=== PATIENT | male | born 1950 | race Caucasian/White ===

== ENCOUNTER → 2017-04-09 | Day surgery (SDC) | payer OTHER, BC ==
[2017-04-02 08:31] VITALS: Ht 180.3 cm; Wt 143.8 kg
--- NOTE | 2017-04-02 08:52 | PAT Medication Instructions ---
Service Date Apr 02, 2017. Current Home Medication List Allopurinol (Zyloprim), 100 MG PO UD PRN for GOUT Amlodipine (Norvasc), 5 MG PO QAM Losartan Potassium (Cozaar), 100 MG PO QAM Sildenafil Citrate (Viagra), 50 MG PO PRN Simvastatin (Zocor), 20 MG PO QPM Tamsulosin Hcl (Flomax), 0.4 MG PO HS Medication Instructions For Your Scheduled Surgery - Hold the following medications the morning of surgery: Losartan Potassium (Cozaar), 100 MG PO QAM Allopurinol (Zyloprim), 100 MG PO UD PRN for GOUT Sildenafil Citrate (Viagra), 50 MG PO PRN - Take the following medications the morning of surgery with a sip of water OTHERWISE NOTHING TO EAT OR DRINK AFTER MIDNIGHT: Amlodipine (Norvasc), 5 MG PO QAM - Take the following medications as scheduled the night before surgery: Simvastatin (Zocor), 20 MG PO QPM Tamsulosin Hcl (Flomax), 0.4 MG PO HS If you have any questions please call us at [phone] or [phone] or [phone]
--- NOTE | 2017-04-02 09:39 | DIAGNOSTIC IMAGING REPORT ---
CHEST PREADMISSION(PA/LAT) CLINICAL HISTORY: Preoperative chest COMPARISON STUDY: No previous studies for comparison. FINDINGS: The heart is enlarged. There is mild aortic tortuosity/ectasia. There is no focal pulmonary consolidation. There is no failure. There are no pleural effusions. There is minor linear left basilar atelectasis/scarring.[ IMPRESSION: Minor left basilar atelectasis/scarring. No active disease in the chest. Electronically signed by: Jamshid Lea M.D. 04/02/2017 9:38 AM Dictated Date/Time: 04/02/2017 9:37 AM
[2017-04-02 09:54] LABS: BASO % 0.8 %; BASO ABS # 0.05 K/uL (0-0.2); COMPLETE YES; EOS % 3.8 %; HEMATOCRIT 44.9 % (42-52); IG% 0.7 %; LYMPH % 28.6 %; LYMPH ABS # 1.72 K/uL (1.2-3.4); MEAN CORPUSCULAR HEMOGLOBIN 31.4 pg (25-34); MEAN CORPUSCULAR HGB CONC 34.1 g/dl (32-36); MEAN PLATELET VOLUME 9.2 fL (7.4-10.4); MONO % 12.3 %; NEUT % 53.8 %; PLATELET COUNT 199 K/uL (130-400); RED BLOOD COUNT 4.88 M/uL (4.7-6.1); WHITE BLOOD COUNT 6.01 K/uL (4.8-10.8)
[2017-04-02 10:56] LABS: BUN/CREATININE RATIO 20.8 (10-20); CREATININE 0.99 mg/dl (0.60-1.40); POTASSIUM 4.4 mmol/L (3.5-5.1)
[~2017-04-09] VITALS: Ht 180.3 cm; Wt 143.8 kg
[~2017-04-09] MED LIST: ALLO100T PO; AMLO-110 PO; ATROPINE SULFATE 0.1 MG/ML 5ML SYR IV PRN; BUPIVACAINE/EPINEPHRINE 0.25% 1:200,000 30 ML VIAL ONE; CEFAZOLIN 3000 MG/65 ML D5W IV SCH; DEXAMETHASONE SOD INJ 4 MG/ML VIAL ONE; EpHEDrine SULFATE INJ 50 MG/ML AMP IV PRN; EpINEphrine INJ 1MG/ML AMP 1 MG/ML AMP ONE; FENTANYL CITRATE INJ 50 MCG/1 ML 2 ML VIAL IV PRN; FENTANYL CITRATE INJ 50 MCG/1 ML 2 ML VIAL ONE; HYDR-5688 PO; KETO10TA PO; LACTATED RINGER'S 1000ML 1,000 ML IV SCH; LOSA1TAB38 PO; MIDAZOLAM HCL 1 MG/ML 2ML VIAL ONE; ONDANSETRON INJ 2 MG/ML 2 ML VIAL IV PRN; ONDANSETRON INJ 2 MG/ML 2 ML VIAL ONE; OXYC-57 PO; OXYCODONE/ACETAMINOPHEN 5-325 TAB PO PRN; PROPOFOL IV EMULSION 10 MG/ML 20 ML VIAL IV ONE; ROCURONIUM BROMIDE 10 MG/ML 5 ML VIAL ONE; ROPIVACAINE 0.5% 5 MG/ML 30 ML VIAL ONE; SILD50TA PO; SIMV20TA2 PO; SODIUM CHLORIDE 0.9% 1000ML 1,000 ML IV SCH; SUCCINYLCHOLINE CHLORIDE 20 MG/ML 10 ML VIAL IV ONE; TAMS0.4C38 PO
--- NOTE | 2017-04-09 06:44 | History & Physical Bridge - SC ---
H&P Re-Evaluation Bridge Note: I have examined the patient, reviewed the History & Physical and in the interval since the performance of the History & Physical I have noted the following changes of clinical significance: No changes noted
--- NOTE | 2017-04-09 09:55 | [facility] Post Operative Brief Note ---
Immediate Operative Summary Operative Date Apr 09, 2017. Pre-Operative Diagnosis Left shoulder medium rotator cuff tear Post-Operative Diagnosis Same as preop Procedure(s) Performed Left Shoulder Arthroscopy, Medium Rotator Cuff Repair Surgeon Dr. Sorensen Hash Slinger Surgeon(s) Brad Wallace PA-C Estimated Blood Loss 5 mL Findings as above Specimens None Complication(s) None Disposition Recovery Room / PACU
--- NOTE | 2017-04-09 10:18 | Discharge Instructions-SurgCtr ---
Discharge Instructions Date of Service Apr 09, 2017. Visit Reason for Visit: Left Shoulder Full Thickness Rotator Cuff Tear Discharge Discharge Diagnosis / Problem: SAME ABOVE Discharge Goals Goal(s): Decrease discomfort, Improve function Activity Recommendations Activity Limitations: as noted below Lifting Limitations: until after follow-up appointment Exercise/Sports Limitations: until after follow-up appointment Shower/Bathe: tomorrow Anesthesia . Post Anesthesia Instructions: If you have had General Anesthesia or IV Sedation: * Do not drive today. * Resume driving when surgeon permits. * Do not make important decisions or sign legal documents today. * Call surgeon for: 1. Temperature elevations greater than 101 degrees F. 2. Uncontrollable pain. 3. Excessive bleeding. 4. Persistent nausea and vomiting. 5. Medication intolerance (nausea, vomiting or rash). * For nausea and vomiting use only clear liquids such as: tea, soda, bouillon until nausea subsides, then gradually increase diet as tolerated. * If you have any concerns or questions, call your surgeon's office. If physician is unavailable and it is an emergency, call 911 or go to the nearest emergency room. . Instructions / Follow-Up Instructions / Follow-Up MEDICATIONS: * Resume previous medications unless instructed otherwise by your surgeon. * Always take pain medication on a full stomach or with food to avoid upset stomach. * Do not drink alcohol or drive while taking narcotics. * Ibuprofen or Tylenol may be taken if narcotic not needed. SPECIAL CARE INSTRUCTIONS: __ None _X_ Keep extremity elevated and iced x 48 hours; apply ice 20-30 minutes 8-10 times/day. May remove at night. __ Sling __24 hrs/day __ Remove at night _X_ Shoulder Immobilizer _X_ 24 hrs/day __ Remove at night __X Dressing __ Maintain until seen in office, may shower with plastic over site _X_ Remove dressings in 24-48 hours and then may shower _X_ Cover incisions with band-aids after showering __ Do not remove steri-strips CONTINUE TO USE SHOULDER IMMOBILIZER FOR THE NEXT 6 WEEKS WE WILL SEE YOU IN OFFICE 10-14 DAYS POST OP FOR EVALUATION Call physician if chills or temperature rises above 102 degrees or pain unrelieved by prescribed pain medications at . . Diet Recommendations Home Diet: resume previous diet Procedures Procedures Performed: Left Shoulder Arthroscopy, Medium Rotator Cuff Repair Pending Studies Studies pending at discharge: no Medical Emergencies . Who to Call and When: Medical Emergencies: If at any time you feel your situation is an emergency, please call 911 immediately. . Non-Emergent Contact Non-Emergency issues call your: Primary Care Provider . . "Provider Documentation" section prepared by Brad Wallace. .
--- NOTE | 2017-04-09 11:28 | Anesthesia Progress Nt - [facility] ---
Anesthesia Post Op Note Date & Time Apr 09, 2017 at 11:28 Vital Signs Pain Intensity: 0 Vital Signs Past 12 Hours Date Time Temp Pulse Resp B/P (MAP) Pulse Ox O2 Delivery O2 Flow Rate FiO2 04/09/17 10:58 37.1 66 14 127/79 (95) 93 Room Air 04/09/17 10:48 69 21 89 04/09/17 10:48 68 21 04/09/17 10:46 118/69 04/09/17 10:43 71 17 95 04/09/17 10:43 71 17 04/09/17 10:43 36.4 67 16 121/73 94 Room Air 04/09/17 10:42 69 16 97 04/09/17 10:42 68 16 04/09/17 10:41 121/73 04/09/17 10:37 66 8 04/09/17 10:37 66 8 99 04/09/17 10:36 134/75 04/09/17 10:33 70 14 92 04/09/17 10:33 70 14 04/09/17 10:31 129/74 04/09/17 10:28 67 13 97 04/09/17 10:28 67 13 04/09/17 10:26 127/83 04/09/17 10:23 73 23 04/09/17 10:23 73 23 96 04/09/17 10:21 127/74 04/09/17 10:18 74 25 04/09/17 10:18 75 25 97 04/09/17 10:17 118/74 04/09/17 10:14 144/76 04/09/17 10:13 36.4 75 16 144/76 96 Diffusion Mask 04/09/17 10:13 78 04/09/17 10:13 78 89 04/09/17 07:54 65 04/09/17 07:54 70 23 98 04/09/17 07:51 136/79 04/09/17 07:49 69 04/09/17 07:49 68 19 99 04/09/17 07:46 139/83 04/09/17 07:44 68 29 99 04/09/17 07:44 69 04/09/17 07:43 66 04/09/17 07:43 65 19 98 04/09/17 07:41 148/81 04/09/17 07:38 68 20 100 04/09/17 07:38 70 04/09/17 07:36 149/83 04/09/17 07:33 73 04/09/17 07:33 73 20 100 04/09/17 07:31 154/83 04/09/17 06:35 36.8 69 18 159/94 (115) 96 Room Air Notes Mental Status: alert / awake / arousable, participated in evaluation Pt Amnestic to Procedure: Yes Nausea / Vomiting: adequately controlled Pain: adequately controlled Airway Patency, RR, SpO2: stable & adequate BP & HR: stable & adequate Hydration State: stable & adequate Anesthetic Complications: no major complications apparent c/o mild sorethroat but otherwise doing well. pain very well controlled with the block.
[2017-04-09 11:56] VITALS: BP 124/78; PULSE 68; TEMP 37; O2SAT 94
--- NOTE | 2017-04-09 14:58 | OPERATIVE REPORT ---
DATE OF OPERATION: 04/09/2017 PREOPERATIVE DIAGNOSES: Medium sized left rotator cuff tear and external impingement. POSTOPERATIVE DIAGNOSES: Same. PROCEDURES: Left shoulder diagnostic arthroscopy with extensive debridement, distal clavicle excision to include coplanning in the undersurface of the clavicle, acromioplasty, rotator cuff repair of the supraspinatus and upper border of the subscapularis. SURGEON: Dr. Brad Sorensen. INTERNET MARKETING ASSISTANT: Brad Wallace PA-C, whose assistance was necessary for positioning of the arm and helping with instrumentation. ANESTHESIA: General with a left interscalene nerve block. COMPLICATIONS: None. CONDITION: Stable to PACU. 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 MRI and clinical examination were diagnostic for severe external impingement with medium size cuff tear. After failing conservative treatment, he elected to undergo arthroscopy. DESCRIPTION OF PROCEDURE: On 04/09/2017, he arrived at [facility] for the above procedure. He was seen in the preoperative holding area and the operative extremity was identified and signed. He was given a preoperative antibiotic and a left interscalene nerve block. He was taken back to the operating room, laid on the table in supine position and put under general anesthesia. He was then put into the beachchair position. Left shoulder was prepped and draped in sterile fashion. Time-out was done and the patient and operative extremity was properly identified. A scope was introduced into the posterior portal. Diagnostic arthroscopy showed no cartilage damage to the humeral head or the glenoid. The biceps tendon had been traumatically tenotomized and was absent. There was a tear of the upper border of the subscapularis. There was a tear of the entire supraspinatus. The infraspinatus and teres minor were intact. An anterior portal was made. A shaver was used to do a debridement of some of the intraarticular structures and the biceps stump was debrided back to stable margins. The scope was then put into the subacromial space. A lateral portal was made. A shaver was used to do a complete subacromial and subdeltoid bursectomy. Time was spent doing extensive debridement of the spaces to better identify the rotator cuff tears. An ablator was then used to tease the coracoacromial ligament off the undersurface of the acromion and a 5-0 tahir was used to complete an acromioplasty of a Bigliani type 3 acromion. A shaver was used to remove any excess debris and attention was turned to the distal clavicle. There were large inferior osteophytes off the distal clavicle. A 5-0 tahir was then used to resect the osteophytes off the undersurface of the clavicle to complete a distal clavicle resection. This opened up the supraspinatus outlet. Attention was then turned to the rotator cuff. The subscapularis was fixed first. Ruby cannulas were placed in the anterior portal and additional anterolateral portal was made. Ruby cannulas were placed in that portal as well. The scope was placed back into the joint. A single 4.75-mm BioComposite SwiveLock suture anchors placed at the lesser tuberosity articular footprint. The FiberTapes were passed through the tendon at the anticipator articular margin. The FiberTapes were then brought down to a single lateral row SwiveLock suture anchor. This gave a nice subscapularis repair. Attention was then turned to the supraspinatus. The greater tuberosity was prepared with a ring curette and a microfracture. The rotator cuff was then fixed with an Arthrex SpeedBridge configuration using 4.75-mm BioComposite SwiveLock suture anchors and FiberTape. This gave a nice fixation. Multiple pictures were taken. The scope was placed back into the glenohumeral joint and the articular margin of the rotator cuff had been restored. Arthroscopic instruments were removed from the shoulder. Portal sites were closed with 3-0 nylon. He was then placed in a soft dressing and regular arm sling. He was then extubated, transferred to a [facility] and taken to the postanesthesia care unit in stable condition. He tolerated the procedure well. I attest to the content of the Intraoperative Record and any orders documented therein. Any exceptions are noted below. ARELY
== END | disposition home or self-care (01) ==
LOC: X.SURG 06:10
PROVIDERS: ATTEND Orthopaedic Surgery
DX: S46.012A Strain of muscle(s) and tendon(s) of the rotator cuff of left shoulder, initial encounter (principal); M75.42 Impingement syndrome of left shoulder; X50.0XXA Overexertion from strenuous movement or load, initial encounter; Y99.0 Civilian activity done for income or pay; I10 Essential (primary) hypertension; E78.00 Pure hypercholesterolemia, unspecified; Z79.899 Other long term (current) drug therapy

== ENCOUNTER → 2017-07-07 | Outpatient (CLI) | payer OTHER ==
[~2017-07-07] MED LIST changes: -ATROPINE SULFATE 0.1 MG/ML 5ML SYR IV PRN; -BUPIVACAINE/EPINEPHRINE 0.25% 1:200,000 30 ML VIAL ONE; -CEFAZOLIN 3000 MG/65 ML D5W IV SCH; -DEXAMETHASONE SOD INJ 4 MG/ML VIAL ONE; +DICLOFENAC PO; -EpHEDrine SULFATE INJ 50 MG/ML AMP IV PRN; -EpINEphrine INJ 1MG/ML AMP 1 MG/ML AMP ONE; -FENTANYL CITRATE INJ 50 MCG/1 ML 2 ML VIAL IV PRN; -FENTANYL CITRATE INJ 50 MCG/1 ML 2 ML VIAL ONE; -HYDR-5688 PO; -LACTATED RINGER'S 1000ML 1,000 ML IV SCH; -MIDAZOLAM HCL 1 MG/ML 2ML VIAL ONE; -ONDANSETRON INJ 2 MG/ML 2 ML VIAL IV PRN; -ONDANSETRON INJ 2 MG/ML 2 ML VIAL ONE; -OXYCODONE/ACETAMINOPHEN 5-325 TAB PO PRN; -PROPOFOL IV EMULSION 10 MG/ML 20 ML VIAL IV ONE; -ROCURONIUM BROMIDE 10 MG/ML 5 ML VIAL ONE; -ROPIVACAINE 0.5% 5 MG/ML 30 ML VIAL ONE; -SODIUM CHLORIDE 0.9% 1000ML 1,000 ML IV SCH; -SUCCINYLCHOLINE CHLORIDE 20 MG/ML 10 ML VIAL IV ONE
[2017-07-07 17:02] LABS: BASO % 0.9 %; BASO ABS # 0.06 K/uL (0-0.2); COMPLETE YES; EOS % 3.3 %; HEMATOCRIT 46.1 % (42-52); IG% 0.6 %; LYMPH ABS # 2.28 K/uL (1.2-3.4); MEAN CELL VOLUME 90.6 fL (80-100); MEAN CORPUSCULAR HEMOGLOBIN 30.5 pg (25-34); MEAN CORPUSCULAR HGB CONC 33.6 g/dl (32-36); MEAN PLATELET VOLUME 9.5 fL (7.4-10.4); MONO % 9.3 %; NEUT % 51.9 %; PLATELET COUNT 225 K/uL (130-400); RED BLOOD COUNT 5.09 M/uL (4.7-6.1)
[2017-07-07 17:29] LABS: BLOOD UREA NITROGEN 17 mg/dl (7-18); BUN/CREATININE RATIO 18.5 (10-20); CALCIUM 9.4 mg/dl (8.5-10.1); CARBON DIOXIDE 27 mmol/L (21-32); CHLORIDE 107 mmol/L (98-107); CREATININE 0.93 mg/dl (0.60-1.40); GLUCOSE 86 mg/dl (70-99); SODIUM 141 mmol/L (136-145)
== END | disposition home or self-care (01) ==
LOC: C.LABBC 14:11
PROVIDERS: ATTEND Orthopaedic Surgery
DX: G56.03 Carpal tunnel syndrome, bilateral upper limbs (principal)

== ENCOUNTER → 2017-07-30 | Day surgery (SDC) | payer OTHER ==
[2017-07-10 13:08] VITALS: Ht 180.3 cm; Wt 144.1 kg
[~2017-07-30] VITALS: Ht 180.3 cm; Wt 144.1 kg
[~2017-07-30] MED LIST changes: +ATROPINE SULFATE 0.1 MG/ML 5ML SYR IV PRN; +CEFAZOLIN 3000MG IV PUSH 15 ML IV SCH; +EpHEDrine SULFATE INJ 50 MG/ML AMP IV PRN; +FENTANYL CITRATE INJ 50 MCG/1 ML 2 ML VIAL IV PRN; +FENTANYL CITRATE INJ 50 MCG/1 ML 2 ML VIAL ONE; +HYDR-5688 PO; +HYDROCODONE/ACETAMOPHEN 5/325MG TAB PO PRN; -KETO10TA PO; +LACTATED RINGER'S 1000ML 1,000 ML IV SCH; +LIDOCAINE HCL 2% 2 ML VIAL (20MG/ML) ONE; +LIDOCAINE HCL 2% LOCAL 20 ML VIAL ONE; +MIDAZOLAM HCL 1 MG/ML 2ML VIAL ONE; +ONDANSETRON INJ 2 MG/ML 2 ML VIAL IV PRN; -OXYC-57 PO; +PROPOFOL IV EMULSION 10 MG/ML 20 ML VIAL IV ONE; +SODIUM CHLORIDE 0.9% 1000ML 1,000 ML IV SCH
[2017-07-30 07:30] VITALS: TEMP 36.8
--- NOTE | 2017-07-30 07:35 | OPERATIVE REPORT ---
DATE OF OPERATION: 07/30/2017 PREOPERATIVE DIAGNOSIS: Carpal tunnel syndrome of the right wrist. POSTOPERATIVE DIAGNOSIS: Same. PROCEDURE: Open carpal tunnel release. SURGEON: Dr. Brad Sorensen. FLEXOGRAPHIC PRESS PLATE SETTER: Francisco Herrera PA-C, whose assistance was necessary for retraction and closure. ANESTHESIA: Local with sedation. COMPLICATIONS: None. CONDITION: Stable to PACU. INDICATIONS: Chris is a pleasant 67-year-old male who presented to my office with complaints of numbness in his right hand. EMG and clinical examination were diagnostic for carpal tunnel syndrome of the right wrist. After failing conservative treatment, he elected to undergo an open carpal tunnel release. DESCRIPTION OF PROCEDURE: On 07/30/2017, he arrived at the [facility] for the above procedure. He was seen in the preoperative holding area and the operative extremity was identified and signed. He was given a preoperative antibiotic and taken back to the operating room, laid on the table in supine position and given basic sedation. The right hand was then prepped and draped in sterile fashion. Time-out was done and the patient's operative extremity was properly identified. The surgical site was anesthetized with 10 mL of lidocaine. A longitudinal incision was made directly over the transverse carpal ligament. Dissection was taken down through the palmar fascia with care not to disrupt the recurrent motor branch or the palmar branch of the nerve. The transverse carpal ligament was then released with a sharp knife and tenotomy scissors. Care was taken to ensure complete proximal and distal resection. The wound was then irrigated and closed with 4-0 nylon suture in a mattress fashion. He was then placed in a soft dressing and taken to the postanesthesia care unit in stable condition. He tolerated the procedure well. I attest to the content of the Intraoperative Record and any orders documented therein. Any exception s are noted below.
--- NOTE | 2017-07-30 07:47 | Discharge Instructions-SurgCtr ---
Discharge Instructions Date of Service Jul 30, 2017. Visit Reason for Visit: Right Carpal Tunnel Syndrome Discharge Discharge Diagnosis / Problem: SAME ABOVE Discharge Goals Goal(s): Decrease discomfort, Improve function Activity Recommendations Activity Limitations: as noted below Lifting Limitations: until after follow-up appointment Exercise/Sports Limitations: until after follow-up appointment Driving or Machine Use: resume 1 day after discharge Anesthesia . Post Anesthesia Instructions: If you have had General Anesthesia or IV Sedation: * Do not drive today. * Resume driving when surgeon permits. * Do not make important decisions or sign legal documents today. * Call surgeon for: 1. Temperature elevations greater than 101 degrees F. 2. Uncontrollable pain. 3. Excessive bleeding. 4. Persistent nausea and vomiting. 5. Medication intolerance (nausea, vomiting or rash). * For nausea and vomiting use only clear liquids such as: tea, soda, bouillon until nausea subsides, then gradually increase diet as tolerated. * If you have any concerns or questions, call your surgeon's office. If physician is unavailable and it is an emergency, call 911 or go to the nearest emergency room. . Instructions / Follow-Up Instructions / Follow-Up MEDICATIONS: * Resume previous medications unless instructed otherwise by your surgeon. * Always take pain medication on a full stomach or with food to avoid upset stomach. * Do not drink alcohol or drive while taking narcotics. * Ibuprofen or Tylenol may be taken if narcotic not needed. SPECIAL CARE INSTRUCTIONS: __ None _X_ Keep extremity elevated and iced x 48 hours; apply ice 20-30 minutes 8-10 times/day. May remove at night. __ Sling __24 hrs/day __ Remove at night __ Shoulder Immobilizer __ 24 hrs/day __ Remove at night _X_ Dressing __ Maintain until seen in office, may shower with plastic over site _X_ Remove dressings in 5 DAYS and MAY SHOWER SOONER IF COVERED WITH PLASTIC BAG _X_ Cover incisions with band-aids after showering __ Do not remove steri-strips Call physician if chills or temperature rises above 102 degrees or pain unrelieved by prescribed pain medications at . . Diet Recommendations Home Diet: no limitations Fluid Restriction: None Procedures Procedures Performed: Right Carpal Tunnel Release Pending Studies Studies pending at discharge: no Work Instructions Lifting Limitations: no more than 10 pounds Medical Emergencies . Who to Call and When: Medical Emergencies: If at any time you feel your situation is an emergency, please call 911 immediately. . Non-Emergent Contact Non-Emergency issues call your: Primary Care Provider Call Non-Emergent contact if: you have a fever, temperature is above 101.5 . . "Provider Documentation" section prepared by Kumar Herrera. .
--- NOTE | 2017-07-30 07:59 | Anesthesia Progress Nt - [facility] ---
Anesthesia Post Op Note Date & Time Jul 30, 2017 at 07:59 Vital Signs Pain Intensity: 6 Vital Signs Past 12 Hours Date Time Temp Pulse Resp B/P (MAP) Pulse Ox O2 Delivery O2 Flow Rate FiO2 07/30/17 07:30 36.8 72 16 146/67 (93) 95 Room Air 07/30/17 06:45 133/80 (97) 07/30/17 06:23 36.7 77 18 153/98 (116) 96 Room Air Notes Mental Status: alert / awake / arousable, participated in evaluation Pt Amnestic to Procedure: Yes Nausea / Vomiting: adequately controlled Pain: adequately controlled Airway Patency, RR, SpO2: stable & adequate BP & HR: stable & adequate Hydration State: stable & adequate Anesthetic Complications: no major complications apparent
[2017-07-30 08:06] VITALS: BP 133/77; PULSE 71; O2SAT 98
--- NOTE | 2017-07-30 15:37 | [facility] Post Operative Brief Note ---
Immediate Operative Summary Operative Date Jul 30, 2017. Pre-Operative Diagnosis Right Carpal Tunnel Syndrome Post-Operative Diagnosis same as preop Procedure(s) Performed Right Carpal Tunnel Release Surgeon Dr. Sorensen Subscription Agent Surgeon(s) LANCE Quigley Estimated Blood Loss 5ML Findings as above Specimens none per surgeon Complication(s) None Disposition Recovery Room / PACU
== END | disposition home or self-care (01) ==
LOC: X.SURG 06:10
PROVIDERS: ATTEND Orthopaedic Surgery
DX: G56.01 Carpal tunnel syndrome, right upper limb (principal); I10 Essential (primary) hypertension; M10.9 Gout, unspecified; N40.0 Benign prostatic hyperplasia without lower urinary tract symptoms; E66.9 Obesity, unspecified; Z68.41 Body mass index [BMI] 40.0-44.9, adult; Z79.899 Other long term (current) drug therapy; G47.33 Obstructive sleep apnea (adult) (pediatric)

== ENCOUNTER → 2017-10-06 | Outpatient (CLI) | payer OTHER ==
[~2017-10-06] MED LIST changes: -ATROPINE SULFATE 0.1 MG/ML 5ML SYR IV PRN; -CEFAZOLIN 3000MG IV PUSH 15 ML IV SCH; -EpHEDrine SULFATE INJ 50 MG/ML AMP IV PRN; -FENTANYL CITRATE INJ 50 MCG/1 ML 2 ML VIAL IV PRN; -FENTANYL CITRATE INJ 50 MCG/1 ML 2 ML VIAL ONE; -HYDROCODONE/ACETAMOPHEN 5/325MG TAB PO PRN; -LACTATED RINGER'S 1000ML 1,000 ML IV SCH; -LIDOCAINE HCL 2% 2 ML VIAL (20MG/ML) ONE; -LIDOCAINE HCL 2% LOCAL 20 ML VIAL ONE; -MIDAZOLAM HCL 1 MG/ML 2ML VIAL ONE; -ONDANSETRON INJ 2 MG/ML 2 ML VIAL IV PRN; -PROPOFOL IV EMULSION 10 MG/ML 20 ML VIAL IV ONE; -SODIUM CHLORIDE 0.9% 1000ML 1,000 ML IV SCH
--- NOTE | 2017-10-06 11:22 | DIAGNOSTIC IMAGING REPORT ---
RIGHT ANKLE MRI HISTORY: RIGHT ANKLE PAIN TECHNIQUE: Multiplanar multisequence MRI of the right ankle was performed without the use of intravenous contrast. COMPARISON STUDY: None. FINDINGS: No acute fracture or dislocation within the right ankle. Focal defect within the medial talar dome measuring 13 x 6 mm. This is consistent with an osteochondral lesion. This likely results in the intra-articular loose bodies most pronounced within the posterior joint space. Dominant intra-articular loose body measures 12 mm. 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 Small tibiotalar joint effusion. There is fluid surrounding the tibialis posterior tendon and flexor digitorum tendon. This could represent tenosynovitis. Flattening and increased signal within the peroneus brevis tendon consistent with a mild tendinopathy. There is also small amount of fluid surrounding the peroneus longus tendon consistent with tenosynovitis. Thickening and increased signal within the proximal plantar fascia consistent with a plantar fasciitis. Thickening and increased signal within the medial and lateral stabilizing ligaments consistent with chronic injury. Mild medial subcutaneous edema. Mild to moderate cartilage thinning at the tibiotalar joint. IMPRESSION: 1. No acute fracture or dislocation within the right ankle. 2. A 13 x 6 mm and osteochondral lesion at the medial talar dome. This likely accounts for the intra-articular loose bodies. 3. 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 4. Mild peroneus brevis tendinopathy. 5. Fluid surrounding the flexor and peroneal tendons as described above consistent with tenosynovitis. 6. Plantar fasciitis. Electronically signed by: Miguelangel Ovalles M.D. 10/06/2017 11:20 AM Dictated Date/Time: 10/06/2017 11:08 AM
== END | disposition home or self-care (01) ==
LOC: C.MRIBC 09:50
PROVIDERS: ATTEND Orthopaedic Surgery
DX: M19.90 Unspecified osteoarthritis, unspecified site (principal); M72.2 Plantar fascial fibromatosis

== ENCOUNTER 2022-05-15 07:37 | Inpatient (IN) ==
[2022-05-15] MEDS ORDERED: SODIUM CHLORIDE 0.9% 1000ML 500 ML IV ONE (08:10)
[2022-05-15 08:28] LABS: Basophils # (auto) 0.06 K/uL (0-0.2); Basophils % (auto) 0.8 %; Eosinophils # (auto) 0.13 K/uL (0-0.50); Eosinophils % (auto) 1.8 %; Hematocrit (blood only) 45.6 % (40.1-51.0); Hemoglobin 15.2 g/dl (14.0-18.0); Immature Granulocytes # (auto) 0.04 K/uL (0.00-0.02); Immature Granulocytes % (auto) 0.5 %; Lymphocytes # (auto) 1.78 K/uL (1.2-3.4); Lymphocytes % (auto) 24.2 %; Mean Corpuscular Hemoglobin 30.2 pg (25.0-34.0); Mean Corpuscular Hgb Conc 33.3 g/dL (32.0-36.0); Mean Corpuscular Volume 90.5 fL (80.0-100.0); Monocytes # (auto) 0.84 K/uL (0.24-0.82); Monocytes % (auto) 11.4 %; Neutrophils # (auto) 4.51 K/uL (1.4-6.5); Neutrophils % (auto) 61.3 %; Platelet Count 203 K/uL (130-400); RDW Coefficient of Variation 12.7 % (11.5-14.5); RDW Standard Deviation 41.5 fL (36.4-46.3); Red Blood Count 5.04 M/uL (4.63-6.08); White Blood Count 7.36 K/ul (4.8-10.8)
[2022-05-15 08:52] LABS: Alanine Aminotransferase 8 U/L (7-52); Albumin Level 4.1 gm/dl (3.4-5.0); Alkaline Phosphatase 72 U/L (34-104); Anion Gap 7 (3-11); Aspartate Aminotransferase 17 U/L (13-39); Bilirubin,Total 0.9 mg/dl (0.2-1.0); Blood Urea Nitrogen 19 mg/dl (6-23); Calcium 9.6 mg/dl (8.5-10.1); Carbon Dioxide 27 mmol/L (21-32); Chloride 104 mmol/L (98-107); Creatinine Clr Calc Pharmacy 103.6 ml/min; Est GFR (African American) 93.6 ml/min; Est GFR (Non-African American) 80.8 ml/min; Glucose 115 mg/dl (70-99(Fasting)); Lipase 11 U/L (11-82); Potassium 4.3 mmol/L (3.5-5.1); Sodium 138 mmol/L (136-145); Total Protein 7.2 gm/dl (6.0-8.3)
--- NOTE | 2022-05-15 09:03 | Communication Note ---
Date of Service: May 15, 2022 Patient seen and examined with Dr. Griffin. Resident Activity Tracking Resident Involvement: Resident Care Provided Care Provided: Adult ED
--- NOTE | 2022-05-15 09:06 | Emergency Department Note ---
Impression & Plan Superior mesenteric vein thrombosis, Diffuse abdominal pain ED Provider Note Name: NADEEM NICHOLE Age: 72 Sex: M Arrives Via: Walk-In Informant: Patient, ED Provider: Donavan Griffin MD Chief Complaint: Abdominal Pain Impression: As per impressions above Medical Decision Making: Pleasant 72-year-old gentleman with history of hypertension, dyslipidemia and obesity arrives for evaluation of diffuse lower abdominal pain. Cramping in nature over the last 2 to 3 weeks gradually worsening. On examination does have tenderness palpation of the lower abdomen though without peritonitis. Given symptoms felt CT imaging indicated. Fortunate labs are unremarkable. 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 I discussed the case with hematology who feel that given the extensive nature would be reasonable start heparin and hospitalization. I do think this is reasonable. Patient was reevaluated multiple times and he is stable in no distress. He declines any pain medications at this time. He denies any recent head injuries, accidents, bleeding/bruising, black or bloody stools or any epigastric abdominal pain. I discussed the risks of starting heparin with him and he is on board with this plan. He understands the risks of bleeding etc. Discussed with hospitalist who will evaluate him further for further management. I did have hypercoagulable labs sent prior to starting the heparin. Prior Medical Record and Triage/Nursing Notes reviewed by Me Additional history obtained from chart/ Differentials:Appendicitis, testicular torsion, infections, diverticulitis, UTI, obstruction, mesenteric ischemia, aortic pathology, inflammatory bowel disease, renal colic, PUD, pancreatitis, biliary pathology, hernia, volvulus, constipation, as well as other pathologies. Vital Signs: reviewed and remarkable for no significant abnormalities Interventions: heparin bolus/gtt Labs:Reviewed and remarkable for no significant abnormalities Imaging:CT abdomen pelvis as per radiology extensive near occlusive superior mesenteric vein occlusion with edema Consults:Dr Pandya Hematology, Dr José Miguel Laboy Hospitalist Plan: Disposition:Hospitalization. Condition: Good History of Present Illness:72-year-old gentleman arrives for evaluation of abdominal pain. Patient notes 2 to 3 weeks gradually worsening lower abdominal pain. Cramping in nature. Comes and goes. Worse this morning. No radiation of pain. Does take out both sides of his lower abdomen. Having normal bowel movements. Denies any urinary symptoms. Denies any rashes, fevers, nausea, vomiting, leg swelling, syncope, chest pain, shortness of breath or any other signs or symptoms. Taking no medications for this. No recent falls, trauma, injuries. Makes a bit worse and rest makes better. Recent colonoscopy within 5 years noted a polyp no other concerning findings. ROS: See above HPI for pertinent positives & negatives. A total of 10 systems reviewed and were otherwise negative. Past Medical History:Hypertension, dyslipidemia, gout, BPH Past Surgical History:Umbilical hernia repair Family History:Father with AAA stented Social History:Retired, lives with Home Medications:See Below Allergies:THUAN inhibitor's Vitals:Blood Pressure: 148/90, Pulse 92, RR 18, T 36.5C, O2 98% on RA Physical Exam: GENERAL: Patient is mildly uncomfortable appearing and in mild distress. EYES: No scleral icterus, unremarkable pupils. ENT: Mucous membranes moist, no nasal congestion. NECK: No masses appreciated, nomeningismus, trachea is midline. RESPIRATORY: No dyspnea. Clear to auscultation and equal bilaterally. No wheeze, no rhonchi. CARDIOVASCULAR: Regular rate and rhythm.No murmurs, rubs, gallops appreciated. GASTROINTESTINAL: Bilateral lower abdominal TTP, otherwise abdomen soft, non- tender, no peritonitis.Bowel sounds positive.No masses appreciated. BACK: No midline tenderness, no CVA tenderness EXTREMITIES: Normal motion all extremities, no cyanosis, no edema. NEUROLOGIC: Alert and oriented, no acute motor or sensory deficits, no focal weakness, cranial nerves grossly intact. SKIN: No rash, no jaundice, no diaphoresis. PSYCH: Appropriate GCS: 15 ED Course: Times/Reassessments: Patient stable he is uncomfortable but declines any pain medications. Agreeable to heparinization and admission. Donavan Griffin MD Past Med/Surg History Medical History Abdominal pain Acute occlusion of mesenteric vein HLD (hyperlipidemia) HTN (hypertension) Social History Smoking Status: Never smoker Feels Safe at Home: Yes Allergies Allergies Allergy/AdvReac Type Severity Reaction Status Date / Time THUAN Inhibitors AdvReac Unknown cough Verified 07/30/17 06:21 Home Meds Home Medications Medication Instructions Recorded Confirmed amlodipine 5 mg tablet 5 mg PO DAILY 08/15/19 05/15/22 losartan 100 mg tablet 100 mg PO DAILY 08/15/19 05/15/22 simvastatin 20 mg tablet 20 mg PO QPM 08/15/19 05/15/22 tamsulosin 0.4 mg capsule (Flomax) 0.4 mg PO HS 08/15/19 05/15/22 Previous Rx's Medication Instructions Recorded indomethacin 25 mg capsule 50 mg PO TID #90 caps 07/23/21 Results & Data (ED) Vital Signs Vital Signs - 24 hr 05/15/22 07:45 05/15/22 08:10 05/15/22 09:00 Temperature 36.5 C Temperature Source Temporal Artery Scan Pulse Rate 92 H Pulse Rate [Left] 79 Pulse Rhythm [Left] Regular Pulse Strength [Left] Normal Respiratory Rate 20 18 18 Respiratory Effort / Characteristics Non-Labored Non-Labored Non-Labored Respiratory Depth Normal Normal Normal Respiratory Pattern Regular Regular Blood Pressure 136/81 Blood Pressure [Left Arm] 148/90 H 145/79 H Blood Pressure Mean 99 Blood Pressure Mean [Left Arm] 109 101 Blood Pressure Position [Left Arm] Lying Lying Pulse Oximetry 96 98 98 Oxygen Delivery Method Room Air Room Air Room Air Sepsis Recent Fever Within 48 Hours No Sepsis New/Unexplained Change in Mental Status N/A Sepsis Action Taken by Nursing No Action Required 05/15/22 12:09 05/15/22 12:11 05/15/22 12:11 Temperature Temperature Source Pulse Rate 81 Pulse Rate [Left] Pulse Rhythm [Left] Pulse Strength [Left] Respiratory Rate 15 15 Respiratory Effort / Characteristics Respiratory Depth Respiratory Pattern Blood Pressure 106/65 Blood Pressure [Left Arm] Blood Pressure Mean 78 Blood Pressure Mean [Left Arm] Blood Pressure Position [Left Arm] Pulse Oximetry Oxygen Delivery Method Sepsis Recent Fever Within 48 Hours Sepsis New/Unexplained Change in Mental Status Sepsis Action Taken by Nursing Laboratory Data Result diagrams: 05/15/22 08:00 05/15/22 08:00 Lab Results 05/15/22 05/15/22 05/15/22 Range/Units 08:00 08:00 10:05 WBC 7.36 (4.8-10.8) K/ul RBC 5.04 (4.63-6.08) M/uL Hgb 15.2 (14.0-18.0) g/dl Hct 45.6 (40.1-51.0) % MCV 90.5 (80.0-100.0) fL MCH 30.2 (25.0-34.0) pg MCHC 33.3 (32.0-36.0) g/dL RDW Std Deviation 41.5 (36.4-46.3) fL RDW Coeff of Manoj 12.7 (11.5-14.5) % Plt Count 203 (130-400) K/uL MPV 9.0 L (9.4-12.4) fL Immature Gran % (Auto) 0.5 % Neut % (Auto) 61.3 % Lymph % (Auto) 24.2 % Lane % (Auto) 11.4 % Eos % (Auto) 1.8 % Baso % (Auto) 0.8 % Neut # (Auto) 4.51 (1.4-6.5) K/uL Lymph # (Auto) 1.78 (1.2-3.4) K/uL Lane # (Auto) 0.84 H (0.24-0.82) K/uL Eos # (Auto) 0.13 (0-0.50) K/uL Baso # (Auto) 0.06 (0-0.2) K/uL Immature Gran # (Auto) 0.04 H (0.00-0.02) K/uL PT (9.0-12.0) Seconds INR (0.9-1.1) APTT (21.0-31.0) Seconds PTT Ratio D-Dimer (0-500) ug/L FEU Sodium 138 (136-145) mmol/L Potassium 4.3 (3.5-5.1) mmol/L Chloride 104 (98-107) mmol/L Carbon Dioxide 27 (21-32) mmol/L Anion Gap 7 (3-11) BUN 19 (6-23) mg/dl Creatinine 0.95 (0.6-1.4) mg/dl Est Cr Clr Drug Dosing 103.6 ml/min Est GFR ( Amer) 93.6 ml/min Est GFR (Non-Af Amer) 80.8 ml/min BUN/Creatinine Ratio 20.0 (10-20) Glucose 115 H (70-99(Fasting)) mg/dl Calcium 9.6 (8.5-10.1) mg/dl Total Bilirubin 0.9 (0.2-1.0) mg/dl Direct Bilirubin TNP AST 17 (13-39) U/L ALT 8 (7-52) U/L Alkaline Phosphatase 72 (34-104) U/L Total Protein 7.2 (6.0-8.3) gm/dl Albumin 4.1 (3.4-5.0) gm/dl Lipase 11 (11-82) U/L Urine Color Yellow Urine Appearance Clear (Clear) Urine pH 6.5 (4.5-7.5) Ur Specific [place] 1.014 (1.000-1.030) Urine Protein Negative (Negative) Urine Glucose (UA) Negative (Negative) Urine Ketones Negative (Negative) Urine Blood Negative (Negative) Urine Nitrite Negative (Negative) Urine Bilirubin Negative (Negative) Urine Urobilinogen Negative (Negative) Ur Leukocyte Esterase Negative (Negative) 05/15/22 Range/Units 11:20 WBC (4.8-10.8) K/ul RBC (4.63-6.08) M/uL Hgb (14.0-18.0) g/dl Hct (40.1-51.0) % MCV (80.0-100.0) fL MCH (25.0-34.0) pg MCHC (32.0-36.0) g/dL RDW Std Deviation (36.4-46.3) fL RDW Coeff of Manoj (11.5-14.5) % Plt Count (130-400) K/uL MPV (9.4-12.4) fL Immature Gran % (Auto) % Neut % (Auto) % Lymph % (Auto) % Lane % (Auto) % Eos % (Auto) % Baso % (Auto) % Neut # (Auto) (1.4-6.5) K/uL Lymph # (Auto) (1.2-3.4) K/uL Lane # (Auto) (0.24-0.82) K/uL Eos # (Auto) (0-0.50) K/uL Baso # (Auto) (0-0.2) K/uL Immature Gran # (Auto) (0.00-0.02) K/uL PT 10.7 (9.0-12.0) Seconds INR 1.0 (0.9-1.1) APTT 25.9 (21.0-31.0) Seconds PTT Ratio 0.9 D-Dimer 2220 H* (0-500) ug/L FEU Sodium (136-145) mmol/L Potassium (3.5-5.1) mmol/L Chloride (98-107) mmol/L Carbon Dioxide (21-32) mmol/L Anion Gap (3-11) BUN (6-23) mg/dl Creatinine (0.6-1.4) mg/dl Est Cr Clr Drug Dosing ml/min Est GFR ( Amer) ml/min Est GFR (Non-Af Amer) ml/min BUN/Creatinine Ratio (10-20) Glucose (70-99(Fasting)) mg/dl Calcium (8.5-10.1) mg/dl Total Bilirubin (0.2-1.0) mg/dl Direct Bilirubin AST (13-39) U/L ALT (7-52) U/L Alkaline Phosphatase (34-104) U/L Total Protein (6.0-8.3) gm/dl Albumin (3.4-5.0) gm/dl Lipase (11-82) U/L Urine Color Urine Appearance (Clear) Urine pH (4.5-7.5) Ur Specific [place] (1.000-1.030) Urine Protein (Negative) Urine Glucose (UA) (Negative) Urine Ketones (Negative) Urine Blood (Negative) Urine Nitrite (Negative) Urine Bilirubin (Negative) Urine Urobilinogen (Negative) Ur Leukocyte Esterase (Negative) Administered Medications Heparin Sodium/Dextrose (Heparin Sodium/Dextrose) 25,000 units in 500 mls @ 36 mls/hr IV .[id number] [facility]; Protocol Stop: 06/14/22 10:59 Last Admin: 05/15/22 12:05 Dose: 1,800 units/hr, 36 mls/hr Documented By: AILEEN Co-signed By: ELLEN Discontinued Medications Heparin Sodium (Porcine) (Heparin Sod (Porcine) 1000 Unit/Ml) 8,000 units IV NOW ONE Stop: 05/15/22 12:16 Last Admin: 05/15/22 12:05 Dose: 8,000 units Documented By: RDMarcia Co-signed By: ELLEN Heparin Sodium/Dextrose (Heparin Iv Adult Wt-Based Standard With Bolus Protocol) 1 each IV NOW STA; Protocol Stop: 05/15/22 10:36 Last Admin: 05/15/22 12:27 Dose: 1 each Documented By: AILEEN Sodium Chloride (Nss 1000ml) 500 mls @ 999 mls/hr IV .Q31M ONE Stop: 05/15/22 08:40 Last Infusion: 05/15/22 09:54 Dose: 0 mls/hr Documented By: Admin: 05/15/22 08:43 Dose: 999 mls/hr Documented By: KUNAL Ioversol (Optiray 300 500ml) 120 ml IV ONCE ONE Stop: 05/15/22 09:37 Last Admin: 05/15/22 09:37 Dose: 120 ml Documented By: SHIKHA Imaging Data Radiologist's Impression: Abdomen/Pelvis CT 05/15/22 08:10 CT SCAN OF THE ABDOMEN AND PELVIS WITH IV CONTRAST CLINICAL HISTORY: Lower abdominal pain. COMPARISON STUDY: Abdominal CT dated 11/12/2012. TECHNIQUE: Following the IV administration of 120 cc of Optiray 300, CT scan of the abdomen and pelvis is performed from the lung bases to the proximal femora. Images are reviewed in the axial, sagittal, and coronal planes. IV contrast was administered without complication. A dose lowering technique was utilized adhering to the principles of ALARA. CT DOSE: 1841.73 mGy.cm FINDINGS: Lung bases: The heart is mildly enlarged and without pericardial effusion. The lung bases are clear noting dependent atelectasis. There is a tiny hiatal hernia. Liver: The contrast-enhanced liver is normal in size, contour, and attenuation. There is no intrahepatic biliary ductal dilatation. The hepatic veins and portal veins are patent. Scattered subcentimeter left lobe hypodensities likely represent cysts but are too small for definitive characterization. Gallbladder: Unremarkable. Spleen: Normal in size and attenuation. The splenic vein is patent. Pancreas: Moderately atrophic and grossly unremarkable. Adrenal glands: Unremarkable. Kidneys: The contrast enhanced kidneys demonstrate cortical atrophy and are without hydronephrosis. The kidneys enhance symmetrically. Question 8 mm enhancing nodule arising from the posterior interpolar right kidney on axial image #246 renal cysts measure up to 2.5 cm. Additional subcentimeter cortical hypodensities also likely represent cysts but are too small for definitive characterization. Renal sinus cysts are seen on the left. There is a 5 mm nonobstructing left renal calculus. A circumaortic left renal vein is incidentally noted. Abdominal vasculature: The abdominal aorta is normal in course and caliber noting mild atherosclerotic calcification. There is nearly occlusive thrombus within the superior mesenteric vein. This is seen on image #191 and extends into more peripheral branches. There is significant inflammatory change around the mesenteric vessels. The splenic vein is patent. Bowel: There is no bowel obstruction. Mild fecal retention is seen throughout the colon. The appendix is well-visualized and normal. Peritoneum: There is no intraperitoneal free air or abdominal ascites. Lymphadenopathy: None. Pelvic viscera: The bladder, prostate, and seminal vesicles are normal as visualized. Skeletal structures: The skeletal structures are osteopenic. There is mild to moderate lumbosacral spondylosis. No lytic or blastic lesions are seen. IMPRESSION: 1. There is extensive nearly occlusive thrombus throughout the superior mesenteric vein with surrounding inflammation. 2. No abnormal bowel loops are identified. There is no obstruction. 3. Question an 8 mm enhancing nodule arising from the interpolar right kidney. Follow-up with a contrast-enhanced renal protocol CT or MRI is recommended in 6 months time, as is follow up with urology. 4. Left-sided nephrolithiasis. 5. Additional findings as above. ACT 112: Positive. There are findings on this exam that require communication between the performing entity and the patient following Patient Test Result Information Act ([place] Act 112) guidelines. Electronically signed by: Kaiden Enriquez M.D. 05/15/2022 10:05 AM Chest X-Ray 05/15/22 11:26 XR chest 1V portable CLINICAL HISTORY: r/o pneumonia TECHNIQUE: Single frontal radiograph of the chest was obtained. Comparison: Comparison is made to chest radiograph 04/12/[address] abdomen p rob 05/15/2022 FINDINGS: No lines and tubes are seen. Cardiomegaly is noted. Atelectasis is at the left lung base. No evidence of pleural effusion or pneumothorax. IMPRESSION: No acute abnormalities and in particular no evidence of pneumonia. Redemonstration of atelectasis at the left lung base. ACT 112: Negative or not required by law. Electronically signed by: Shade Singleton M.D. 05/15/2022 12:40 PM Discharge Plan Visit Data Chief Complaint: Abdominal Pain Stated Complaint: ABDOMINAL PAIN ED Provider: Donavan Griffin ED Midlevel Provider: Arabella Mckeon Discharge Problem: Superior mesenteric vein thrombosis, Diffuse abdominal pain Forms Stand Alone Forms: My [facility] Prescriptions Prescriptions: No Action simvastatin 20 mg tablet 20 mg PO QPM losartan 100 mg tablet 100 mg PO DAILY amlodipine 5 mg tablet 5 mg PO DAILY tamsulosin [Flomax] 0.4 mg capsule 0.4 mg PO HS indomethacin 25 mg capsule 50 mg PO TID Qty: 90 0RF Rx Instructions: Take with Food Referrals Referrals: Mike Michel MD [Primary Care Provider] -
[2022-05-15] MEDS ORDERED: OPTIRAY 300 500mL IV ONE (09:36)
--- NOTE | 2022-05-15 10:07 | CT Scan Report ---
CT SCAN OF THE ABDOMEN AND PELVIS WITH IV CONTRAST CLINICAL HISTORY: Lower abdominal pain. COMPARISON STUDY: Abdominal CT dated 11/12/2012. TECHNIQUE: Following the IV administration of 120 cc of Optiray 300, CT scan of the abdomen and pelv is is performed from the lung bases to the proximal femora. Images are reviewed in the axial, sagitta l, and coronal planes. IV contrast was administered without complication. A dose lowering technique w as utilized adhering to the principles of ALARA. CT DOSE: 1841.73 mGy.cm FINDINGS: Lung bases: The heart is mildly enlarged and without pericardial effusion. The lung bases are clear n oting dependent atelectasis. There is a tiny hiatal hernia. Liver: The contrast-enhanced liver is normal in size, contour, and attenuation. There is no intrahepa tic biliary ductal dilatation. The hepatic veins and portal veins are patent. Scattered subcentimeter left lobe hypodensities likely represent cysts but are too small for definitive characterization. Gallbladder: Unremarkable. Spleen: Normal in size and attenuation. The splenic vein is patent. Pancreas: Moderately atrophic and grossly unremarkable. Adrenal glands: Unremarkable. Kidneys: The contrast enhanced kidneys demonstrate cortical atrophy and are without hydronephrosis. T he kidneys enhance symmetrically. Question 8 mm enhancing nodule arising from the posterior interpola r right kidney on axial image #246 renal cysts measure up to 2.5 cm. Additional subcentimeter cortica l hypodensities also likely represent cysts but are too small for definitive characterization. Renal sinus cysts are seen on the left. There is a 5 mm nonobstructing left renal calculus. A circumaortic left renal vein is incidentally noted. Abdominal vasculature: The abdominal aorta is normal in course and caliber noting mild atheroscleroti c calcification. There is nearly occlusive thrombus within the superior mesenteric vein. This is seen on image #191 and extends into more peripheral branches. There is significant inflammatory change ar ound the mesenteric vessels. The splenic vein is patent. Bowel: There is no bowel obstruction. Mild fecal retention is seen throughout the colon. The appendix is well-visualized and normal. Peritoneum: There is no intraperitoneal free air or abdominal ascites. Lymphadenopathy: None. Pelvic viscera: The bladder, prostate, and seminal vesicles are normal as visualized. Skeletal structures: The skeletal structures are osteopenic. There is mild to moderate lumbosacral sp ondylosis. No lytic or blastic lesions are seen. IMPRESSION: 1. There is extensive nearly occlusive thrombus throughout the superior mesenteric vein with surround ing inflammation. 2. No abnormal bowel loops are identified. There is no obstruction. 3. Question an 8 mm enhancing nodule arising from the interpolar right kidney. Follow-up with a contr ast-enhanced renal protocol CT or MRI is recommended in 6 months time, as is follow up with urology. 4. Left-sided nephrolithiasis. 5. Additional findings as above. ACT 112: Positive. There are findings on this exam that require communication between the performing entity and the patient following Patient Test Result Information Act ([place] Act 112) guidelines. Electronically signed by: Kaiden Enriquez M.D. 05/15/2022 10:05 AM
[2022-05-15 10:18] LABS: Appearance Urine Clear (Clear); Bilirubin Urine Negative (Negative); Blood Urine Negative (Negative); Color Urine Yellow; Glucose Urine UA Negative (Negative); Ketones Urine Negative (Negative); Leukocyte Esterase Urine Negative (Negative); Nitrite Urine Negative (Negative); Protein Urine Negative (Negative); Specific Gravity Urine 1.014 (1.000-1.030); Urobilinogen Urine Negative (Negative); pH Urine 6.5 (4.5-7.5)
[2022-05-15] MEDS ORDERED: Heparin IV Adult Wt-Based Standard WITH Bolus Protocol IV STA (10:35)
[2022-05-15] MEDS ORDERED: HEPARIN SOD (PORCINE) 1000 UNIT/ML IV ONE ×2 (10:50→12:15)
--- NOTE | 2022-05-15 10:58 | History & Physical Report ---
Date of Service May 15, 2022 Assessment & Plan (1) Abdominal pain: (2) Acute occlusion of mesenteric vein: (3) HTN (hypertension): (4) HLD (hyperlipidemia): Plan Mr. Taylor is a 72 year old M with abdominal pain x 2-3 weeks without radiation. He denies N/V/D and fevers. 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 Heparin gtt, IVF, surgical consult. D-Dimer: 2220; CTA and Doppler US pending. Abdominal Pain Acute Occlusion of Mesenteric vein Left thigh pain Abdominal pain x2-3 weeks; reportedly becoming more constant. 6/10 while sitting. Standing is only position that alleviates the pain. Afebrile and no leukocytosis CT scan revealed: nearly occlusive thrombus t/o the superior mesenteric vein with surrounding inflammation. Dr. Pandya consulted by ED MD; plan for Heparin gtt and then transition to oral DOAC D-Dimer 2220; LLE Doppler US and CTA ordered. Pain management: Morphine PRN IVF 0.9% NS @ 80ml/hour x3 bags Surgery consult placed for evaluation HTN: Controlled; Continue Amlodipine and Losartan HLD: Controlled: Continue taking Zocor H/O hyperplastic polyp: Last colonoscopy was 2018. Next planned scope 2023. Pre-diabetes: hA1C 03/05: 6.0 Diet mods Disposition: PCP: Dr. Michel Code Status: Full Code Next of Kin: ; [place] [phone] VTE Prophylaxis: Heparin gtt Plan to return home after DC History of Present Illness Chief Complaint: abdominal pain Primary Care Provider: Mike Michel MD Mr. Taylor is a 72 year old male who presented to the [facility] ED with intermittent abdominal pain that he describes as worsening over the past 2-3 weeks without radiation. He denies N/V/D and fevers. A CT scan as performed in the ED with results indicating he has a large occluding mesenteric vein thrombus. In the ED, Dr. Toth was consulted and it was suggested to start anticoagulating him with Heparin. Pt denies JUAREZ, dizziness, medication or diet changes, N/V/D, CP, SOB, palpitations, skin changes. Additional PMH includes: HTN, HLD, gout, BPH, and pre-diabetes. Patient will be admitted under the hospitalist service for medical management. Please see A/P for further details. Allergies Allergy/AdvReac Type Severity Reaction Status Date / Time THUAN Inhibitors AdvReac Unknown cough Verified 07/30/17 06:21 Home Medications Medication Instructions Recorded Confirmed Type amlodipine 5 mg tablet 5 mg PO DAILY 08/15/19 05/15/22 History losartan 100 mg tablet 100 mg PO DAILY 08/15/19 05/15/22 History simvastatin 20 mg tablet 20 mg PO QPM 08/15/19 05/15/22 History tamsulosin 0.4 mg capsule (Flomax) 0.4 mg PO HS 08/15/19 05/15/22 History indomethacin 25 mg capsule 50 mg PO TID #90 caps 07/23/21 05/15/22 Rx Past Med/Surg History Medical History (Updated 05/15/22 @ 11:00 by GUY Crawley) Abdominal pain Acute occlusion of mesenteric vein HLD (hyperlipidemia) HTN (hypertension) Social History Smoking Status: Never smoker Feels Safe at Home: Yes Review of Systems Review of Systems: Neuro: (-) Falls, trauma, slurred speech HEENT: (-) JUAREZ, dizziness, dysphagia, visual or auditory changes CV: (-) CP, palpitations, swelling Resp: (-) SOB GI: (-) appetite changes, N/V/D, bowel changes : (-) urinary changes Skin: (-) rashes Psych: (-) anxiety, depression Physical Exam Physical Exam: Neuro: AAOx4, PERRLA, no aphagia, memory changes, CNII-XII grossly intact HEENT: head normocephalic, moist mucus membranes CV: S1/S2, (-) M/G/R, (-) edema, cap refill < 3 seconds Resp: Lungs CTA in all velazquez. On RA GI: Abdomen S/NT/ND, Ax4 bowel sounds, (-) CVA tenderness Musculoskeletal: 5/5 B/L UE strength, 5/5 B/L LE strength. No gait disturbance Skin: (-) rashes , (-) erythema. (+) spider veins left thigh Psych: euthymic mood Results & Data Results & Data ([facility]) Vital Signs (Past 12 Hours) Vital Signs Temp Pulse Pulse Resp BP BP Pulse Ox 05/15/22 09:00 79 18 145/79 H 98 05/15/22 08:10 18 148/90 H 98 05/15/22 07:45 36.5 C 92 H 20 136/81 96 O2 Del Method 05/15/22 09:00 Room Air 05/15/22 08:10 Room Air 05/15/22 07:45 Room Air Laboratory Results Short CBC 05/15/22 Range/Units 08:00 WBC 7.36 (4.8-10.8) K/ul Hgb 15.2 (14.0-18.0) g/dl Hct 45.6 (40.1-51.0) % Plt Count 203 (130-400) K/uL BMP 05/15/22 08:00 Sodium 138 Potassium 4.3 Chloride 104 Carbon Dioxide 27 BUN 19 Creatinine 0.95 Glucose 115 H Calcium 9.6 Liver Function 05/15/22 Range/Units 08:00 Total Bilirubin 0.9 (0.2-1.0) mg/dl Direct Bilirubin TNP AST 17 (13-39) U/L ALT 8 (7-52) U/L Alkaline Phosphatase 72 (34-104) U/L Albumin 4.1 (3.4-5.0) gm/dl Urine 05/15/22 Range/Units 10:05 Urine Color Yellow Urine Appearance Clear (Clear) Urine pH 6.5 (4.5-7.5) Ur Specific Mckinnon 1.014 (1.000-1.030) Urine Protein Negative (Negative) Urine Glucose (UA) Negative (Negative) Diagnostic Findings Abdomen/Pelvis CT 05/15/22 08:10 CT SCAN OF THE ABDOMEN AND PELVIS WITH IV CONTRAST CLINICAL HISTORY: Lower abdominal pain. COMPARISON STUDY: Abdominal CT dated 11/12/2012. TECHNIQUE: Following the IV administration of 120 cc of Optiray 300, CT scan of the abdomen and pelvis is performed from the lung bases to the proximal femora. Images are reviewed in the axial, sagittal, and coronal planes. IV contrast was administered without complication. A dose lowering technique was utilized adhering to the principles of ALARA. CT DOSE: 1841.73 mGy.cm FINDINGS: Lung bases: The heart is mildly enlarged and without pericardial effusion. The lung bases are clear noting dependent atelectasis. There is a tiny hiatal hernia. Liver: The contrast-enhanced liver is normal in size, contour, and attenuation. There is no intrahepatic biliary ductal dilatation. The hepatic veins and portal veins are patent. Scattered subcentimeter left lobe hypodensities likely represent cysts but are too small for definitive characterization. Gallbladder: Unremarkable. Spleen: Normal in size and attenuation. The splenic vein is patent. Pancreas: Moderately atrophic and grossly unremarkable. Adrenal glands: Unremarkable. Kidneys: The contrast enhanced kidneys demonstrate cortical atrophy and are without hydronephrosis. The kidneys enhance symmetrically. Question 8 mm enhancing nodule arising from the posterior interpolar right kidney on axial image #246 renal cysts measure up to 2.5 cm. Additional subcentimeter cortical hypodensities also likely represent cysts but are too small for definitive characterization. Renal sinus cysts are seen on the left. There is a 5 mm nonobstructing left renal calculus. A circumaortic left renal vein is incidentally noted. Abdominal vasculature: The abdominal aorta is normal in course and caliber noting mild atherosclerotic calcification. There is nearly occlusive thrombus within the superior mesenteric vein. This is seen on image #191 and extends into more peripheral branches. There is significant inflammatory change around the mesenteric vessels. The splenic vein is patent. Bowel: There is no bowel obstruction. Mild fecal retention is seen throughout the colon. The appendix is well-visualized and normal. Peritoneum: There is no intraperitoneal free air or abdominal ascites. Lymphadenopathy: None. Pelvic viscera: The bladder, prostate, and seminal vesicles are normal as visualized. Skeletal structures: The skeletal structures are osteopenic. There is mild to moderate lumbosacral spondylosis. No lytic or blastic lesions are seen. IMPRESSION: 1. There is extensive nearly occlusive thrombus throughout the superior mesenteric vein with surrounding inflammation. 2. No abnormal bowel loops are identified. There is no obstruction. 3. Question an 8 mm enhancing nodule arising from the interpolar right kidney. Follow-up with a contrast-enhanced renal protocol CT or MRI is recommended in 6 months time, as is follow up with urology. 4. Left-sided nephrolithiasis. 5. Additional findings as above. ACT 112: Positive. There are findings on this exam that require communication between the performing entity and the patient following Patient Test Result Information Act ([place] Act 112) guidelines. Electronically signed by: Kaiden Enriquez M.D. 05/15/2022 10:05 AM Code Status & VTE Plan Code Status Full Code in the event of cardiac or respiratory arrest VTE Prophylaxis Plan VTE Prophylaxis will be ordered: No Supervising Physician Co-Signing Physician Notes Attending addendum: The patient was seen and examined in emergency room He has been complaining of mid abdominal pain for about 3 weeks. The pain is not related with food but it can be very disturbing and he feels better with sitting down and sometimes standing. No fever and or chills and no problem with urine and or bowel habit. No history of leg swelling and denies any chest pain and/or shortness of breath. On examination Sitting on a chair with minimal discomfort in the abdomen Hemodynamically stable Chestclear to auscultate bilaterally HeartS1, S2 no murmur Abdomenmildly distended, soft and tender mostly mid abdomen, bowel sound pr esent Extremitiestrace edema bilaterally more on the right than the left CNSalert, awake and oriented x3. No focal sensory and motor deficit of appreciated His admission labs and imaging studies reviewed Noted to have significant mesenteric vein thrombosis on CAT scan D-dimer has been more than 2000 we will get ultrasound of the legs and CTA to rule out pulmonary embolism Hypercoagulable work-up has been sent out Has had colonoscopy in 2019 and normal PSA Will need to rule out occult malignancy Agree with assessment and plan as outlined above by Alpa Valdez
[2022-05-15] MEDS ORDERED: MoRPHine SULFATE 2 MG/ML CARP IV PRN (11:44)
[2022-05-15 12:03] LABS: Partial Thromboplastin Ratio 0.9; Partial Thromboplastin Time 25.9 Seconds (21.0-31.0); Prothrombin Time 10.7 Seconds (9.0-12.0)
[2022-05-15] MEDS: HEPARIN SODIUM/DEXTROSE 25,000 UNITS/500 ML BAG IV SCH ×2 (12:05→23:57)
[2022-05-15 12:14] LABS: D Dimer 2220 ug/L FEU (0-500)
--- NOTE | 2022-05-15 12:41 | XRay Report ---
XR chest 1V portable CLINICAL HISTORY: r/o pneumonia TECHNIQUE: Single frontal radiograph of the chest was obtained. Comparison: Comparison is made to chest radiograph 04/12/[address] abdomen pelvis 05/15/2022 FINDINGS: No lines and tubes are seen. Cardiomegaly is noted. Atelectasis is at the left lung base. No evidence of pleural effusion or pneumothorax. IMPRESSION: No acute abnormalities and in particular no evidence of pneumonia. Redemonstration of atelectasis at the left lung base. ACT 112: Negative or not required by law. Electronically signed by: Shade Singleton M.D. 05/15/2022 12:40 PM
--- NOTE | 2022-05-15 13:36 | Surgery Consultation ---
Date of Consultation May 15, 2022 Assessment & Plan (1) Acute occlusion of mesenteric vein: This is a 72y M with a PMH of HTN, HLD, umbilical hernia repair who presented to the [facility] ED on 05/15/22 with complaints of worsening abdominal pain over the last [address] a/p was obtained that revealed an extensive nearly occlusive thrombus throughout the superior mesenteric vein with surrounding inflammation. As indicated in HPI patient denies h/o prior blood clots, afib, clotting disorders. Not provoked by food intake. On examination the patient's abdomen is soft with discomfort elicited to palpation along the midline of the abdomen. No signs of peritonitis. Hospitalists are admitting the patient and he has been started on anticoagulation in the form of a heparin gtt after discussions with Dr. Pandya. Agree with the plan to start anticoagulation for SMV thrombus and work up of coagulopathy. Pain control, bowel rest, etc. No signs of mesenteric ischemia and no plans for surgical intervention at this time. As above. Already feeling somewhat improved. On anticoagulation. We will follow along but no plans for surgical intervention. History of Present Illness History of Present Illness This is a 72y M with a PMH of HTN, HLD, umbilical hernia repair who presented to the [facility] ED on 05/15/22 with complaints of abdominal pain. Patient reports the pain has been present over the last 3 weeks, but over the course of time it has progressively gotten worse. He states it has been come and go and is not associated with food. Sometimes activity can make it worse and being in differing positions can make it better. Last night & into this morning the pain was at its worst, rating it a 7-8/10 in severity, prompting him to come into the ER to be seen. A CT a/p was obtained that revealed an extensive nearly occlusive thrombus throughout the superior mesenteric vein with surrounding inflammation. Patient denies any history of blood clots (PE or DVT) or history of clotting disorder. Says his dad had history of what sounds like an aortic aneurysm s/p repair and was on coumadin thereafter. Patient denies any fevers/chills, CP/SOB, change in bowel habits or bloody BMs. He has not received any pain medication and says although the discomfort is still present, it is improved since arrival. Allergies Allergy/AdvReac Type Severity Reaction Status Date / Time THUAN Inhibitors AdvReac Unknown cough Verified 07/30/17 06:21 Home Medications Medication Instructions Recorded Confirmed Type amlodipine 5 mg tablet 5 mg PO DAILY 08/15/19 05/15/22 History losartan 100 mg tablet 100 mg PO DAILY 08/15/19 05/15/22 History simvastatin 20 mg tablet 20 mg PO QPM 08/15/19 05/15/22 History tamsulosin 0.4 mg capsule (Flomax) 0.4 mg PO HS 08/15/19 05/15/22 History indomethacin 25 mg capsule 50 mg PO TID #90 caps 07/23/21 05/15/22 Rx Patient History Medical History Abdominal pain Acute occlusion of mesenteric vein HLD (hyperlipidemia) HTN (hypertension) Social History Smoking Status: Never smoker Feels Safe at Home: Yes Review of Systems Constitutional: no fever, no chills and no anorexia Respiratory: no dyspnea Cardiovascular: no chest pain Gastrointestinal: + abdominal pain; no nausea, no vomiting, no change in bowel habits, no constipation and no blood in stools Genitourinary: no dysuria or no hematuria Physical Exam Physical Exam: awake/alert, no acute distress Respiratory: no respiratory distress Cardiovascular: Rate/Rhythm: regular rate Gastrointestinal (Abdomen): Inspection/Auscultation: abdomen not distended Percussion/Palpation: + abdomen tender (tenderness to palpation along midline) and abdomen soft Results & Data ([facility]) Vital Signs (Past 12 Hours) Vital Signs Temp Pulse Pulse Resp BP BP Pulse Ox 05/15/22 12:11 106/65 05/15/22 12:11 81 15 05/15/22 12:09 15 05/15/22 09:00 79 18 145/79 H 98 05/15/22 08:10 18 148/90 H 98 05/15/22 07:45 36.5 C 92 H 20 136/81 96 O2 Del Method 05/15/22 12:11 05/15/22 12:11 05/15/22 12:09 05/15/22 09:00 Room Air 05/15/22 08:10 Room Air 05/15/22 07:45 Room Air Diagnostic Findings CT SCAN OF THE ABDOMEN AND PELVIS WITH IV CONTRAST CLINICAL HISTORY: Lower abdominal pain. COMPARISON STUDY: Abdominal CT dated 11/12/2012. TECHNIQUE: Following the IV administration of 120 cc of Optiray 300, CT scan of the abdomen and pelvis is performed from the lung bases to the proximal femora. Images are reviewed in the axial, sagittal, and coronal planes. IV contrast was administered without complication. A dose lowering technique was utilized adhering to the principles of ALARA. CT DOSE: 1841.73 mGy.cm FINDINGS: Lung bases: The heart is mildly enlarged and without pericardial effusion. The lung bases are clear noting dependent atelectasis. There is a tiny hiatal hernia. Liver: The contrast-enhanced liver is normal in size, contour, and attenuation. There is no intrahepatic biliary ductal dilatation. The hepatic veins and portal veins are patent. Scattered subcentimeter left lobe hypodensities likely represent cysts but are too small for definitive characterization. Gallbladder: Unremarkable. Spleen: Normal in size and attenuation. The splenic vein is patent. Pancreas: Moderately atrophic and grossly unremarkable. Adrenal glands: Unremarkable. Kidneys: The contrast enhanced kidneys demonstrate cortical atrophy and are without hydronephrosis. The kidneys enhance symmetrically. Question 8 mm enhancing nodule arising from the posterior interpolar right kidney on axial image #246 renal cysts measure up to 2.5 cm. Additional subcentimeter cortical hypodensities also likely represent cysts but are too small for definitive characterization. Renal sinus cysts are seen on the left. There is a 5 mm nonobstructing left renal calculus. A circumaortic left renal vein is incidentally noted. Abdominal vasculature: The abdominal aorta is normal in course and caliber noting mild atherosclerotic calcification. There is nearly occlusive thrombus within the superior mesenteric vein. This is seen on image #191 and extends into more peripheral branches. There is significant inflammatory change around the mesenteric vessels. The splenic vein is patent. Bowel: There is no bowel obstruction. Mild fecal retention is seen throughout the colon. The appendix is well-visualized and normal. Peritoneum: There is no intraperitoneal free air or abdominal ascites. Lymphadenopathy: None. Pelvic viscera: The bladder, prostate, and seminal vesicles are normal as visualized. Skeletal structures: The skeletal structures are osteopenic. There is mild to moderate lumbosacral spondylosis. No lytic or blastic lesions are seen. IMPRESSION: 1. There is extensive nearly occlusive thrombus throughout the superior mesenteric vein with surrounding inflammation. 2. No abnormal bowel loops are identified. There is no obstruction. 3. Question an 8 mm enhancing nodule arising from the interpolar right kidney. Follow-up with a contrast-enhanced renal protocol CT or MRI is recommended in 6 months time, as is follow up with urology. 4. Left-sided nephrolithiasis. 5. Additional findings as above. ACT 112: Positive. There are findings on this exam that require communication between the performing entity and the patient following Patient Test Result Information Act ([place] Act 112) guidelines. Electronically signed by: Kaiden Enriquez M.D. 05/15/2022 10:05 AM PG Care Time/CCT Total # of Minutes Spent Total Time Spent with Patient: Total time spent is greater than 50% in coordination of care (as documented) at patient's floor/unit and/or counseling patient: Coding Level of Care Code 62694 Initial Inpt Care Lvl 3 Diagnoses Acute occlusion of mesenteric vein K55.019
--- NOTE | 2022-05-15 14:33 | CT Scan Report ---
CT ANGIOGRAM OF THE CHEST CLINICAL HISTORY: Dyspnea. Superior mesenteric venous thrombus. COMPARISON STUDY: Chest x-ray dated 05/15/2022. TECHNIQUE: Following the IV administration of 120 cc of Optiray 320, CT angiogram of the chest was pe rformed from the upper abdomen to the thoracic inlet utilizing the pulmonary embolus protocol. Images are reviewed in the axial, sagittal, and coronal planes. 3-D MIPS images are created and assessed. I V contrast was administered without complication. A dose lowering technique was utilized adhering to the principles of ALARA. CT DOSE: 1011.22 mGy.cm FINDINGS: Thyroid: Imaged portions of the thyroid gland are normal in size and attenuation. Thoracic aorta: There is moderate atherosclerotic calcification of the thoracic aorta, which is daisy l in caliber and demonstrates standard 3-vessel arch anatomy. No dissection is seen. Pulmonary vasculature: The pulmonary trunk is normal in caliber. There is trace chronic thrombus with in the right lower lobe pulmonary artery seen on image #159. There are no filling defects identified in main, lobar, or segmental pulmonary branches to suggest acute pulmonary embolus. Heart: The heart is mildly enlarged and without pericardial effusion. There are coronary artery calci fications. Lungs and pleural spaces: Subpleural reticulation seen throughout both lungs. There is no airspace co nsolidation or pleural effusion. The trachea and central airways appear clear. There is mild bibasila r scarring/atelectasis. Mediastinum: There is no mediastinal lymphadenopathy. Reva: Clear. Axillae: There is no axillary lymphadenopathy. Upper abdomen: Partially visualized upper abdominal viscera is within normal limits. Skeletal structures: The skeletal structures are osteopenic. Mild degenerative change is seen in the shoulders and spine. No lytic or blastic bony lesions are seen. IMPRESSION: 1 There is no evidence of acute pulmonary embolus in the main, lobar, or segmental pulmonary arteries . 2. Trace chronic thrombus is seen within the right lower lobe pulmonary artery. 3. The lungs are clear. 4. Mild cardiomegaly and coronary artery calcification. 5. Additional findings as above. ACT 112: Negative or not required by law. Electronically signed by: Kaiden Enriquez M.D. 05/15/2022 2:32 PM
[2022-05-15] MEDS: SODIUM CHLORIDE 0.9% 1000ML 1,000 ML IV SCH (16:18)
--- NOTE | 2022-05-15 18:01 | Electrocardiogram Report ---
Test Reason : Blood Pressure : / mmHG Vent. Rate : 082 BPM Atrial Rate : 082 BPM P-R Int : 172 ms QRS Dur : 150 ms QT Int : 404 ms P-R-T Axes : 015 037 -15 degrees QTc Int : 472 ms Sinus rhythm with occasional Premature ventricular complexes Non-specific intra-ventricular conduction delay Abnormal ECG When compared with ECG of 21-SEP-2007 18:13, Left bundle branch block has replaced Incomplete left bundle block Confirmed by Reji Kyle ([id number]) on 05/15/2022 6:01:13 PM Referred By: REFERRED SELF Confirmed By:Matty Kyle
--- NOTE | 2022-05-15 18:37 | Ultrasound Report ---
BILATERAL LOWER EXTREMITY VENOUS DOPPLER HISTORY: Bilateral lower extremity pain. COMPARISON STUDY: None. FINDINGS: There is normal compressibility, flow, and augmentation within the bilateral lower extremit y deep venous systems. IMPRESSION: No DVT within the right or left lower extremity. ACT 112: Negative or not required by law. Electronically signed by: Miguelangel Ovalles M.D. 05/15/2022 6:34 PM
[2022-05-15] MEDS ORDERED: SODIUM CHLORIDE 0.9% 1,000 ML IV SCH (18:42)
[2022-05-15 19:17] LABS: Partial Thromboplastin Ratio 1.5; Partial Thromboplastin Time 40.7 Seconds (21.0-31.0)
[2022-05-15] MEDS: INDOMETHACIN 25 MG CAP PO SCH (19:57)
[2022-05-15] MEDS: SIMVASTATIN 20 MG TAB PO SCH (20:00)
[2022-05-15] MEDS: TAMSULOSIN HCL 0.4 MG CAP PO SCH (20:02)
[2022-05-15] MEDS ORDERED: Nursing to Pharmacy Communication SCH (20:30)
[2022-05-16 01:45] LABS: Partial Thromboplastin Ratio 1.4; Partial Thromboplastin Time 38.2 Seconds (21.0-31.0)
[2022-05-16] MEDS: SODIUM CHLORIDE 0.9% 1000ML 1,000 ML IV SCH ×2 (04:03→17:05)
[2022-05-16 07:14] LABS: Hematocrit (blood only) 41.9 % (40.1-51.0); Hemoglobin 14.4 g/dl (14.0-18.0); Mean Corpuscular Hemoglobin 30.6 pg (25.0-34.0); Mean Corpuscular Hgb Conc 34.4 g/dL (32.0-36.0); Mean Platelet Volume 9.2 fL (9.4-12.4); Platelet Count 162 K/uL (130-400); RDW Coefficient of Variation 12.7 % (11.5-14.5); RDW Standard Deviation 41.4 fL (36.4-46.3); Red Blood Count 4.71 M/uL (4.63-6.08); White Blood Count 6.65 K/ul (4.8-10.8)
[2022-05-16 07:39] LABS: BUN Creatinine Ratio 14.8 (10-20); Creatinine Clr Calc Pharmacy 112.4 ml/min; Est GFR (African American) 100.9 ml/min; Potassium 3.9 mmol/L (3.5-5.1)
[2022-05-16 07:43] LABS: Partial Thromboplastin Ratio 1.8
[2022-05-16 07:54] LABS: Partial Thromboplastin Time 50.1 Seconds (21.0-31.0)
[2022-05-16] MEDS: LOSARTAN POTASSIUM 50 MG TAB PO SCH (08:00)
[2022-05-16] MEDS: amLODIPine BESYLATE 5 MG TAB PO SCH (08:00)
[2022-05-16] MEDS: INDOMETHACIN 25 MG CAP PO SCH ×3 (08:03→20:45)
[2022-05-16] MEDS ORDERED: amLODIPine BESYLATE 5 MG TAB PO SCH (09:00)
--- NOTE | 2022-05-16 10:33 | Surgery Progress Note ---
Date of Service May 16, 2022 Assessment & Plan (1) Superior mesenteric vein thrombosis: Plan: ok to start liquids, advance as tolerated transition from heparin to orals anticoag per medicine no acute surgical issues, will sign off Dr. Anderson covering for weekend if any issues. Admission and Anticipated Discharge Date Admission Date: May 15, 2022 Subjective no abdominal pain, on heparin drip Physical Exam Constitutional: WD/WN, vitals as above Gastrointestinal (Abdomen): Inspection/Auscultation: abdomen not distended Percussion/Palpation: abdomen nontender Results & Data ([facility]) Vital Signs (Past 12 Hours) Vital Signs Temp Pulse Pulse Resp BP Pulse Ox O2 Del Method 05/16/22 09:19 68 05/16/22 08:00 36.6 C 58 L 16 124/79 95 Room Air 05/16/22 03:36 36.5 C 68 16 135/87 96 CPAP 05/15/22 23:06 36.5 C 56 L 16 121/81 94 CPAP 05/15/22 23:06 66 PG Care Time/CCT Total # of Minutes Spent Total Time Spent with Patient: Total time spent is greater than 50% in coordination of care (as documented) at patient's floor/unit and/or counseling patient: Coding Level of Care Code 62592 Subseq Hosp Care Lvl 2 Diagnoses Superior mesenteric vein thrombosis K55.069
[2022-05-16] MEDS: HEPARIN SODIUM/DEXTROSE 25,000 UNITS/500 ML BAG IV SCH (13:29)
--- NOTE | 2022-05-16 14:31 | Hospitalist Progress Note ---
Date of Service May 16, 2022 Assessment & Plan (1) Abdominal pain: (2) Acute occlusion of mesenteric vein: (3) HTN (hypertension): (4) HLD (hyperlipidemia): Plan Mr. Taylor is a 72 year old M with abdominal pain x 2-3 weeks without radiation. He denies N/V/D and fevers. 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 He was started on heparin drip. 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 6/10 while sitting. Standing is only position that alleviates the pain. Afebrile and no leukocytosis CT scan revealed: nearly occlusive thrombus t/o the superior mesenteric vein with surrounding inflammation. CT chest angiotrace chronic thrombus seen in right lower lobe pulmonary artery Venous duplex test no DVT within right or left lower extremity Plan; Surgery's recommendation noted; patient's diet is advanced as tolerated. --Discussed with patient regarding any previous history of blood clot; patient denies any episodes in the past. Discussed with hematology( Dr. Mcallister); recommended that patient can be switched over to DOAC's when medically appropriate. Also recommended age-appropriate cancer screening. Patient reports that his last colonoscopy was 3 years back; was recommended to do another one in 2023. Plan is to continue heparin drip for now and switch to Eliquis at discharge. Prescription for Eliquis has been sent to his pharmacy; coupon applied. We will continue to monitor him clinically. Possible DC tomorrow a.m. on Eliquis if he continues to tolerate diet and exhibits no pain. Will provide follow-up for hematology. Also will provide urology referral for the nodule. HTN: Controlled; Continue Amlodipine and Losartan HLD: Controlled: Continue taking Zocor H/O hyperplastic polyp: Last colonoscopy was 2018. Next planned scope 2023. Pre-diabetes: hA1C 03/05: 6.0 Diet mods Disposition: PCP: Dr. Michel Code Status: Full Code Next of Kin: ; [place] [phone] VTE Prophylaxis: Heparin gtt Plan to return home after DC Admission and Anticipated Discharge Date Admission Date: May 15, 2022 Subjective Patient seen and examined at bedside. He is sitting on the chair; not in any acute distress. He complains of some abdominal discomfort but no significant pain. Review of Systems Review of Systems: All systems reviewed & are unremarkable except as noted in Subjective Physical Exam Physical Exam: Constitutional: comfortable; not in any distress. Respiratory: normal respiratory effort, lungs clear to auscultation, no wheeze, rales, rhonchi. Normal insp/exp effort, no accessory muscle use Cardiovascular: RRR, no murmur, no edema Vessels: no JVD or carotid bruit Chest: normal inspection of chest Abdomen: normal bowel sounds, soft, nontender, no hepatosplenomegaly Musculoskeletal: no cyanosis or clubbing, extremities motor strength 5/5 Skin: no rashes, warm and dry normal turgor Neurologic: PERRL, EOMI, accommodation nl, no face palsy, no dysarthria CN's II- XI intact bilaterally and moves all extremities Psychiatric: A+Ox3, euthymic affect Lymphatic: no cervical or axillary lymphadenopathy : deferred Results & Data Results & Data ([facility]) Vital Signs (Past 12 Hours) Vital Signs Temp Pulse Pulse Resp BP BP Pulse Ox 05/16/22 12:00 37.0 C 65 133/73 93 05/16/22 09:19 68 05/16/22 08:00 36.6 C 58 L 16 124/79 95 05/16/22 03:36 36.5 C 68 16 135/87 96 O2 Del Method 05/16/22 12:00 Room Air 05/16/22 09:19 05/16/22 08:00 Room Air 05/16/22 03:36 CPAP Laboratory Results Laboratory Results WBC 6.65 K/ul (4.8-10.8) 05/16/22 06:48 RBC 4.71 M/uL (4.63-6.08) 05/16/22 06:48 Hgb 14.4 g/dl (14.0-18.0) 05/16/22 06:48 Hct 41.9 % (40.1-51.0) 05/16/22 06:48 MCV 89.0 fL (80.0-100.0) 05/16/22 06:48 MCH 30.6 pg (25.0-34.0) 05/16/22 06:48 MCHC 34.4 g/dL (32.0-36.0) 05/16/22 06:48 RDW Std Deviation 41.4 fL (36.4-46.3) 05/16/22 06:48 RDW Coeff of Manoj 12.7 % (11.5-14.5) 05/16/22 06:48 Plt Count 162 K/uL (130-400) 05/16/22 06:48 MPV 9.2 fL (9.4-12.4) L 05/16/22 06:48 Immature Gran % (Auto) 0.5 % 05/15/22 08:00 Neut % (Auto) 61.3 % 05/15/22 08:00 Lymph % (Auto) 24.2 % 05/15/22 08:00 [place] % (Auto) 11.4 % 05/15/22 08:00 Eos % (Auto) 1.8 % 05/15/22 08:00 Baso % (Auto) 0.8 % 05/15/22 08:00 Neut # (Auto) 4.51 K/uL (1.4-6.5) 05/15/22 08:00 Lymph # (Auto) 1.78 K/uL (1.2-3.4) 05/15/22 08:00 [place] # (Auto) 0.84 K/uL (0.24-0.82) H 05/15/22 08:00 Eos # (Auto) 0.13 K/uL (0-0.50) 05/15/22 08:00 Baso # (Auto) 0.06 K/uL (0-0.2) 05/15/22 08:00 Immature Gran # (Auto) 0.04 K/uL (0.00-0.02) H 05/15/22 08:00 PT 10.7 Seconds (9.0-12.0) 05/15/22 11:20 INR 1.0 (0.9-1.1) 05/15/22 11:20 APTT 50.1 Seconds (21.0-31.0) H* 05/16/22 06:48 PTT Ratio 1.8 05/16/22 06:48 D-Dimer 2220 ug/L FEU (0-500) H* 05/15/22 11:20 Sodium 136 mmol/L (136-145) 05/16/22 06:48 Potassium 3.9 mmol/L (3.5-5.1) 05/16/22 06:48 Chloride 103 mmol/L (98-107) 05/16/22 06:48 Carbon Dioxide 27 mmol/L (21-32) 05/16/22 06:48 Anion Gap 6 (3-11) 05/16/22 06:48 BUN 13 mg/dl (6-23) 05/16/22 06:48 Creatinine 0.88 mg/dl (0.6-1.4) 05/16/22 06:48 Est Cr Clr Drug Dosing 112.4 ml/min 05/16/22 06:48 Est GFR ( Amer) 100.9 ml/min 05/16/22 06:48 Est GFR (Non-Af Amer) 87.0 ml/min 05/16/22 06:48 BUN/Creatinine Ratio 14.8 (10-20) 05/16/22 06:48 Glucose 115 mg/dl (70-99(Fasting)) H 05/16/22 06:48 Calcium 9.0 mg/dl (8.5-10.1) 05/16/22 06:48 Total Bilirubin 0.9 mg/dl (0.2-1.0) 05/15/22 08:00 Direct Bilirubin TNP 05/15/22 08:00 AST 17 U/L (13-39) 05/15/22 08:00 ALT 8 U/L (7-52) 05/15/22 08:00 Alkaline Phosphatase 72 U/L (34-104) 05/15/22 08:00 Troponin I High Sens 9.7 pg/ml (0-20) 05/15/22 08:00 Total Protein 7.2 gm/dl (6.0-8.3) 05/15/22 08:00 Albumin 4.1 gm/dl (3.4-5.0) 05/15/22 08:00 Lipase 11 U/L (11-82) 05/15/22 08:00 Urine Color Yellow 05/15/22 10:05 Urine Appearance Clear (Clear) 05/15/22 10:05 Urine pH 6.5 (4.5-7.5) 05/15/22 10:05 Ur Specific [place] 1.014 (1.000-1.030) 05/15/22 10:05 Urine Protein Negative (Negative) 05/15/22 10:05 Urine Glucose (UA) Negative (Negative) 05/15/22 10:05 Urine Ketones Negative (Negative) 05/15/22 10:05 Urine Blood Negative (Negative) 05/15/22 10:05 Urine Nitrite Negative (Negative) 05/15/22 10:05 Urine Bilirubin Negative (Negative) 05/15/22 10:05 Urine Urobilinogen Negative (Negative) 05/15/22 10:05 Ur Leukocyte Esterase Negative (Negative) 05/15/22 10:05 SARS-CoV-2, RNA, NAAT NEGATIVE (NEGATIVE) 05/15/22 14:10 Impressions Abdomen/Pelvis CT 05/15/22 08:10 CT SCAN OF THE ABDOMEN AND PELVIS WITH IV CONTRAST CLINICAL HISTORY: Lower abdominal pain. COMPARISON STUDY: Abdominal CT dated 11/12/2012. TECHNIQUE: Following the IV administration of 120 cc of Optiray 300, CT scan of the abdomen and pelvis is performed from the lung bases to the proximal femora. Images are reviewed in the axial, sagittal, and coronal planes. IV contrast was administered without complication. A dose lowering technique was utilized adhering to the principles of ALARA. CT DOSE: 1841.73 mGy.cm FINDINGS: Lung bases: The heart is mildly enlarged and without pericardial effusion. The lung bases are clear noting dependent atelectasis. There is a tiny hiatal hernia. Liver: The contrast-enhanced liver is normal in size, contour, and attenuation. There is no intrahepatic biliary ductal dilatation. The hepatic veins and portal veins are patent. Scattered subcentimeter left lobe hypodensities likely represent cysts but are too small for definitive characterization. Gallbladder: Unremarkable. Spleen: Normal in size and attenuation. The splenic vein is patent. Pancreas: Moderately atrophic and grossly unremarkable. Adrenal glands: Unremarkable. Kidneys: The contrast enhanced kidneys demonstrate cortical atrophy and are without hydronephrosis. The kidneys enhance symmetrically. Question 8 mm enhancing nodule arising from the posterior interpolar right kidney on axial image #246 renal cysts measure up to 2.5 cm. Additional subcentimeter cortical hypodensities also likely represent cysts but are too small for definitive characterization. Renal sinus cysts are seen on the left. There is a 5 mm nonobstructing left renal calculus. A circumaortic left renal vein is incidentally noted. Abdominal vasculature: The abdominal aorta is normal in course and caliber noting mild atherosclerotic calcification. There is nearly occlusive thrombus within the superior mesenteric vein. This is seen on image #191 and extends into more peripheral branches. There is significant inflammatory change around the mesenteric vessels. The splenic vein is patent. Bowel: There is no bowel obstruction. Mild fecal retention is seen throughout the colon. The appendix is well-visualized and normal. Peritoneum: There is no intraperitoneal free air or abdominal ascites. Lymphadenopathy: None. Pelvic viscera: The bladder, prostate, and seminal vesicles are normal as visualized. Skeletal structures: The skeletal structures are osteopenic. There is mild to moderate lumbosacral spondylosis. No lytic or blastic lesions are seen. IMPRESSION: 1. There is extensive nearly occlusive thrombus throughout the superior mesenteric vein with surrounding inflammation. 2. No abnormal bowel loops are identified. There is no obstruction. 3. Question an 8 mm enhancing nodule arising from the interpolar right kidney. Follow-up with a contrast-enhanced renal protocol CT or MRI is recommended in 6 months time, as is follow up with urology. 4. Left-sided nephrolithiasis. 5. Additional findings as above. ACT 112: Positive. There are findings on this exam that require communication between the performing entity and the patient following Patient Test Result Information Act ([place] Act 112) guidelines. Electronically signed by: Kaiden Enriquez M.D. 05/15/2022 10:05 AM Chest X-Ray 05/15/22 11:26 XR chest 1V portable CLINICAL HISTORY: r/o pneumonia TECHNIQUE: Single frontal radiograph of the chest was obtained. Comparison: Comparison is made to chest radiograph 04/12/[address] abdomen pelvis 05/15/2022 FINDINGS: No lines and tubes are seen. Cardiomegaly is noted. Atelectasis is at the left lung base. No evidence of pleural effusion or pneumothorax. IMPRESSION: No acute abnormalities and in particular no evidence of pneumonia. Redemonstration of atelectasis at the left lung base. ACT 112: Negative or not required by law. Electronically signed by: Shade Singleton M.D. 05/15/2022 12:40 PM Chest CTA 05/15/22 12:45 CT ANGIOGRAM OF THE CHEST CLINICAL HISTORY: Dyspnea. Superior mesenteric venous thrombus. COMPARISON STUDY: Chest x-ray dated 05/15/2022. TECHNIQUE: Following the IV administration of 120 cc of Optiray 320, CT angiogra m of the chest was performed from the upper abdomen to the thoracic inlet utilizing the pulmonary embolus protocol. Images are reviewed in the axial, sagittal, and coronal planes. 3-D MIPS images are created and assessed. IV contrast was administered without complication. A dose lowering technique was utilized adhering to the principles of ALARA. CT DOSE: 1011.22 mGy.cm FINDINGS: Thyroid: Imaged portions of the thyroid gland are normal in size and attenuation. Thoracic aorta: There is moderate atherosclerotic calcification of the thoracic aorta, which is normal in caliber and demonstrates standard 3-vessel arch anatomy. No dissection is seen. Pulmonary vasculature: The pulmonary trunk is normal in caliber. There is trace chronic thrombus within the right lower lobe pulmonary artery seen on image #159. There are no filling defects identified in main, lobar, or segmental pulmonary branches to suggest acute pulmonary embolus. Heart: The heart is mildly enlarged and without pericardial effusion. There are coronary artery calcifications. Lungs and pleural spaces: Subpleural reticulation seen throughout both lungs. There is no airspace consolidation or pleural effusion. The trachea and central airways appear clear. There is mild bibasilar scarring/atelectasis. Mediastinum: There is no mediastinal lymphadenopathy. Reva: Clear. Axillae: There is no axillary lymphadenopathy. Upper abdomen: Partially visualized upper abdominal viscera is within normal limits. Skeletal structures: The skeletal structures are osteopenic. Mild degenerative change is seen in the shoulders and spine. No lytic or blastic bony lesions are seen. IMPRESSION: 1 There is no evidence of acute pulmonary embolus in the main, lobar, or segmental pulmonary arteries. 2. Trace chronic thrombus is seen within the right lower lobe pulmonary artery. 3. The lungs are clear. 4. Mild cardiomegaly and coronary artery calcification. 5. Additional findings as above. ACT 112: Negative or not required by law. Electronically signed by: Kaiden Enriquez M.D. 05/15/2022 2:32 PM Venous Doppler Study 05/15/22 12:45 BILATERAL LOWER EXTREMITY VENOUS DOPPLER HISTORY: Bilateral lower extremity pain. COMPARISON STUDY: None. FINDINGS: There is normal compressibility, flow, and augmentation within the bilateral lower extremity deep venous systems. IMPRESSION: No DVT within the right or left lower extremity. ACT 112: Negative or not required by law. Electronically signed by: Miguelangel Ovalles M.D. 05/15/2022 6:34 PM
[2022-05-16] MEDS: SIMVASTATIN 20 MG TAB PO SCH (20:45)
[2022-05-16] MEDS: TAMSULOSIN HCL 0.4 MG CAP PO SCH (20:45)
[2022-05-17] MEDS: HEPARIN SODIUM/DEXTROSE 25,000 UNITS/500 ML BAG IV SCH ×2 (01:36→09:21)
[2022-05-17 06:07] LABS: Partial Thromboplastin Ratio 1.7
[2022-05-17 06:12] LABS: Partial Thromboplastin Time 45.6 Seconds (21.0-31.0)
[2022-05-17] MEDS ORDERED: APIXABAN 5 MG TABLET PO SCH (09:00)
[2022-05-17] MEDS: amLODIPine BESYLATE 5 MG TAB PO SCH (09:20)
[2022-05-17] MEDS: LOSARTAN POTASSIUM 50 MG TAB PO SCH (09:22)
[2022-05-17] MEDS: INDOMETHACIN 25 MG CAP PO SCH (09:22)
[2022-05-17 12:21] LABS: Partial Thromboplastin Ratio 1.5; Partial Thromboplastin Time 42.1 Seconds (21.0-31.0)
--- NOTE | 2022-05-17 15:21 | Discharge Summary ---
Date of Service May 17, 2022 Admission HPI Per Admitting Provider Mr. Taylor is a 72 year old male who presented to the [facility] ED with intermittent abdominal pain that he describes as worsening over the past 2-3 weeks without radiation. He denies N/V/D and fevers. A CT scan as performed in the ED with results indicating he has a large occluding mesenteric vein thrombus. In the ED, Dr. Toth was consulted and it was suggested to start anticoagulating him with Heparin. Pt denies JUAREZ, dizziness, medication or diet changes, N/V/D, CP, SOB, palpitations, skin changes. Additional PMH includes: HTN, HLD, gout, BPH, and pre-diabetes. Patient will be admitted under the [facility] pitalist service for medical management Admission Exam Per Admitting Provider Neuro: AAOx4, PERRLA, no aphagia, memory changes, CNII-XII grossly intact HEENT: head normocephalic, moist mucus membranes CV: S1/S2, (-) M/G/R, (-) edema, cap refill < 3 seconds Resp: Lungs CTA in all velazquez. On RA GI: Abdomen S/NT/ND, Ax4 bowel sounds, (-) CVA tenderness Musculoskeletal: 5/5 B/L UE strength, 5/5 B/L LE strength. No gait disturbance Skin: (-) rashes , (-) erythema. 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 Respiratory: normal respiratory effort, lungs clear to auscultation, no wheeze, rales, rhonchi. Normal insp/exp effort, no accessory muscle use Cardiovascular: RRR, no murmur, no edema Vessels: no JVD or carotid bruit Chest: normal inspection of chest Abdomen: normal bowel sounds, soft, nontender, no hepatosplenomegaly Musculoskeletal: no cyanosis or clubbing, extremities motor strength 5/5 Skin: no rashes, warm and dry normal turgor Neurologic: PERRL, EOMI, accommodation nl, no face palsy, no dysarthria CN's II- XI intact bilaterally and moves all extremities Psychiatric: A+Ox3, euthymic affect Lymphatic: no cervical or axillary lymphadenopathy : deferred Discharge Data Allergies Allergy/AdvReac Type Severity Reaction Status Date / Time THUAN Inhibitors AdvReac Unknown cough Verified 07/30/17 06:21 Consultations 05/15/22 10:47 ED Decision to Admit Stat 05/15/22 11:40 Consult General Surgery Routine Ordered Studies 05/15/22 08:10 CT Abd and Pelvis [CT abd pelvis IV con only] Stat 05/15/22 12:45 CT for pulmonary embolism PE [CT angio chest PE protocol] Stat US leg [US venous doppler LE BI] Urgent Hospital Course (1) Abdominal pain: (2) Acute occlusion of mesenteric vein: (3) HTN (hypertension): (4) HLD (hyperlipidemia): Plan Mr. Taylor is a 72 year old M with past medical history of hypertension, hyperlipidemia, prediabetes who presented to the hospital with epigastric and periumbilical pain for last 2 to 3 weeks. On presentation to the ED, patient was normotensive, afebrile and saturating well in room air. CT angio abdomen was done which showed a large occluding mesenteric vein thrombosis with inflammation. CT chest angio revealed trace chronic thrombus seen in right lower lobe pulmonary artery. Surgery was consulted; patient was recommended to be started on heparin drip and to be admitted for closer monitoring. Overnight, patient's abdominal pain subsided with only mild discomfort remaining. Patient's diet was advanced as tolerated. Hypercoagulable work-up was sent. Discussion was done with hematology (Dr. Mcallister) recommended patient to be switched over to DOAC. He was also recommended to have age-appropriate cancer screening. Patient was discharged on Eliquis; coupon was applied to a discount. He was instructed to follow-up with his primary care doctor and nutrition educator. Other incidental finding in the CT abdomen was a 8 mm enhancing nodule in his right kidney. Patient was instructed to follow-up with urology as outpatient. Total Time Total Time Spent Total Time Spent (In Minutes): 35 Total Time Includes: Examination of the Patient, Discharge Planning, Medication Reconciliation, Communication With Other Providers and Other Discharge Plan Discharge Items Patient Disposition: Home - Self-Care Reason For Visit: ABDOMINAL PAIN Discharge Diagnosis: 1)Acute Occlusion of Mesenteric vein 2)Chronic thrombus in right lower lobe pulmonary artery 3) Enhancing nodule in right kidney 4) Hypertension 5) Hyperlipidemia Activity: Resume your previous activity Non-emergency contact: Primary Care Provider Call non-emergency contact if: you have any medication questions, your symptoms worsen and your pain is not controlled Follow-up/Referrals: Mike Michel MD [Primary Care Provider] - (Date & Time 05/22/2022 11:20 AM Provider Mike Michel MD Department General Internal Medicine [facility] ) Diet: Heart Healthy Addtl Attending Provider Instructions: You are found to have blood clot in one of your vessels in your abdomen ( Superior mesenteric vein). You are prescribed blood thinner ( Eliquis). A prescription of 74 pills of Eliquis 5mg is ready to be picked up at your pharmacy. Please take it as described below: 1)From 05/17/2022 to 05/23/2022- Take 10 mg ( 2 tablets) twice daily ( morning and night) 2)From 05/24/2022- Take 5mg ( 1 Tablet) Twice daily( morning and night). You will be on this dose for at least 3 to 6-month. Please follow-up with her primary care doctor next week. Appointment to see a nutrition educator will be set up as well. Please follow-up with urology as well. You are found to have 8 mm enhancing nodule arising from the interpolar right kidney. Pending Studies at Discharge: No Stand-Alone Forms: [facility] Sm[facility] C[facility] Medications and DC Order Prescriptions: New Eliquis 5 mg tablet 5 mg PO BID Qty: 74 0RF Continued simvastatin 20 mg tablet 20 mg PO QPM losartan 100 mg tablet 100 mg PO DAILY amlodipine 5 mg tablet 5 mg PO DAILY tamsulosin [Flomax] 0.4 mg capsule 0.4 mg PO HS indomethacin 25 mg capsule 50 mg PO TID Qty: 90 0RF Rx Instructions: Take with Food Discharge Orders: Discharge Order (Routine); Ordered 05/17/22 Ordered By: Pernell Hou Admission Data Admit Date/Time: 05/15/22 10:51 Attending Provider: Pernell Hou Admit Provider: Nicholas Valdez Primary Care Provider: Mike Michel Other Providers: Nicholas Valdez ; Cyrus Gandhi Other Interventions: Discharge Summary Assessment (RN) Last Done: 05/17/22 11:50
[2022-05-20 23:47] LABS: Anti Cardiolipin Ab IgG <2.0 GPL-U/mL; Anti Cardiolipin Ab IgM <2.0 MPL-U/mL; Anti-Thrombin III Activity 116 % normal (80-135); PTT LA Screen 38 sec (<=40)
[2022-05-21 07:38] LABS: B2 Glycoprotein IgG <2.0 U/mL (<20.0); B2 Glycoprotein IgM <2.0 U/mL (<20.0); Protein S Functional(Activity) 79 % (70-150)
[2022-05-23 18:36] LABS: Factor 5 Mutation NEGATIVE
== END 2022-05-17 12:09 | disposition home or self-care (01) | DRG 394 ==
LOC: ED 07:37 → 4W 10:51 → SUATTDRO 10:51 → 4W 19:00

== ENCOUNTER 2023-11-07 12:19 | Inpatient (IN) ==
[2023-11-07] MEDS: dexAMETHasone**PF** 10 MG/ML VIAL IV ONE (13:10)
--- NOTE | 2023-11-07 13:11 | Emergency Department Note ---
Impression & Plan Non-ST elevation KS (NSTEMI), Hypoxia, Pulmonary edema, LBBB (left bundle branch block) ED Provider Note NAME: NADEEM NICHOLE AGE: 73 SEX: M : 1950 ARRIVES VIA: Walk-In INFORMANT: Patient, ED PROVIDER(S): Steven Salgado DO CHIEF COMPLAINT: Difficulty breathing HPI: The patient is a 73-year-old male who presented to the emergency department for an evaluation of difficulty breathing. He presented to an urgent care and was sent to the emergency department because his oxygen saturation dropped after a bronchodilator treatment. The patient states he had a cough as well as some trouble breathing. He feels that he is not getting a good deep breath and is having exertional dyspnea. He denies having any chest pain. He denies having any lower extremity swelling or pain. The patient has also been working on restoring a railroad car and is unsure if he was exposed to anything. ROS: See above HPI for pertinent positives & negatives. A total of 10 systems reviewed and were otherwise negative. PAST MEDICAL HISTORY: See Below PAST SURGICAL HISTORY: See Below FAMILY HISTORY: See Below SOCIAL HISTORY: See Below HOME MEDICATIONS: See Below ALLERGIES: See Below VITALS: See Below PHYSICAL EXAMINATION: GENERAL: Patient is awake alert in no acute distress patient is resting comfortably and showing no signs of anxiety EYES: The conjunctivae are clear. The pupils are round and reactive. EARS, NOSE, MOUTH AND THROAT: The nose is without any evidence of any deformity. Mucous membranes are moist. Tongue is midline. NECK: The neck is nontender and supple. RESPIRATORY: diminished breath sounds are noted throughout. There is expiratory wheezing in all velazquez. There is no conversational dyspnea CARDIOVASCULAR: Regular rate and rhythm noted there no murmurs rubs or gallops normal S1 normal S2. GASTROINTESTINAL: The abdomen is soft. Abdomen is nontender. MUSCULOSKELETAL/EXTREMITIES: There is no evidence of gross deformity full range of motion is noted in the hips and shoulders. SKIN: There is no obvious evidence of any rash. There are no petechiae, pallor or cyanosis noted. NEUROLOGIC: Patient is awake alert and oriented x3 MEDICAL DECISION MAKING: The patient is a 73-year-old male who presented to the emergency department for an evaluation of shortness of breath. The patient was complaining of difficulty breathing and having trouble getting a deep breath in. He was seen in outpatient clinic and was found to be hypoxic. He was sent to the emergency department for further evaluation. EKG showed no change from previous but did show left bundle branch block. Chest x-ray shows signs of pulmonary edema and his troponin was elevated. I do feel this could represent an NSTEMI. He was treated with aspirin and Lasix. He was also started on heparin. I discussed his condition with the on-call [facility] hospitalist group. I also discussed his condition with the on-call [facility] master automotive glass technician. An echo will help guide the patient's care. The patient was agreeable to plan. Triage Nursing notes reviewed. Prior medical records reviewed Vital Signs: reviewed and remarkable for elevated blood pressure and hypoxia. Differential diagnosis: Reactive airway disease, pneumonia, pneumothorax, COPD, CHF, infections, cardiac ischemia, pulmonary embolism, musculoskeletal, gastrointestinal, as well as other pathologies. ER treatment provided: See below Diagnostics interpreted by me: ECG: EKG was obtained in the emergency department. My interpretation is sinus rhythm at 92 bpm. PVCs were noted. Left bundle branch block pattern was noted. This was compared to a tracing from May 15, 2022. No changes were noted Cardiac Monitoring: An order was placed for continuous cardiac monitoring. The monitor shows a rate of 87 bpm with sinus rhythm. With rhythm. Laboratory studies: As stated above and show below. Imaging studies: See below. Radiographic imaging was reviewed by myself Consultation(s): I discussed this case with Jeanie who was on for the [facility] I discussed this case with Dr Pérez ED COURSE: Procedures: none Critical Care: I have personally spent greater than 45 minutes of critical care time in the direct management of this patient. This includes bedside care, interpretation of diagnostic studies, and testing, discussion with consultants, patient, and family members, and other required patient management activities. This 45 minutes is in excess of all separately billable procedures. Past Med/Surg History Medical History (Updated 11/07/23 @ 14:49 by Steven Salgado DO) Pre-diabetes BPH (benign prostatic hyperplasia) Morbid obesity with BMI of 40.0-44.9, adult DENY (obstructive sleep apnea) Diffuse abdominal pain Acute occlusion of mesenteric vein HLD (hyperlipidemia) HTN (hypertension) Abdominal pain Surgical History (Updated 11/07/23 @ 14:11 by Jeanie Becerra PA-C) Hx of rotator cuff surgery Hx of foot surgery History of carpal tunnel surgery Family History (Updated 11/07/23 @ 14:11 by Jeanie Becerra PA-C) Father COPD (chronic obstructive pulmonary disease) AAA (abdominal aortic aneurysm) Mother COPD (chronic obstructive pulmonary disease) Stroke Social History Smoking Status: Never smoker Hx Alcohol Use: No Hx Substance Use: No Preferred Language: Upper Sorbian Communication Ability: Effective Audiometric Technician Required: No Beliefs That Will Affect Care: None Current Living Situation: Spouse Feels Safe at Home: Yes Assistive Devices: CPAP Allergies Allergies Allergy/AdvReac Type Severity Reaction Status Date / Time THUAN Inhibitors AdvReac Unknown cough Verified 03/25/23 09:28 Home Meds Home Medications Medication Instructions Recorded Confirmed amlodipine 10 mg tablet 10 mg PO DAILY 11/07/23 11/07/23 losartan 100 mg tablet 100 mg PO DAILY 11/07/23 11/07/23 simvastatin 20 mg tablet 20 mg PO HS 11/07/23 11/07/23 tamsulosin 0.4 mg capsule 0.4 mg PO DAILY 11/07/23 11/07/23 warfarin 5 mg tablet 5 mg PO TUSA@1600 11/07/23 11/07/23 warfarin 5 mg tablet 10 mg PO SUMOWETHFR@1600 11/07/23 11/07/23 Results & Data (ED) Vital Signs Vital Signs - 24 hr 11/07/23 12:30 11/07/23 12:47 11/07/23 12:47 Temperature 36.8 C Temperature Source Temporal Artery Scan Pulse Rate 78 Pulse Rate [Right Finger] 95 H Pulse Rhythm Respiratory Rate 18 16 Respiratory Effort / Characteristics Non-Labored Spontaneous Non-Labored Spontaneous Non-Labored Respiratory Depth Normal Normal Normal Respiratory Pattern Regular Blood Pressure 139/90 Blood Pressure [Right Arm] 150/88 H Blood Pressure Mean 106 Blood Pressure Mean [Right Arm] 108 Pulse Oximetry 92 95 Oxygen Delivery Method Room Air Room Air Sepsis Recent Fever Within 48 Hours No Sepsis New/Unexplained Change in Mental Status No Sepsis Action Taken by Nursing No Action Required 11/07/23 12:57 11/07/23 12:58 Temperature Temperature Source Pulse Rate 85 87 Pulse Rate [Right Finger] Pulse Rhythm Regular Respiratory Rate 22 Respiratory Effort / Characteristics Respiratory Depth Respiratory Pattern Blood Pressure Blood Pressure [Right Arm] Blood Pressure Mean Blood Pressure Mean [Right Arm] Pulse Oximetry 95 Oxygen Delivery Method Room Air Sepsis Recent Fever Within 48 Hours Sepsis New/Unexplained Change in Mental Status Sepsis Action Taken by Assisted Medications Current Medication List: was personally reviewed by me Laboratory Data Attestation: I reviewed the patient's lab results. 11/07/23 12:49 11/07/23 12:49 Lab Results 11/07/23 Range/Units 12:49 WBC 7.68 (4.8-10.8) K/ul RBC 5.06 (4.70-6.10) M/uL Hgb 15.1 (14.0-18.0) g/dl Hct 46.0 (42.0-52.0) % MCV 90.9 (80.0-100.0) fL MCH 29.8 (25.0-34.0) pg MCHC 32.8 (32.0-36.0) g/dL RDW Std Deviation 43.8 (36.4-46.3) fL RDW Coeff of Manoj 13.2 (11.5-14.5) % Plt Count 233 (130-400) K/uL MPV 9.7 (9.4-12.4) fL Immature Gran % (Auto) 0.5 % Neut % (Auto) 58.6 % Lymph % (Auto) 28.1 % [place] % (Auto) 10.0 % Eos % (Auto) 2.0 % Baso % (Auto) 0.8 % Neut # (Auto) 4.50 (1.40-6.50) K/uL Lymph # (Auto) 2.16 (1.20-3.40) K/uL [place] # (Auto) 0.77 H (0.11-0.59) K/uL Eos # (Auto) 0.15 (0.00-0.50) K/uL Baso # (Auto) 0.06 (0.00-0.20) K/uL Immature Gran # (Auto) 0.04 (0.01-0.20) K/uL PT 26.8 H (9.0-12.0) Seconds INR 2.6 H (0.9-1.1) APTT 35 H (21-31) Seconds PTT Ratio 1.2 D-Dimer 430 (0-500) ug/L FEU Sodium 142 (136-145) mmol/L Potassium 4.3 (3.5-5.1) mmol/L Chloride 108 H (98-107) mmol/L Carbon Dioxide 27 (21-32) mmol/L Anion Gap 7 (3-11) BUN 20 (6-23) mg/dl Creatinine 1.00 (0.6-1.4) mg/dl Est Cr Clr Drug Dosing 98.2 ml/min Est GFR ( Amer) 87.4 ml/min Est GFR (Non-Af Amer) 75.4 ml/min BUN/Creatinine Ratio 20.0 (10-20) Glucose 108 H (70-99(Fasting)) mg/dl Calcium 9.5 (8.6-10.3) mg/dl Total Bilirubin 0.9 (0.2-1.0) mg/dl AST 23 (13-39) U/L ALT 10 (7-52) U/L Alkaline Phosphatase 61 (34-104) U/L Troponin I High Sens 789.4 H* (0-20) pg/ml B-Natriuretic Peptide 171 H (0-100) pg/ml Total Protein 7.5 (6.0-8.3) gm/dl Albumin 4.1 (3.4-5.0) gm/dl Globulin 3.4 (2.5-4.0) gm/dl Albumin/Globulin Ratio 1.2 (0.9-2) Lipase 8 L (11-82) U/L Adenovirus (PCR) Not Detected (NotDetected) B. pertussis DNA (PCR) Not Detected (NotDetected) B.parapertussis DNA PCR Not Detected (NotDetected) C. pneumoniae DNA (PCR) Not Detected (NotDetected) Coronavirus OC43 (PCR) Not Detected (NotDetected) Coronavirus HKU1 (PCR) Not Detected (NotDetected) Coronavirus 229E (PCR) Not Detected (NotDetected) SARS-CoV-2 (PCR) Not Detected (NotDetected) Coronavirus NL63 (PCR) Not Detected (NotDetected) Human Metapneumovir PCR Not Detected (NotDetected) Influenza Type A (PCR) Not Detected (NotDetected) Influenza Type B (PCR) Not Detected (NotDetected) M. pneumoniae (PCR) Not Detected (NotDetected) Parainfluenza 1 (PCR) Not Detected (NotDetected) Parainfluenza 2 (PCR) Not Detected (NotDetected) Parainfluenza 3 (PCR) Not Detected (NotDetected) Parainfluenza 4 (PCR) Not Detected (NotDetected) RSV (PCR) Not Detected (NotDetected) Entero/Rhino (PCR) Not Detected (NotDetected) Administered Medications Discontinued Medications Aspirin (Aspirin Chew 324 Mg) 324 mg PO NOW STA Stop: 11/07/23 13:45 Last Admin: 11/07/23 13:59 Dose: 324 mg Documented By: NRB Aspirin (Aspirin 81 Mg Chew) Confirm Administered Dose 81 mg .ROUTE .STK-MED ONE Stop: 11/07/23 14:02 Last Admin: 11/07/23 14:05 Dose: 81 mg Documented By: KATTY Dexamethasone Sodium Phosphate (DexamethasonePf 10 Mg/Ml Vial) 10 mg IV NOW ONE Stop: 11/07/23 12:58 Last Admin: 11/07/23 13:10 Dose: 10 mg Documented By: TRACEET Furosemide (Furosemide 40 Mg/4 Ml Vial) 40 mg IV ONE ONE Stop: 11/07/23 13:45 Last Admin: 11/07/23 14:00 Dose: 40 mg Documented By: KATTY Imaging Data Attestation: I personally reviewed and interpreted this imaging study as follows: My Impression: 1 view chest x-ray was obtained in the emergency department. My interpretation is cardiomegaly with vascular congestion, final report below. Radiologist's Impression: Chest X-Ray 11/07/23 12:55 SINGLE VIEW CHEST CLINICAL HISTORY: Atypical chest pain FINDINGS: 2 AP, portable, upright chest radiographs are compared to chest x-ray and chest CT dated 05/15/2022. The the heart is enlarged noting atherosclerotic calcification of the thoracic area. There is pulmonary vascular congestion and evidence of interstitial edema. There is bibasilar atelectasis. No large pleural effusion or pneumothorax is seen. The skeletal structures are osteopenic. The bony thorax is grossly intact. IMPRESSION: 1. Cardiomegaly with evidence of congestive failure. 2. Bilateral airspace opacities likely represent pulmonary edema. Correlate clinically. Radiographic follow-up to resolution is recommended. ACT 112: Negative or not required by law. Electronically signed by: Kaiden Enriquez M.D. 11/07/2023 1:18 PM Discharge Plan Visit Data Chief Complaint: Cardiac Assessment Stated Complaint: ABNORMAL EKG ED Provider: Steven Salgado Discharge Problem: Non-ST elevation KS (NSTEMI), Hypoxia, Pulmonary edema, LBBB (left bundle branch block) Patient Disposition: Being Evaluated by Hospitalist Forms Stand Alone Forms: My [facility] Prescriptions Prescriptions: No Action tamsulosin 0.4 mg capsule 0.4 mg PO DAILY amlodipine 10 mg tablet 10 mg PO DAILY simvastatin 20 mg tablet 20 mg PO HS warfarin 5 mg tablet 5 mg PO TUSA@1600 warfarin 5 mg tablet 10 mg PO SUMOWETHFR@1600 losartan 100 mg tablet 100 mg PO DAILY Referrals Referrals: Mike Michel MD [Primary Care Provider] - Discharge Problem: Pulmonary edema Qualifiers: Chronicity: acute Qualified Code(s): J81.0 - Acute pulmonary edema
[2023-11-07 13:16] LABS: Basophils # (auto) 0.06 K/uL (0.00-0.20); Basophils % (auto) 0.8 %; Eosinophils # (auto) 0.15 K/uL (0.00-0.50); Hemoglobin 15.1 g/dl (14.0-18.0); Immature Granulocytes # (auto) 0.04 K/uL (0.01-0.20); Immature Granulocytes % (auto) 0.5 %; Lymphocytes # (auto) 2.16 K/uL (1.20-3.40); Lymphocytes % (auto) 28.1 %; Mean Corpuscular Hemoglobin 29.8 pg (25.0-34.0); Mean Corpuscular Hgb Conc 32.8 g/dL (32.0-36.0); Mean Corpuscular Volume 90.9 fL (80.0-100.0); Mean Platelet Volume 9.7 fL (9.4-12.4); Monocytes # (auto) 0.77 K/uL (0.11-0.59); Neutrophils % (auto) 58.6 %; Platelet Count 233 K/uL (130-400); RDW Coefficient of Variation 13.2 % (11.5-14.5); RDW Standard Deviation 43.8 fL (36.4-46.3); Red Blood Count 5.06 M/uL (4.70-6.10); White Blood Count 7.68 K/ul (4.8-10.8)
--- NOTE | 2023-11-07 13:20 | XRay Report ---
SINGLE VIEW CHEST CLINICAL HISTORY: Atypical chest pain FINDINGS: 2 AP, portable, upright chest radiographs are compared to chest x-ray and chest CT dated 05/15/2022. The the heart is enlarged noting atherosclerotic calcification of the thoracic area. There is pulmonary vascular congestion and evidence of interstitial edema. There is bibasilar atelectasis. No large pleural effusion or pneumothorax is seen. The skeletal structures are osteopenic. The bony tho rax is grossly intact. IMPRESSION: 1. Cardiomegaly with evidence of congestive failure. 2. Bilateral airspace opacities likely represent pulmonary edema. Correlate clinically. Radiographic follow-up to resolution is recommended. ACT 112: Negative or not required by law. Electronically signed by: Kaiden Enriquez M.D. 11/07/2023 1:18 PM
[2023-11-07 13:33] LABS: Albumin Globulin Ratio 1.2 (0.9-2); Albumin Level 4.1 gm/dl (3.4-5.0); Bilirubin,Total 0.9 mg/dl (0.2-1.0); Calcium 9.5 mg/dl (8.6-10.3); Creatinine Clr Calc Pharmacy 98.2 ml/min; Est GFR (African American) 87.4 ml/min; Est GFR (Non-African American) 75.4 ml/min; Globulin 3.4 gm/dl (2.5-4.0); Potassium 4.3 mmol/L (3.5-5.1); Total Protein 7.5 gm/dl (6.0-8.3)
[2023-11-07 13:45] LABS: Troponin I High Sensitivity 789.4 pg/ml (0-20)
[2023-11-07 13:52] LABS: D Dimer 430 ug/L FEU (0-500); INR 2.6 (0.9-1.1); Partial Thromboplastin Ratio 1.2; Partial Thromboplastin Time 35 Seconds (21-31); Prothrombin Time 26.8 Seconds (9.0-12.0)
[2023-11-07] MEDS ORDERED: Heparin IV Adult Wt-Based Low-Dose *NO* INITIAL Bolus Protocol IV STA (13:54)
[2023-11-07] MEDS: ASPIRIN CHEW 324 MG PO STA (13:59)
[2023-11-07] MEDS: FUROSEMIDE 40 MG/4 ML VIAL IV ONE (14:00)
[2023-11-07] MEDS: ASPIRIN 81 MG CHEW ONE (14:05)
[2023-11-07 14:07] LABS: Adenovirus PCR Not Detected (NotDetected); Bordetella parapertussis PCR Not Detected (NotDetected); Bordetella pertussis PCR Not Detected (NotDetected); Chlamydia pneumoniae PCR Not Detected (NotDetected); Coronavirus 229E PCR Not Detected (NotDetected); Coronavirus CoV-2 (COVID19)PCR Not Detected (NotDetected); Coronavirus HKU1 PCR Not Detected (NotDetected); Coronavirus NL63 PCR Not Detected (NotDetected); Coronavirus OC43PCR Not Detected (NotDetected); Human Metapneumovirus PCR Not Detected (NotDetected); Influenza A PCR Not Detected (NotDetected); Influenza B PCR Not Detected (NotDetected); Mycoplasma pneumoniae PCR Not Detected (NotDetected); Parainfluenza Virus 1 PCR Not Detected (NotDetected); Parainfluenza Virus 2 PCR Not Detected (NotDetected); Parainfluenza Virus 3 PCR Not Detected (NotDetected); Parainfluenza Virus 4 PCR Not Detected (NotDetected); Respiratory Syncytial VirusPCR Not Detected (NotDetected); Rhinovirus/Enterovirus PCR Not Detected (NotDetected)
--- NOTE | 2023-11-07 14:12 | History & Physical Report ---
Date of Service November 07, 2023 Assessment & Plan (1) Acute heart failure with reduced ejection fraction and diastolic dysfunction: (2) Non-ST elevation [place] (NSTEMI): (3) Hypoxia: (4) LBBB (left bundle branch block): (5) HTN (hypertension): (6) HLD (hyperlipidemia): (7) Superior mesenteric vein thrombosis: (8) DENY (obstructive sleep apnea): (9) Morbid obesity with BMI of 40.0-44.9, adult: Plan This is a 73-year-old male who has significant past medical history of HTN, HLD, prediabetes, chronic gout, DENY, 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 Acute Congestive Heart Failure with reduced EF and diastolic dysfunction NSTEMI Acute Hypoxia admit to PCU echo: EF 45-50%, LV function mildly reduced, mod LVH, borderline diffuse LV hypokinesis, left atrium severely dilated, mild MR, trace TR --CXR: Cardiomegaly with evidence of CHF, bilateral airspace opacities likely represent pulmonary edema received IV lasix 40mg with 1300ml UOP thus far supplemental oxygen as needed will give additional 40mg IV lasix this evening Start IV lasix 40mg BID in a.m. along with Toprol XL 25mg bid and entresto consult cardiology - discussed with Dr. Pérez, likely all CHF related, will continue diuresis and plan for cardiac cath when INR < 1.5 Hold warfarin, Once INR < 2 initiate IV Heparin further cardiac w/u of heart failure per cards strict I and O, daily weight cycle trops, a1c, lipid panel in a.m. monitor electrolytes closely and replace as needed Hx of mesenteric vein thrombosis hx of chronic R lower lobe PE dx in 2021, initially placed on eliquis but was transitioned to warfarin due to cost hypercoag work up negative Followed with [facility] hematology INR 2.6, will hold warfarin for now as above HTN chronic, stable d/c losartan in favor or entresto per cards continue amlodipine HLD chronic, stable continue statin Pre diabetes last ac 5.9 10/09/23 Prolonged QTC avoid qtc prolonging meds DENY cpap at HS Morbid obesity ,BMI 44.0 encourage diet and lifestyle modification when able DVT ppx: warfarin Dispo: PCU FULL CODE PCP: Anand Pt was seen and examined in collaboration with Dr. Sims, please see addendum A total of 82 minutes was spent coordinating, documenting, and providing care for this patient excluding time spent in the performance of separately billed services. This included personally viewing all current laboratories and imaging studies, medication reconciliation, outpatient chart review, and discussion with specialists. History of Present Illness Chief Complaint: SOB x 1 day. Primary Care Provider: Mike Michel MD This is a 73-year-old male who has significant past medical history of HTN, HLD, prediabetes, chronic gout, DENY, 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 His outpatient medical records were reviewed. He was seen in convenient care today secondary to shortness of breath that started this morning. He notes that he was helping remove sowmya yesterday and her hour car and did not wear a mask. He also recently started colchicine for a gout flare. His oxygen saturations were 91% at rest and a 3-minute walk test revealed hypoxia with an O2 saturation of 88%. He was also notably tachycardic. He received a DuoNeb without much relief. Because of this he was referred to ED. Patient states he was in his normal state of health until this morning when he woke up feeling acutely short of breath. He states at baseline he is very active and has been working with the [employer] and [employer]. 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 He denies experiencing any chest pain or shortness of breath while doing this. He denies any similar symptoms in the past. He states when he woke up this morning he felt like he was having difficulty breathing and taking a, "deep breath." He has been compliant with his medications. Symptoms were worse with exertion. He denies any lightheadedness, dizziness, diaphoresis, chest pain, palpitations or nausea with the shortness of breath. He denies any worsening lower extremity swelling or abdominal bloating. His appetite has been normal. He chronically does have some mild lower extremity swelling. He states he feels his weight has increased over the last year due to being less active secondary to dealing with chronic back and foot pain. He denies any prior history of CAD. He denies any family history of CAD. He states his brother required an ablation in the past but is unsure for what. He denies any tobacco, alcohol or illicit drug use. Allergies Allergy/AdvReac Type Severity Reaction Status Date / Time THUAN Inhibitors AdvReac Unknown cough Verified 03/25/23 09:28 Home Medications Medication Instructions Recorded Confirmed Type amlodipine 10 mg tablet 10 mg PO DAILY 11/07/23 11/07/23 History losartan 100 mg tablet 100 mg PO DAILY 11/07/23 11/07/23 History simvastatin 20 mg tablet 20 mg PO HS 11/07/23 11/07/23 History tamsulosin 0.4 mg capsule 0.4 mg PO DAILY 11/07/23 11/07/23 History warfarin 5 mg tablet 5 mg PO TUSA@1600 11/07/23 11/07/23 History warfarin 5 mg tablet 10 mg PO SUMOWETHFR@1600 11/07/23 11/07/23 History sacubitril 49 mg-valsartan 51 mg 1 tab PO BID #60 tabs 11/08/23 Rx tablet (Entresto) Past Med/Surg History Medical History Pre-diabetes BPH (benign prostatic hyperplasia) Morbid obesity with BMI of 40.0-44.9, adult DENY (obstructive sleep apnea) Diffuse abdominal pain Acute occlusion of mesenteric vein HLD (hyperlipidemia) HTN (hypertension) Abdominal pain Surgical History Hx of rotator cuff surgery Hx of foot surgery History of carpal tunnel surgery Family History Father COPD (chronic obstructive pulmonary disease) AAA (abdominal aortic aneurysm) Mother COPD (chronic obstructive pulmonary disease) Stroke Social History Smoking Status: Never smoker Hx Alcohol Use: No Hx Substance Use: No Preferred Language: Filipino Communication Ability: Effective Loan Approver Required: No Beliefs That Will Affect Care: None Current Living Situation: Spouse Other Information That Helps Us Care for You: No Feels Safe at Home: Yes Safety Concerns: Feels Safe At This Time Assistive Devices: CPAP Review of Systems Review of Systems: All systems reviewed & are unremarkable except as noted in HPI & below Physical Exam Physical Exam: Constitutional: WD/WN, morbidly obese, vitals as above, NAD, sitting up in bed, pleasant, conversing easily Head: Normocephalic, Atraumatic Eyes: PERRL, conjunctivae normal, anicteric sclerae ENMT: external ear and nose normal, oropharynx normal Neck: trachea midline, no thyromegaly normal visual inspection Respiratory: normal respiratory effort, on 3L of O2 via NC, lungs clear to auscultation, + bi basilar rhonchi noted no wheeze/rales. Normal insp/exp effort, no accessory muscle use Cardiovascular: RRR with occasional ectopy, no murmur, + L lower ext edema with venous stasis changes Vessels: no JVD or carotid bruit Chest: normal inspection of chest Abdomen: obese abd, normal bowel sounds, soft, nontender, no hepatosplenomegaly Musculoskeletal: no cyanosis or clubbing, extremities motor strength 5/5 Skin: no rashes, warm and dry normal turgor Neurologic: PERRL, EOMI, accommodation nl, no face palsy, no dysarthria CN's II-XI intact bilaterally and moves all extremities Psychiatric: A+Ox3, euthymic affect Lymphatic: no cervical or axillary lymphadenopathy : + 700ml UOP Results & Data Results & Data Vital Signs (Past 12 Hours) Vital Signs Temp Pulse Pulse Resp BP BP Pulse Ox 11/07/23 12:58 87 11/07/23 12:57 85 22 95 11/07/23 12:47 95 H 16 150/88 H 95 11/07/23 12:30 36.8 C 78 18 139/90 92 O2 Del Method 11/07/23 12:58 11/07/23 12:57 Room Air 11/07/23 12:47 Room Air 11/07/23 12:30 Room Air Laboratory Results I have independently reviewed and interpreted patient's admitting labs including CBC, CMP, PTT, PT/INR, lipase, resp biofire, and troponin. Diagnostic Findings Chest X-Ray 11/07/23 12:55 SINGLE VIEW CHEST CLINICAL HISTORY: Atypical chest pain FINDINGS: 2 AP, portable, upright chest radiographs are compared to chest x-ray and chest CT dated 05/15/2022. The the heart is enlarged noting atherosclerotic calcification of the thoracic area. There is pulmonary vascular congestion and evidence of interstitial edema. There is bibasilar atelectasis. No large pleural effusion or pneumothorax is seen. The skeletal structures are osteopenic. The bony thorax is grossly intact. IMPRESSION: 1. Cardiomegaly with evidence of congestive failure. 2. Bilateral airspace opacities likely represent pulmonary edema. Correlate clinically. Radiographic follow-up to resolution is recommended. ACT 112: Negative or not required by law. Electronically signed by: Kaiden Enriquez M.D. 11/07/2023 1:18 PM Medications Administered Medication List Discontinued Medications Aspirin (Aspirin Chew 324 Mg) 324 mg PO NOW STA Stop: 11/07/23 13:45 Last Admin: 11/07/23 13:59 Dose: 324 mg Documented By: NRClaudia Aspirin (Aspirin 81 Mg Chew) Confirm Administered Dose 81 mg .ROUTE .STK-MED ONE Stop: 11/07/23 14:02 Last Admin: 11/07/23 14:05 Dose: 81 mg Documented By: NRB Dexamethasone Sodium Phosphate (DexamethasonePf 10 Mg/Ml Vial) 10 mg IV NOW ONE Stop: 11/07/23 12:58 Last Admin: 11/07/23 13:10 Dose: 10 mg Documented By: JLT Furosemide (Furosemide 40 Mg/4 Ml Vial) 40 mg IV ONE ONE Stop: 11/07/23 13:45 Last Admin: 11/07/23 14:00 Dose: 40 mg Documented By: NRB ECG Additional Comments: I have independently reviewed and interpreted patient's admitting EKG which revealed: NSR, LBBB QTC 524ms , compared to ecg on 05/2022 w/o significant ch gurmeet COVID-19 Results Results COVID-19 Adm Lab Results: RBC 5.09 M/uL (4.70-6.10) 11/08/23 WBC 7.48 K/ul (4.8-10.8) 11/08/23 Hgb 15.1 g/dl (14.0-18.0) 11/08/23 Hct 45.8 % (42.0-52.0) 11/08/23 Plt Count 230 K/uL (130-400) 11/08/23 Neutrophils (%) (Auto) 75.9 % 11/08/23 Lymphocytes (%) (Auto) 14.6 % 11/08/23 Monocytes # (Auto) 0.65 K/uL (0.11-0.59) H 11/08/23 Eosinophils # (Auto) 0.00 K/uL (0.00-0.50) 11/08/23 Immature Granulocyte % (Auto) 0.5 % 11/08/23 Neutrophils # (Auto) 5.68 K/uL (1.40-6.50) 11/08/23 Lymphocytes # (Auto) 1.09 K/uL (1.20-3.40) L 11/08/23 Monocytes # (Auto) 0.65 K/uL (0.11-0.59) H 11/08/23 Eosinophils # (Auto) 0.00 K/uL (0.00-0.50) 11/08/23 Basophils # (Auto) 0.02 K/uL (0.00-0.20) 11/08/23 Immature Granulocyte # (Auto) 0.04 K/uL (0.01-0.20) 4 Na 139 mmol/L (136-145) 11/08/23 K 4.1 mmol/L (3.5-5.1) 11/08/23 Cl 104 mmol/L (98-107) 11/08/23 CO2 26 mmol/L (21-32) 11/08/23 Anion Gap 9 (3-11) 11/08/23 BUN 24 mg/dl (6-23) H 11/08/23 Creatinine 1.01 mg/dl (0.6-1.4) 11/08/23 BUN/Creatinine Ratio 23.8 (10-20) H 11/08/23 Glucose Level 137 mg/dl (70-99(Fasting)) H 11/08/23 Ca 9.5 mg/dl (8.6-10.3) 11/08/23 Total Bilirubin 0.9 mg/dl (0.2-1.0) 11/08/23 AST/SGOT 15 U/L (13-39) 11/08/23 ALT/SGPT 8 U/L (7-52) 11/08/23 Alkaline Phosphatase 60 U/L (34-104) 11/08/23 Total Protein 7.3 gm/dl (6.0-8.3) 11/08/23 Albumin 4.0 gm/dl (3.4-5.0) 11/08/23 Globulin 3.3 gm/dl (2.5-4.0) 11/08/23 Albumin/Globulin Ratio 1.2 (0.9-2) 11/08/23 Ferritin 77.2 ng/ml (8-388) 11/07/23 D-Dimer 430 ug/L FEU (0-500) 11/07/23 PTT 35 Seconds (21-31) H 11/07/23 INR 2.3 (0.9-1.1) H 11/08/23 Triglycerides Level 51 mg/dl (0-150) 11/08/23 Adenovirus (PCR) Not Detected (NotDetected) 11/07/23 B. parapertussis DNA (PCR) Not Detected (NotDetected) 10/16 01/05 B. pertussis DNA (PCR) Not Detected (NotDetected) 11/07/23 C. pneumoniae DNA (PCR) Not Detected (NotDetected) 4 Coronavirus Type OC43 (PCR) Not Detected (NotDetected) Coronavirus Type HKU1 (PCR) Not Detected (NotDetected) Coronavirus Type 229E (PCR) Not Detected (NotDetected) COVID-19 PCR Not Detected (NotDetected) 11/07/23 Coronavirus Type NL63 (PCR) Not Detected (NotDetected) Human Metapneumovirus (PCR) Not Detected (NotDetected) Influenza Virus Type A (PCR) Not Detected (NotDetected) Influenza Virus Type B (PCR) Not Detected (NotDetected) M. pneumoniae (PCR) Not Detected (NotDetected) 11/07/23 Parainfluenza Type 1 (PCR) Not Detected (NotDetected) 10/16 01/05 Parainfluenza Type 2 (PCR) Not Detected (NotDetected) 10/16 01/05 Parainfluenza Type 3 (PCR) Not Detected (NotDetected) 10/16 01/05 Parainfluenza Type 4 (PCR) Not Detected (NotDetected) 10/16 01/05 RSV (PCR) Not Detected (NotDetected) 11/07/23 Enterovirus/Rhinovirus (PCR) Not Detected (NotDetected) Chest X-Ray 11/08/23 Code Status & VTE Plan Code Status FULL CODE VTE Prophylaxis Plan VTE Prophylaxis will be ordered: No Reason for no VTE drug order: Treatment not indicated Supervising Physician Co-Signing Physician Notes Pt was seen and examined. Agree with Jeanie LUCAS exam, assessment and plan. 73-year-old male with significant past medical history of HTN, HLD, prediabetes, chronic gout, DENY, 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 Pt said that this morning he started to have SOB with exertion. CXR showed cardiomegaly with evidence of congestive failure. Bilateral airspace opacities likely represent pulmonary edema. Lab on admission with troponin 789, BNP 171, INR 2.6. Received Lasix 40mg IV in the ER that helps with symptoms. Cardiology consulted. Case discussed with cardiology that recommended to give an additional dose lasix 40mg tonight. will repeat CXR in am. Will monitor I&O. Will trend troponin. Continue monitor INR. If INR drops below 2, will start on IV heparin drip. Cardiology will plan for cardiac cath possible next week. Cardio recommended to start on Entresto. Will monitor creatinine and check cost before transition from Losartan to Entresto. Continue monitor closely in Telemetry. MD Bethany
[2023-11-07] MEDS: HEPARIN SODIUM/DEXTROSE 25,000 UNITS/500 ML BAG IV SCH (15:12)
[2023-11-07 15:57] LABS: Troponin I High Sensitivity 772.1 pg/ml (0-20)
--- NOTE | 2023-11-07 16:18 | Cardiology Consultation ---
Date of Consultation November 07, 2023 Assessment & Plan (1) Acute heart failure with reduced ejection fraction and diastolic dysfunction: (2) Non-ST elevation (NSTEMI) myocardial infarction: (3) LBBB (left bundle branch block): (4) HLD (hyperlipidemia): (5) HTN (hypertension): (6) Superior mesenteric vein thrombosis: (7) Frequent PVCs: Plan 73-year-old male admitted with new onset heart failure with mildly reduced left ventricular systolic function. Longstanding history of interventricular conduction block/left bundle branch block dating back to 2010. Recommend further evaluation of reduced ejection fraction with serum/urine electrophoresis with immunofixation, serum ferritin level, and ischemic evaluation. Frequent PVCs may be contributing to diminished LV function. Also, moderate trabeculations involving the left ventricular apex noted on which do not appear to meet criteria for noncompaction. Patient appears volume overloaded. Recommend IV Lasix 40 mg twice daily. Add Toprol-XL 25 mg twice daily. Discontinue losartan in favor of Entresto. Please involve case management to ensure patient can afford medication at discharge. Consider addition of Aldactone as hospital course progresses. Hold warfarin. Initiate IV heparin when INR falls below 2.0. Likely proceed with cardiac catheterization when INR below 1.5. Outpatient PYP scan and possible cardiac MRI will be scheduled at time of discharge. I spent a total of 60 minutes on the date of service in preparation, delivery, and documentation of the care provided to this patient, excluding any time spent in the performance of separately billed services. History of Present Illness Reason for Consultation: CHF Requesting Physician: Dr. Aleksander Sims Attending Physician: Dr. Aleksander Sims History of Present Illness 73-year-old patient presented emergency department this morning with abrupt onset of shortness of breath upon awakening. Reports orthopnea and paroxysmal nocturnal dyspnea. Denies chest discomfort. X-ray on admission demonstrating pulmonary edema. Superimposed infiltrate cannot be excluded. Bedside 2D transthoracic echocardiogram demonstrates mild left ventricular systolic dysfunction with moderate concentric left ventricular hypertrophy. History of bundle branch block, left bundle pattern, dating back to 2010. Denies personal fear coronary disease, congestive heart failure, rheumatic fever as a child, or diabetes. Reports mesenteric vein thrombosis 2021 initially treated with Eliquis, however, transition to warfarin due to cost. INR therapeutic on admission. Also carries a history of hypertension and dyslipidemia. Allergies Allergy/AdvReac Type Severity Reaction Status Date / Time THUAN Inhibitors AdvReac Unknown cough Verified 03/25/23 09:28 Home Medications Medication Instructions Recorded Confirmed Type amlodipine 10 mg tablet 10 mg PO DAILY 11/07/23 11/07/23 History losartan 100 mg tablet 100 mg PO DAILY 11/07/23 11/07/23 History simvastatin 20 mg tablet 20 mg PO HS 11/07/23 11/07/23 History tamsulosin 0.4 mg capsule 0.4 mg PO DAILY 11/07/23 11/07/23 History warfarin 5 mg tablet 5 mg PO TUSA@1600 11/07/23 11/07/23 History warfarin 5 mg tablet 10 mg PO SUMOWETHFR@1600 11/07/23 11/07/23 History Patient History Medical History Pre-diabetes BPH (benign prostatic hyperplasia) Morbid obesity with BMI of 40.0-44.9, adult DENY (obstructive sleep apnea) Diffuse abdominal pain Acute occlusion of mesenteric vein HLD (hyperlipidemia) HTN (hypertension) Abdominal pain Surgical History Hx of rotator cuff surgery Hx of foot surgery History of carpal tunnel surgery Family History Father COPD (chronic obstructive pulmonary disease) AAA (abdominal aortic aneurysm) Mother COPD (chronic obstructive pulmonary disease) Stroke Social History Smoking Status: Never smoker Hx Alcohol Use: No Hx Substance Use: No Preferred Language: Panamanian Communication Ability: 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 [employer] Train Required: No Beliefs That Will Affect Care: None Current Living Situation: Spouse Other Information That Helps Us Care for You: No Feels Safe at Home: Yes Safety Concerns: Feels Safe At This Time Assistive Devices: CPAP Review of Systems Review of Systems: All systems reviewed & are unremarkable except as noted in Subjective Physical Exam Constitutional: well nourished and + obese; no acute distress Respiratory: no respiratory distress, no labored breathing and no retractions Auscultation: + rales (Bilateral bases); no rhonchi and no wheezes Cardiovascular: Rate/Rhythm: regular rate and regular rhythm Heart Sounds: normal S1 and normal S2; no murmur Vessels: + JVD and radial pulses present; no carotid bruit Extremities: + edema (1+ bilateral pretibial edema) Gastrointestinal (Abdomen): Inspection/Auscultation: abdomen normal to inspection and normal bowel sounds; abdomen not distended Perc ussion/Palpation: abdomen soft; abdomen nontender, no guarding and abdomen not rigid Neurologic: CN's II-XI intact bilaterally and moves all extremities; no focal motor deficits Psychiatric: A+Ox3, euthymic affect Results & Data Vital Signs (Past 12 Hours) Vital Signs Temp Pulse Pulse Pulse Resp BP BP 11/07/23 15:09 82 23 136/82 11/07/23 14:45 85 22 150/88 H 11/07/23 12:58 87 11/07/23 12:57 85 22 11/07/23 12:47 95 H 16 150/88 H 11/07/23 12:30 36.8 C 78 18 139/90 Pulse Ox O2 Del Method O2 Flow Rate 11/07/23 15:09 92 Nasal Cannula 4 11/07/23 14:45 91 Nasal Cannula 4 11/07/23 12:58 11/07/23 12:57 95 Room Air 11/07/23 12:47 95 Room Air 11/07/23 12:30 92 Room Air Laboratory Results Cardiac Enzymes 11/07/23 11/07/23 Range/Units 12:49 15:06 AST 23 (13-39) U/L Troponin I High Sens 789.4 H* 772.1 H* (0-20) pg/ml B-Natriuretic Peptide 171 H (0-100) pg/ml Coagulation 11/07/23 Range/Units 12:49 PT 26.8 H (9.0-12.0) Seconds APTT 35 H (21-31) Seconds B-Natriuretic Peptide 171 H (0-100) pg/ml CBC 11/07/23 Range/Units 12:49 WBC 7.68 (4.8-10.8) K/ul RBC 5.06 (4.70-6.10) M/uL Hgb 15.1 (14.0-18.0) g/dl Hct 46.0 (42.0-52.0) % Plt Count 233 (130-400) K/uL Neut # (Auto) 4.50 (1.40-6.50) K/uL Lymph # (Auto) 2.16 (1.20-3.40) K/uL [place] # (Auto) 0.77 H (0.11-0.59) K/uL Eos # (Auto) 0.15 (0.00-0.50) K/uL Baso # (Auto) 0.06 (0.00-0.20) K/uL Comprehensive Metabolic Panel 11/07/23 Range/Units 12:49 Sodium 142 (136-145) mmol/L Potassium 4.3 (3.5-5.1) mmol/L Chloride 108 H (98-107) mmol/L Carbon Dioxide 27 (21-32) mmol/L BUN 20 (6-23) mg/dl Creatinine 1.00 (0.6-1.4) mg/dl Glucose 108 H (70-99(Fasting)) mg/dl Calcium 9.5 (8.6-10.3) mg/dl AST 23 (13-39) U/L ALT 10 (7-52) U/L Alkaline Phosphatase 61 (34-104) U/L Total Protein 7.5 (6.0-8.3) gm/dl Albumin 4.1 (3.4-5.0) gm/dl Intake and Output 11/07/23 11/07/23 11/07/23 06:59 14:59 22:59 Output Total 2059 Balance -2059 / -2059 Output: Urine 600 / 600 Other 1460 / 1460 Other: # Unmeasured Voids 3 Weight 143.2 kg Weight Measurement Method Built in [facility] Patient Weight 11/08/23 06:59 Weight 143.2 kg (4) HLD (hyperlipidemia) Hyperlipidemia type: mixed hyperlipidemia Qualified Code(s): E78.2 - Mixed hyperlipidemia (5) HTN (hypertension) Hypertension type: primary hypertension Qualified Code(s): I10 - Essential (primary) hypertension
[2023-11-07] MEDS ORDERED: MAGNESIUM HYDROXIDE SUSP 30 ML UDC PO PRN (16:35)
[2023-11-07] MEDS ORDERED: ACETAMINOPHEN 325 MG TAB PO PRN (16:35)
[2023-11-07] MEDS ORDERED: ALUMINUM/MAGNESIUM SUSP 30 ML UDC PO PRN (16:35)
[2023-11-07] MEDS ORDERED: POLYETHYLENE (MIRALAX) 17 GM PACK PO PRN (16:35)
[2023-11-07 16:46] LABS: Magnesium 1.9 mg/dl (1.7-2.4)
[2023-11-07 16:54] LABS: Ferritin 77.2 ng/ml (8-388)
[2023-11-07] MEDS: POTASSIUM CHLORIDE CRTAB 20 MEQ TABCR PO ONE (17:17)
[2023-11-07] MEDS: FUROSEMIDE 40 MG/4 ML VIAL IV SCH (17:17)
--- OUTSIDE RECORDS SUMMARY | 2023-11-07 18:30 | External Medical Summary | Summary of Care ---
Author Name Unknown Organization [facility] Address [address] [place] [place] [place] [address] Phone [phone] Care Team Providers Care Municipal Court Magistrate Name Role Phone Mike Michel MD Primary Care Provider + Reason for Visit * Reason Onset Date Comments Appointment 10/09/2023 Colonosocpy. Order Request 10/09/2023 Colonoscopy Encounter Details Date Type Department Care Team (Late st Contact Info) Description 10/09/2023 Telephone Gastroenterology, [facility] [address] [address] Betsey Mark MD [address] [address] Appointment (Colonosocpy. ); Order Request... Allergies Active Allergy Reactions Criticality Noted Date Comments Alexander Inhibitors Other (Please comment) Low 7 Cough documented as of this encounter (statuses as of 10/21/2023) Medications Medication Sig Dispensed Refills Start Date End Date Status VIAGRA 50 MG PO TABSIndications:Impo tence of organic origin One pill by mouth 1-4 hours before intercourse, no more than 1 dose in 24 hours. 10 Tab 5 05/15/2010 Active Simvastatin 20 MG Oral Tablet (Zocor)Indications:D yslipidemia, goal LDL below 160 TAKE 1 TABLET BY MOUTH EVERYDAY AT BEDTIME 90 Tablet 1 04/24/2023 Active Losartan Potassium 100 MG Oral Tablet (Cozaar)Indications: HTN, goal below 140/90 TAKE 1 TABLET BY MOUTH EVERY DAY 90 Tablet 3 05/04/2023 Active Warfarin Sodium 5 MG Oral Tablet (Coumadin)Indication s:History of pulmonary embolism Take 5mg (1 tablet) Tues and Sat; 10mg (2 tablets) all other days or as directed by coumadin clinic 160 Tablet 3 05/15/2023 Active amLODIPine Besylate 10 MG Oral Tablet (Norvasc)Indications :HTN, goal below 140/90 Take 1 Tablet by mouth in the morning. 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 History of pulmonary embolism 05/22/2022 Prediabetes 08/27/2020 Overview: Per Prediabetes protocol Primary osteoarthritis of both feet 02/09/2019 Primary osteoarthritis of both hands 05/24/2015 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 POLYCHONDRITIS- LEFT EAR 10/17/2010 Obesity, morbid (more than 1 00 lbs over ideal weight or BMI > 40) 02/26/2010 04/29/2011 Overview: Per Obesity Protocol, #19 ICD-10 update of inactive term Dyslipidemia, goal to be determined 09/03/2009 10/17/2010 Overview: Per Lipid Taxonomy. History of colonic polyps 01/27/2008 Overview: hyperplastic polyp--repeat 3 years Dyslipidemia, goal LDL below 160 11/30/2007 09/03/2009 Overview: Per Lipid Taxonomy. ADVANCE DIRECTIVE INFORMATION 07/31/2006 10/09/2023 documented as of this encounter (statuses as of 10/21/2023) Immunizations Name Administration Dates Next Due COVID-19 mRNA, LNP-s, No Pre serve, 2-Dose Series (Moderna) 11/16/2020,10/19/2020 COVID-19, mRNA, LNP-s, PF, B ooster, 100mcg/0.5mg (Moderna) 12/24/2021,07/09/2021 Covid-19, Mrna, Lnp-s, Pf, B ivalent, 50 Mcg, IM, 12 yrs and above (Moderna) 06/11/2022 H1N1 2008 Influenza, IM 10/17/2009 HepA Inact/HepB Recomb>=18yrs old 2007,05/04/2007,12/01/2006,11/03 Pneumococcal Conjugate Vacc, 13 Valent (Prevnar) 08/03/2017 Pneumococcal Polysaccharide PPV23 (Pneumovax) 08/10/2018 RSV Vac., Recomb, Adjuvant, PF,0.5 Ml (Arexvy) 07/06/2023 Season Influenza, Quad, PF, Adjuvanted, 65+ Yrs, IM (FLUAD) 05/30/2023 Seasonal Influenza Virus Vac cine, Unspecified Formulation 08/15/2019,08/10/2018,06/03/2017,06/12,05/19/2014,07/07/2013,06/26/2012 ,06/25/2011,07/19/2010,10/17/2009,07/15 Seasonal Influenza, PF, 6 M & above, IM , (FluLaval or Fluzone) 06/15/2021,06/02/2020,08/10/2018,06/03 Seasonal Influenza, Quadriva lent Hd (Fluzone Hd) 05/21/2022 Seasonal Influenza, Quadriva lent, No Preserve, IM 06/12/2016,07/04/2015 Seasonal Influenza, Split, I IV3, With Preserve, Inj 05/19/2014,07/07/2013,06/26/2012,06/25,07/19/2010,10/17/2009,07/24/2006 Seasonal Influenza, Trivalen t, Adjuvanted, 65+ yrs 08/15/2019 TD, Preservative Free 10/25/2012 TDAP (age 10 and older)(Boostrix) 03/29/2023 TDAP (age 11 and older)(Adacel) 09/14/2002 Varicella Zoster Vaccine (Adult) 11/10/2012 Zoster Vaccine Recombinant (Shingrix) 03/05/2020 ,08/19/2019 documented as of this encounter Social History Tobacco Use Types Packs/Day Years Used Date Smoking Tobacco: Never Smokeless Tobacco: Never Alcohol Use Standard Drinks/Week Comments No 0 (1 standard drink = 0.6 oz pur e alcohol) PHQ-2 Answer Date Recorded PHQ Adult Total Score 2 12/29/2022 Hunger Vital Sign Answer Date Recorded Within the past 12 months, y ou worried that your food would run out before you got the money to buy more. Never true 12/30/19 23 Within the past 12 months, t he food you bought just didn't last and you didn't have money to get more. Never true 12/29/2022 Sex and Gender Information Value Date Recorded Sex Assigned at Male 02/09/2019 8:02 AM EDT Gender Identity Male 02/09/2019 8:02 AM EDT Sexual Orientation Straight 02/09/2019 8: 02 AM EDT Job Start Date Occupation Industry Not on file Not on file Not on file documented as of this encounter Functional Status Functional Status Response Date of Assess ment Are you deaf or do you have serious difficulty h earing? No 09/26/2019 Are you blind or do you have serious difficulty seeing, even when wearing glasses? No 09/26/2019 Do you have serious difficul ty walking or climbing stairs? (5 years old or older) No 09/26/2019 Do you have difficulty dress ing or bathing? (5 years old or older) No 09/26/2019 Because of a physical, menta l, or emotional condition, do you have difficulty doing errands alone such as visiting a doctor s office or shopping? (15 years old or older) No 09/26/19 20 Cognitive Status Response Date of Assessm ent Because of a physical, menta l, or emotional condition, do you have serious difficulty concentrating, remembering, or making decisions? (5 years old or older) No 09/26/2019 documented as of this encounter Miscellaneous Notes * Telephone Encounter - Ginny Gunter LPN - 10/21/2023 7:47 AM EST Order in chart from 10/09/23. * Telephone Encounter - Lori Ortega OSA - 10/19/2023 4:05 PM EST An order was requested for this patient. Name of Requesting Provider: Patient Order Requested: colonoscopy Diagnosis/Reason for Request routine If order request is for Mammogram: Is the patient having any breast symptoms? N/A Is there a chance of ? N/A Has the patient had any breast problems in the past? NA What location AND department does the patient wish to have their order completed at? [facility] Fax Number, if applicable: Call Back Number: [phone] Please call back to set up the appointment with Dr. Mark If the caller is not a current patient, please advise the patient to call their current PCP to havethe order's prior to being seen in our office. The patient was informed that our providers would not order anything (medication, labs, etc.) prior to being seen. * Telephone Encounter - Deb Chaudhary OSA - 10/09/2023 10:01 AM EST Pcp's office called about getting pt scheduled for colonoscopy. Pt wants Dr. Mark. No schedule is available will call patient when schedules are in. documented in this encounter Plan of Treatment Upcoming Encounters Date Type Department Care Team (Late st Contact Info) Description 11/02/2023 11:30 AM EST Office Visit Interventional Pain Center, [facility] [address] [facility] [place] [address] Evy Becerra PA-C [address] [place] [address] 11/11/2023 9:20 AM EST Anticoagulation Pharmacy, [facility] [address] [facility] [place] [address] [facility] [address] [place] [address] 11/17/2023 11:30 AM EST Imaging Radiology [facility] 1st Floor, [place] [address] [facility] [place] [address] 12/02/2023 11:30 AM EDT Telemedicine Urology Barron Segal [address] [place] [address] [place] [address] Tony Vale MD [address] [place] [address] [place] [address] 7, Telemed [facility] Urology Ex [address] [facility] [place] [address] 12/08/2023 11:00 AM EDT Office Visit Hematology/Oncology Millie Delgadillo [place] [address] [place] [address] Yesenia Phillips MD [address] [place] [address] 01/05/2024 9:00 AM EDT Nurse Only Ancillary [facility] [address] [facility] [place] [address] Im, Nurse Annual Wellness [facility] [address] [facility] [place] [address] 04/14/2024 9:40 AM EDT Office Visit General Internal Medicine [facility] [place] [address] [facility] [place] [address] Mike Michel MD [address] [facility] [place] [address] Scheduled Procedures Name Priority Associated Diagnoses Date/Ti me COLONOSCOPY FLEXIBLE PROXIMAL DIAGNOSTIC Recall History of colon polyps Health Maintenance Due Date Last Done Comments COLONOSCOPY-EVERY 5 YRS AGES 18-100 09/28/2023 09/28/2018, 09/28/2018, 03/19/2011, Additional history exists Depression Screening 12/30/2023 12/29/2022 GFR 06/29/2024 06/29/2023, 03/14, 05/16/2022, Additional history exists HbA1c 10/09/2024 10/09/2023, 03/14, 02/21/2022, Additional history exists Albumin/Creatinine Ratio 10/09/2026 10/09/2023 Lipid Panel 03/27/2028 03/27/2023, 02/12, 02/12/2021, Additional history exists DTaP,Tdap,and Td Vaccines (4 - Td or Tdap) 03/29/2033 03/29/2023, 10/25/2012, 09/14/2002 Hepatitis B Completed 08/01/2008, 04/15, 12/01/2006, Additional history exists Pneumococcal Vaccine: 65+ Years Completed 08/10/2018, 08/03/2017 Zoster Vaccines Completed 03/05/2020, 02/2019, 11/10/2012 Influenza Vaccine (FLU shot) Completed , 05/21/2022, 06/15/2021, Additional history exists COVID-19 Vaccine Completed 07/07/2023, , 12/24/2021, Additional history exists GARDASIL-HPV IMMUNIZATION SERIES Aged Out No longer eligible based on patient's age to complete this topic MENINGOCOCCAL (MENACTRA/MENVEO) Aged Out No longer eligible based on patient's age to complete this topic documented as of this encounter Medical Devices Implanted Type Area Resource Director Device Identifier Shelf Expiration Date Model / Serial / Lot Cannulated Screw 5.0x44mm Implanted:Qty: 2 on 05/10/2018 [place] [facility] [place] Foot EXACTECH [id number] / / Description:no expiration gi aleyda, part of set Screw Canltd [id number] - [id number] Implanted:Qty: 1 on 09/26/2019 by Tirso Fernandes [place] [facility] [place] Ankle EXACTECH [id number] / / documented as of this encounter Advance Directives Latest Code Status on File Code Status Date Activated Date Inactivated Comments Full Code 09/26/2019 10:30 AM 09/27/2019 3:28 PM This order reflects the patients wishes and were consensually agreed upon. Code Status History Code Status Date Activated Date Inactivated Comments Full Code 05/10/2018 11:29 AM 05/11/2018 7:06 PM . Question Answer Comments Discussion of Advance Direct deyvi occurred with: Not Discussed Care Teams Municipal Court Magistrate Relationship Specialty Start Date End Date Mike Michel MD [address] [place] [address] PCP - General Internal Medicine 07/05/21 documented as of this encounter
--- OUTSIDE RECORDS SUMMARY | 2023-11-07 18:30 | External Medical Summary | Summary of Care ---
Author Name Unknown Organization [facility] Address [address] [facility] [place] [address] Phone [phone] Care Team Providers Care Rounder And Backer Name Role Phone Mike Michel MD Primary Care Provider + Reason for Visit * Reason Onset Date Comments Appointment 10/09/2023 Colonosocpy. Encounter Details Date Type Department Care Team (Late st Contact Info) Description 10/09/2023 Telephone Gastroenterology, [facility] [address] [address] Betsey Mark MD [address] [place] [address] Appointment (Colonosocpy. ) Allergies Active Allergy Reactions Criticality Noted Date Comments Alexander Inhibitors Other (Please comment) Low 7 Cough documented as of this encounter (statuses as of 10/09/2023) Medications Medication Sig Dispensed Refills Start Date [...] as of this encounter (statuses as of 10/09/2023) Active Problems Problem Noted Date Diagnosed Date [...] as of this encounter (statuses as of 10/09/2023) Resolved Problems Problem Noted Date Diagnosed Date Resolved Date Right foot pain 05/18/2018 08/09/2019 Bilateral foot pain 05/24/2015 08/09/20 19 Overview: acute Ventral hernia 11/30/2012 10/09/2023 Overview: [...] as of this encounter (statuses as of 10/09/2023) Immunizations Name Administration Dates Next Due COVID-19 mRNA, LNP-s, No Pre serve, 2-Dose Series (Moderna) 11/16/2020,10/19/2020 COVID-19, mRNA, LNP-s, PF, B ooster, 100mcg/0.5mg (Moderna) 12/24/2021,07/09/2021 Covid-19, Mrna, Lnp-s, Pf, B ivalent, 50 Mcg, IM, 12 yrs and above (Moderna) 06/11/2022 H1N1 2009 Influenza, IM 10/17/2009 HepA Inact/HepB Recomb>=18yrs old [...] encounter Miscellaneous Notes * Telephone Encounter - Deb Chaudhary OSA - 10/09/2023 10:01 AM EST Pcp's office called about getting pt scheduled for colonoscopy. Pt wants Dr. Mark. No schedule is available will call patient when schedules are in. documented in this encounter Plan of Treatment Upcoming Encounters Date Type Department Care Team (Late st Contact Info) Description 10/09/2023 10:30 AM EST Laboratory Laboratory [facility] [address] [place] [id number] Florin Delgadillo [address] [place] [address] Cold intolerance; Prediabetes; Gouty arthropathy, chronic, 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; HTN, goal below 140/90 11/02/2023 11:30 AM EST Office Visit Interventional Pain Center, [facility] [address] [place] [address] Evy Castellanos PA-C [address] [place] [address] 11/11/2023 9:20 AM EST Anticoagulation Pharmacy, [facility] [address] [place] [address] [facility] [address] [place] [address] 11/17/2023 11:30 AM EST Imaging Radiology [facility] 1st [facility] [address] [facility] [place] [address] 12/02/2023 11:30 AM EDT Telemedicine Urology Erin GottliebBarron [address] [place] [address] [place] [address] Tony Vale MD [address] [place] [address] [place] [address] 7, Telemed [facility] Urology Ex Rm [address] [facility] [place] [address] 12/08/2023 11:00 AM EDT Office Visit Hematology/Oncology [facility] [address] [facility] [place] [address] Yesenia Phillips MD [address] [facility] [place] [address] 01/05/2024 9:00 AM EDT Nurse Only Ancillary [address] [place] [address] Im, Nurse Annual Wellness [address] [place] [address] 04/14/2024 9:40 AM EDT Office Visit General Internal Medicine [facility] [address] [place] [address] Mike Michel MD [address] [facility] [place] [address] Scheduled Procedures Name Priority Associated Diagnoses Date/Ti me COLONOSCOPY FLEXIBLE PROXIMAL DIAGNOSTIC Recall History of colon polyps Health Maintenance Due Date Last Done Comments Albumin/Creatinine Ratio 1970 COLONOSCOPY-EVERY 5 YRS AGES 18-100 09/28/2023 09/28/2018, 09/28/2018, 03/19/2011, Additional history exists Depression Screening 12/30/2023 12/29/2022 HbA1c 03/27/2024 03/27/2023, 02/12, 08/16/2021, Additional history exists GFR 06/29/2024 06/29/2023, 03/14, 05/16/2022, Additional history exists Lipid Panel 03/27/2028 03/27/2023, 02/12, 02/12/2021, Additional [...] this encounter Medical Devices Implanted Type Area Clinical Services Director Device Identifier Shelf Expiration Date Model / Serial / Lot Cannulated Screw 5.0x44mm Implanted:Qty: 2 on 05/10/2018 by Tirso Fernandes MD [place] [facility] [place] Foot EXACTECH [id number] / / Description:no expiration gi aleyda, part of set Screw Canltd [id number] - [id number] Implanted:Qty: 1 on 09/26/2019 by Tirso Fernandes MD at [place] [facility] [place]: Ankle EXACTECH [id number] / / documented as of this encounter [...] deyvi occurred with: Not Discussed Care Teams Rounder And Backer Relationship Specialty Start Date End Date Mike Michel MD [address] [facility] [place] [address] PCP - General Internal Medicine 07/05/21 documented as of this encounter
--- OUTSIDE RECORDS SUMMARY | 2023-11-07 18:30 | External Medical Summary | Summary of Care ---
Author Name Unknown Organization [facility] Address [address] [facility] [address] Phone [phone] Care Team Providers Care Senior J2Ee Developer Name Role Phone Mike Michel MD Primary Care Provider + Reason for Visit * Reason Comments Outpatient Testing Encounter Details Date Type Department Care Team (Late st Contact Info) Description 10/09/2023 10:30 AM EST Laboratory Laboratory Sc[address]ery [facility] [address] [place] [phone] [facility] [address] [place] [address] Cold intolerance; Prediabetes; Gouty arthropathy, chronic, 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; HTN, goal below 140/90 Allergies Active Allergy Reactions Criticality Noted Date [...] No 09/26/2019 documented as of this encounter Plan of Treatment Upcoming Encounters Date Type Department Care Team (Late st Contact Info) Description 11/02/2023 11:30 AM EST Office Visit Interventional Pain Center, [facility] [address] [place] [address] Evy Castellanos PA-C [address] [place] [address] 11/11/2023 9:20 AM EST Anticoagulation Pharmacy, [facility] [address] [place] [address] [facility] [address] [place] [address] 11/17/2023 11:30 AM EST Imaging Radiology [facility] 1st [facility] [address] [place] [address] 12/02/2023 11:30 AM EDT Telemedicine Urology Barron Segal [address] [place] [address] [place] [address] Tony Vale MD [address] [place] [address] [place] [address] 7, Telemed [facility] Urology Ex [address] [place] [address] 12/08/2023 11:00 AM EDT Office Visit Hematology/Oncology [facility] [address] [place] [address] Yesenia Phillips MD [address] [facility] [place] [address] 01/05/2024 9:00 AM EDT Nurse Only Ancillary [facility] [address] [facility] [place] [address] Im, Nurse Annual Wellness [facility] [address] [facility] [place] [address] 04/14/2024 9:40 AM EDT Office Visit General Internal Medicine [facility] [address] [facility] [place] [address] Mike Michel MD [address] [place] [address] [place] [address] Pending Results Name Type Priority Associated Diagnoses Date /Time TSH Lab Routine Cold intolerance 10/09/2023 10:12 AM EST HEMOGLOBIN A1C Lab Routine Prediabetes 10/09/2023 10:12 AM EST URIC ACID Lab Routine Gouty arthropathy, chronic, 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 10/09/2023 10:12 AM EST ALBUMIN / CREATININE RATIO, URINE Lab Routine HTN, goal below 140/90 Prediabetes 10/09/2023 10:14 AM EST Scheduled Procedures Name Priority Associated Diagnoses Date/Ti [...] Completed 08/10/2018, 08/03/2017 Zoster Vaccines Completed 03/05/2020, 12/02/2019, 11/10/2012 Influenza Vaccine (FLU shot) Completed , 05/21/2022, 06/15/2021, Additional history exists COVID-19 Vaccine Completed 07/07/2023, , 12/24/2021, Additional history exists GARDASIL-HPV IMMUNIZATION SERIES Aged Out No longer eligible based on patient's age to complete this topic MENINGOCOCCAL (MENACTRA/MENVEO) Aged Out No longer eligible based on patient's age to complete this topic documented as of this encounter Medical Devices Implanted Type Area Forming Mill Operator Device Identifier Shelf Expiration Date Model / Serial / Lot Cannulated Screw 5.0x44mm Implanted:Qty: 2 on 05/10/2018 by Tirso Fernandes MD [place] [facility] [place]: Foot EXACTECH [id number] / / Description:no expiration gi aleyda, part of set Screw Canltd [id number] - [id number] Implanted:Qty: 1 on 09/26/2019 by Tirso Fernandes MD [place] [facility] [place]: Ankle EXACTECH [id number] / / documented as of this encounter Visit Diagnoses Diagnosis Cold intolerance Other general symptoms Prediabetes Other abnormal glucose Gouty arthropathy, chronic, 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
--- OUTSIDE RECORDS SUMMARY | 2023-11-07 18:30 | External Medical Summary | Summary of Care ---
Author Name Unknown Organization [facility] Address [address] [facility] [place] [address] Phone [phone] Care Team Providers Care Admission Nurse Name Role Phone Mike Michel MD Primary Care Provider + Reason for Visit * Reason Onset Date Comments Appointment 10/09/2023 Colonosocpy. Order Request 10/09/2023 Colonoscopy Encounter Details Date Type Department Care Team (Late st Contact Info) Description 10/09/2023 Telephone Gastroenterology, Health system [address] [place] [address] Betsey Mark MD [address] [place] [address] Appointment (Colonosocpy. ); Order Request... Allergies Active Allergy Reactions Criticality Noted Date Comments Alexander Inhibitors Other (Please comment) Low 7 Cough documented as of this encounter (statuses as of 11/04/2023) Medications Medication Sig Dispensed Refills Start Date End Date Status VIAGRA 50 MG PO TABSIndications: Impotence of organic origin One pill by mouth 1-4 hours before intercourse, no more than 1 dose in 24 hours. 10 Tab 5 05/15/2010 Active Losartan Potassium 100 MG Oral Tablet (Cozaar)Indicati ons:HTN, goal below 140/90 TAKE 1 TABLET BY MOUTH EVERY DAY 90 Tablet 3 05/04/2023 Active Warfarin Sodium 5 MG Oral Tablet (Coumadin)Indica tions:History of pulmonary embolism Take 5mg (1 tablet) Tues and Sat; 10mg (2 tablets) all other days or as directed by coumadin clinic 160 Tablet 3 05/15/2023 Active amLODIPine Besylate 10 MG Oral Tablet (Norvasc)Indicat ions:HTN, goal below 140/90 Take 1 Tablet by mouth in the morning. 90 Tablet 2 08/05/2023 Active Tamsulosin HCl 0.4 MG Oral Capsule (Flomax)Indicati ons:BPH with obstruction/lowe r urinary tract symptoms TAKE 1 CAPSULE BY MOUTH EVERY DAY 90 Capsule 3 09/15/2023 Active Simvastatin 20 MG Oral Tablet (Zocor)Indicatio ns:Dyslipidemia, goal LDL below 160 TAKE 1 TABLET BY MOUTH EVERYDAY AT BEDTIME 90 Tablet 1 04/24/2023 10/28/2023 Discontinued documented as of this encounter (statuses as of 11/04/2023) Active Problems Problem Noted Date Diagnosed Date [...] as of this encounter (statuses as of 11/04/2023) Resolved Problems Problem Noted Date Diagnosed Date [...] as of this encounter (statuses as of 11/04/2023) Immunizations Name Administration Dates Next Due COVID-19 [...] Free 10/25/2012 TDAP (age 10 and older)(Boostrix) 03/29/2023, TDAP (age 11 and older)(Adacel) 09/14/2002 Varicella [...] encounter Miscellaneous Notes * Telephone Encounter - Iliana Rizo OSA - 11/04/2023 1:37 PM EST Pt scheduled DENY Krishnan 11/04/2023 1:37 PM * Telephone Encounter - Ginny Gunter LPN [...] wish to have their order completed at? [facility] Fax Number, if applicable: Call Back Number: [phone] Please call back to set up the [...] Upcoming Encounters Date Type Department Care Team (Latest Contact Info) Description 11/11/2023 9:20 AM EST Anticoagulation Pharmacy, Health system [address] [facility] [place] [address] [facility] [address] [place] [address] 11/17/2023 11:30 AM EST Imaging Radiology [facility] [address] [place] [address] 12/02/2023 11:30 AM EDT Telemedicine Urology Barron Segal [address] [place] [address] [place] [address] Tony Vale MD [address] [place] [address] [place] [address] 7, Telemed [facility] Urology Ex [address] [facility] [place] [address] 12/08/2023 11:00 AM EDT Office Visit Hematology/Oncolog y [place] [address] [place] [id number] Yesenia Phillisp MD [address] [address] 01/05/2024 9:00 AM EDT Nurse Only Ancillary [facility] [address] [facility] [address] [place], [place] [address] Im, Nurse Annual Wellness [facility] [address] [facility] [place] [address] 02/17/2024 1:00 PM EDT Hospital Encounter ENDO [facility], Endoscopy Room [facility] [address] [place] [phone] Jay De Souza MD [address] [place] [address] 02/17/2024 1:00 PM EDT - 02/17/2024 1:30 PM EDT Surgery ENDO [facility], Endoscopy Room [facility] [address] [place] [phone] Jay De Sozua MD [address] [place] [address] COLONOSCOPY FLEXIBLE PROXIMAL DIAGNOSTIC 04/14/2024 9:40 AM EDT Office Visit General Internal Medicine [facility] [address] [place], [place] [address] Mike Michel MD [address] [facility] [place] [address] Scheduled Procedures Name Priority Associated Diagnoses Date/Ti me COLONOSCOPY FLEXIBLE PROXIMAL DIAGNOSTIC Recall Screen for colon cancer 02/17/2024 1:00 PM EDT Health Maintenance Due Date Last Done Comments COLONOSCOPY-EVERY 5 YRS AGES 18-100 09/28/2023 09/28/2018, 09/28/2018, 03/19/2011, Additional history exists Depression Screening 12/30/2023 12/29/2022 GFR 06/29/2024 06/29/2023, 03/14, 05/16/2022, Additional history exists HbA1c 10/09/2024 10/09/2023, 03/14, 02/21/2022, Additional history exists Albumin/Creatinine Ratio 10/09/2026 10/09/2023 Lipid Panel 03/27/2028 03/27/2023, 02/12, 02/12/2021, Additional history exists DTaP,Tdap,and Td Vaccines (5 - Td or Tdap) 03/29/2033 03/29/2023, 03/27/2023, 10/25/2012, Additional history exists Hepatitis B Completed 08/01/2008, 04/15, 12/01/2006, Additional [...] this encounter Medical Devices Implanted Type Area Flight Agent Device Identifier Shelf Expiration Date Model / Serial / Lot Screw Canltd [id number] - [id number] Implanted:Qty: 1 on 05/10/2018 [place]so [place] [facility] [place] Foot EXACTECH [id number] / / Description:no expiration gi aleyda, part of set Screw Canltd [id number] - [id number] Implanted:Qty: 1 on 05/10/2018 by Tirso Fern[place] [facility] [place]: Foot EX[employer]ECH [id number] / / Description:no expiration gi aleyda, part of set Screw Canltd [id number] - [id number] Implanted:Qty: 1 on 05/10/2018 by Tirso Fern[place] [facility] [place]: Foot EXACTECH [id number] / / Description:no expiration gi aleyda, part of set Cannulated Screw 5.0x44mm Implanted:Qty: 2 on 05/10/2018 by Tirso Fern[place] [facility] [place]: Foot EX[employer]ECH [id number] / / Description:no expiration gi aleyda, part of set Graft Bn Stm Cell 3ml Algrf Fr - [id number] - [id number] Implanted:Qty: 1 on 09/26/2019 by Tirso Fernand[place] [facility] [place]: Ankle MUSCULOSKELETAL TRANSPLANT FND 06/04/2021 [id number] / [id number] / [id number] Screw Canltd [id number] - [id number] Implanted:Qty: 1 on 09/26/2019 by Tirso Fernandes [place] [facility] [place]: Ankle EXACTECH [id number] / / Screw Canltd [id number] - [id number] Implanted:Qty: 2 on 09/26/2019 by Tirso Fernandes [place] [facility] [place]: Ankle EXACTECH [id number] / / Screw Cannulated 5x44mm - [id number] Implanted:Qty: 1 on 09/26/2019 by Tirso Fernandes [place] [facility] [place]: Ankle EXACTECH 2842-5008 / / Screw Canltd [id number] - [id number] Implanted:Qty: 1 on 09/26/2019 by Tirso Fernandes [place] [facility] [place]: Ankle EXACTECH [id number] / / documented as of this encounter [...] deyvi occurred with: Not Discussed Care Teams Admission Nurse Relationship Specialty Start Date End Date Mike Michel MD [address] [place] [address] PCP - General Internal Medicine 07/05/21 documented as of this encounter
--- OUTSIDE RECORDS SUMMARY | 2023-11-07 18:30 | External Medical Summary | Summary of Care ---
Author Name Unknown Organization [facility] Address [address] [facility] [place] [address] Phone [phone] Care Team Providers Care Leaflet Distributor Name Role Phone Mike Michel MD Primary Care Provider + Reason for Visit * Reason Onset Date Comments Appointment 10/09/2023 Colonosocpy. Order Request 10/09/2023 Colonoscopy Encounter Details Date Type Department Care Team (Late st Contact Info) Description 10/09/2023 Telephone Gastroenterology, [facility] [address] [address] [address] Betsey Mark MD [address] [address] Appointment (Colonosocpy. ); Order Request... Allergies Active Allergy Reactions Criticality Noted Date Comments Alexander Inhibitors Other (Please comment) Low 7 Cough documented as of this encounter (statuses as of 10/19/2023) Medications Medication Sig Dispensed Refills Start Date [...] as of this encounter (statuses as of 10/19/2023) Active Problems Problem Noted Date Diagnosed Date [...] as of this encounter (statuses as of 10/19/2023) Resolved Problems Problem Noted Date Diagnosed Date [...] as of this encounter (statuses as of 10/19/2023) Immunizations Name Administration Dates Next Due COVID-19 [...] encounter Miscellaneous Notes * Telephone Encounter - Lori Ortega OSA [...] wish to have their order completed at? [facility] Fax Number, if applicable: Call Back Number: [phone] Please call back to set up the [...] AM EST Office Visit Interventional Pain Center, [facility] [address] [facility] [place] [address] Evy Becerra PA-C [address] [place], [place] [address] 11/11/2023 9:20 AM EST Anticoagulation Pharmacy, [facility] [address] [facility] [place] [address] [facility] [address] [facility] [place] [address] 11/17/2023 11:30 AM EST Imaging [facility] [address] [facility] [place] [address] 12/02/2023 11:30 AM EDT Telemedicine Urology Barron Segal [address] [place] [address] [place] [address] Tony Vale MD [address] [place] [address] [place] [address] 7, Telemed [facility] Urology Ex [address] [facility] [place] [address] 12/08/2023 11:00 AM EDT Office Visit Hematology/Oncology [facility] [place] [address] [place] [address] Yesenia Phillips MD [address] [place] [address] 01/05/2024 9:00 AM EDT Nurse Only Ancillary [facility] [place] [address] [place] [address] Im, Nurse Annual Wellness [facility] [address] [place] [address] 04/14/2024 9:40 AM EDT Office Visit General Internal Medicine [place] [address] [place] [address] Mike Michel MD [address] [place] [address] Scheduled Procedures Name Priority Associated Diagnoses Date/Ti [...] this encounter Medical Devices Implanted Type Area [employer] Math Tutor Device Identifier Shelf Expiration Date Model / Serial / Lot Cannulated Screw 5.0x44mm Implanted:Qty: 2 on 05/10/2018 by Tirso Fernandes MD at OR [facility] Right: Foot EXACTECH [id number] / / Description:no expiration gi aleyda, part of set Screw Canltd [id number] - [id number] Implanted:Qty: 1 on 09/26/2019 by Tirso Fernandes MD at OR [facility] Left: Ankle EXACTECH [id number] / / documented as of this encounter [...] deyvi occurred with: Not Discussed Care Teams Leaflet Distributor Relationship Specialty Start Date End Date Mike Michel MD [address] [place] [address] PCP - General Internal Medicine 07/05/21 documented as of this encounter
--- OUTSIDE RECORDS SUMMARY | 2023-11-07 18:30 | External Medical Summary | Summary of Care ---
Author Name Unknown Organization [facility] Address [address] [place] [address] Phone [phone] Care Team Providers Care Tinsmith Apprentice Name Role Phone Mike Michel MD Primary Care Provider + Reason for Referral * Ancillary Services (Within 30 days (routine)) - Authorized Specialty Diagnoses / Procedures Referred By Phyllis keane Referred To Contact Gastroenterology Diagnoses Screen for colon cancer Mike Michel MD [address] [place] [id number] Referral ID Status Reason Start Date Expiration Date Visits Requested Visits Authorized [id number] Authorized Ancillary Services Required 10/09/[phone] Question Answer Referral Priority Within 30 days (routine) Where should this appointment be scheduled? Narda Comments ALERT: Do not order for pediatric patients (18 years or younger). Cancel off screen and order PEDS GASTROENTEROLOGY CONSULT (Type: 1 visit only-Evaluate and Treat) The following Pt. Instructions are available: - Gastro Colonoscopy Prep Instructions [[id number]] - Gastro Colonoscopy Prep Instructions (Turkmen Version) [[id number]] Go to the Pt. Instructions section within the Visit Navigator to access. Colonoscopy ASGE Guidelines: Average risk screening (begin at age 50, 10 year intervals) ADDITIONAL INFORMATION 1. Is the patient on Coumadin? Yes--Coumadin MAY NOT be stopped for 5 days 2. Is the patient on Pradaxa? No Reason for Visit * Reason Comments Follow Up 6 month follow up. Kadeem newman presents with concerns for always being cold since starting on his anticoagulants. Encounter Details Date Type Department Care Team (Late st Contact Info) Description 10/09/2023 9:40 AM EST Office Visit General Internal Medicine [place] [facility] [address] [facility] [place] [address] Mike iMchel MD [address] [facility] [place] [address] Spondylosis of lumbar region without myelopathy or radiculopathy*; HTN, goal below 140/90; Prediabetes; Cold intolerance; Screen for colon cancer; Gouty arthropathy, chronic, 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; Need for omolpgbvax-luknnan-iz rtussis (Tdap) vaccine; Obstructive sleep apnea of adult; Mixed hyperlipidemia; Right renal mass Allergies Active Allergy Reactions Criticality Noted Date Comments Alexander Inhibitors Other (Please comment) Low 7 Cough documented as of this encounter (statuses as of 10/09/2023) Medications Medication Sig Dispensed Refills Start Date End Date Status VIAGRA 50 MG PO TABSIndications :Impotence of organic origin One pill by mouth 1-4 hours before intercourse, no more than 1 dose in 24 hours. 10 Tab 5 05/15/2010 Active Simvastatin 20 MG Oral Tablet (Zocor)Indicati ons:Dyslipidemi a, goal LDL below 160 TAKE 1 TABLET BY MOUTH EVERYDAY AT BEDTIME 90 Tablet 1 04/24/2023 Active Losartan Potassium 100 MG Oral Tablet (Cozaar)Indicat ions:HTN, goal below 140/90 TAKE 1 TABLET BY MOUTH EVERY DAY 90 Tablet 3 05/04/2023 Active Warfarin Sodium 5 MG Oral Tablet (Coumadin)Indic ations:History of pulmonary embolism Take 5mg (1 tablet) Tues and Sat; 10mg (2 tablets) all other days or as directed by coumadin clinic 160 Tablet 3 05/15/2023 Active amLODIPine Besylate 10 MG Oral Tablet (Norvasc)Indica tions:HTN, goal below 140/90 Take 1 Tablet by mouth in the morning. 90 Tablet 2 08/05/2023 Active Tamsulosin HCl 0.4 MG Oral Capsule (Flomax)Indicat ions:BPH with obstruction/low er urinary tract symptoms TAKE 1 CAPSULE BY MOUTH EVERY DAY 90 Capsule 3 09/15/2023 Active Enoxaparin Sodium 150 MG/ML Injection Solution Prefilled Syringe (Lovenox) Inject 150 mg under the skin in the morning and 150 mg before bedtime. 10 mL 1 09/02/2023 4 Discontinued Tetanus-Diphth- Acell Pertussis 5-2.5-18.5 LF-MCG/0.5 Suspension Prefilled Syringe (Boostrix)Indic ations:Need for diphtheria-teta nus-pertussis (Tdap) vaccine Inject 0.5 mL into a large muscle once for 1 dose. As directed 0.5 mL 0 10/09/2023 4 Discontinued(Lashae ent preference/discon tinuation) documented as of this encounter (statuses as [...] Date Smoking Tobacco: Never Smokeless Tobacco: Never Tobacco Cessation:Counseling Given: Not Answered Alcohol Use Standard Drinks/Week Comments No 0 [...] on file documented as of this encounter Last Filed Vital Signs Vital Sign Reading Time Taken Comments Blood Pressure 126/74 10/09/2023 9:35 AM EST Pulse 65 10/09/2023 9:35 AM EST Temperature 36.3 C (97.3 F) 10/09/2023 9:35 AM ES T Respiratory Rate - - Oxygen Saturation 98% 10/09/2023 9:35 AM EST Inhaled Oxygen Concentration - - Weight 144 kg (317 lb 6.4 oz) 10/09/2023 9:35 AM EST Height 182.9 cm (6') 10/09/2023 9:35 AM EST Body Mass Index 43.05 10/09/2023 9:35 AM EST documented in this encounter Functional Status Functional Status Response [...] No 09/26/2019 documented as of this encounter Progress Notes * Mike Michel MD - 10/09/2023 10:01 AM EST Chief Complaint Patient presents with Follow Up 6 month follow up. Patient presents with concerns for always being cold since starting on his anticoagulants. SUBJECTIVE: Chris Taylor is a 73 year old male with PMH as below who presents for follow up back pain, htn, pre-DM. No cp, sob, reina. Back pain markedly improved as is abdomen pain after nerve ablation! No n/v/d. Feels issues with cold more in cold weather since on coumadin. Sees urology for right renal mass, known has f/u in November. 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 10 Tab 5 Simvastatin 20 MG Oral Tablet (Zocor) TAKE 1 TABLET BY MOUTH EVERYDAY AT BEDTIME 90 Tablet 1 Losartan Potassium 100 MG Oral Tablet (Cozaar) TAKE 1 TABLET BY MOUTH EVERY DAY 90 Tablet 3 Warfarin Sodium 5 MG Oral Tablet (Coumadin) Take 5mg (1 tablet) Tues and Sat; 10mg (2 tablets) all other days or as directed by coumadin clinic 160 Tablet 3 amLODIPine Besylate 10 MG Oral Tablet (Norvasc) Take 1 Tablet by mouth in the morning. 90 Tablet 2 Tamsulosin HCl 0.4 MG Oral Capsule (Flomax) TAKE 1 CAPSULE BY MOUTH EVERY DAY 90 Capsule 3 No current facility-administered medications for this visit. Review of patient's allergies indicates: Allergen Reactions Alexander Inhibitors Other (Please comment) Cough Health Maintenance Due Topic Date Due Albumin/Creatinine Ratio Never done DTaP,Tdap,and Td Vaccines (3 - Td or Tdap) 10/25/2022 COLONOSCOPY-EVERY 5 YRS AGES 18-100 09/28/2023 ROS: CONSTITUTIONAL: No change in weight, No weakness, and No fevers, sweats, or chills EYE: No recent significant change in vision, No eye pain, redness, discharge, and No diplopia EARS: No ear pain, No drainage, No tinnitus or vertigo, and No recent change in hearing PULMONARY: No cough, sputum, or hemoptysis, No wheezing, No rales, No shortness of breath, and No recent change in breathing CARDIOVASCULAR: No chest pain, No shortness of breath, No dyspnea on exertion, No orthopnea, No paroxysmal nocturnal dyspnea, No edema, No palpitations, and No syncope GASTROINTESTINAL: No abdominal pain, No change in bowel habits, No significant heartburn, No significant change in appetite, No nausea, vomiting, diarrhea, or constipation, No hematemesis, No blood in stools or black tarry stools, No abdominal bloating or early satiety, and No dysphagia ALL OTHER SYSTEMS NEGATIVE I reviewed social, PMH, PSH, and family history and updated where needed. 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 Employer: [id number] Tobacco Use Smoking status: Never Smokeless tobacco: Never Vaping Use Vaping Use: Never used Substance and Sexual Activity Alcohol use: No Drug use: No Sexual activity: Yes Partners: Female Other Topics Concern Service Not Asked Blood Transfusions Not Asked Caffeine Concern Not Asked Occupational Exposure Not Asked Hobby Hazards Not Asked Sleep Concern Not Asked Stress Concern Not Asked Weight Concern Not Asked Special Diet Not Asked Back Care Not Asked Exercise Not Asked Bike Helmet Not Asked Seat Belt Yes Self-Exams Not Asked Social History 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 Lives with . 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 Social Determinants of Health Financial Resource Strain: Not on file Food Insecurity: No Food Insecurity (12/29/2022) Hunger Vital Sign Worried About Running Out of Food in the Last Year: Never true Ran Out of Food in the Last Year: Never true Transportation Needs: Not on file Physical Activity: Not on file Stress: Not on file Social Connections: Not on file Intimate Partner Violence: Not on file Housing Stability: Not on file Past Medical History: Diagnosis Date Benign neoplasm of colon 01/27/08 hyperplastic polyp--repeat 3 years Bilateral foot pain 05/24/2015 acute Body mass index (BMI) 40.0-44.9, adult 04/29/2011 Dyslipidemia, goal LDL below 160 11/30/2007 Gouty arthropathy, chronic, 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 HTN, goal below 140/90 Obstructive sleep apnea of adult 07/31/2006 uses CPAP Right foot pain 05/18/2018 Past Surgical History: Procedure Laterality Date CARPAL TUNNEL SURGERY 2000 bilateral CARPAL TUNNEL SURGERY Right 07/2017 redo COLONOSCOPY W/ BIOPSY (RECTUM) 01/27/08 hyperplastic polyp--repeat 3 years COLONOSCOPY, DIAGNOSTIC (RECTUM) 03/19/11 wnl repeat in 5-10 yrs COLONOSCOPY, DIAGNOSTIC (RECTUM) 09/28/2018 hyperplastic/serrated adenomatous polyp, diverticulosis, repeat 5 yrs/COLONOSCOPY FLEXIBLE PROXIMALDIAGNOSTIC performed by Betsey Mark MD at ENDOSCOPY [facility] DESTROY LUMBAR SACRAL NERVE IMAGING ADD'L 09/18/2023 DESTROY LUMBAR SACRAL NERVE IMAGING ADD'L performed by Benjie Tilley DO at OR [facility] DESTROY LUMBAR SACRAL NERVE IMAGING SINGLE 09/18/2023 DESTROY LUMBAR SACRAL NERVE IMAGING SINGLE performed by Benjie Tilley DO at OR [facility] FUSION OF FOOT BONES, TRIPLE Right 05/10/2018 TRIPLE ARTHRODESIS performed by Tirso Fernandes MD at OR [facility] FUSION OF FOOT BONES, TRIPLE Left 09/26/2019 TRIPLE ARTHRODESIS performed by Tirso Fernandes MD at OR [facility] INFORMATION 11/22/12 Laparoscopic ventral hernia repair with 10cm round surgimesh Dr Bowman [facility] 11/22/12 L-/S-SPINE PARAVERTEBRAL FACET INJ,1 LEVEL 05/07/2023 L-/S-SPINE PARAVERTEBRAL FACET INJ, 1 LEVEL performed by Benjie Tilley DO at OR [facility] L-/S-SPINE PARAVERTEBRAL FACET INJ,1 LEVEL 07/13/2023 L-/S-SPINE PARAVERTEBRAL FACET INJ, 1 LEVEL performed by Benjie Tilley DO at OR [facility] L-/S-SPINE PARAVERTEBRL FACET INJ,2 LEVELS 05/07/2023 L-/S-SPINE PARAVERTEBRAL FACET INJ, 2 LEVELS performed by Benjie Tilley DO at OR [facility] L-/S-SPINE PARAVERTEBRL FACET INJ,2 LEVELS 07/13/2023 L-/S-SPINE PARAVERTEBRAL FACET INJ, 2 LEVELS performed by Benjie Tilley DO at OR [facility] LENGTHEN/SHORTEN LOWER LEG TENDON Right 05/10/2018 LENGTHENING OR SHORTENING TENDON LEG OR ANKLE performed by Tirso Fernandes MD at OR [facility] MISCELLANEOUS ORDER ([facility] ONLY) Left forearm after fall REPAIR RUPTURED ROTATOR CUFF, CHRON Left 04/09/2017 Dr Sorensen [place] (Workmans comp) SACROILIAC JOINT INJECT W/GUIDANCE 03/05/2023 INJECTION SACROILIAC JOINT performed by Max Bharat Treva, DO at OR [facility] Family History Problem Relation Age of Onset Lung Disorder Father COPD Other (Other) Father AAA Stroke Mother Lived to Lung Disorder Mother COPD OBJECTIVE: PHYSICAL EXAM: BP 126/74 | Pulse 65 | Temp 36.3 C (97.3 F) | Ht 1.829 m (6') | Wt (!) 144 kg (317 lb 6.4 oz) |SpO2 98% | BMI 43.05 kg/m | BSA 2.7 m General: alert, healthy, and no distress Head: Normocephalic, No masses, lesions, or abnormalities Eye Exam: conjunctiva are pink and non-injected, sclera clear Ears: External ears normal, Canals clear, TM's Normal Heart: regular rate & rhythm, no murmur, no gallops, PMI non-displaced, S-1 normal, and S-2 normal Lungs: normal respiratory rate and rhythm, lungs clear to auscultation Psych: normal affect, no flight of ideas or tangential thought, good eye contact, no pressured speech I reviewed last lipid, gfr, A1c, psa, uric acid ASSESSMENT: M47.816 Spondylosis of lumbar region without myelopathy or radiculopathy (primary encounter diagnosis) I10 HTN, goal below 140/90 R73.03 Prediabetes R68.89 Cold intolerance Z12.11 Screen for colon cancer M1A.00X0 Gouty arthropathy, chronic, 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 Z23 Need for ddrpijyrja-bvvfdec-iayfasfxn (Tdap) vaccine G47.33 Obstructive sleep apnea of adult E78.2 Mixed hyperlipidemia N28.89 Right renal mass PLAN: Spondylosis of lumbar region without myelopathy or radiculopathy (Primary) Better! Appreciate pain mgmt aid HTN, goal below 140/90 - ALBUMIN / CREATININE RATIO, URINE; Future; Expected date: 10/09/2023 Cont amlodipine, losartan Prediabetes - ALBUMIN / CREATININE RATIO, URINE; Future; Expected date: 10/09/2023 - HEMOGLOBIN A1C; Future; Expected date: 10/09/2023 Recheck Cold intolerance - TSH; Future; Expected date: 10/09/2023 Check tsh Screen for colon cancer - COLONOSCOPY, GI REFERRAL OP Gouty arthropathy, chronic, 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 - URIC ACID; Future; Expected date: 10/09/2023 Follow Need for xjbkbzaoam-rcdxjih-trkjuiuqz (Tdap) vaccine Had at [facility], will request records Obstructive sleep apnea of adult Cont cpap Mixed hyperlipidemia Cont med Right renal mass F.u urology Follow Up: Return in about 6 months (around 04/08/2024), or if symptoms worsen or fail to improve, for Labs Today. | For: Labs Today Mike Michel MD documented in this encounter Nursing Notes * Talib Moreno CMA - 10/09/2023 9:34 AM EST Chief Complaint Patient presents with Follow Up 6 month follow up. Patient presents with concerns for always being cold since starting on his anticoagulants. documented in this encounter Plan of Treatment Upcoming Encounters Date Type Department Care Team (Late st Contact Info) Description 10/09/2023 10:30 AM EST Laboratory Laboratory [facility] [address] [place] [id number] [place], Lab Scenery [address] [facility] [place] [address] Cold intolerance; Prediabetes; Gouty arthropathy, chronic, 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; HTN, goal below 140/90 11/02/2023 11:30 AM EST Office Visit Interventional Pain Center, [facility] [address] [place] [address] Evy Castellanos PA-C [address] [place] [address] 11/11/2023 9:20 AM EST Anticoagulation Pharmacy, [facility] [address] [address] [facility] [place] [address] 11/17/2023 11:30 AM EST Imaging Radiology [facility] 1st Floor, [place] [address] [place] [address] 12/02/2023 11:30 AM EDT Telemedicine Urology [facility] [address] [place] [address] [place] [address] [place] [address] Tony Vale MD [address] [place] [address] [place] [address] 7, Telemed [facility] Urology Ex Rm [address] [place] [address] 12/08/2023 11:00 AM EDT Office Visit Hematology/Oncology [facility] [place] [address] [facility] [place] [address] Yesenia Phillips MD [address] [place] [address] [place] [address] 01/05/2024 9:00 AM EDT Nurse Only Ancillary [facility] [place] [address] [facility] [place] [address] Im, Nurse Annual Wellness [address] [place] [address] 04/14/2024 9:40 AM EDT Office Visit General Internal Medicine [facility] [address] [facility] [place] [address] Mike Michel MD [address] [facility] [place] [address] Pending Results Name Type Priority Associated Diagnoses Date /Time ALBUMIN / CREATININE RATIO, URINE Lab Routine HTN, goal below 140/90 Prediabetes 10/09/2023 10:14 AM EST TSH Lab Routine Cold intolerance 10/09/2023 10:12 AM EST HEMOGLOBIN A1C Lab Routine Prediabetes 10/09/2023 10:12 AM EST URIC ACID Lab Routine Gouty arthropathy, chronic, 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 10/09/2023 10:12 AM EST Scheduled Orders Name Type Priority Associated Diagnoses Orde r Schedule ALBUMIN / CREATININE RATIO, URINE Lab Routine HTN, goal below 140/90 Prediabetes Expected: 10/09/2023 (Approximate), Expires: 10/08/2024 TSH Lab Routine Cold intolerance Expected: 10/09/2023 (Approximate), Expires: 10/08/2024 HEMOGLOBIN A1C Lab Routine Prediabetes Expected: 10/09/2023 (Approximate), Expires: 10/08/2024 URIC ACID Lab Routine Gouty arthropathy, chronic, 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 Expected: 10/09/2023 (Approximate), Expires: 10/08/2024 Scheduled Procedures Name Priority Associated Diagnoses Date/Ti me COLONOSCOPY FLEXIBLE PROXIMAL DIAGNOSTIC Recall History of colon polyps Scheduled Referrals Name Type Priority Associated Diagnoses Orde r Schedule COLONOSCOPY, GI REFERRAL OP Referral Within 30 days (routine) Screen for colon cancer Ordered: 10/09/2023 Health Maintenance Due Date Last Done Comments [...] Completed 08/10/2018, 08/03/2017 Zoster Vaccines Completed 03/05/2020, 1202/2019, 11/10/2012 Influenza Vaccine (FLU shot) Completed , 05/21/2022, 06/15/2021, Additional history exists COVID-19 Vaccine Completed 07/07/2023, , 12/24/2021, Additional history exists GARDASIL-HPV IMMUNIZATION SERIES Aged Out No longer eligible based on patient's age to complete this topic MENINGOCOCCAL (MENACTRA/MENVEO) Aged Out No longer eligible based on patient's age to complete this topic documented as of this encounter Medical Devices Implanted Type Area Barrel Maker Device Identifier Shelf Expiration Date Model / Serial / Lot Cannulated Screw [id number] Implanted:Qty: 2 on 05/10/2018 by Tirso Fernandes MD at OR [facility] Right: Foot [employer] [id number] / / Description:no expiration gi aleyda, part of set Screw [employer] [id number] - [id number] Implanted:Qty: 1 on 09/26/2019 by Tirso Fernandes MD at OR [facility] Left: Ankle [employer] [id number] / / documented as of this encounter Visit Diagnoses Diagnosis Spondylosis of lumbar region without myelopathy or radiculopathy- Primary Lumbosacral spondylosis without myelopathy HTN, goal below 140/90 Unspecified essential hypertension Prediabetes Other abnormal glucose Cold intolerance Other general symptoms Screen for colon cancer Special screening for malignant neoplasms, colon Gouty arthropathy, chronic, 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 Chronic gouty arthropathy without mention of tophus (tophi) Need for zhjkbgdmnb-rhnuicj-ugctumacq (Tdap) vaccine Need for prophylactic vaccination with combined nqgieoyqmm-ywcmchf-lmnbbgkpr (DTP) vaccine Obstructive sleep apnea of adult Obstructive sleep apnea (adult) (pediatric) Mixed hyperlipidemia Right renal mass Unspecified disorder of kidney and ureter Cold intolerance Other general symptoms Prediabetes Other [...] deyvi occurred with: Not Discussed Care Teams Tinsmith Apprentice Relationship Specialty Start Date End Date Mike Michel MD [address] [place] [address] PCP - General Internal Medicine 07/05/21 documented as of this encounter"
--- OUTSIDE RECORDS SUMMARY | 2023-11-07 18:30 | External Medical Summary | Summary of Care ---
Author Name Unknown Organization [facility] Address [address] [facility] [place] [address] Phone [phone] Care Team Providers Care Curing Finisher Name Role Phone Mike Michel MD Primary Care Provider + Reason for Visit * Reason Comments Pain Follow up after proc edure Encounter Details Date Type Department Care Team (Late st Contact Info) Description 11/02/2023 11:30 AM EST Office Visit Interventional Pain Center, [facility] [address] [place] [address] Evy Becerra PA-C [address] [place] [address] Spondylosis of lumbar region without myelopathy or radiculopathy*; Acute gout of right foot, unspecified cause Allergies Active Allergy Reactions Criticality Noted Date Comments Alexander Inhibitors Other (Please comment) Low 200 7 Cough documented as of this encounter (statuses as of 11/02/2023) Medications Medication Sig Dispensed Refills Start Date [...] 09/15/2023 Active Simvastatin 20 MG Oral Tablet (Zocor)Indications:D yslipidemia, goal LDL below 160 TAKE 1 TABLET BY MOUTH EVERYDAY AT BEDTIME 90 Tablet 1 10/28/2023 Active documented as of this encounter (statuses as of 11/02/2023) Active Problems Problem Noted Date Diagnosed Date [...] as of this encounter (statuses as of 11/02/2023) Resolved Problems Problem Noted Date Diagnosed Date [...] as of this encounter (statuses as of 11/02/2023) Immunizations Name Administration Dates Next Due COVID-19 [...] as of this encounter Progress Notes * Evy Becerra PA-C - 11/02/2023 11:27 AM EST Name: Chris Taylor Date: 11/02/2023 HPI: Chris Taylor is a 73 year old male known to the Pain Management clinic presents for follow up after L lumbar RFA on 09/18/23. Admits more than 80% pain reduction. Locates intermittent pain Llow back and buttock. Pain is no longer affecting ADL. Denies LE paresthesia and weakness. Denies bowel/bladder dysfunction. History of injections: left SI joint: 03/05/23 --- no relief + coumadin Myriad of secondary and tertiary complaints - B chronic foot pain s/p surgery with known hardware failure, recent onset of gout x's two days (requesting refill of indomethacin from a number of years ago,) questions upcoming MRI which appears to have been ordered by urology, also would like to schedule colonoscopy. History: Past Medical History: Diagnosis Date Benign neoplasm of colon 01/27/08 hyperplastic polyp--repeat 3 years Bilateral foot pain 05/24/2015 acute Body mass index (BMI) 40.0-44.9, adult 04/29/2011 Dyslipidemia, goal LDL below 160 11/30/2007 Gouty arthropathy, chronic, 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 HTN, goal below 140/90 Obstructive sleep apnea of adult 07/31/2006 uses CPAP Right foot pain 05/18/2018 Past Surgical History: Procedure Laterality Date CARPAL TUNNEL SURGERY 1999 bilateral CARPAL TUNNEL SURGERY Right 07/2017 redo COLONOSCOPY W/ BIOPSY (RECTUM) 01/27/08 hyperplastic polyp--repeat 3 years COLONOSCOPY, DIAGNOSTIC (RECTUM) 03/19/11 wnl repeat in 5-10 yrs COLONOSCOPY, DIAGNOSTIC (RECTUM) 09/28/2018 hyperplastic/serrated adenomatous polyp, diverticulosis, repeat 5 yrs/COLONOSCOPY FLEXIBLE PROXIMALDIAGNOSTIC performed by Betsey Mark MD at ENDOSCOPY [facility] DESTROY LUMBAR SACRAL NERVE IMAGING ADD'L 09/18/2023 DESTROY LUMBAR SACRAL NERVE IMAGING ADD'L performed by Benjie Tilley DO at OR [facility] DESTROY LUMBAR SACRAL NERVE IMAGING SINGLE 09/18/2023 DESTROY LUMBAR SACRAL NERVE IMAGING SINGLE performed by Benjie Tilley DO at OR [facility] FUSION OF FOOT BONES, TRIPLE Right 05/10/2018 TRIPLE ARTHRODESIS performed by Tirso Fernandes MD at OR [facility] FUSION OF FOOT BONES, TRIPLE Left 09/26/2019 TRIPLE ARTHRODESIS performed by Tirso Fernandes MD at [facility] INFORMATION 11/22/12 Laparoscopic ventral hernia repair with 10cm round surgimesh Dr Bowman [facility] 11/22/12 L-/S-SPINE PARAVERTEBRAL FACET INJ,1 LEVEL 05/07/2023 L-/S-SPINE PARAVERTEBRAL FACET INJ, 1 LEVEL performed by Benjie Tilley DO at OR [facility] L-/S-SPINE PARAVERTEBRAL FACET INJ,1 LEVEL 07/13/2023 L-/S-SPINE PARAVERTEBRAL FACET INJ, 1 LEVEL performed by Benjie Tilley DO at OR [facility] L-/S-SPINE PARAVERTEBRL FACET INJ,2 LEVELS 05/07/2023 L-/S-SPINE PARAVERTEBRAL FACET INJ, 2 LEVELS performed by Benjie Tilley DO at OR [facility] L-/S-SPINE PARAVERTEBRL FACET INJ,2 LEVELS 07/13/2023 L-/S-SPINE PARAVERTEBRAL FACET INJ, 2 LEVELS performed by Benjie Tilley DO at OR [facility] LENGTHEN/SHORTEN LOWER LEG TENDON Right 05/10/2018 LENGTHENING OR SHORTENING TENDON LEG OR ANKLE performed by Tirso Fernandes MD at OR [facility] MISCELLANEOUS ORDER ([facility] ONLY) Left forearm after fall REPAIR RUPTURED ROTATOR CUFF, CHRON Left 04/09/2017 Dr Sorensen -[place] (Workmans comp) SACROILIAC JOINT INJECT W/GUIDANCE 03/05/2023 INJECTION SACROILIAC JOINT performed by Benjie Tilley DO at OR [facility] Current Outpatient Medications Medication Sig Dispense Refill VIAGRA 50 MG PO TABS One pill by mouth 1-4 hours before intercourse, no more than 1 dose in 24 hours. 10 Tab 5 Losartan Potassium 100 MG Oral Tablet (Cozaar) [...] BY MOUTH EVERY DAY 90 Capsule 3 Simvastatin 20 MG Oral Tablet (Zocor) TAKE 1 TABLET BY MOUTH EVERYDAY AT BEDTIME 90 Tablet 1 No current facility-administered medications for this visit. Review of patient's allergies indicates: Allergen Reactions Alexander Inhibitors Other (Please comment) Cough ROS: CONSTITUTIONAL: Denies anorexia, weight loss, fever, night sweats. RESPIRATORY: Denies shortness of breath, wheezing, productive cough. CARDIOVASCULAR: Denies chest pains, irregular heartbeat. HEME: Admits easy bruising and anticoagulation use. ROS EXAM: Remainder of ROS negative as discussed above in the HPI. PHYSICAL EXAM: There were no vitals taken for this visit. GENERAL: WD/WN male who is awake and alert. Does not appear to be in acute distress. MENTAL STATUS: Oriented x 3. Pleasant and cooperative with normal affect. STRENGTH: 5/5 in all major motor groups lower extremities bilaterally. SENSATION: Not formally tested. No gross sensory deficits lower extremities bilaterally. GAIT/COORDINATION: Gait is intact. Ambulates without assistance. 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 Can complete daily activities with minimal low back discomfort. He is very appreciate of the relief he has received. Encouraged to continue conservative care including home exercise/stretching program and medication management. Advised to call if pain worsens, consider repeat RFA. L SI joint injection was not helpful. Follow up as needed. Will message PCP regarding possible indomethacin refill - he is now using coumadin and some concerned for using NSAID. He notes indomethacin was significantly helpful in the past for gout flare. I spent a total of 20-29 minutes (exact time 28 mins) on the date of service in preparation, delivery, and documentation of the care provided to Chris Taylor excluding any time spent in the performance of separately billed services. Evy Becerra PA-C 11/02/2023 documented in this encounter Nursing Notes * Alex Gunter CMA - 11/02/2023 11:16 AM EST Chief Complaint Patient presents with Pain Follow up after procedure Chris Taylor is a 73 year old male who presents today for a follow up after a procedure on hislumbar and sacral region. He states that his pain is a 2/10 and his back is feeling much better. Healnevaeh has some pain in his abdomen that started 1 year ago. He sates that he has a blood clot in a vein in his abdomen 1.5 years ago. documented in this encounter Plan of Treatment Upcoming Encounters Date Type Department Care Team (Latest Contact Info) Description 11/11/2023 9:20 AM EST Anticoagulation Pharmacy, [address] [place] [address] [facility] [address] [place] [address] 11/17/2023 11:30 AM EST [facility] [address] [facility] [place] [address] 12/02/2023 11:30 AM EDT Telemedicine Urology Barron Segal [address] [place] [address] Tony Vale MD [address] [place] [address] 7, Telemed [facility] Urology Ex Rm [address] [place] [address] 12/08/2023 11:00 AM EDT Office Visit Hematology/Oncolog y [facility] [place] [address] [place] [phone] Yesenia Phillips MD [address] [facility] [place] [address] 01/05/2024 9:00 AM EDT Nurse Only Ancillary [facility] Leona [place] [address] [facility] [place] [address] Im, Nurse Annual Wellness [facility] [address] [facility] [place] [address] 02/17/2024 1:00 PM EDT Hospital Encounter ENDO [facility], Endoscopy Room [facility] [address] [place] [phone] Jay De Souza MD [address] [place] [address] 02/17/2024 1:00 PM EDT - 02/17/2024 1:30 PM EDT Surgery ENDO [facility], Endoscopy Room [facility] [address] [place] [phone] Jay De Souza MD [address] [place] [address] COLONOSCOPY FLEXIBLE PROXIMAL DIAGNOSTIC 04/14/2024 9:40 AM EDT Office Visit General Internal Medicine [facility] [place] [address] [place] [address] Mike Michel MD [address] [facility] [place] [address] Scheduled Procedures Name Priority Associated Diagnoses Date/Ti [...] Completed 08/10/2018, 08/03/2017 Zoster Vaccines Completed 03/05/2020, 12/0 02/2019, 11/10/2012 Influenza Vaccine (FLU shot) Completed , 05/21/2022, 06/15/2021, Additional history exists COVID-19 Vaccine Completed 07/07/2023, , 12/24/2021, Additional history exists GARDASIL-HPV IMMUNIZATION SERIES Aged Out No longer eligible based on patient's age to complete this topic MENINGOCOCCAL (MENACTRA/MENVEO) Aged Out No longer eligible based on patient's age to complete this topic documented as of this encounter Medical Devices Implanted Type Area Silver Lap Machine Tender Device Identifier Shelf Expiration Date Model / Serial / Lot Screw Canltd [id number] - [id number] Implanted:Qty: 1 on 05/10/2018 by Tirso Fernandes MD at OR [facility] Right: Foot EXACTECH [id number] / / Description:no expiration gi aleyda, part of set Screw Canltd [id number] - [id number] Implanted:Qty: 1 on 05/10/2018 by Tirso Fernandes MD at [facility] Right: Foot EXACTECH [id number] / / Description:no expiration gi aleyda, part of set Screw Canltd [id number] - [id number] Implanted:Qty: 1 on 05/10/2018 by Tirso Fernandes MD at [facility] Right: Foot EXACTECH [id number] / / Description:no expiration gi aleyda, part of set Cannulated Screw 5.0x44mm Implanted:Qty: 2 on 05/10/2018 by Tirso Fernandes MD at [facility] Right: Foot EXACTECH [id number] / / Description:no expiration gi aleyda, part of set Graft Bn Stm Cell 3ml Algrf Fr - [id number] - [id number] Implanted:Qty: 1 on 09/26/2019 by Tirso Fernandes MD at [facility] Left: Ankle MUSCULOSKELETAL TRANSPLANT FND 06/04/2021 [id number] / [id number] / [id number] Screw Canltd [id number] - [id number] Implanted:Qty: 1 on 09/26/2019 by Tirso Fernandes MD at [facility] Left: Ankle EXACTECH [id number] / / Screw Canltd [id number] - [id number] Implanted:Qty: 2 on 09/26/2019 by Tirso Fernandes MD at [facility] Left: Ankle EXACTECH [id number] / / Screw Cannulated 5x44mm - [id number] Implanted:Qty: 1 on 09/26/2019 by Tirso Fernandes MD at [facility] Left: Ankle EXACTECH [id number] / / Screw Canltd [id number] - [id number] Implanted:Qty: 1 on 09/26/2019 by Tirso Fernandes MD at [facility] Left: Ankle EXACTECH [id number] / / documented as of this encounter Visit Diagnoses Diagnosis Spondylosis of lumbar region without myelopathy or radiculopathy- Primary Lumbosacral spondylosis without myelopathy Acute gout of right foot, unspecified cause Screen for colon cancer Special screening for malignant neoplasms, colon documented in this encounter Advance Directives Latest [...] deyvi occurred with: Not Discussed Care Teams Curing Finisher Relationship Specialty Start Date End Date Mike Michel MD [address] [place], [place] [phone] PCP - General Internal Medicine 07/05/21 documented as of this encounter
--- OUTSIDE RECORDS SUMMARY | 2023-11-07 18:31 | External Medical Summary ---
Author Name Unknown Address Unknown Organization [id number]:LABORATORY [facility] [address] - [address] [place] [address] Laboratory Report Ordering Provider Test Date Status HOSSEIN PETERS 10/07/2023 09:42:13 Final Therapeutic ranges for non-o perative patients:
Prophylaxsis/treatment of DVT: (Range:2.0-3.0)
Treatment of pulmonary embolism:(Range:2.0-3.0)
Prevention of systemic embolism from:
-tissue heart valves
-acute myocardial infarction
-valvular heart disease
-atrial fibrillation
(Range: 2.0-3.0)
Mechanical prosthetic valves: (Range: 2.5-3.5) Observation Date Value Abnormality Reference (Units ) Status INR in Capillary blood by Coagulation assay 10/07/2023 09:42:13 1.4 (INR) Final Performing Location LAB[facility]ATORY [facility] [address] - [address] [place] [address]
--- OUTSIDE RECORDS SUMMARY | 2023-11-07 18:31 | External Medical Summary ---
Author Name Unknown Address Unknown Organization [id number]:[facility] [place] [address] [place] [address] Laboratory Report Ordering Provider Test Date Status IVÁN MANNING 10/09/2023 10:12:19 Final Observation Date Value Abnormality Reference (Units ) Status HbA1C 10/09/2023 10:12:19 5.9 Above high normal 4. 0-5.6 (%) Final The use of HbA1c to monitor glycemic status is based on normal hemoglobin and HbA composition. This test should not be used in patients with abnormal hemoglobin that affects the half life of the red blood cell or the in vivo glycation rates. Glucose, estimated average 10/09/2023 10:12:19 123 <126 (mg/dL) Final Performing Location [facility] [place] [address] [place] [address]
--- OUTSIDE RECORDS SUMMARY | 2023-11-07 18:31 | External Medical Summary ---
Author Name Unknown Address Unknown Organization [id number]:[facility]ATORY [facility] [place] - [address] [place] [address] Laboratory Report Ordering Provider Test Date Status IVÁN MANNING 10/09/2023 10:14:55 Final Normal: <30 mg/g creatinine< br/>High: 30-300 mg/g creatinine
Very High: >300 mg/g creatinine
Nephrotic: >2200 mg/g creatinine Observation Date Value Abnormality Reference (Units ) Status Albumin, Urine 10/09/2023 10:14:55 <1.20 (mg/dL) Final Creatinine, Urine 10/09/2023 10:14:55 119 (mg/dL) Final Albumin/Creatinine [Mass Ratio] in Urine 10/09/2023 10:14:55 <10 <30 (mg/g Creat) Final Performing Location LAB[facility]ATORY [facility] [place] - [address] [place] [address]
--- OUTSIDE RECORDS SUMMARY | 2023-11-07 18:31 | External Medical Summary ---
Author Name Unknown Address Unknown Organization [id number]:[facility]ATORY [facility] [place] - [address] [place] [address] Laboratory Report Ordering Provider Test Date Status IVÁN MANNING 10/09/2023 10:12:19 Final Observation Date Value Abnormality Reference (Units ) Status Uric Acid 10/09/2023 10:12:19 6.9 3.4-7.0 (m g/dL) Final Performing Location LABORATORY [facility] - [address] [place] [address]
--- OUTSIDE RECORDS SUMMARY | 2023-11-07 18:31 | External Medical Summary | Summary of Care ---
Author Name Unknown Organization [facility] Address [address] [facility] [place] [address] Phone [phone] Care Team Providers Care Boom Cat Operator Name Role Phone Mike Michel MD Primary Care Provider + Encounter Details Date Type Department Care Team (Late st Contact Info) Description 07/14/2023 2:00 PM EDT Telemedicine Interventional Pain Center, [facility] [address] [place] [phone] [facility] Nurse Phone Call Interventional Pain [facility] [address] [place] [phone] Spondylosis of lumbar region without myelopathy or radiculopathy* Allergies Active Allergy Reactions Criticality Noted Date Comments Alexander Inhibitors Other (Please comment) Low 7 Cough documented as of this encounter (statuses as of 07/17/2023) Medications Medication Sig Dispensed Refills Start Date End Date Status VIAGRA 50 MG PO TABSIndications:Impo tence of organic origin One pill by mouth 1-4 hours before intercourse, no more than 1 dose in 24 hours. 10 Tab 5 05/15/2010 Active Tamsulosin HCl 0.4 MG Oral Capsule (Flomax)Indications: BPH with obstruction/lower urinary tract symptoms TAKE 1 CAPSULE BY MOUTH EVERY DAY 90 Capsule 3 09/22/2022 Active amLODIPine Besylate 10 MG Oral Tablet (Norvasc)Indications :HTN, goal below 140/90 Take 1 Tablet by mouth in the morning. 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 Morbid obesity with BMI of 40.0-44.9, adult 04/14 Dyslipidemia, goal LDL below 160 10/17/2010 History of colonic polyps 01/27/2008 Overview: hyperplastic polyp--repeat 3 years ADVANCE DIRECTIVE INFORMATION 07/31/2006 HTN, goal below 140/90 07/31/2006 Obstructive sleep apnea of adult 07/31/2006 Gouty arthropathy, chronic, 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 documented as of this encounter (statuses as of 07/17/2023) Resolved Problems Problem Noted Date Diagnosed Date Resolved Date Right foot pain 05/18/2018 08/09/2019 Bilateral foot pain 05/24/2015 08/09/20 19 Overview: acute POLYCHONDRITIS- LEFT EAR 10/17/2010 Obesity, morbid (more than 1 00 lbs over ideal weight or BMI > 40) 02/26/2010 04/29/2011 Overview: Per Obesity Protocol, #19 ICD-10 update of inactive term Dyslipidemia, goal to be determined 09/03/2009 10/17/2010 Overview: Per Lipid Taxonomy. Dyslipidemia, goal LDL below 160 11/30/2007 09/03/2009 Overview: Per Lipid Taxonomy. documented as of this encounter (statuses as of 07/17/2023) Immunizations Name Administration Dates Next Due COVID-19 mRNA, LNP-s, No Pre serve, 2-Dose Series (Moderna) 11/16/2020,10/19/2020 COVID-19, mRNA, LNP-s, PF, B ooster, 100mcg/0.5mg (Moderna) 12/24/2021,07/09/2021 Covid-19, Mrna, Lnp-s, Pf, B ivalent, 50 Mcg, IM, 12 yrs and above (Moderna) 06/11/2022 H1N1 2009 Influenza, IM 10/17/2009 HepA Inact/HepB Recomb>=18yrs old 2007,05/04/2007,12/01/2006,11/03 Pneumococcal Conjugate Vacc, 13 Valent (Prevnar) 08/03/2017 Pneumococcal Polysaccharide PPV23 (Pneumovax) 08/10/2018 SEASONAL INFLUENZA, PF, 6 M & Above, IM , (FLULAVAL or FLUZONE) 06/15/2021,06/02/2020,08/10/2018,06/03 Seasonal Influenza Virus Vac cine, Unspecified Formulation 08/15/2019,08/10/2018,06/03/2017,06/12,05/19/2014,07/07/2013,06/26/2012 ,06/25/2011,07/19/2010,10/17/2009,07/15 Seasonal Influenza, Quadriva lent Hd (Fluzone Hd) 05/21/2022 Seasonal Influenza, Quadriva lent, No Preserve, IM 06/12/2016,07/04/2015 Seasonal Influenza, Split, I IV3, With Preserve, Inj 05/19/2014,07/07/2013,06/26/2012,06/25,07/19/2010,10/17/2009,07/24/2006 Seasonal Influenza, Trivalen t, Adjuvanted, 65+ yrs 08/15/2019 TD, Preservative Free 10/25/2012 TDAP (age 11 and older)(Adacel) 09/14/2002 Varicella [...] or making decisions? (5 years old or older No 09/26/2019 documented as of this encounter Progress Notes * Evy Castellanos PA-C - 07/17/2023 1:11 PM EDT Name: Chris Taylor Date: 07/17/2023 Significant pain relief with confirmatory left lumbar MBB, improved ADL and decrease in disability pain scale following injection. Will order left RFA of L3, L4 and L5 medial branch nerves. Does require five day coumadin hold - will send staff message to [facility]ag clinic to assist in hold once procedureis scheduled, will need PT/INR day of procedure. Evy Castellanos PA-C 07/17/2023 * Darshana Mcqueen LPN - 07/14/2023 11:03 AM EDT Patient reports 90% improvement for approx 6hrs after 2nd facet injection-no difficulty mowing grass or with housework Imaging planned: Yes, Fluoroscopy First or second MBB/Facet: SECOND Intend to assess for RFA?: Yes Levels planned (max 2 levels, indicate laterality): LEFT L3/4 L4/5 Anesthesia or Conscious Sedation Planned? (if yes, ABN must be complete as this will not be covered): No Multiple procedures planned for same day?: No Axial moderate/severe neck or low back pain, causing a functional deficit measured on a pain or disability scale?: No Baseline Pain score: 6 out of 10 Pain score s/p 1st diagnostic: 0 = none Pain score s/p 2nd diagnostic: 1 out of 10 Pain Disability index total (0-70) Pre: 39 Pain Disability index total (0-70) Post: 1 Has the pain been present for > 3 months?: Yes Has the pain failed to respond to conservative care?: Yes Is there untreated radiculopathy or neurogenic claudication in the same body region?: No Is there evidence of non-facet pathology that could explain the source of the pain which has not been addressed?: No If the second diagnostic block, did the patient recieve >80% relief for the duration of the local anesthestic from the 1st block?: Yes ADDITIONAL MEDICARE INFORMATION FOR INITIAL AND REPEAT RFA Imaging planned: Yes, Fluoroscopy Levels planned (max 2 levels, indicate laterality): LEFT L3/4 L4/5 Did patient have >80% response to 2 diagnostic MBB at the same anatomic site?: Yes PAIN DISABILITY INDEX may delete this section, indicate scores and dates above 0=No disability, 10=Worst disability 1- Family/Home Responsibilities: This category refers to activities of the home or family. It includes chores or duties performed around the house (e.g. yard work) and errands or favors for other family members (e.g. driving the children to school). 7 out of 10 2- Recreation: This disability includes hobbies, sports, and other similar leisure time activities.6 out of 10 3- Social Activity: This category refers to activities, which involve participation with friends and acquaintances other than family members. It includes parties, theater, concerts, dining out, and other social functions. 6 out of 10 4- Occupation: This category refers to activities that are part of or directly related to ones job. This includes non-paying jobs as well, such as that of a housewife or volunteer. 3 out of 10 5- Sexual Behavior: This category refers to the frequency and quality of ones sex life. 4 out of 10 6- Self Care: This category includes activities, which involve personal maintenance and independent daily living (e.g. taking a shower, driving, getting dressed, etc.) 7 out of 10 7- Life-Support Activities: This category refers to basic life supporting behaviors such as eating, sleeping and breathing. 6 out of 10 documented in this encounter Plan of Treatment Upcoming Encounters Date Type Department Care Team (Latest Contact Info) Description 07/29/2023 9:20 AM [facility] Anticoagulation Pharmacy, [facility] [address] [facility] [place] [address] [facility] [address] [facility] [place] [address] 09/25/2023 2:10 PM EST Hospital Encounter OR [facility], Operating Room [facility] [address] [place] [phone] Benjie Tilley, DO [address] [place] [phone] 09/25/2023 2:10 PM EST - 09/25/2023 3:00 PM EST Surgery OR [facility], Operating Room [facility] [address] [place] [phone] Benjie Tilley, DO [address] [place] [phone] DESTROY LUMBAR SACRAL NERVE IMAGING SINGLE 10/09/2023 9:40 AM EST Office Visit General Internal Medicine [facility] [address] [place] [address] Mike Michel MD [address] [facility] [place] [address] 11/17/2023 11:30 AM EST Imaging Radiology [address] [place] [address] 12/02/2023 11:30 AM EDT Telemedicine Urology Barron Segal [address] [place] [address] [place] [address] Tony Vale MD [address] [place] [address] [place] [address] 7, Telemed [facility] Urology Ex Rm [address] [place] [address] 12/08/2023 11:00 AM EDT Office Visit Hematology/Oncolog y [facility] [address] [place] [address] Yesenia Phillips MD [address] [place] [address] 01/05/2024 9:00 AM EDT Nurse Only Ancillary [facility] [address] [facility] [place] [address] Im, Nurse Annual Wellness [facility] [address] [place] [address] Scheduled Orders Name Type Priority Associated Diagnoses Orde r Schedule DESTROY LUMBAR SACRAL NERVE IMAGING SINGLE Procedures Routine Spondylosis of lumbar region without myelopathy or radiculopathy Expected: 07/31/2023, Expires: 08/16/2024 DESTROY LUMBAR SACRAL NERVE IMAGING ADD'L Procedures Routine Spondylosis of lumbar region without myelopathy or radiculopathy Expected: 07/31/2023, Expires: 08/16/2024 Scheduled Procedures Name Priority Associated Diagnoses Date/Ti me DESTROY LUMBAR SACRAL NERVE IMAGING SINGLE Spondylosis of lumbar region without myelopathy or radiculopathy 09/25/2023 2:10 PM EST DESTROY LUMBAR SACRAL NERVE IMAGING ADD'L Spondylosis of lumbar region without myelopathy or radiculopathy 09/25/2023 2:10 PM EST COLONOSCOPY FLEXIBLE PROXIMAL DIAGNOSTIC Recall History of colon polyps Health Maintenance Due Date Last Done Comments Albumin/Creatinine Ratio 1970 DTaP,Tdap,and Td Vaccines (3 - Td or Tdap) 10/25/2022 10/25/2012, 09/14/2002 COLONOSCOPY-EVERY 5 YRS AGES 18-100 09/28/2023 09/28/2018, 09/28/2018, 03/19/2011, Additional history exists Depression Screening 12/30/2023 12/29/2022 HbA1c 03/27/2024 03/27/2023, 02/12, 08/16/2021, Additional history exists GFR 06/29/2024 06/29/2023, 03/14, 05/16/2022, Additional history exists Lipid Panel 03/27/2028 03/27/2023, 02/12, 02/12/2021, Additional history exists Hepatitis B Completed 08/01/2008, [...] this encounter Medical Devices Implanted Type Area Oilseed Meat Presser Device Identifier Shelf Expiration Date Model / Serial / Lot Cannulated Screw [id number] Implanted:Qty: 2 on 05/10/2018 by [place]so Fern[place] [facility] [place] Foot [employer]ECH [id number] / / Description:no expiration gi aleyda, part of set [employer]w [employer] [id number] - [id number] Implanted:Qty: 1 on 09/26/2019 by Tirso Fernandes [place] [facility] [place]: Ankle [employer]CH [id number] / / documented as of this encounter Visit Diagnoses Diagnosis Spondylosis of lumbar region without myelopathy or radiculopathy- Primary Lumbosacral spondylosis without myelopathy Spondylosis of lumbar region without myelopathy or radiculopathy Lumbosacral spondylosis without myelopathy documented in this encounter Advance Directives Latest [...] deyvi occurred with: Not Discussed Care Teams Boom Cat Operator Relationship Specialty Start Date End Date Mike Michel MD [address] [facility] [place] [address] PCP - General Internal Medicine 07/05/21 documented as of this encounter
--- OUTSIDE RECORDS SUMMARY | 2023-11-07 18:31 | External Medical Summary | Summary of Care ---
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 [M47.816] Procedures DESTROY LUMBAR SACRAL NERVE IMAGING SINGLE DESTROY LUMBAR SACRAL NERVE IMAGING ADD'L DESTROY LUMBAR SACRAL NERVE IMAGING SINGLE DESTROY LUMBAR SACRAL NERVE IMAGING ADD'L Referral ID Status Reason Start Date Expiration Date Visits Re quested Visits Authorized [id number] Encounter Details Date Type Department Care Team (Latest Contact Info) Description 09/18/2023 1:42 PM EST - 09/18/2023 3:26 PM EST Hospital Encounter [facility], Operating Room [facility] [address] [place] [phone] Benjie Tilley DO [address] [place] [id number] Discharge Disposition: Home - Self Care Allergies Active Allergy Reactions Criticality Noted Date Comments Alexander Inhibitors Other (Please comment) Low 7 Cough documented as of this encounter (statuses as of 09/19/2023) Medications Medication Sig Dispensed Refills Start Date [...] the morning. 90 Tablet 2 08/05/2023 Active Enoxaparin Sodium 150 MG/ML Injection Solution Prefilled Syringe (Lovenox) Inject 150 mg under the skin in the morning and 150 mg before bedtime. 10 mL 1 09/02/2023 Active Tamsulosin HCl 0.4 MG Oral Capsule (Flomax)Indications: BPH with obstruction/lower urinary tract symptoms TAKE 1 CAPSULE BY MOUTH EVERY DAY 90 Capsule 3 09/15/2023 Active documented as of this encounter (statuses as of 09/19/2023) Active Problems Problem Noted Date Diagnosed Date [...] as of this encounter (statuses as of 09/19/2023) Resolved Problems Problem Noted Date Diagnosed Date [...] as of this encounter (statuses as of 09/19/2023) Immunizations Name Administration Dates Next Due COVID-19 mRNA, LNP-s, No Pre serve, 2-Dose Series (Moderna) 11/16/2020,10/19/2020 COVID-19, mRNA, LNP-s, PF, B ooster, 100mcg/0.5mg (Moderna) 12/24/2021,07/09/2021 Covid-19, Mrna, Lnp-s, Pf, B ivalent, 50 Mcg, IM, 12 yrs and above (Moderna) 06/11/2022 H1N1 2009 Influenza, IM 10/17/2009 HepA Inact/HepB Recomb>=18yrs old 2007,05/04/2007,12/01/2006,11/03 Pneumococcal Conjugate Vacc, 13 Valent (Prevnar) 08/03/2017 Pneumococcal Polysaccharide PPV23 (Pneumovax) 08/10/2018 Seasonal Influenza Virus Vac cine, Unspecified Formulation [...] Sign Reading Time Taken Comments Blood Pressure 141/76 09/18/2023 3:25 PM EST Pulse 60 09/18/2023 3:25 PM EST Temperature 36.1 C (96.9 F) 09/18/2023 1:56 PM ES T Respiratory Rate 16 09/18/2023 3:25 PM EST Oxygen Saturation 96% 09/18/2023 3:25 PM EST Inhaled Oxygen Concentration - - Weight - - Height - - Body Mass Index - - documented in this encounter Functional Status Functional [...] No 09/26/2019 documented as of this encounter Discharge Instructions * Discharge Instr - AVS* Benjie Tilley DO - 09/18/2023 3:21 PM EST [facility] [address] [place] [address] Discharge Date: 09/18/2023 You may call [facility] at [phone] during business hours. For after-hours emergencies call 911. Your attending physician at the time of your discharge was: Benjie Tilley DO [address] [place] [id number] The information below provides you with the instructions and the list of medications you need to betaking following discharge from the hospital. If you have any questions, please ask before leaving.Please carry this letter with you when you see your doctor in the clinic. Diet: Resume your normal diet If you are diabetic, follow your blood sugars closely for next 2-3 days as they are likely to be elevated. If you are having difficulty controlling your blood sugars call your family doctor or the physician that treats your diabetes. Activity: Do not engage in strenuous activity today Resume your normal activities tomorrow Do not soak in water for 24 hours. No swimming, hot tub or bath but showering is allowed. Do not use heat on the injection site for 24 hours. If uncomfortable ice may be helpful. Some injections may make your arms or legs weak for a few hours. Be extremely careful when walking or changing positions that you do not fall. Have someone assist you for the next 6 hours. If weakness or numbness becomes progressive CALL IMMEDIATELY or GO TO THE NEAREST EMERGENCY ROOM Keep a diary of your pain until seen in the office to help us determine how effective the injectionwas Do not restart physical therapy or chiropractic manipulation until 48 hours after your injection Call : If weakness or numbness suddenly becomes worse or become progressive If the injection site becomes red, swollen, warm to the touch, begins to bleed or drain fluid, or is excessively painful. If you have any questions Medications: Resume all the medications you were taking prior to your injection. Resume your anticoagulants tomorrow unless otherwise instructed by your family physician, reed or wind instrument repairer or the anticoagulation clinic. Additional Instructions: None Driving: You may resume driving in 12-24 hours if no weakness is noted . Date you may return to work or school: N/A Follow Up: Follow-up with Dr. Tilley or Evy Castellanos PA-C in 6-8 weeks via telehealth or in- person appointment per your preference. documented in this encounter Progress Notes * Benjie Tilley DO - 09/18/2023 3:21 PM EST [facility] [place] [address] [facility] [place] [phone] OUTPATIENT SURGERY DISCHARGE SUMMARY NOTE Name: Chris Taylor Location: OR [facility]/OR Date: 09/18/2023 Time: 3:21 PM Surgery Date: 09/18/2023 Procedure: Procedure(s): DESTROY LUMBAR SACRAL NERVE IMAGING SINGLE DESTROY LUMBAR SACRAL NERVE IMAGING ADD'L No laterality found for procedure #1 No laterality found for procedure #2 Surgeon: Surgeon(s): Benjie Tilley DO Discharge Diagnosis: lumbosacral spondylosis After examination of this patient, I have determined he is ready for discharge to home when the patient meets criteria. Discharge instructions were given to the patient. Benjie Tilley DO OR [facility], Operating Room [facility] [address] [facility] [place] [address] documented in this encounter H&P Notes * Benjie Tilley DO - 09/18/2023 2:14 PM EST Interventional Pain H&P Subjective: History of Present Illness: Chris Taylor is a 73 year old year-old male with a past medical history significant for lumbosacral spondylosis who is presenting for left-sided L3,4,5 medial branch RFA to improve his pain and function. his pain is essentially unchanged since our last office visit with him. ASA 3 AW nml Review of Systems: A focused 12-pt ROS were of reviewed with the patient including difficulty with sleep, snoring, aspiration history, dysphagia, stomach pain, nausea and vomiting, severe headaches, confusion, open skin lesions or wounds, chest pain, shortness of breath, excessive thirst, somnolence, dysuria, incomplete bladder emptying, easy bruising, recent clotting problems or bleeding, depression or rushed thoughts unless noted previously. Review of patient's allergies indicates: Allergen Reactions Alexander Inhibitors Other (Please comment) Cough Medications, Past Medical History, Past Surgical History reviewed and documented in Epic. See detailed report if needed. Pertinent Labs/Test Results: Fingerstick INR (INR) Date Value 09/02/2023 2.1 No results found for: "CREATININE" Hemoglobin A1C (%) Date Value 03/27/2023 6.1 (H) 08/15/2020 6.0 (H) No results found for: "AMPHETAMINE", "BARBITURATES", "BENZODIAZEPINES", "BUPRENORPHINE", "METHADONE", "OPIATES", "OXYCODONE", "PHENCYCLIDINE", "CANNABINOIDS", "TOX SCREEN", "URINE", "TOX SCREEN-SERUM", "TOX SCREEN, URINE" Imaging: I personally reviewed the imaging and my findings were . CT ABD/PELVIS W IV AND W ORAL CONTRAST Narrative: PROCEDURE INFORMATION: Exam: CT Abdomen And Pelvis With Contrast Exam date and time: 07/14/2023 12:13 PM Age: 73 years old Clinical indication: Left lower quadrant pain; Additional info: Llq pain since March TECHNIQUE: Imaging protocol: Computed tomography of the abdomen and pelvis with contrast. Radiation optimization: All CT scans at this facility use at least one of these dose optimization techniques: automated exposure control; mA and/or kV adjustment per patient size (includes targeted exams where dose is matched to clinical indication); or iterative reconstruction. Contrast material: OPTIRAY 350; Contrast volume: 94 ml; Contrast route: INTRAVENOUS (IV); REPORTING DATA: Count of CT and Cardiac NM exams in prior 12 months: This patient has received 0 known CTs and 0 known cardiac nuclear medicine studies in the 12 months prior to the current study. COMPARISON: CR ABDOMEN SUPINE 03/27/2023 9:28 AM FINDINGS: Lungs: Minimal dependent changes are present in the lung bases. Liver: Few subcentimeter liver cysts. Gallbladder and bile ducts: Normal. No calcified stones. No ductal dilation. Pancreas: Normal. No ductal dilation. Spleen: Normal. No splenomegaly. Adrenal glands: Normal. No mass. Kidneys and ureters: Few bilateral renal cysts measuring up to 2 cm. 3 mm nonobstructing left intrarenal calculus. Stomach and bowel: Diverticulosis is present with no CT evidence of diverticulitis. Appendix: The appendix is seen and is normal in appearance. Intraperitoneal space: Unremarkable. No free air. No significant fluid collection. Vasculature: Unremarkable. No abdominal aortic aneurysm. Lymph nodes: Unremarkable. No enlarged lymph nodes. Urinary bladder: Unremarkable as visualized. Reproductive: Unremarkable as visualized. Bones/joints: Age indeterminate mild compression deformity T1 with loss of approximately 15% of vertebral body height. Spinal degenerative changes are noted. Soft tissues: Unremarkable. Impression: IMPRESSION: 1. Age indeterminate mild compression deformity T1 with loss of approximately 15% of vertebral body height. 2. No definite evidence of acute abdominal or pelvic pathology. Remainder of findings as described. COMMENTS: Consistent with the [place] [employer]'s Incidental Findings Committee white paper (J Am Julius Radiol 2018): Any incidental renal lesion less than 1 cm or classified as too small to characterize, or any incidental cystic renal lesion characterized as simple-appearing, is likely benign. No follow-up imaging is recommended for these lesions per consensus recommendations based on imaging criteria. THIS DOCUMENT HAS BEEN ELECTRONICALLY SIGNED BY WYATT AVALOS MD Objective Physical Exam: Vital Signs: BP 131/66 | Pulse 54 | Temp 36.1 C (96.9 F) (Tympanic) | Resp 16 | SpO2 95% There is no height or weight on file to calculate BMI. General: No apparent distress. Eyes: pupils equal and round, sclera white, pupils midsize. ENT: mucous membranes moist Resp: Non-labored breathing CV: Extremities warm and well-perfused. Psych: Oriented; affect warm, insight good. Skin: No rashes or lesions appreciated on exposed skin Neuromuscular Exam: Facet loading left, SLR neg, TTT over lumbar spine Assessment: Chris is a 73 year old year-old male with: Lumbar spondylosis Plan: The patient is undergoing left L3-5 medial branch RFA today to alleviate his pain and improve his function. The risks, benefits and alternatives to the procedure were reviewed at length and the patient was provided the opportunity to ask questions which were answered to their voiced understanding. Following this comprehensive discussion, the patient opted to proceed. The patient was consented to the procedure following this comprehensive conversation. Benjie Tilley DO OR [facility], Operating Room [facility] [address] [place] [phone] documented in this encounter Nursing Notes * Anabel Ross RN - 09/18/2023 3:24 PM EST Visited by Dr Tilley. Verbalized understanding of discharge directions. Ready for discharge to home. * Fallon Rojas RN - 09/18/2023 3:19 PM EST Band aid applied to area. Patient transferred to PACU 11 via wheelchair * Fallon Rojas RN - 09/18/2023 3:07 PM EST Patient tolerating pain management injection well. * Fallon Rojas RN - 09/18/2023 3:01 PM EST Patient tolerating pain management injection well. * Fallon Rojas RN - 09/18/2023 2:49 PM EST Patient tolerating pain management injection well. documented in this encounter OR Notes * OR Surgeon - Benjie Tilley DO - 09/18/2023 3:19 PM EST LUMBAR MEDIAL BRANCH RADIOFREQUENCY ABLATION DATE: 09/18/2023 PHYSICIAN: Benjie Tilley DO PREOPERATIVE DIAGNOSIS: Lumbar spondylosis with lumbar facet arthropathy. POSTOPERATIVE DIAGNOSIS: Lumbar spondylosis with lumbar facet arthropathy. PROCEDURE PERFORMED: 1. Radiofrequency ablation of the L3 medial branch nerve on the left side. 2. Additional levels L4 and L5 on the left side. 3. Fluoroscopy for precise needle placement. ANESTHESIA: Local infiltration with conscious sedation MONITORS: Automatic blood pressure cuff, pulse oximetry. There was no assistant men's soccer coach, EBL or drains placed during this procedure. INDICATIONS: Chris Taylor ([id number]) is a 73 year old year-old male with history of lumbar spondylosis and facetogenic pain. The patient had 2 positive diagnostic medial branch blocks and came today for elective medial branch radiofrequency ablation at the above noted levels. MEDICATIONS: No current facility-administered medications for this encounter. ALLERGIES: Review of patient's allergies indicates: Allergen Reactions Alexander Inhibitors Other (Please comment) Cough REVIEW OF SYSTEMS: Negative for fever, chills, chest pain, SOB, bleeding abnormalities, nausea, vomiting, diarrhea, worsening edema, or new rashes. FOCUSED PHYSICAL EXAMINATION: The patient is awake, alert and oriented, and is in no acute distress. Vital signs are stable. The patient is afebrile. The rest of the physical examination is essentially unchanged from the patient's recent visit to our office. I explained the procedure to the patient including the risks, benefits and alternatives to the procedure. The risks discussed with the patient included but were not limited to: bleeding, infection, and damage to surrounding nerves, tissues, and organs, paralysis, increased pain, allergic reaction, blood pressure instability, seizures, heart block, headaches, . Alternatives to the procedure were also explained and include: do nothing, surgery, medications, and physical therapy. The patient verbalized understanding and was willing to proceed. PROCEDURE IN DETAIL: An informed consent was obtained. The patient was taken to the procedure room and was positively identified by the staff and the attending physician. The patient was positioned prone on the procedure bed. Vital signs were monitored as above and remained stable throughout the procedure. Conscious sedation was utilized for the procedure. The skin was prepped and draped in the standard sterile fashion. A surgical pause (time-out) was performed and was agreed upon by the members of the team. A fluoroscopic view of the lumbar spine was obtained, and the area of interest was identified. The skin was anesthetized using 1% lidocaine and 25-gauge 1-1/2-inch needle. After that, an 18-gauge 10-cm radiofrequency cannula with 10-mm active tip was advanced onto the junction between the superior articular process and the transverse process of L4 on the left side while in the declined and oblique view. Full contact with the bone was established. Additional RF cannulae were placed between the superior articular process and the transverse process of L5 on the left side and between the superior articular process of S1 and the sacral ala. This was to target the L3, L4 medial branches and L5 dorsal ramus innervating the L4/5, and L5/S1 facet joints. Proper needle placement was verified and optimized in AP and lateral views. The nerve root motor fiber recruitment was ruled out by stimulation at 2 Hz in the range between 1.0 to 2.5 V. Only localized twitching of the multifidus muscle was elicited. Prior to lesioning, each nerve was anesthetized with 1 mL of 2% lidocaine. Each nerve was the simultaneous lesionsed at 85 degrees centigrade, 150 seconds in duration. Bandages were then placed over each of the puncture sites as needed. The patient tolerated the procedure well. The patient was transferred in stable condition to the recovery room. COMPLICATIONS: None. DISPOSITION: 1. Return to clinic in 1-2 months for follow-up evaluation, sooner as needed. 2. Resume activity as tolerated. 3. Patient can drive after 12-24 hours if no weakness noted. Benjie Tilley DO OR [facility], Operating Room [facility] [address] [facility] [place] [phone] documented in this encounter Plan of Treatment Upcoming Encounters Date Type Department Care Team (Late st Contact Info) Description 10/07/2023 9:50 AM EST Anticoagulation Pharmacy, [facility] [address] [facility] [place] [address] [facility] [address] [place] [address] 10/09/2023 9:40 AM EST Office Visit General Internal Medicine [facility] [address] [facility] [place] [address] [facility] [address] 11/17/2023 11:30 AM EST Imaging Radiology [address] [facility] [place] [address] 12/02/2023 11:30 AM EDT Telemedicine Urology Barron Segal [address] [place] [address] [place] [address] Tony Vale MD [address] [place] [address] [place] [address] 7, Telemed [facility] Urology Ex [address] [facility] [place] [address] 12/08/2023 11:00 AM EDT Office Visit Hematology/Oncology [facility] [address] [facility] [place] [address] Yesenia Phillips MD [address] [facility] [place] [address] 01/05/2024 9:00 AM EDT Nurse Only Ancillary [facility] [address] [facility] [place] [address] Im, Nurse Annual Wellness [facility] [address] [facility] [place] [address] Scheduled Procedures Name Priority Associated Diagnoses Date/Ti [...] this encounter Medical Devices Implanted Type Area Material Damage Adjuster Device Identifier Shelf Expiration Date Model / Serial / Lot Cannulated Screw 5.0x44mm Implanted:Qty: 2 on 05/10/2018 by Tirso Fernandes [place] [facility] Foot [employer] [id number] / / Description:no expiration gi aleyda, part of set [employer] [id number] - [id number] Implanted:Qty: 1 on 09/26/2019 by Tirso Fernandes MD [place] [facility] [place]: Ankle [employer] [id number] / / documented as of this encounter Procedures Procedure Name Priority Date/Time Associated Diagnosis Comments FLUORO INTERVENTIONAL PAIN PROCEDURE NONBILLABLE Routine 09/18/2023 3:27 PM EST documented in this encounter Results * FLUORO INTERVENTIONAL PAIN PROCEDURE NONBILLABLE (09/18/2023 3:27 PM EST) Narrative Scheduling, Silent - 09/18/2023 3:27 PM EST This procedure will not be read by a Radiologist. Please see operative note. Benjie Bharatberta [facility] FLUOROSCOPY documented in this encounter Administered Medications Inactive Administered Medications - up to 3 most recent administrations Medication Order MAR Action Action Date Dose Rate Site bupivacaine (Sensorcaine) 0.25 % inj 2.5 mg 2.5 mg (1 mL), Injection, ONCE, On Thu09/18/23 at 1530, For 1 dose Given 09/18/2023 3:06 PM EST 3 mL lidocaine 1 % inj 15 mg 15 mg (1.5 mL), Subcutaneous, ONCE, On Thu09/18/23 at 1430, For 1 dose Given 09/18/2023 2:45 PM EST 5 mL Other-Specify lidocaine 2 % inj 30 mg 30 mg (1.5 mL), Injection, ONCE, On Thu09/18/23 at 1430, For 1 dose Given 09/18/2023 3:01 PM EST 4 mL documented in this encounter Active and Recently Administered Medications Times are shown in EST. Scheduled Medication Order 09/16/2023 09/17/2023 09/18/2023 bupivacaine (Sensorcaine) 0.25 % inj 2.5 mg (COMPLETED) 2.5 mg (1 mL), Injection, ONCE, On Thu09/18/23 at 1530, For 1 dose 1506 (Given - Provid er: Fallon Rojas RN) lidocaine 1 % inj 15 mg (COMPLETED) 15 mg (1.5 mL), Subcutaneous, ONCE, On Thu09/18/23 at 1430, For 1 dose 1445 (Given - Provid er: Fallon Rojas RN) lidocaine 2 % inj 30 mg (COMPLETED) 30 mg (1.5 mL), Injection, ONCE, On Thu09/18/23 at 1430, For 1 dose 1501 (Given - Provid er: Fallon Rojas RN) documented in this encounter Advance Directives Latest [...] deyvi occurred with: Not Discussed Care Teams Assistant Men'S Soccer Coach Relationship Specialty Start Date End Date Mike Michel MD [address] [place] [address] PCP - General Internal Medicine 07/05/21 documented as of this encounter
--- OUTSIDE RECORDS SUMMARY | 2023-11-07 18:31 | External Medical Summary | Summary of Care ---
Author Name Unknown Organization [facility] Address [address] [facility] [place] [address] Phone [phone] Care Team Providers Care Label Maker Name Role Phone Mike Michel MD Primary Care Provider + Reason for Visit * Reason Onset Date Comments Medication Refill 08/03/2023 Encounter Details Date Type Department Care Team (Late st Contact Info) Description 08/03/2023 Refill General Internal Medicine [facility] [place] [address] [facility] [place] [address] [facility] [id number] HTN, goal below 140/90 Allergies Active Allergy Reactions Criticality Noted Date Comments Alexander Inhibitors Other (Please comment) Low 07/12/200 7 Cough documented as of this encounter (statuses as of 08/05/2023) Medications Medication Sig Dispensed Refills Start Date End Date Status VIAGRA 50 MG PO TABSIndications:I mpotence of organic origin One pill by mouth 1-4 hours before intercourse, no more than 1 dose in 24 hours. 10 Tab 5 05/15/2010 Active Tamsulosin HCl 0.4 MG Oral Capsule (Flomax)Indicatio ns:BPH with obstruction/lower urinary tract symptoms TAKE 1 CAPSULE BY MOUTH EVERY DAY 90 Capsule 3 09/22/2022 Active Simvastatin 20 MG Oral Tablet (Zocor)Indication s:Dyslipidemia, goal LDL below 160 TAKE 1 TABLET BY MOUTH EVERYDAY AT BEDTIME 90 Tablet 1 04/24/2023 Active Losartan Potassium 100 MG Oral Tablet (Cozaar)Indicatio ns:HTN, goal below 140/90 TAKE 1 TABLET BY MOUTH EVERY DAY 90 Tablet 3 05/04/2023 Active Warfarin Sodium 5 MG Oral Tablet (Coumadin)Indicat ions:History of pulmonary embolism Take 5mg (1 tablet) Tues and Sat; 10mg (2 tablets) all other days or as directed by coumadin clinic 160 Tablet 3 05/15/2023 Active amLODIPine Besylate 10 MG Oral Tablet (Norvasc)Indicati ons:HTN, goal below 140/90 Take 1 Tablet by mouth in the morning. 90 Tablet 2 08/05/2023 Active amLODIPine Besylate 10 MG Oral Tablet (Norvasc)Indicati ons:HTN, goal below 140/90 Take 1 Tablet by mouth in the morning. 90 Tablet 2 11/11/2022 08/03/2023 Discontinued (Refill) documented as of this encounter (statuses as of 08/05/2023) Active Problems Problem Noted Date Diagnosed Date [...] as of this encounter (statuses as of 08/05/2023) Resolved Problems Problem Noted Date Diagnosed Date [...] as of this encounter (statuses as of 08/05/2023) Immunizations Name Administration Dates Next Due COVID-19 [...] encounter Miscellaneous Notes * Telephone Encounter - Mike Michel MD - 08/05/2023 8:28 AM ESTSigned Prescriptions: Disp Refills amLODIPine Besylate 10 MG Oral Tablet (Nor*90 Tab*2 Sig: Take 1 Tablet by mouth in the morning. Authorizing Provider: MIKE MICHEL * Telephone Encounter - Dora Marroquin LPN - 08/05/2023 8:28 AM ESTPending Prescriptions: Disp Refills amLODIPine Besylate 10 MG Oral Tablet (Nor*90 Tab*2 Sig: Take 1 Tablet by mouth in the morning. * Telephone Encounter - Josiah Dueñas OSA - 08/03/2023 3:47 PM EST Day Prescription Request Did you pend patient's preferred pharmacy and medication before forwarding?yes Pharmacy: [id number] Pending Prescriptions: Disp Refills amLODIPine Besylate 10 MG Oral Tablet (No*90 Tab*2 Sig: Take 1 Tablet by mouth in the morning. Last Visit: 06/29/2023 (in office), Visit date not found (telemedicine) Next Visit: 10/09/2023 If no future appointments scheduled, and last appointment is greater than a year ago, please schedule patient for a follow-up appointment Last date the medication was ordered: 11/11/2022 Is this request for a controlled substance?No Urine Drug Screen:No results found for this or any previous visit. Patient Phone Numbers Labs: Lab Results Component Value Date/Time CREAT 0.9 06/29/2023 12:17 PM CREAT 0.88 05/16/2022 12:00 AM CREAT 1.0 02/14/2020 08:43 AM POTASSIUM 4.2 03/27/2023 09:26 AM POTASSIUM 3.9 05/16/2022 12:00 AM POTASSIUM 4.1 02/14/2020 08:43 AM TSH 2.21 06/12/2016 08:55 AM LDLCALC 83 03/27/2023 09:26 AM LDLCALC 80 02/14/2020 08:43 AM LDLDIRECT NOT APPLICABLE 02/14/2020 08:43 AM LDLDIRECT 157 (H) 03/25/2007 05:16 PM ALT 14 03/27/2023 09:26 AM ALT 16 02/14/2020 08:43 AM HGBA1C 6.1 (H) 03/27/2023 09:26 AM HGBA1C 6.0 (H) 08/15/2020 09:49 AM documented in this encounter Plan of Treatment Upcoming Encounters Date Type Department Care Team (Latest Contact Info) Description 09/02/2023 9:40 AM EST Anticoagulation Pharmacy, [facility] [address] [address] [facility] [address] [place] [address] 09/25/2023 2:10 PM EST Hospital Encounter OR [facility], Operating Room [facility] [address] [place] [address] Benjie Tilley, DO [address] [place] [phone] 09/25/2023 2:10 PM EST - 09/25/2023 3:00 PM EST Surgery OR [facility], Operating Room [facility] [address] [place] [phone] Benjie Tilley, DO [address] [place] [phone] DESTROY LUMBAR SACRAL NERVE IMAGING SINGLE 10/09/2023 9:40 AM EST Office Visit General Internal Medicine [facility] [place] [address] [place] [address] Mike Michel MD [address] [place] [address] 11/17/2023 11:30 AM EST Imaging Radiology [address] [place] [address] 12/02/2023 11:30 AM EDT Telemedicine Urology Barron Segal [address] [place] [address] [place] [address] Tony Vale MD [address] [place] [address] [place] [address] 7, Telemed [facility] Urology Ex Rm [address] [place] [address] 12/08/2023 11:00 AM EDT Office Visit Hematology/Oncolog [place] [facility] [place] [address] [place] [address] Yesenia Phillips MD [address] [place] [address] 01/05/2024 9:00 AM EDT Nurse Only Ancillary [facility] [place] [address] [facility] [place] [address] Im, Nurse Annual Wellness [facility] [address] [facility] [place] [address] Scheduled Procedures Name Priority Associated Diagnoses Date/Ti [...] this encounter Medical Devices Implanted Type Area Manager Corporate Strategy Device Identifier Shelf Expiration Date Model / Serial / Lot Cannulated Screw 5.0x44mm Implanted:Qty: 2 on 05/10/2018 by Tirso Fernandes MD at [place] [facility] [place] Right: Foot [employer]ECH [id number] / / Description:no expiration gi aleyda, part of set [employer]w [employer] [id number] - [id number] Implanted:Qty: 1 on 09/26/2019 by Tirso Fernandes MD at OR [facility] [place] Left: Ankle EX[employer]ECH [id number] / / documented as of this encounter Visit Diagnoses Diagnosis HTN, goal below 140/90 Unspecified essential hypertension Spondylosis of lumbar region without myelopathy or [...] deyvi occurred with: Not Discussed Care Teams Label Maker Relationship Specialty Start Date End Date Mike Michel MD [address] [place] [address] PCP - General Internal Medicine 07/05/21 documented as of this encounter
--- OUTSIDE RECORDS SUMMARY | 2023-11-07 18:31 | External Medical Summary | Summary of Care ---
Author Name Unknown Organization [facility] Address [address] [facility] [place] [address] Phone [phone] Care Team Providers Care Hand Laster Name Role Phone Mike Michel MD Primary Care Provider + Reason for Visit * Reason Comments Dosage Adjustment In Person (Anticoag Cl inic) Encounter Details Date Type Department Care Team (Latest Contact Info) Description 10/07/2023 9:50 AM EST Anticoagulation Pharmacy, [facility] [address] [facility] [place] [address] [facility] [address] [facility] [place] [address] Mesenteric vein thrombosis (HCC)*; Anticoagulation management encounter; nursing home current use of anticoagulant therapy Allergies Active Allergy Reactions Criticality Noted Date Comments Alexander Inhibitors Other (Please comment) Low 7 Cough documented as of this encounter (statuses as of 10/07/2023) Medications Medication Sig Dispensed Refills Start Date [...] as of this encounter (statuses as of 10/07/2023) Active Problems Problem Noted Date Diagnosed Date [...] as of this encounter (statuses as of 10/07/2023) Resolved Problems Problem Noted Date Diagnosed Date [...] as of this encounter (statuses as of 10/07/2023) Immunizations Name Administration Dates Next Due COVID-19 [...] as of this encounter Progress Notes * Praveena Butler RPh - 10/07/2023 9:39 AM EST Images from the original note were not included. Medication Therapy Disease Management - Anticoagulation Patient: Chris Taylor | : 1950 Subjective Patient-Reported Symptoms: Patient Findings Negatives: Signs/symptoms of thrombosis, Signs/symptoms of bleeding, Change in health, Change in alcohol use, Change in activity, Upcoming invasive procedure, Missed doses, Extra doses, Change in medications, Change in diet/appetite, Bruising Objective Current Warfarin Dose As of 10/07/2023 Warfarin maintenance plan: 5 mg (5 mg x 1) every Tue, Sat; 10 mg (5 mg x 2) all other days INR Result As of 10/07/2023 INR goal: 2.0-3.0 INR used for dosin.4 (10/07/2023) Assessment & Plan Warfarin Plan As of 10/07/2023 Full warfarin instructions: 10/07: 15 mg; Otherwise 5 mg every Tue, Sat; 10 mg all other days Next INR check: 11/11/2023 Repeat PT/INR in 5 week(s) Weekly dose: not changed Additional Dosing Information: Praveena Butler [facility] Clinical Pharmacist 10/07/2023, 10:06 AM documented in this encounter Plan of Treatment Upcoming Encounters Date Type Department Care Team (Late st Contact Info) Description 10/09/2023 9:40 AM EST Office Visit General Internal Medicine [facility] [place] [address] [place] [address] Mike Michel MD [address] [place] [address] 11/02/2023 11:30 AM EST Office Visit Interventional Pain Center, [facility] [address] [place] [address] Evy Castellanos PA-C [address] [place] [address] 11/11/2023 9:20 AM EST Anticoagulation Pharmacy, [facility] [address] [facility] [place] [address] [facility] [address] [place] [address] 11/17/2023 11:30 AM EST Imaging Radiology [facility] 1st Floor, [place] [address] [place] [address] 12/02/2023 11:30 AM EDT Telemedicine Urology Barron Segal [address] [place] [address] [place] [address] Tony Vale MD [address] [place] [address] [place] [address] 7, Telemed [facility] Urology Ex Rm [address] [place] [address] 12/08/2023 11:00 AM EDT Office Visit Hematology/Oncology [facility] [place] [address] [place] [address] Yesenia Phillips MD [address] [place] [address] 01/05/2024 9:00 AM EDT Nurse Only Ancillary [facility] [address] [place] [address] Im, Nurse Annual Wellness [facility] [address] [place] [address] Scheduled Procedures Name Priority Associated Diagnoses Date/Ti [...] encounter Medical Devices Implanted Type Area Manager Product Management Device Identifier Shelf Expiration Date Model / Serial / Lot Cannulated Screw 5.0x44mm Implanted:Qty: 2 on 05/10/2018 by Tirso Fernandes MD at OR [facility] [place] Right: Foot EXACTECH [id number] / / Description:no expiration gi aleyda, part of set Screw [employer] [id number] - [id number] Implanted:Qty: 1 on 09/26/2019 by Tirso Fernandes MD at [facility] Left: Ankle EXACTECH [id number] / / documented as of this encounter Procedures Procedure Name Priority Date/Time Associated Diagnosis Comments INR FINGERSTICK, POINT OF CARE STAT 10/07/2023 9:42 AM EST Mesenteric vein thrombosis (HCC) Anticoagulation management encounter nursing home current use of anticoagulant therapy documented in this encounter Results * INR FINGERSTICK, POINT OF CARE (10/07/2023 9:42 AM EST) Fingerstick INR 1.4 INR 10:06 AM EST [facility] 57-10 Blood 10/07/2023 9:42 AM EST 10/07/2023 10:06 AM EST Narrative [facility] 57-10 - 10/07/2023 10:06 AM EST Therapeutic ranges for non-operative patients: Prophylaxsis/treatment of DVT: (Range:2.0-3.0) Treatment of pulmonary embolism:(Range:2.0-3.0) Prevention of systemic embolism from: -tissue heart valves -acute myocardial infarction -valvular heart disease -atrial fibrillation (Range: 2.0-3.0) Mechanical prosthetic valves: (Range: 2.5-3.5) Praveena Butler [facility] LAB POINT OF C ARE TEST DOCKED DEVICE UNSOLICITED RESULTS [facility]ORY [facility] 57-10 [address] [facility] [place] [address] documented in this encounter Visit Diagnoses Diagnosis Mesenteric vein thrombosis (HCC)- Primary Acute vascular insufficiency of intestine Anticoagulation management encounter 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
--- OUTSIDE RECORDS SUMMARY | 2023-11-07 18:31 | External Medical Summary | Summary of Care ---
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 [M47.816] Procedures L-/S-SPINE PARAVERTEBRAL FACET INJ,1 LEVEL L-/S-SPINE PARAVERTEBRL FACET INJ,2 LEVELS L-/S-SPINE PARAVERTEBRAL FACET INJ, 1 LEVEL L-/S-SPINE PARAVERTEBRAL FACET INJ, 2 LEVELS Referral ID Status Reason Start Date Expiration Date Visits Re quested Visits Authorized [id number] Encounter Details Date Type Department Care Team (Latest Contact Info) Description 07/13/2023 7:55 AM EDT - 07/13/2023 8:54 AM EDT Hospital Encounter OR [facility], Operating Room [facility] [address] [place] [phone] Benjie Tilley DO [address] [place] [address] Discharge Disposition: Home - Self Care Allergies Active Allergy Reactions Criticality Noted Date Comments Alexander Inhibitors Other (Please comment) Low 7 Cough documented as of this encounter (statuses as of 07/13/2023) Medications Medication Sig Dispensed Refills Start Date [...] as of this encounter (statuses as of 07/13/2023) Active Problems Problem Noted Date Diagnosed Date [...] as of this encounter (statuses as of 07/13/2023) Resolved Problems Problem Noted Date Diagnosed Date [...] as of this encounter (statuses as of 07/13/2023) Immunizations Name Administration Dates Next Due COVID-19 [...] Sign Reading Time Taken Comments Blood Pressure 136/84 07/13/2023 8:51 AM EDT Pulse 61 07/13/2023 8:51 AM EDT Temperature 36.4 C (97.6 F) 07/13/2023 8:16 AM ED T Respiratory Rate 18 07/13/2023 8:51 AM EDT Oxygen Saturation 95% 07/13/2023 8:51 AM EDT Inhaled Oxygen Concentration - - Weight - [...] Instr - AVS* Benjie Tilley DO - 07/13/2023 8:49 AM EDT [facility] [address] [place] [address] Discharge Date: 07/13/2023 You may call [facility] at [phone] during business hours. For after-hours emergencies call 911. Your attending physician at the time of your discharge was: Benjie Tilley DO [address] [facility] [place] [address] The information below provides you with the [...] unless otherwise instructed by your family physician, coin rolling machine operator or the anticoagulation clinic. Additional Instructions: It is recommended that you create an hourly pain/activity log to track your pain relief to help you determine the level of relief you received from this injection. Driving: You may resume driving in 12-24 hours if no weakness is noted . Date you may return to work or school: N/A Follow Up: Please call the alanis [facility] Pain Management office at [phone] in 1-2 business days to review the results of the injection you received. documented in this encounter Progress Notes * Benjie Tilley DO - 07/13/2023 8:49 AM EDT [facility] [address] [place] [address] OUTPATIENT SURGERY DISCHARGE SUMMARY NOTE Name: Chris Taylor Location: OR [facility]/OR Date: 07/13/2023 Time: 8:49 AM Surgery Date: 07/13/2023 Procedure: Procedure(s): L-/S-SPINE PARAVERTEBRAL FACET INJ, 1 LEVEL L-/S-SPINE PARAVERTEBRAL FACET INJ, 2 LEVELS No laterality found for procedure #1 No laterality found for procedure #2 Surgeon: Surgeon(s): Benjie Tilley DO Discharge Diagnosis: lumbar spondylosis After examination of this patient, I have determined he is ready for discharge to home when the patient meets criteria. Discharge instructions were given to the patient. Benjie Tilley DO OR [facility], Operating Room [facility] [address] [facility] [place] [address] documented in this encounter H&P Notes * Benjie Tilley DO - 07/13/2023 7:04 AM EDT Interventional Pain H&P Subjective: History of Present Illness: Chris Taylor is a 73 year old year-old male with a past medical history significant for lumbarspondylosis who is presenting for left L3-5 medial branch blocks to improve his pain and function. his pain is essentially unchanged since our last office visit with him when we completed his first left-sided L3-4 medial branch block which provided 100% reduction in his pain and vast improvements in his ADLs, as reported. ASA 3 AW nml Review of Systems: [...] Labs/Test Results: Fingerstick INR (INR) Date Value 07/01/2023 2.9 No results found for: "CREATININE" Hemoglobin A1C (%) Date Value 03/27/2023 6.1 (H) 08/15/2020 6.0 (H) No results found for: "AMPHETAMINE", "BARBITURATES", "BENZODIAZEPINES", "BUPRENORPHINE", "METHADONE", "OPIATES", "OXYCODONE", "PHENCYCLIDINE", "CANNABINOIDS", "TOX SCREEN", "URINE", "TOX SCREEN-SERUM", "TOX SCREEN, URINE" Imaging: I personally reviewed the imaging and my findings were . FLUORO INTERVENTIONAL PAIN PROCEDURE NONBILLABLE This procedure will not be read by a Radiologist. Please see operative note. Objective Physical Exam: Vital Signs: There were no vitals taken for this visit. There is no height or weight on file to calculate BMI. General: No apparent distress. Eyes: pupils equal and round, sclera white, pupils midsize. ENT: mucous membranes moist Resp: Non-labored breathing CV: Extremities warm and well-perfused. Psych: Oriented; affect warm, insight good. Skin: No rashes or lesions appreciated on exposed skin Neuromuscular Exam: Facet loading positive, left, SLR neg, TTT over lumbar spine left Assessment: Chris is a 73 year old year-old male with: Lumbosacral spondylosis Plan: The patient is undergoing left-sided L3-5 medial branch blocks #2 today to alleviate his pain and improve his function. The risks, benefits and alternatives to the procedure were reviewed at length and the patient was provided the opportunity to ask questions which were answered to their voiced understanding. Following this comprehensive discussion, the patient opted to proceed. The patient was consented to the procedure following this comprehensive conversation. Benjie Tilley DO OR [facility], Operating Room [facility] [address] [place] [phone] documented in this encounter Nursing Notes * Lacey Aly RN - 07/13/2023 8:53 AM EDT Patient tolerated pain injection well. Ready for discharge to home. * Fallon Rojas RN - 07/13/2023 8:47 AM EDT Band aid applied to area. Patient transferred to PACU 11 via wheelchair * Fallon Rojas RN - 07/13/2023 8:42 AM EDT Patient tolerating pain management injection well. documented in this encounter OR Notes * OR Surgeon - Benjie Tilley DO - 07/13/2023 8:48 AM EDT Diagnostic Medial Branch Nerve Blocks DATE: 07/13/2023 PHYSICIAN: Benjie Tilley DO PREOPERATIVE DIAGNOSIS: Lumbar spondylosis POSTOPERATIVE DIAGNOSIS: Lumbar spondylosis PROCEDURES PERFORMED: 1. L3 diagnostic medial branch nerve block on the left side. 2. Additional levels: L4 and L5 (dorsal ramus) medial branch block on the left side. 3. Fluoroscopy for precise needle localization MONITORS: Automatic blood pressure cuff and pulse oximetry readily available There was no financial administrative assistant, EBL or drains placed during this procedure. INDICATIONS: We had the [facility] Chris Taylor ([id number][facility] The patient has a history of lumbar spondylosis. The patient is here today for diagnostic lumbar medial branch nerve blocks. MEDICATIONS: Current Facility-Administered Medications Medication Dose Route Frequency Provider Last Rate Last Admin lidocaine 1 % inj 15 mg 1.5 mL Subcutaneous Once Benjie Tilley DO ALLERGIES: Review of patient's allergies indicates: Allergen Reactions Alexander Inhibitors Other (Please comment) Cough REVIEW OF SYSTEMS: Negative for fever, chills, chest pain, SOB, bleeding abnormalities, nausea, vomiting, diarrhea, worsening edema, or new rashes. FOCUSED PHYSICAL EXAMINATION: The patient is awake, alert and oriented, and is in no acute distress. Vital signs are stable. The patient is afebrile. The rest of the PE is essentially unchanged from the patient's recent visit to our office. I explained the procedure to the patient including the risks, benefits and alternatives to the procedure. The risks discussed with the patient included but were not limited to: bleeding, infection, and damage to surrounding nerves, tissues, and organs, paralysis, increased pain, allergic reaction, blood pressure instability, seizures, heart block, headaches, and . Alternatives to the procedure were also [...] above and remained stable throughout the procedure. The skin was prepped and draped in the standard sterile fashion with ChloraPrep. A surgicalpause (time-out) was performed and was agreed upon by the members of the team. A fluoroscopic view of the lumbar spine was obtained, and the area of interest was identified. Under fluoroscopic guidance a 25-gauge 3.5-inch spinal needle was advanced towards the junction between the transverse process and the superior articular process of the L4 and L5 vertebral bodies forthe L3 and L4 medial branch nerves on the left side. Additional needles were placed at the junctionof superior articular process and sacral ala at the level of the L5 medial branch nerve on the leftside. Full contact with the osseous structures was obtained. Proper needle position was verified inAP and declined views. After this, 0.5 ml of bupivacaine 0.5% was injected at each point. All needles were withdrawn. The patient tolerated the procedure well. COMPLICATIONS: None. DISPOSITION: No follow-ups on file. It was recommended that the patient create an hourly pain/activity log to track his pain relief to help him determine the level of relief he received from this injection over the next 12 hours or until the block subsides. 2. The patient was requested to call the pain medicine clinic within the next 1- 2 business days to review these results and was provided the phone number for this. Benjie Tilley DO OR [facility], [facility] [address] [phone] documented in this encounter Plan of Treatment Upcoming Encounters Date Type Department Care Team (Late st Contact Info) Description 07/14/2023 11:15 AM EDT Imaging Radiology [facility] 1st Floor, [place] [address] [place] [address] 07/14/2023 2:00 PM EDT Telemedicine Interventional Pain Center, [facility] [address] [place] [address] Thmoas, Nurse Phone Call Interventional Pain [facility] [place] [address] 07/29/2023 9:20 AM EST Anticoagulation Pharmacy, [facility] [address] [facility] [place] [address] [place], [facility] [address] [place] [address] 10/09/2023 9:40 AM EST Office Visit General Internal Medicine [facility] [address] [place] [address] Mike Michel MD [address] [place] [address] 12/02/2023 11:30 AM EDT Telemedicine Urology Barron Segal [address] [place] [address] [place] [address] Tony Vale MD [address] [place] [address] [place] [address] 7, Telemed [facility] Urology Ex Rm [address] [place] [address] 12/08/2023 11:00 AM EDT Office Visit Hematology/Oncology [facility] [address] [place] [address] Yesenia Phillips MD [address] [place] [address] 01/05/2024 9:00 AM EDT Nurse Only Ancillary [facility] [place] [address] [facility] [place] [address] Im, Nurse Annual Wellness [facility] [address] [facility] [place] [address] Scheduled Procedures Name Priority Associated Diagnoses Date/Ti me L-/S-SPINE PARAVERTEBRAL FACET INJ, 1 LEVEL Spondylosis of lumbar region without myelopathy or radiculopathy 07/13/2023 8:37 AM EDT L-/S-SPINE PARAVERTEBRAL FACET INJ, 2 LEVELS Spondylosis of lumbar region without myelopathy or radiculopathy 07/13/2023 8:37 AM EDT COLONOSCOPY FLEXIBLE PROXIMAL DIAGNOSTIC Recall History of [...] this encounter Medical Devices Implanted Type Area Biomedical Engineering Professor Device Identifier Shelf Expiration Date Model / Serial / Lot Cannulated Screw [id number] Implanted:Qty: 2 on 05/10/2018 by Tirso Fernandes MD at OR [facility] [place] [place] Right: Foot EXACTECH [id number] / / Description:no expiration gi aleyda, part of set Screw Can[employer]td [id number] - [id number] Implanted:Qty: 1 on 09/26/2019 by Tirso Fernandes MD at OR [facility] [place] [place] Left: Ankle EXACTECH [id number] / / documented as of this encounter Procedures Procedure Name Priority Date/Time Associated Diagnosis Comments FLUORO INTERVENTIONAL PAIN PROCEDURE NONBILLABLE Routine 07/13/2023 8:51 AM EDT documented in this encounter Results * FLUORO INTERVENTIONAL PAIN PROCEDURE NONBILLABLE (07/13/2023 8:51 AM EDT) Narrative Scheduling, Silent - 07/13/2023 8:51 AM EDT This procedure will not be read by a Radiologist. Please see operative note. Benjie CRAWFORD FLUOROSCOPY documented in this encounter Administered Medications Inactive Administered Medications - up to 3 most recent administrations Medication Order MAR Action Action Date Dose Rate Site bupivacaine HCl (Sensorcaine) 0.5 % (PF) inj 7.5 mg 7.5 mg (1.5 mL), Injection, ONCE, On Thu07/13/23 at 0845, For 1 dose, Left Given 07/13/2023 8:42 AM EDT 1.5 mL Other -Specify documented in this encounter Active and Recently Administered Medications Times are shown in EDT. Scheduled Medication Order 07/11/2023 07/12/2023 07/13/2023 bupivacaine HCl (Sensorcaine) 0.5 % (PF) inj 7.5 mg (COMPLETED) 7.5 mg (1.5 mL), Injection, ONCE, On Thu07/13/23 at 0845, For 1 dose, Left 0842 (Given - Provid er: Fallon Rojas RN - Comment: left l3-5 MBBdivided doses) lidocaine 1 % inj 15 mg 15 mg (1.5 mL), Subcutaneous, ONCE, On 07/13/23 at 0845, For 1 dose, Left 0845 (Not Given - Pr ovider: Fallon Rojas RN - Reason: Order Discontinued) documented in this encounter Advance Directives Latest [...] deyvi occurred with: Not Discussed Care Teams Sign Erector And Repairer Relationship Specialty Start Date End Date Mike Michel MD [address] [place] [address] PCP - General Internal Medicine 07/05/21 documented as of this encounter
--- OUTSIDE RECORDS SUMMARY | 2023-11-07 18:31 | External Medical Summary | Summary of Care ---
Author Name Unknown Organization [facility] Address [address] [place] [address] Phone [phone] Care Team Providers Care Heavy Equipment Supervisor Name Role Phone Mike Michel MD Primary Care Provider + Reason for Visit * Reason Onset Date Comments Appointment 06/30/2023 colonoscopy Encounter Details Date Type Department Care Team Description 06/30/2023 Telephone General Internal Medicine [facility] [place] [address] [facility] [place] [address] [facility] [address] Appointment (colonoscopy) Allergies Active Allergy Reactions Severity Noted Date Comments Alexander Inhibitors Other (Please comment) Low 7 Cough documented as of this encounter (statuses as of 07/01/2023) Medications Medication Sig Dispensed Refills Start Date [...] as of this encounter (statuses as of 07/01/2023) Active Problems Problem Noted Date Right renal mass 06/13/2022 Medical home patient encounter 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 Dyslipidemia, goal LDL below 160 11/30/2007 09/03/2009 Overview: Per Lipid Taxonomy. documented as of this encounter (statuses as of 07/01/2023) Immunizations Name Administration Dates Next Due COVID-19 [...] drink = 0.6 oz pur e alcohol) Food Insecurity Answer Date Recorded Within the past 12 months, y ou worried that your food would run out before you got money to buy more. Never true 12/29/2022 Within the past 12 months, t he food you bought just didn't last and you didn't have money to get more. Never true 12/29/2022 Sex Assigned at Date Recorded Male 02/09/2019 8:02 AM E DT Job Start Date Occupation Industry Not on [...] encounter Miscellaneous Notes * Telephone Encounter - Sean Beltran, DENY - 07/01/2023 11:43 AM EDT Pt will call to schedule 07/01 JAT * Telephone Encounter - DENY Sneed - 06/30/2023 3:11 PM EDT Order placed 06/29, please advise on scheduling. * Telephone Encounter - DENY Sneed - 06/30/2023 3:11 PM EDT OUTPATIENT REFERRAL REQUEST COLONOSCOPY, GI REFERRAL OP Name: Chris Taylor Birthdate: 1950 Patient's Address: [address] [place] [address] [place] [address] Home: Work: Patient Preference: Referral ID: [id number] Referred To: COLONOSCOPY, GI REFERRAL OP Manager Recruitment: Provider Specialty: Gastroenterology Priority: Within 30 days (routine) Visit Coverage: MEDICARE A AND B Primary Payor: MEDICARE Appointment Info: Date: Time: Referral Type: Ancillary Services [] Expiration Date: Number of Visits Requested: 999 Associated Diagnosis: Colon cancer screening (Z12.11) Problem/Desired Service from Manager Recruitment: Due in September of 2022 ALERT: Do not order for pediatric patients (18 years or younger). Cancel off screen and order PEDS GASTROENTEROLOGY CONSULT (Type: 1 visit only-Evaluate and Treat) The following Pt. Instructions are available: - Gastro Colonoscopy Prep Instructions [01505] - Gastro Colonoscopy Prep Instructions (Peruvian Version) [[id number]] Go to the Pt. Instructions section within the Visit Navigator to access. Colonoscopy ASGE Guidelines: Postadenoma resection: 1-2 tubular adenomas of less than 1 cm (5 yr intervals) ADDITIONAL INFORMATION 1. Is the patient on Coumadin? Yes 2. Is the patient on Pradaxa? No Order Specific Questions: Referral Priority: Within 30 days (routine) Where should this appointment be scheduled? [facility] documented in this encounter Plan of Treatment Upcoming Encounters Date Type Specialty Care Team Description 07/13/2023 Hospital Encounter Surgery Benjie Tilley, DO [address] [place] [phone] 07/13/2023 Surgery Surgery Benjie Tilley, DO [address] [place] [phone] L-/S-SPINE PARAVERTEBRAL FACET INJ, 1 LEVEL 07/14/2023 Imaging Radiology 07/29/2023 [facility] [address] [place] [address] 10/09/2023 Office Visit Internal Medicine Mike Michel MD [address] [place] [address] 12/02/2023 Telemedicine Urology Tony Vale MD [address] [place] [address] [place] [address] 7, Telemed [facility] Urology Ex [address] [place] [address] 12/08/2023 Office Visit Hematology Oncology Yesenia Phillips MD [address] [place] [address] 01/05/2024 Nurse Only Ancillary Im, Nurse Annual Wellness [facility] [address] [facility] [place] [address] Scheduled Procedures Name Priority Associated Diagnoses Date/Ti me L-/S-SPINE PARAVERTEBRAL FACET INJ, 1 LEVEL Spondylosis of lumbar region without myelopathy or radiculopathy 07/13/2023 8:25 AM EDT L-/S-SPINE PARAVERTEBRAL FACET INJ, 2 LEVELS Spondylosis of lumbar region without myelopathy or radiculopathy 07/13/2023 8:25 AM EDT COLONOSCOPY FLEXIBLE PROXIMAL DIAGNOSTIC Recall History of colon polyps Health Maintenance Due Date Last Done Comments Albumin/Creatinine Ratio 1970 DTaP,Tdap,and Td Vaccines (3 - Td or Tdap) 10/25/2022 10/25/2012, 09/14/2002 COVID-19 Vaccine ( season) 2023 06/11/2022, 12/24/2021, 07/09/2021, Additional history exists COLONOSCOPY-EVERY 5 YRS AGES 18-100 09/28/2023 09/28/2018, [...] Completed , 05/21/2022, 06/15/2021, Additional history exists GARDASIL-HPV IMMUNIZATION SERIES Aged Out No longer eligible based on patient's age to complete this topic MENINGOCOCCAL (MENACTRA/MENVEO) Aged Out No longer eligible based on patient's age to complete this topic documented as of this encounter Medical Devices Implanted Type Area Sole Rougher Device Identifier Shelf Expiration Date Model / Serial / Lot Cannulated Screw [id number] Implanted:Qty: 2 on 05/10/2018 by Tirso [place]es [place] [facility] [place] Foot EXACTECH [id number] / / Description:no expiration gi aleyda, part of set Screw Can[employer] [id number] - [id number] Implanted:Qty: 1 on 09/26/2019 by Tirso Fernandes [place] [facility] [place] Ankle EXACTECH [id number] / / documented as of this encounter [...] deyvi occurred with: Not Discussed Care Teams Heavy Equipment Supervisor Relationship Specialty Start Date End Date Mike Michel MD [address] [place] [address], [place] [id number] PCP - General Internal Medicine 07/05/21 documented as of this encounter
--- OUTSIDE RECORDS SUMMARY | 2023-11-07 18:31 | External Medical Summary ---
Author Name Unknown Address Unknown Organization K01:[facility] - [address] [place] [address] Laboratory Report Ordering Provider Test Date Status IVÁN MANNING 10/09/2023 10:12:19 Final Observation Date Value Abnormality Reference (Units ) Status TSH 10/09/2023 10:12:19 2.76 0.27-4.20 (uIU/mL) Final Performing Location [facility] - [address] [place] [address]
--- OUTSIDE RECORDS SUMMARY | 2023-11-07 18:31 | External Medical Summary | Summary of Care ---
Author Name Unknown Organization [facility] Address [address] [facility] [place] [address] Phone [phone] Care Team Providers Care Single Fold Machine Operator Name Role Phone Mike Michel MD Primary Care Provider + Reason for Visit * Reason Comments Dosage Adjustment In Person (Anticoag Cl inic) Encounter Details Date Type Department Care Team (Latest Contact Info) Description 07/29/2023 9:20 AM EST Anticoagulation Pharmacy, [facility] [address] [place] [address] [facility] [address] [place] [address] Mesenteric vein thrombosis (HCC)*; Anticoagulation management encounter; manager long term care current use of anticoagulant therapy Allergies Active Allergy Reactions Criticality Noted Date Comments Alexander Inhibitors Other (Please comment) Low 7 Cough documented as of this encounter (statuses as of 07/29/2023) Medications Medication Sig Dispensed Refills Start Date [...] as of this encounter (statuses as of 07/29/2023) Active Problems Problem Noted Date Diagnosed Date [...] as of this encounter (statuses as of 07/29/2023) Resolved Problems Problem Noted Date Diagnosed Date [...] as of this encounter (statuses as of 07/29/2023) Immunizations Name Administration Dates Next Due COVID-19 [...] Progress Notes * Praveena Butler RPh - 07/29/2023 9:13 AM EST Medication Therapy Disease Management - Anticoagulation Patient: Chris Taylor | : 1950 Subjective Patient-Reported Symptoms: Patient Findings Positives: Upcoming invasive procedure (procedure on 09/25, will provide instructions at next visit and needs appt on 09/25, see letter section for details) Negatives: Signs/symptoms of thrombosis, Signs/symptoms of bleeding, Change in health, Change in alcohol use, Change in activity, Missed doses, Extra doses, Change in medications, Change in diet/appetite, Bruising Objective Current Warfarin Dose As of 07/29/2023 Warfarin maintenance plan: 5 mg (5 mg x 1) every Tue, Sat; 10 mg (5 mg x 2) all other days INR Result As of 07/29/2023 INR goal: 2.0-3.0 INR used for dosin.4 (07/29/2023) Assessment & Plan Warfarin Plan As of 07/29/2023 Full warfarin instructions: 5 mg every Tue, Sat; 10 mg all other days No change documented: Praveena Butler RPh Next INR check: 09/02/2023 Repeat PT/INR in 4 week(s) Weekly dose: not changed Additional Dosing Information: Patient is having a RFA on 09/25. 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 Patient used Lovenox before for after knee replacement . See letters section for specific lovenox bridge instructions. Patient then gave a verbal and actual demonstration of technique & 10 step process, alternationof injection site, side effects and understanding of dosing calendar, and disposal of syringes & needles. No ADR reported. Actual Body Weight 140.9kg [place] Body Weight 77.6kg Adjusted Body Weight 102.9kg Labs Drawn on 06/29/23 Serum creatinine: 0.9 mg/dL 06/29/23 1217 Estimated creatinine clearance: 109.6 mL/min Hemoglobin Results: Recent Labs Units 03/27/23 0926 05/16/22 0000 05/15/22 0000 HGB - [facility] g/dL 15.9 -- -- HEMOGLOBIN-OUTSIDE LAB G/DL -- 14.4 15.2 Platelets: Recent Labs Units 03/27/23 0926 02/21/22 1018 02/12/21 1647 PLATELET AUTO - [facility] K/uL 201 224 257 Lovenox Dose: 150 mg q12 hours Will discuss bridge at next appt in August and send lovenox at that time. Praveena Butler [facility] Clinical Pharmacist 07/29/2023, 9:27 AM documented in this encounter Plan of Treatment Upcoming Encounters Date Type Department Care Team (Latest Contact Info) Description 09/02/2023 9:40 AM EST Anticoagulation Pharmacy, [facility] [address] [place] [address] [facility] [address] [place] [address] 09/25/2023 2:10 PM EST Hospital Encounter OR [facility], Operating Room [facility] [address] [place] [phone] Benjie Tilley, [address] [place] [address] 09/25/2023 2:10 PM EST - 09/25/2023 3:00 PM EST Surgery OR [facility], Operating Room [facility] [address] [place] [phone] Benjie Tilley, [address] [place] [phone] DESTROY LUMBAR SACRAL NERVE IMAGING SINGLE 10/09/2023 9:40 AM EST Office Visit General Internal Medicine [employer] [address] [place] [address] Mike Michel MD [address] [place] [address] 11/17/2023 11:30 AM EST Imaging Radiology [facility] 1st [facility] [place] [address] [facility] [place] [address] 12/02/2023 11:30 AM EDT Telemedicine Urology Erin GottliebBarron [address] [place] [address] [place] [address] Tony Vale MD [address] [place] [address] [place] [address] 7, Telemed [facility] Urology Ex Rm [address] [place] [address] 12/08/2023 11:00 AM EDT Office Visit Hematology/Oncolog y [facility] [place] [address] [place] [address] Yesenia Phillips MD [address] [place] [address] 01/05/2024 9:00 AM EDT Nurse Only Ancillary [facility] [place] [address] [place] [address] Im, Nurse Annual Wellness [facility] [address] [place] [address] Scheduled Procedures Name Priority Associated Diagnoses Date/Ti [...] this encounter Medical Devices Implanted Type Area Legal Editor Device Identifier Shelf Expiration Date Model / Serial / Lot Cannulated Screw 5.0x44mm Implanted:Qty: 2 on 05/10/2018 by Tirso Fernandes MD at [place] [facility] Right: Foot EX[employer]ECH [id number] / / Description:no expiration gi aleyda, part of set Screw [employer] [id number] - [id number] Implanted:Qty: 1 on 09/26/2019 by Tirso Fernandes MD at OR [facility] Left: Ankle EXACTECH [id number] / / documented as of this encounter Procedures Procedure Name Priority Date/Time Associated Diagnosis Comments INR FINGERSTICK, POINT OF CARE STAT 07/29/2023 9:16 AM EST Mesenteric vein thrombosis (HCC) Anticoagulation management encounter manager long term care current use of anticoagulant therapy documented in this encounter Results * INR FINGERSTICK, POINT OF CARE (07/29/2023 9:16 AM EST) Fingerstick INR 2.4 INR 9:23 AM EST [facility] Blood 07/29/2023 9:16 AM EST 07/29/2023 9:23 AM EST Narrative [facility] - 07/29/2023 9:23 AM EST Therapeutic ranges for non-operative patients: Prophylaxsis/treatment of DVT: (Range:2.0-3.0) Treatment of pulmonary embolism:(Range:2.0-3.0) Prevention of systemic embolism from: -tissue heart valves -acute myocardial infarction -valvular heart disease -atrial fibrillation (Range: 2.0-3.0) Mechanical prosthetic valves: (Range: 2.5-3.5) Praveena Butler [facility] LAB POINT OF C ARE TEST DOCKED DEVICE UNSOLICITED RESULTS [facility] [address] [place] [address] documented in this encounter Visit Diagnoses Diagnosis Mesenteric vein thrombosis (HCC)- Primary Acute vascular insufficiency of intestine Anticoagulation management encounter Encounter for therapeutic drug monitoring half-way current use of anticoagulant therapy Spondylosis of lumbar region without myelopathy or [...] deyvi occurred with: Not Discussed Care Teams Single Fold Machine Operator Relationship Specialty Start Date End Date Mike Michel MD [address] [place] [address] PCP - General Internal Medicine 07/05/21 documented as of this encounter"
--- OUTSIDE RECORDS SUMMARY | 2023-11-07 18:31 | External Medical Summary ---
Author Name Unknown Address Unknown Organization [facility] [address] - [address] [place] [address] Laboratory Report Ordering Provider Test Date Status HOSSEIN PETERS 09/02/2023 09:40:14 Final Therapeutic ranges for non-o perative patients:
Prophylaxsis/treatment of DVT: (Range:2.0-3.0)
Treatment of pulmonary embolism:(Range:2.0-3.0)
Prevention of systemic embolism from:
-tissue heart valves
-acute myocardial infarction
-valvular heart disease
-atrial fibrillation
(Range: 2.0-3.0)
Mechanical prosthetic valves: (Range: 2.5-3.5) Observation Date Value Abnormality Reference (Units ) Status INR in Capillary blood by Coagulation assay 09/02/2023 09:40:14 2.1 (INR) Final Performing Location [facility] 57-1 0 - [address] [place] [address]
--- OUTSIDE RECORDS SUMMARY | 2023-11-07 18:31 | External Medical Summary | Summary of Care ---
Author Name Unknown Organization [facility] Address [address] [facility] [place] [address] Phone [phone] Care Team Providers Care Temperature Logging Operator Name Role Phone Mike Michel MD Primary Care Provider + Reason for Visit * Reason Comments Dosage Adjustment In Person (Anticoag Cl inic) Encounter Details Date Type Department Care Team (Latest Contact Info) Description 09/02/2023 9:40 AM EST Anticoagulation Pharmacy, [facility] [address] [place] [address] [facility] [address] [place] [address] Mesenteric vein thrombosis (HCC)*; Anticoagulation management encounter; manager terminal current use of anticoagulant therapy Allergies Active Allergy Reactions Criticality Noted Date Comments Alexander Inhibitors Other (Please comment) Low 7 Cough documented as of this encounter (statuses as of 09/02/2023) Medications Medication Sig Dispensed Refills Start Date [...] 09/22/2022 Active Simvastatin 20 MG Oral Tablet (Zocor)Indications:D [...] before bedtime. 10 mL 1 09/02/2023 Active documented as of this encounter (statuses as of 09/02/2023) Active Problems Problem Noted Date Diagnosed Date [...] as of this encounter (statuses as of 09/02/2023) Resolved Problems Problem Noted Date Diagnosed Date [...] as of this encounter (statuses as of 09/02/2023) Immunizations Name Administration Dates Next Due COVID-19 [...] (15 years old or older) No 09/26/19 Cognitive Status Response Date of Assessm ent Because of a physical, menta l, or emotional condition, do you have serious difficulty concentrating, remembering, or making decisions? (5 years old or older) No 09/26/2019 documented as of this encounter Progress Notes * Praveena Butler RPh - 09/02/2023 9:36 AM EST Medication Therapy Disease Management - Anticoagulation Patient: Chris Taylor | : 1950 Subjective Patient-Reported Symptoms: Patient Findings Negatives: Signs/symptoms of thrombosis, Signs/symptoms of bleeding, Change in health, Change in alcohol use, Change in activity, Upcoming invasive procedure, Missed doses, Extra doses, Change in medications, Change in diet/appetite, Bruising Objective Current Warfarin Dose As of 09/02/2023 Warfarin maintenance plan: 5 mg (5 mg x 1) every Tue, Sat; 10 mg (5 mg x 2) all other days INR Result As of 09/02/2023 INR goal: 2.0-3.0 INR used for dosin.1 (09/02/2023) Assessment & Plan Warfarin Plan As of 09/02/2023 Full warfarin instructions: 5 mg every Tue, Sat; 10 mg all other days No change documented: Praveena Butler RPh Next INR check: 10/07/2023 Repeat PT/INR in 4 week(s) Weekly dose: not changed Additional Dosing Information: Patient is having a RFA on 09/18. Patient has history of DVT and requires Lovenox bridging. Patient used Lovenox before without issue See letters section for specific lovenox bridge instructions. Patient then gave a verbal and actual demonstration of technique & 10 step process, alternationof injection site, side effects and understanding of dosing calendar, and disposal of syringes & needles. Patient self-administered own LMWH injection in clinic without incident. No ADR reported. Actual Body Weight 140.9kg [place] Body Weight 77.6kg Adjusted Body Weight 102.9kg [...] 257 Lovenox Dose: 150 mg q12 hours Electronically sent Lovenox to [facility] [address] [place] [address] [address] [place], Sent bridging instructions (letter) to [facility] [address] [place] [address] [address] [place], and Communicated to patient that Lovenox/ bridge instructions (letter) weresent to Pharmacy and [facility] will follow-up with pt on 09/02 to review instructions. Praveena Butler [facility] Clinical Pharmacist Medication Therapy Disease Management 09/02/2023, 9:52 AM Praveena Butler [facility] Clinical Pharmacist 09/02/2023, 9:52 AM documented in this encounter Plan of Treatment Upcoming Encounters Date Type Department Care Team (Latest Contact Info) Description 09/18/2023 2:10 PM EST Hospital Encounter OR [facility], Operating Room [facility] [address] [place] [phone] Benjie Tilley DO [address] [place] [phone] 09/18/2023 2:10 PM EST - 09/18/2023 3:00 PM EST Surgery OR [facility], Operating Room [facility] [address] [place] [phone] Benjie Tilley DO [address] [place] [address] DESTROY LUMBAR SACRAL NERVE IMAGING SINGLE 10/07/2023 9:50 AM EST Anticoagulation Pharmacy, [facility] [address] [facility] [place], [place] [address] [facility] [address] [place] [address] 10/09/2023 9:40 AM EST Office Visit General Internal Medicine [facility] [address] [place] [address] Mike Michel MD 200 [facility] [place] [address] 11/17/2023 11:30 AM EST Imaging Radiology [facility]st [facility] [address] [place] [address] 12/02/2023 11:30 AM EDT Telemedicine Urology Barron Segal [address] [place] [address] [place] [address] Tony Vale MD [address] [place] [address] [place] [address] 7, Telemed [facility] Urology Ex [address] [place] [address] 12/08/2023 11:00 AM EDT Office Visit Hematology/Oncolog y [facility] [place] [address] [place] [address] Yesenia Phillips MD [address] [facility] [place] [address] 01/05/2024 9:00 AM EDT Nurse Only Ancillary [facility] [address] [place] [address] Im, Nurse Annual Wellness [facility] [address] [facility] [place] [address] Scheduled Procedures Name Priority Associated Diagnoses Date/Ti me DESTROY LUMBAR SACRAL NERVE IMAGING SINGLE Spondylosis of lumbar region without myelopathy or radiculopathy 09/18/2023 2:10 PM EST DESTROY LUMBAR SACRAL NERVE IMAGING ADD'L Spondylosis of lumbar region without myelopathy or radiculopathy 09/18/2023 2:10 PM EST COLONOSCOPY FLEXIBLE PROXIMAL DIAGNOSTIC [...] this encounter Medical Devices Implanted Type Area Dietitian Assistant Device Identifier Shelf Expiration Date Model / Serial / Lot Cannulated Screw 5.0x44mm Implanted:Qty: 2 on 05/10/2018 by Tirso Fernandes MD at OR [facility] [place] Right: Foot EX[employer]ECH [id number] / / Description:no expiration gi aleyda, part of set Screw [employer] [id number] - [id number] Implanted:Qty: 1 on 09/26/2019 by Tirso Fernandes MD at [facility] Left: Ankle EXACTECH [id number] / / documented as of this encounter Procedures Procedure Name Priority Date/Time Associated Diagnosis Comments INR FINGERSTICK, POINT OF CARE STAT 09/02/2023 9:40 AM EST Mesenteric vein thrombosis (HCC) Anticoagulation management encounter manager terminal current use of anticoagulant therapy documented in this encounter Results * INR FINGERSTICK, POINT OF CARE (09/02/2023 9:40 AM EST) Fingerstick INR 2.1 INR 9:52 AM EST [facility] Blood 09/02/2023 9:40 AM EST 09/02/2023 9:52 AM EST Narrative [facility] - 09/02/2023 9:52 AM EST Therapeutic ranges for non-operative patients: Prophylaxsis/treatment of DVT: (Range:2.0-3.0) Treatment of pulmonary embolism:(Range:2.0-3.0) Prevention of systemic embolism from: -tissue heart valves -acute myocardial infarction -valvular heart disease -atrial fibrillation (Range: 2.0-3.0) Mechanical prosthetic valves: (Range: 2.5-3.5) Praveena Butler [facility] LAB POINT OF C ARE TEST DOCKED DEVICE UNSOLICITED RESULTS [facility] [address] [place] [address] documented in this encounter Visit Diagnoses Diagnosis Mesenteric vein thrombosis (HCC)- Primary Acute vascular insufficiency of intestine Anticoagulation management encounter Encounter for therapeutic drug monitoring manager terminal current use of anticoagulant therapy Spondylosis of [...] deyvi occurred with: Not Discussed Care Teams Temperature Logging Operator Relationship Specialty Start Date End Date Mike Michel MD [address] [facility] [place] [address] PCP - General Internal Medicine 07/05/21 documented as of this encounter"
--- OUTSIDE RECORDS SUMMARY | 2023-11-07 18:31 | External Medical Summary | Summary of Care ---
Author Name Unknown Organization [facility] Address [address] [place] [facility] [place] [address] Phone [phone] Care Team Providers Care Yarn Wrapper Name Role Phone Mike Michel MD Primary Care Provider + Reason for Visit * Reason Comments eRx-Medication Refill Encounter Details Date Type Department Care Team (Late st Contact Info) Description 09/13/2023 Refill General Internal Medicine [facility] [address] [facility] [place] [place] [address] [place] Antonio Camarena PA-C [address] [employer] [facility] [place] [address] BPH with obstruction/lower urinary tract symptoms Allergies Active Allergy Reactions Criticality Noted Date Comments Alexander Inhibitors Other (Please comment) Low 7 Cough documented as of this encounter (statuses as of 09/15/2023) Medications Medication Sig Dispensed Refills Start Date End Date Status VIAGRA 50 MG PO TABSIndications: Impotence of organic origin One pill by mouth 1-4 hours before intercourse, no more than 1 dose in 24 hours. 10 Tab 5 05/15/2010 Active Simvastatin 20 MG Oral Tablet (Zocor)Indicatio [...] EVERY DAY 90 Capsule 3 09/15/2023 Active Tamsulosin HCl 0.4 MG Oral Capsule (Flomax)Indicati ons:BPH with obstruction/lowe r urinary tract symptoms TAKE 1 CAPSULE BY MOUTH EVERY DAY 90 Capsule 3 09/22/2022 09/15/2023 Discontinued documented as of this encounter (statuses as of 09/15/2023) Active Problems Problem Noted Date Diagnosed Date [...] as of this encounter (statuses as of 09/15/2023) Resolved Problems Problem Noted Date Diagnosed Date [...] as of this encounter (statuses as of 09/15/2023) Immunizations Name Administration Dates Next Due COVID-19 [...] encounter Miscellaneous Notes * Telephone Encounter - Ghasnhyam Fowler [facility] - 09/15/2023 11:16 AM ESTSigned Prescriptions: Disp Refills Tamsulosin HCl 0.4 MG Oral Capsule (Flomax)90 Cap*3 Sig: TAKE 1 CAPSULE BY MOUTH EVERY DAYAuthorizing Provider: MIKE MICHEL User: GHANSHYAM FOWLER documented in this encounter Plan of Treatment Upcoming Encounters Date Type Department Care Team (Latest Contact Info) Description 09/18/2023 2:10 PM EST Hospital Encounter OR [facility], Operating Room [facility] [address] [place] [phone] Benjie Tilley, [address] [place] [phone] 09/18/2023 2:10 PM EST - 09/18/2023 3:00 PM EST Surgery OR [facility], Operating Room [facility] [address] [place] [phone] Benjie Tilley, [address] [place] [phone] DESTROY LUMBAR SACRAL NERVE IMAGING SINGLE 10/07/2023 9:50 AM EST Anticoagulation Pharmacy, [facility] [address] [facility] [place] [address] [place] [address] 10/09/2023 9:40 AM EST Office Visit General Internal Medicine [facility] [address] [place] [address] Mike Michel MD [address] [place] [address] [address] 11/17/2023 11:30 AM EST Imaging Radiology [facility]st [facility] [address] [facility] [place] [address] 12/02/2023 11:30 AM EDT Telemedicine Urology Barron Segal [address] [place] [address] [place] [address] Tony Vale MD [address] [place] [address] [place] [address] 7, Telemed [facility] Urology Ex 132 [facility] [place] [address] 12/08/2023 11:00 AM EDT Office Visit Hematology/Oncolog y [facility] [address] [place] [address] Yesenia Phillips MD [address] [place] [address] 01/05/2024 9:00 AM EDT Nurse Only Ancillary [facility] [address] [place] [address] Im, Nurse Annual Wellness [facility] [address] [place] [address] Scheduled Procedures Name Priority Associated Diagnoses Date/Ti [...] this encounter Medical Devices Implanted Type Area Data Visualization Developer Device Identifier Shelf Expiration Date Model / Serial / Lot Cannulated Screw 5.0x44mm Implanted:Qty: 2 on 05/10/2018 by Tirso Fernandes MD at OR [facility] Right: Foot EXACTECH [id number] / / Description:no expiration gi aleyda, part of set Screw [employer] [id number] - [id number] Implanted:Qty: 1 on 09/26/2019 by Tirso Fernandes MD at OR [facility] Left: Ankle EXACTECH [id number] / / documented as of this encounter Visit Diagnoses Diagnosis BPH with obstruction/lower urinary tract symptoms Hypertrophy of prostate with urinary obstruction and other lower urinary tract symptoms (LUTS) Spondylosis of lumbar region without myelopathy or [...] deyvi occurred with: Not Discussed Care Teams Yarn Wrapper Relationship Specialty Start Date End Date Mike Michel MD 200 [place] [address] PCP - General Internal Medicine 07/05/21 documented as of this encounter
--- OUTSIDE RECORDS SUMMARY | 2023-11-07 18:31 | External Medical Summary ---
Author Name Unknown Address Unknown Organization [facility]ATORY [facility] 57-[address] - [address] [place] [address] Laboratory Report Ordering Provider Test Date Status HOSSEIN PETERS 07/29/2023 09:16:50 Final Therapeutic ranges for non-o perative patients:
Prophylaxsis/treatment of DVT: (Range:2.0-3.0)
Treatment of pulmonary embolism:(Range:2.0-3.0)
Prevention of systemic embolism from:
-tissue heart valves
-acute myocardial infarction
-valvular heart disease
-atrial fibrillation
(Range: 2.0-3.0)
Mechanical prosthetic valves: (Range: 2.5-3.5) Observation Date Value Abnormality Reference (Units ) Status INR in Capillary blood by Coagulation assay 07/29/2023 09:16:50 2.4 (INR) Final Performing Location LAB[facility]ATORY [facility] 57-[address] 0 - [address] [place] [address]
--- OUTSIDE RECORDS SUMMARY | 2023-11-07 18:31 | External Medical Summary | Summary of Care ---
Author Name Unknown Organization [facility] Address [address] [facility] [place] [address] Phone [phone] Care Team Providers Care Junior Legal Secretary Name Role Phone Mike Michel MD Primary Care Provider + Reason for Visit * Reason Comments Dosage Adjustment In Person (Anticoag Cl inic) Encounter Details Date Type Department Care Team Description 07/01/2023 Anticoagulation Pharmacy, [facility] [address] [facility] [place] [address] [facility] [address] [facility] [place] [address] Mesenteric vein thrombosis (HCC)*; Anticoagulation management encounter; USP current use of anticoagulant therapy Allergies Active Allergy Reactions Severity Noted Date [...] of this encounter Progress Notes * Praveena Butler, [facility] ED - 07/01/2023 9:24 AM EDT Medication Therapy Disease Management - Anticoagulation Patient: Chris Taylor | : 1950 Subjective Patient-Reported Symptoms: Patient Findings Negatives: Signs/symptoms of thrombosis, Signs/symptoms of bleeding, Change in health, Change in alcohol use, Change in activity, Upcoming invasive procedure, Missed doses, Extra doses, Change in medications, Change in diet/appetite, Bruising Objective Current Warfarin Dose As of 07/01/2023 Warfarin maintenance plan: 5 mg (5 mg x 1) every Tue, Sat; 10 mg (5 mg x 2) all other days INR Result As of 07/01/2023 INR goal: 2.0-3.0 INR used for dosin.9 (07/01/2023) Assessment & Plan Warfarin Plan As of 07/01/2023 Full warfarin instructions: 5 mg every Tue, Sat; 10 mg all other days No change documented: Praveena Butler RPh Next INR check: 07/29/2023 Repeat PT/INR in 4 week(s) Weekly dose: not changed Additional Dosing Information: Praveena Butler RPh Clinical Pharmacist 07/01/2023, 9:28 AM documented in this encounter Plan of Treatment Upcoming Encounters Date Type Specialty Care Team Description 07/13/2023 Hospital Encounter Surgery Benjie Tilley DO [address] [place] [phone] 07/13/2023 Surgery Surgery Benjie Tilley DO [address] [place] [phone] L-/S-SPINE PARAVERTEBRAL FACET INJ, 1 LEVEL 07/14/2023 Imaging Radiology 07/29/2023 Anticoagulation Pharmacy [facility] Kary [address] [place] [address] 10/09/2023 Office Visit Internal Medicine Mike Michel MD [address] [place] [address] 12/02/2023 Telemedicine Urology Tony Vale MD [address] [place] [address] [place] [address] 7, Telemed Kary Guzman Urology Ex Rm [address] [place] [address] 12/08/2023 Office Visit Hematology Oncology Yesenia Phillips MD [address] [place] [address] 01/05/2024 Nurse Only Ancillary Im, [facility] [address] [place] [address] Scheduled Orders Name Type Priority Associated Diagnoses Orde r Schedule PT INR Lab Routine Mesenteric vein thrombosis (HCC) Anticoagulation management encounter USP current use of anticoagulant therapy 26 Occurrences starting 07/01/2023 until 06/30/2024 INR FINGERSTICK, POINT OF CARE Point of Care Testing - Unsolicited Results STAT Mesenteric vein thrombosis (HCC) Anticoagulation management encounter USP current use of anticoagulant therapy Every 2 Weeks for 26 Occurrences starting 07/01/2023 until 07/01/2024, 1 completed Scheduled Procedures Name Priority Associated Diagnoses Date/Ti [...] this encounter Medical Devices Implanted Type Area Trolley Car Operator Device Identifier Shelf Expiration Date Model / Serial / Lot Cannulated Screw 5.0x44mm Implanted:Qty: 2 on 05/10/2018 [place] [facility] [place] Foot EXACTECH [id number] / / Description:no expiration gi aleyda, part of set Screw Canltd [id number] - [id number] Implanted:Qty: 1 on 09/26/2019 by Tirso Fernand[place] [facility] [place]: Ankle EXACTECH [id number] / / documented as of this encounter Procedures Procedure Name Priority Date/Time Associated Diagnosis Comments INR FINGERSTICK, POINT OF CARE STAT 07/01/2023 9:24 AM EDT Mesenteric vein thrombosis (HCC) Anticoagulation management encounter roasterman current use of anticoagulant therapy documented in this encounter Results * INR FINGERSTICK, POINT OF CARE (07/01/2023 9:24 AM EDT) Fingerstick INR 2.9 INR 3 9:28 AM EDT [facility] 57-10 Blood 07/01/2023 9:24 AM EDT 07/01/2023 9:28 AM EDT Narrative [facility] 57-10 - 07/01/2023 9:28 AM EDT Therapeutic ranges for non-operative patients: Prophylaxsis/treatment of DVT: (Range:2.0-3.0) Treatment of pulmonary embolism:(Range:2.0-3.0) Prevention of systemic embolism from: -tissue heart valves -acute myocardial infarction -valvular heart disease -atrial fibrillation (Range: 2.0-3.0) Mechanical prosthetic valves: (Range: 2.5-3.5) Praveena Butler [facility] ED LAB POINT OF C ARE TEST DOCKED DEVICE UNSOLICITED RESULTS LAB[facility] 57-10 [address] [facility] [place] [address] documented in this encounter Visit Diagnoses Diagnosis Mesenteric vein thrombosis (HCC)- Primary Acute vascular insufficiency of intestine Anticoagulation management encounter Encounter for therapeutic drug monitoring USP current use of anticoagulant therapy Spondylosis of [...] deyvi occurred with: Not Discussed Care Teams Junior Legal Secretary Relationship Specialty Start Date End Date Mike Michel MD [address] [place] [address] PCP - General Internal Medicine 07/05/21 documented as of this encounter"
--- OUTSIDE RECORDS SUMMARY | 2023-11-07 18:31 | External Medical Summary | Summary of Care ---
Author Name Unknown Organization [facility] Address [address] [facility] [address] Phone [phone] Care Team Providers Care Medical Cost Consultant Name Role Phone Mike Michel MD Primary Care Provider + Reason for Visit * Reason Comments Outpatient Testing Encounter Details Date Type Department Care Team (Late st Contact Info) Description 10/09/2023 10:30 AM EST Laboratory Laboratory Scenery [facility] [address] [place] [phone] [facility] Lab Scenery [address] [place] [address] Cold intolerance; Prediabetes; Gouty arthropathy, chronic, without [...] AM EST Office Visit Interventional Pain Center, [facility] [address] [place] [address] Evy Castellanos PA-C [address] [place] [address] 11/11/2023 9:20 AM EST Anticoagulation Pharmacy, [facility] [address] [place] [address] [facility] [address] [place] [address] 11/17/2023 11:30 AM EST Imaging Radiology [facility] [address] [place] [address] 12/02/2023 11:30 AM EDT Telemedicine Urology Barron Segal [address] [place] [address] [place] [address] Tony Vale MD [address] [place] [address] [place] [address] 7, Telemed [facility] Urology Ex [address] [place] [address] 12/08/2023 11:00 AM EDT Office Visit Hematology/Oncology [facility] [address] [address] Yesenia Phillips MD [address] [facility] [place] [address] 01/05/2024 9:00 AM EDT Nurse Only Ancillary [facility] [address] [facility] [place] [address] Im, Nurse Annual Wellness [facility] [address] [facility] [place] [address] 04/14/2024 9:40 AM EDT Office Visit General Internal Medicine [facility] [address] [facility] [place] [address] Mike Michel MD [address] [place] [address] [place] [address] Pending Results Name Type Priority Associated Diagnoses [...] this encounter Medical Devices Implanted Type Area Special Investigation Unit Investigator Device Identifier Shelf Expiration Date Model / Serial / Lot Cannulated Screw 5.0x44mm Implanted:Qty: 2 on 05/10/2018 by Tirso Fernandes MD at [place] [facility] [place] Right: Foot EXACTECH [id number] / / Description:no expiration gi aleyda, part of set Screw Canltd [id number] - [id number] Implanted:Qty: 1 on 09/26/2019 by Tirso Fernandes MD at OR [facility] [place] Left: Ankle EXACTECH [id number] / / documented as of this encounter [...] deyvi occurred with: Not Discussed Care Teams Medical Cost Consultant Relationship Specialty Start Date End Date Mike Michel MD [address] [facility], [place] [id number] PCP - General Internal Medicine 07/05/21 documented as of this encounter
--- OUTSIDE RECORDS SUMMARY | 2023-11-07 18:32 | External Medical Summary | Summary of Care ---
Author Name Unknown Organization [facility] Address [address] [facility] [address] Phone [phone] Care Team Providers Care Rubber And Plastics Worker Name Role Phone Mike Michel MD Primary Care Provider + Encounter Details Date Type Department Care Team Description 06/02/2023 Telephone Interventional Pain Center, [facility] [address] [place] [address] Benjie Tilley DO [address] [place] [phone] Allergies Active Allergy Reactions Severity Noted Date Comments Alexander Inhibitors Other (Please comment) Low 7 Cough documented as of this encounter (statuses as of 06/04/2023) Medications Medication Sig Dispensed Refills Start Date [...] as of this encounter (statuses as of 06/04/2023) Active Problems Problem Noted Date Right renal [...] as of this encounter (statuses as of 06/04/2023) Resolved Problems Problem Noted Date Resolved Date [...] as of this encounter (statuses as of 06/04/2023) Immunizations Name Administration Dates Next Due COVID-19 [...] Formulation 08/15/2019,08/10/2018,06/03/2017,06/12,05/19/2014,07/07/2013,06/26/2012 ,06/25/2011,07/19/2010,10/17/2009,07/15 Seasonal Influenza, PF, 6 mo ns & Above, IM , (Flulaval) 06/15/2021,06/02/2020,08/10/2018,06/03 Seasonal Influenza, Quadriva lent Hd (Fluzone [...] encounter Miscellaneous Notes * Telephone Encounter - Darshana Mcqueen LPN - 06/04/2023 9:54 AM EDT Resubmitted for the 3rd time. * Telephone Encounter - Darshana Mcqueen LPN - 06/04/2023 9:23 AM EDT Had much easier time mowing grass/painting/running heavy equipment/vacuuming/laundry/cleaning/ascending stairs. * Telephone Encounter - Darshana Mcqueen LPN - 06/02/2023 2:33 PM EDT Medicare denied facet inj twice. Reasoning is, "pain assessment documented at baseline, and after each diagnostic procedure using the same pain scale." And "in order to determine if a block is successful, there must be an assessment/measurement of pain and function. There are 2 points in which pain/ function must be evaluated: 1.baseline; 2. After a diagnostic block; and 3. at each follow up to evaluate longer term relief." Please let me know when documentation is complete and we will resubmit. documented in this encounter Plan of Treatment Upcoming Encounters Date Type Specialty Care Team Description 07/01/2023 Anticoagulation Pharmacy [facility] [address] [place] [address] 07/13/2023 Hospital Encounter Surgery Benjie Tilley, [address] [place] [phone] 07/13/2023 Surgery Surgery Benjie Tilley DO [address] [place] [phone] L-/S-SPINE PARAVERTEBRAL FACET INJ, 1 LEVEL 10/09/2023 Office Visit Internal Medicine Mike Michel MD [address] [place] [address], [place] [address] 12/02/2023 Office Visit Urology Tony Vale MD [address] [place] [address] [place] [address] 12/08/2023 Office Visit Hematology Oncology Yesenia Phillips MD [address] [facility] [place] [address] 01/05/2024 Nurse Only Ancillary Im, Nurse Annual Wellness [facility] [address] [facility] [place] [address] Scheduled Procedures Name Priority Associated Diagnoses Date/Ti [...] history exists Depression Screening 12/30/2023 12/29/2022 GFR 03/27/2024 03/27/2023, 09/10/2021, 05/15/2022, Additional history exists HbA1c 03/27/2024 03/27/2023, 02/12, 08/16/2021, Additional history exists Lipid Panel 03/27/2028 03/27/2023, 02/12, 02/12/2021, Additional history exists Hepatitis B Completed 08/01/2008, 04/15, 12/01/2006, Additional history exists Pneumococcal Vaccine: 65+ Years Completed 08/10/2018, 08/03/2017 Zoster Vaccines Completed 03/05/2020, 12/0 02/2019, 11/10/2012 COVID-19 Vaccine Completed 06/11/2022, 08/2022, 07/09/2021, Additional history exists Influenza Vaccine (FLU shot) Completed , 05/21/2022, 06/15/2021, Additional history exists GARDASIL-HPV IMMUNIZATION SERIES Aged Out No longer eligible based on patient's age to complete this topic MENINGOCOCCAL (MENACTRA/MENVEO) Aged Out No longer eligible based on patient's age to complete this topic documented as of this encounter Medical Devices Implanted Type Area Firepot Operator And Tender Device Identifier Shelf Expiration Date Model / Serial / Lot Cannulated Screw 5.0x44mm Implanted:Qty: 2 on 05/10/2018 by Tirso Fernand[place] [facility] [place]: Foot EXACTECH [id number] / / Description:no expiration gi aleyda, part of set Screw Canltd [id number] - [id number] Implanted:Qty: 1 on 09/26/2019 by Tirso Fernandes MD [place] [facility] [place] Left: Ankle EXACTECH [id number] / / documented as of this encounter [...] deyvi occurred with: Not Discussed Care Teams Rubber And Plastics Worker Relationship Specialty Start Date End Date Mike Michel MD [address] [facility] [place] [address] PCP - General Internal Medicine 07/05/21 documented as of this encounter
--- OUTSIDE RECORDS SUMMARY | 2023-11-07 18:32 | External Medical Summary | Summary of Care ---
Author Name Unknown Organization [facility] Address [address] [place] [address] Phone [phone] Care Team Providers Care Certified Lactation Counselor Name Role Phone Mike Michel MD Primary Care Provider + Reason for Visit * Reason Onset Date Comments Medication Refill 05/14/2023 Encounter Details Date Type Department Care Team Description 05/14/2023 Refill General Internal Medicine [facility] [place] [address] [place] [address] Mike Michel MD [address] [place] [address] History of pulmonary embolism* Allergies Active Allergy Reactions Severity Noted Date Comments Alexander Inhibitors Other (Please comment) Low 7 Cough documented as of this encounter (statuses as of 05/15/2023) Medications Medication Sig Dispensed Refills Start Date [...] 11/11/2022 Active Simvastatin 20 MG Oral Tablet (Zocor)Indication [...] coumadin clinic 160 Tablet 3 05/15/2023 Active Warfarin Sodium 5 MG Oral Tablet (Coumadin) Take 1-2 Tablets by mouth every evening. As directed by coumadin clinic 60 Tablet 5 11/11/2022 05/14/2023 Discontinued (Refill) documented as of this encounter (statuses as of 05/15/2023) Active Problems Problem Noted Date Right renal [...] as of this encounter (statuses as of 05/15/2023) Resolved Problems Problem Noted Date Resolved Date [...] as of this encounter (statuses as of 05/15/2023) Immunizations Name Administration Dates Next Due COVID-19 mRNA, LNP-s, No Pre serve, 2-Dose Series (Moderna) 11/16/2020,10/19/2020 Covid-19 Mrna, Lnp-s, No Pre serve, Booster (Moderna) 12/24/2021,07/09/2021 Covid-19, Mrna, Lnp-s, Pf, B [...] encounter Miscellaneous Notes * Telephone Encounter - Porter Quispe RP - 05/15/2023 2:33 PM EDTSigned Prescriptions: Disp Refills Warfarin Sodium 5 MG Oral Tablet (Coumadin)160 Ta*3 Sig: Take 5mg (1 tablet) Tues and Sat; 10mg (2 tablets) all other days or as directed by coumadin clinicAuthorizing Provider: MIKE MICHEL User: PORTER FONTENOT V * Telephone Encounter - Porter Fontenot V [facility] - 05/15/2023 2:29 PM EDT Did you pend patient's preferred pharmacy and medication before forwarding?no Pharmacy: [id number] [place] Pending Prescriptions: Disp Refills Warfarin Sodium 5 MG Oral Tablet (Coumadi*60 Tab*5 Sig: Take 1-2 Tablets by mouth every evening. As directed by coumadin clinic Last Visit: 03/27/2023 (in office), Visit date not found (telemedicine) Next Visit: 10/09/2023 If no future appointments scheduled, and last appointment is greater than a year ago, please schedule patient for a follow-up appointment Last date the medication was ordered: 11/11/22 Is this request for a controlled substance?No Urine Drug Screen:No results found for this or any previous visit. Patient Phone Numbers Labs: Lab Results Component Value Date/Time CREAT 1.0 03/27/2023 09:26 AM CREAT 0.88 05/16/2022 12:00 AM CREAT 1.0 [...] AM HGBA1C 6.0 (H) 08/15/2020 09:49 AM Porter Fontenot RPh, CACP, CDE Clinical Pharmacist [facility] 05/15/2023, 2:29 PM * Telephone Encounter - Myrna Antonio MD - 05/15/2023 2:23 PM EDTPending Prescriptions: Disp Refills Warfarin Sodium 5 MG Oral Tablet (Coumadin)60 Tab*5 Sig: Take 1-2 Tablets by mouth every evening. As directed by coumadin clinic * Telephone Encounter - Ginny Gunter LPN - 05/15/2023 12:06 PM EDTPending Prescriptions: Disp Refills Warfarin Sodium 5 MG Oral Tablet (Coumadin)60 Tab*5 Sig: Take 1-2 Tablets by mouth every evening. As directed by coumadin clinic * Telephone Encounter - Gaby Casas - 05/14/2023 11:59 AM EDT Did you pend patient's preferred pharmacy and medication before forwarding?yes Pharmacy: [id number] [id number] [address] [place] Pending Prescriptions: Disp Refills Warfarin Sodium 5 MG Oral Tablet (Coumadi*60 Tab*5 Sig: Take 1-2 Tablets by mouth every evening. As directed by coumadin clinic Last Visit: 03/27/2023 (in office), Visit date not found (telemedicine) Next Visit: 10/09/2023 If no future appointments scheduled, and last appointment is greater than a year ago, please schedule patient for a follow-up appointment Last date the medication was ordered: 11/11/22 Is this request for a controlled substance?No Urine Drug Screen:No results found for this or any previous visit. Patient Phone Numbers [facility] [phone] Labs: Lab Results Component Value Date/Time CREAT 1.0 03/27/2023 09:26 AM CREAT 0.88 05/16/2022 12:00 AM CREAT 1.0 [...] Encounters Date Type Specialty Care Team Description 05/27/2023 Anticoagulation Pharmacy [facility] [address] [place] [address] 06/03/2023 Office Visit Hematology Oncology Yesenia Phillips MD [address] [facility] [place] [address] 07/13/2023 Hospital Encounter Surgery Benjie Tilley, DO [address] [place] [phone] 07/13/2023 Surgery Surgery Benjie Tilley, DO [address] [place] [address] L-/S-SPINE PARAVERTEBRAL FACET INJ, 1 LEVEL 10/09/2023 Office Visit Internal Medicine Mike Michel MD [address] [facility] [place] [address] 12/02/2023 Office Visit Urology Tony Vale MD [address] [address] [place] [address] 01/05/2024 Nurse Only Ancillary Im, Nurse Annual Wellness [place] [address] [facility] [place] [address] Scheduled Procedures Name Priority Associated Diagnoses Date/Ti [...] - Td or Tdap) 10/25/2022 10/25/2012, 09/14/2002 Influenza Vaccine (FLU shot) (#1) 2023 05/21/2022, 06/15/2021, 06/02/2020, Additional history exists COLONOSCOPY-EVERY 5 YRS AGES 18-100 09/28/2023 09/28/2018, 09/28/2018, 03/19/2011, Additional history exists Depression Screening, Annual for Pts 12 and Over 12/30/2023 12/29/2022 GFR 03/27/2024 03/27/2023, 10/2021, 05/15/2022, Additional history exists HbA1c 03/27/2024 03/27/2023, 02/12, 08/16/2021, Additional history exists Lipid Panel 03/27/2028 03/27/2023, 02/12, 02/12/2021, Additional history exists Hepatitis B Completed 08/01/2008, 04/15, 12/01/2006, Additional history exists Pneumococcal Vaccine: 65+ Years Completed 08/10/2018, 08/03/2017 Zoster Vaccines Completed 03/05/2020, 02/2019, 11/10/2012 COVID-19 Vaccine Completed 06/11/2022, 08/2022, 07/09/2021, Additional history exists GARDASIL-HPV IMMUNIZATION SERIES Aged Out No longer eligible based on patient's age to complete this topic MENINGOCOCCAL (MENACTRA/MENVEO) Aged Out No longer eligible based on patient's age to complete this topic documented as of this encounter Medical Devices Implanted Type Area Bleacher Sulfite Pulp Device Identifier Shelf Expiration Date Model / Serial / Lot Cannulated Screw 5.0x44mm Implanted:Qty: 2 on 05/10/2018 by Tirso Fernandes MD at [place] [facility] [place] Right: Foot EXACTECH [id number] / / Description:no expiration gi aleyda, part of set Screw Canltd [id number] - [id number] Implanted:Qty: 1 on 09/26/2019 by Tirso Fernandes MD at [place] [facility] [place] Left: Ankle EXACTECH [id number] / / documented as of this encounter Visit Diagnoses Diagnosis History of pulmonary embolism- Primary Personal history of pulmonary embolism Spondylosis of lumbar region without myelopathy or [...] deyvi occurred with: Not Discussed Care Teams Certified Lactation Counselor Relationship Specialty Start Date End Date Mike Michel MD [address] [facility], [place] [phone] PCP - General Internal Medicine 07/05/21 documented as of this encounter
--- OUTSIDE RECORDS SUMMARY | 2023-11-07 18:32 | External Medical Summary | Summary of Care ---
Author Name Unknown Organization [facility] Address [address] [place] [address] Phone [phone] Care Team Providers Care Production Machine Shop Supervisor Name Role Phone Mike Michel MD Primary Care Provider + Encounter Details Date Type Department Care Team Description 06/01/2023 Orders Only Outcomes Research Department [address] [place] [address] Sol Navarro CHRA [employer] Research Other*[id number] Allergies Active Allergy Reactions Severity Noted Date Comments Alexander Inhibitors Other (Please comment) Low 7 Cough documented as of this encounter (statuses as of 06/01/2023) Medications Medication Sig Dispensed Refills Start Date [...] as of this encounter (statuses as of 06/01/2023) Active Problems Problem Noted Date Right renal mass 06/13/2022 Medical home patient encounter 2 Mesenteric vein thrombosis 05/22/2022 History of pulmonary [...] as of this encounter (statuses as of 06/01/2023) Resolved Problems Problem Noted Date Resolved Date [...] as of this encounter (statuses as of 06/01/2023) Immunizations Name Administration Dates Next Due COVID-19 [...] Encounters Date Type Specialty Care Team Description 06/03/2023 Office Visit Hematology Oncology Yesenia Phillips MD [address] [place] [address] 07/01/2023 [facility] [place] [address] [place] [address] 07/13/2023 Hospital Encounter Surgery Treva Benjie Tothw, DO [address] [place] [phone] 07/13/2023 Surgery Surgery Benjie Tilley, DO [address] [place] [phone] L-/S-SPINE PARAVERTEBRAL FACET INJ, 1 LEVEL 10/09/2023 Office Visit Internal Medicine Mike Michel MD [address] [place] [address] 12/02/2023 Office Visit [facility] [address] [place] [address] 01/05/2024 Nurse Only Ancillary Im, Nurse Annual Wellness [facility] [address] [facility] [place] [address] Scheduled Orders Name Type Priority Associated Diagnoses Orde r Schedule MYCODE SUBSEQUENT ADULT Lab Routine MyCode Research Other*[id number] Every 6 Months for 2 Occurrences starting 06/01/2023 until 06/20/2024 Scheduled Procedures Name Priority Associated Diagnoses Date/Ti [...] 09/14/2002 Influenza Vaccine (FLU shot) (#1) 2023 05/30/2023, 05/21/2022, 06/15/2021, Additional history exists COLONOSCOPY-EVERY 5 YRS AGES 18-100 09/28/2023 09/28/2018, 09/28/2018, 03/19/2011, Additional history exists Depression Screening 12/30/2023 12/29/2022 GFR 03/27/2024 03/27/2023, 10/2021, 05/15/2022, [...] this encounter Medical Devices Implanted Type Area Spa Therapist Device Identifier Shelf Expiration Date Model / Serial / Lot Cannulated Screw [id number] Implanted:Qty: 2 on 05/10/2018 by Tirso Fernandes MD at [place] [facility] [place] Right: Foot EXACTECH [id number] / / Description:no expiration gi aleyda, part of set Screw Can[employer] [id number] - [id number] Implanted:Qty: 1 on 09/26/2019 by Tirso Fernandes MD at OR [facility] [place] Left: Ankle EXACTECH [id number] / / documented as of this encounter Visit Diagnoses Diagnosis MyCode Research Other*[id number] Spondylosis of lumbar region without myelopathy or [...] deyvi occurred with: Not Discussed Care Teams Production Machine Shop Supervisor Relationship Specialty Start Date End Date Mike Michel MD [address] [place] [address], [place] [id number] PCP - General Internal Medicine 07/05/21 documented as of this encounter
--- OUTSIDE RECORDS SUMMARY | 2023-11-07 18:32 | External Medical Summary | Summary of Care ---
Author Name Unknown Organization [facility] Address [address] [place] [address] Phone [phone] Care Team Providers Care Slag Expander Name Role Phone Mike Michel MD Primary Care Provider + Reason for Referral * Ancillary Services (Within 30 days (routine)) - Authorized Specialty Diagnoses / Procedures Referred By Phyllis keane Referred To Contact Gastroenterology Diagnoses Colon cancer screening Jose Antonio Camarena PA-C [address] [place] [address] Referral ID Status Reason Start Date Expiration Date Visits Requested Visits Authorized [id number] Authorized Ancillary Services Required 3 999 999 Question Answer Referral Priority Within 30 days (routine) Where should this appointment be scheduled? [facility] Comments Due in September of 2022 ALERT: Do not order for pediatric patients (18 years or younger). Cancel off screen and order PEDS GASTROENTEROLOGY CONSULT (Type: 1 visit only-Evaluate and Treat) The following Pt. Instructions are available: - Gastro Colonoscopy Prep Instructions [19781] - Gastro Colonoscopy Prep Instructions (Yemeni Version) [12560] Go to the Pt. Instructions section within the Visit Navigator to access. Colonoscopy ASGE Guidelines: Postadenoma resection: 1-2 tubular adenomas of less than 1 cm (5 yr intervals) ADDITIONAL INFORMATION 1. Is the patient on Coumadin? Yes 2. Is the patient on Pradaxa? No * Precert (Within 10 days (routine)) - Authorized Specialty Diagnoses / Procedures Referred By Contac t Referred To Contact Radiology Diagnoses LLQ pain Procedures CT ABD/PELVIS W IV AND W ORAL CONTRAST Jose Antonio Camarena PA-C 200 [facility] [place] [address] Referral ID Status Reason Start Date Expiration Date V isits Requested Visits Authorized [id number] Authorized 06/29/2023 999 999 Reason for Visit * Reason Comments Abdominal Pain LLQ ongoing since 2022. Patient now states pain radiates down L leg Encounter Details Date Type Department Care Team Description 06/29/2023 Office Visit General Internal Medicine Millie Delgadillo Bruno [address] [place] [address] Jose Antonio Camarena PA-C [address] [place] [address] LLQ pain*; Colon cancer screening; Mesenteric vein thrombosis (HCC) Allergies Active Allergy Reactions Severity Noted Date Comments Alexander Inhibitors Other (Please comment) Low 7 Cough documented as of this encounter (statuses as of 06/29/2023) Medications Medication Sig Dispensed Refills Start Date [...] as of this encounter (statuses as of 06/29/2023) Active Problems Problem Noted Date Right renal [...] as of this encounter (statuses as of 06/29/2023) Resolved Problems Problem Noted Date Resolved Date [...] as of this encounter (statuses as of 06/29/2023) Immunizations Name Administration Dates Next Due COVID-19 [...] Sign Reading Time Taken Comments Blood Pressure 138/68 06/29/2023 11:46 AM EDT Pulse 67 06/29/2023 11:46 AM EDT Temperature 36.1 C (96.9 F) 06/29/2023 1 1:46 AM EDT Respiratory Rate - - Oxygen Saturation 95% 06/29/2023 11: 46 AM EDT Inhaled Oxygen Concentration - - Weight 140.9 kg (310 lb 9.6 oz) 023 11:46 AM EDT Height 182.9 cm (6') 06/29/2023 11:46 AM EDT Body Mass Index 42.12 06/29/2023 11:46 AM EDT documented in this encounter Functional Status Functional [...] as of this encounter Progress Notes * Jose Antonio Camarena PA-C - 06/29/2023 11:42 AM EDT Images from the original note were not included. Subjective: Chris Taylor is a 73 year old male. Chief Complaint Patient presents with Abdominal Pain LLQ ongoing since 03/2023. Patient now states pain radiates down L leg HPI: 73 y/o male with HTN, DENY, gout, BPH, hx PE and mesenteric vein thrombosis seen today with ongoing LLQ discomfort that he notices more at night. No real aggravating or alleviating factors. Triedbowl cleanse with little improvement. Has possible compression fracture at L1. Seeing pain management who is undergoing LYNNETTE. Possible ablation to occur I future. His back pain with radicular symptoms is worsened by bending and twisting where left inguinal pain is not. No changes in bowel or bladder function. 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 10 Tab 5 Tamsulosin HCl 0.4 MG Oral Capsule (Flomax) TAKE 1 CAPSULE BY MOUTH EVERY DAY 90 Capsule 3 amLODIPine Besylate 10 MG Oral Tablet (Norvasc) Take 1 Tablet by mouth in the morning. 90 Tablet 2 Simvastatin 20 MG Oral Tablet (Zocor) TAKE 1 TABLET BY MOUTH EVERYDAY AT BEDTIME 90 Tablet 1 Losartan Potassium 100 MG Oral Tablet (Cozaar) TAKE 1 TABLET BY MOUTH EVERY DAY 90 Tablet 3 Warfarin Sodium 5 MG Oral Tablet (Coumadin) Take 5mg (1 tablet) Tues and Sat; 10mg (2 tablets) all other days or as directed by coumadin clinic 160 Tablet 3 No current facility-administered medications for this visit. Review of patient's allergies indicates: Allergen Reactions Alexander Inhibitors Other (Please comment) Cough All other review of systems reviewed and negative other than mentioned in HPI. Objective: BP 138/68 | Pulse 67 | Temp 36.1 C (96.9 F) | Ht 1.829 m (6') | Wt (!) 140.9 kg (310 lb 9.6 oz)| SpO2 95% | BMI 42.12 kg/m | BSA 2.68 m Results for orders placed or performed in visit on 05/27/23 INR FINGERSTICK, POINT OF CARE Result Value Ref Range Fingerstick INR 2.6 INR Latest Reference Range & Units 03/27/23 09:26 Triglycerides <=174 mg/dL 91 Cholesterol <200 mg/dL 157 Non-HDL Cholesterol <=159 mg/dL 101 HDL Cholesterol >39 mg/dL 56 LDL Cholesterol <=129 mg/dL 83 Sodium 135 - 146 mmol/L 142 Potassium 3.5 - 5.1 mmol/L 4.2 Chloride 98 - 107 mmol/L 106 CO2 22 - 32 mmol/L 25 BUN 6 - 20 mg/dL 20 Creatinine 0.6 - 1.2 mg/dL 1.0 Estimated Glomerular Filtration Rate >=60 mL/min 79 Anion Gap 7 - 15 mmol/L 11 Glucose 70 - 120 mg/dL 115 Calcium 8.4 - 10.2 mg/dL 9.6 Protein 6.0 - 8.3 g/dL 6.9 Estimated Average Glucose <126 mg/dL 128 (H) Hemoglobin A1C 4.0 - 5.6 % 6.1 (H) CBC Rpt CBC WITH WBC DIFFERENTIAL Rpt ! WBC 4.00 - 10.80 K/uL 6.16 HGB 14.0 - 16.8 g/dL 15.9 HCT 40.0 - 48.4 % 47.6 MCV 82.0 - 99.5 fL 93.2 PLT 140 - 400 K/uL 201 Absolute Neutrophils 1.80 - 7.70 K/uL 3.80 Absolute Lymphocytes 1.00 - 4.80 K/ul 1.49 Absolute Monocytes 0.00 - 1.10 K/uL 0.74 Absolute Eosinophils 0.00 - 0.70 K/uL 0.11 Absolute Basophils 0.00 - 0.20 K/uL 0.02 Albumin 3.8 - 5.0 g/dL 4.3 AST 10 - 50 U/L 17 ALT 10 - 50 U/L 14 Alkaline Phosphatase 35 - 130 U/L 66 Bilirubin, Total <=1.2 mg/dL 0.5 PSA <4.10 ng/mL 1.27 (H): Data is abnormally high !: Data is abnormal Rpt: View report in Results Review for more information XR L SPINE COMPLETE W BENDING 6 VIEWS Order: [id number] Status: Final result Visible to patient: Yes (seen) Next appt: 07/01/2023 at 09:30 AM in Pharmacy ([facility]) Dx: Spondylosis of lumbar region without ... 0 Result Notes 1 Follow-up Encounter Details Reading Physician Reading Date Result Priority Bri Caceres MD [phone] 04/06/2023 Narrative & Impression PROCEDURE INFORMATION: Exam: XR Lumbosacral Spine Exam date and time: 04/03/2023 12:12 PM Age: 73 years old Clinical indication: Spondylosis without myelopathy or radiculopathy, lumbar region; Additional info: Chronic left low back and buttock pain TECHNIQUE: Imaging protocol: Radiologic exam of the lumbosacral spine. Views: 6 or more views. Including flexion and extension views. COMPARISON: CT ABDOMEN /PELVIS WITHOUT IV CONTRAST WITHOUT ORAL 04/23/2016 6:38 PM FINDINGS: Bones/joints: There is retrolisthesis of L2 on L3 and L3 on L4.There is scattered endplate sclerosis. L1 compression fracture of unknown age, but likely chronic.Flexion and extension views show no evidence of abnormal motion. The facet joints demonstrate moderate degenerative narrowing and sclerosis. Soft tissues: Unremarkable. IMPRESSION IMPRESSION: 1. L1 compression fracture of unknown age. If pain referred to this area consider MR to further evaluate 2. Degenerative changes 3. Flexion and extension views show no evidence of abnormal motion. THIS DOCUMENT HAS BEEN ELECTRONICALLY SIGNED BY BRI CACERES MD XR ABDOMEN 1 VIEW Order: [id number] Status: Final result Visible to patient: Yes (seen) Next appt: 07/01/2023 at 09:30 AM in Pharmacy ([facility]) Dx: LLQ pain 1 Result Note 1 Follow-up Encounter Details Reading Physician Reading Date Result Priority Evy Castañeda MD [phone] 03/28/2023 Narrative & Impression EXAM XR ABDOMEN 1 VIEW-03/27/2023 9:43 am HISTORY LLQ pain, possible constipation, assess stool burden COMPARISON MRI abdomen dated 12/02/2022. TECHNIQUE AP abdomen FINDINGS The exam is limited secondary to patient body habitus. The bowel gas pattern is nonspecific and nonobstructive. There is a calculus in the left kidney measuring approximately 0.5 cm. Multiple pelvic phleboliths are noted. Degenerative changes of the lumbar spine are noted. IMPRESSION IMPRESSION 1. Nonspecific and nonobstructive bowel gas pattern. Small amount of stool in the right colon. 2. A calculus in the left kidney measuring 0.5 cm. MRI KIDNEY W WO CONTRAST Order: [id number] Status: Final result Visible to patient: Yes (seen) Next appt: 07/01/2023 at 09:30 AM in Pharmacy ([facility]) Dx: Nodule of kidney 1 Result Note Details Reading Physician Reading Date Result Priority Jay Vazquez MD [phone] 12/02/2022 Narrative & Impression EXAM: MRI ABDOMEN WITHOUT AND WITH CONTRAST HISTORY: f/u 8 mm enhancing nodule arising from the interpolar right kidney on prior CT COMPARISON: Outside CT abdomen pelvis 05/15/2022 TECHNIQUE: Multiplanar multisequence MRI of the abdomen without and with intravenous contrast was performed and reviewed. CONTRAST: Gadavist intravenously. FINDINGS: LOWER CHEST: Unremarkable. LIVER: The liver is normal in size and morphology. There is mild hepatic steatosis. There are few small scattered liver cysts. BILIARY TREE: No intrahepatic or extrahepatic bile duct dilation. No bile duct filling defect. GALLBLADDER: The gallbladder is physiologically distended. There is no calculus, wall thickening, or pericholecystic inflammation. PANCREAS: The pancreas is normal in size and signal intensity. There is no main pancreatic duct dilation. SPLEEN: Mildly enlarged measuring 13.7 cm in length. ADRENAL GLANDS: Normal. KIDNEYS: The kidneys are normal in size without hydronephrosis or suspicious mass. There are several simple and hemorrhagic/proteinaceous bilateral renal cysts. These include a 1.1 cm hemorrhagic cyst arising from the interpolar left kidney on image 69 series 13 and a 1.6 cm hemorrhagic cyst in theposterior mid right kidney with adjacent 8 mm exophytic hemorrhagic cyst on image 90 series 13, likely corresponding to lesion in question on prior CT. There are couple small left parapelvic cysts. BOWEL: The included bowel is normal in caliber. PERITONEUM: No free fluid. LYMPH NODES: There are no enlarged or suspicious abdominal lymph nodes. VESSELS: The abdominal aorta and the origins of the major branches are patent and normal in caliber. The portal venous system is patent. The splenic vein and SMV are patent. The inferior vena cava, hepatic veins, and renal veins are patent. ABDOMINAL WALL/SOFT TISSUES: Unremarkable. BONES: Degenerative changes in the spine. IMPRESSION: Simple and hemorrhagic/proteinaceous bilateral renal cysts. No suspicious renal mass. 09/2018 [place]: Impression: - The examined portion of the ileum was normal. - Two 6 mm polyps in the descending colon and in the cecum, removed with a cold snare. Resected and retrieved. - Diverticulosis in the transverse colon. - Non-bleeding internal hemorrhoids. Recommendation: - Discharge patient to home. - Await pathology results. - Repeat colonoscopy in 5 years for surveillance. - Return to referring physician. Betsey Mark MD 09/28/2018 12:05:55 PM This report has been signed electronically. Physical Exam Constitutional: General: He is not in acute distress. Appearance: Normal appearance. He is normal weight. He is not ill-appearing or toxic-appearing. HENT: Head: Normocephalic and atraumatic. Eyes: Extraocular Movements: Extraocular movements intact. Conjunctiva/sclera: Conjunctivae normal. Pupils: Pupils are equal, round, and reactive to light. Cardiovascular: Rate and Rhythm: Normal rate and regular rhythm. Heart sounds: Normal heart sounds. No murmur heard. No friction rub. No gallop. Pulmonary: Effort: Pulmonary effort is normal. Breath sounds: Normal breath sounds. No wheezing, rhonchi or rales. Abdominal: General: Bowel sounds are normal. There is no distension. Palpations: Abdomen is soft. There is no mass. Tenderness: There is abdominal tenderness (mild LLQ). There is no guarding or rebound. Neurological: Mental Status: He is alert. ASSESSMENT: LLQ pain (Primary) - CT ABD/PELVIS W IV AND W ORAL CONTRAST - CREATININE; Future; Expected date: 06/29/2023 - BUN; Future; Expected date: 06/29/2023 Discussed could be referred from back, but given he has persistent abdominal tenderness it would bemore likely to have something intraabdominal. Recommend above imaging for further evaluation. Feel less likely related to thrombosis with his history given he has been compliant with coumadin and therapeutic. Colon cancer screening - COLONOSCOPY, GI REFERRAL OP Due in September Mesenteric vein thrombosis (HCC) Follow Up: Return if symptoms worsen or fail to improve. Jose Antonio Camarena PA-C documented in this encounter Nursing Notes * Izzy Silveira LPN - 06/29/2023 11:46 AM EDT Chief Complaint Patient presents with Abdominal Pain LLQ ongoing since 03/2023. Patient now states pain radiates down L leg documented in this encounter Plan of Treatment Upcoming Encounters Date Type Specialty Care Team Description 06/29/2023 Laboratory Laboratory [place], [facility] Scenery [address] [place] [address] LLQ pain 07/01/2023 Anticoagulation Pharmacy [facility] Kary [address] [place] [address] 07/13/2023 Hospital Encounter Surgery Benjie Tilley, [address] [place] [address] 07/13/2023 Surgery Surgery Benjie Tilley, [address] [place] [phone] L-/S-SPINE PARAVERTEBRAL FACET INJ, 1 LEVEL 07/14/2023 Imaging Radiology 10/09/2023 Office Visit Internal Medicine Mike Michel MD [address] [place] [address] 12/02/2023 Telemedicine Urology Tony Vale MD [address] [place] [address] [place] [address] 7, Telemed [facility] Urology Ex Rm [address] [place] [address] 12/08/2023 Office Visit Hematology Oncology Yesenia Phillips MD [address] [place] [address] 01/05/2024 Nurse Only Ancillary Im, Nurse Annual Wellness [place] [address] [place] [address] Pending Results Name Type Priority Associated Diagnoses Date /Time CREATININE Lab Routine LLQ pain 06/29/2023 12:17 PM EDT BUN Lab Routine LLQ pain 06/29/2023 12:17 PM EDT Scheduled Orders Name Type Priority Associated Diagnoses Orde r Schedule CT ABD/PELVIS W IV AND W ORAL CONTRAST Medical Imaging Routine LLQ pain Ordered: 06/29/2023 CREATININE Lab Routine LLQ pain Expected: 06/29/2023, Expires: 06/29/2024 BUN Lab Routine LLQ pain Expected: 06/29/2023 (Approximate), Expires: 06/28/2024 Scheduled Procedures Name Priority Associated Diagnoses Date/Ti [...] REFERRAL OP Referral Within 30 days (routine) Colon cancer screening Ordered: 06/29/2023 Health Maintenance Due Date Last Done Comments Albumin/Creatinine Ratio 1970 DTaP,Tdap,and Td Vaccines (3 - Td or Tdap) 10/25/2022 10/25/2012, 09/14/2002 COVID-19 Vaccine ( - season) 2023 06/11/2022, 12/24/2021, 07/09/2021, Additional history [...] this encounter Medical Devices Implanted Type Area First Line Supervisor Device Identifier Shelf Expiration Date Model / Serial / Lot Cannulated Screw 5.0x44mm Implanted:Qty: 2 on 05/10/2018 by Tirso Fern[place]es [place] [facility] [place] [facility] [place] [id number] / / Description:no expiration gi aleyda, part of set Screw [employer] [id number] - [id number] Implanted:Qty: 1 on 09/26/2019 by Tirso Fernandes [place] [facility] [place]: Ankle EXACTECH [id number] / / documented as of this encounter Visit Diagnoses Diagnosis LLQ pain- Primary Abdominal pain, left lower quadrant Colon cancer screening Special screening for malignant neoplasms, colon Mesenteric vein thrombosis (HCC) Acute vascular insufficiency of intestine LLQ pain Abdominal pain, left lower quadrant Spondylosis of lumbar region without myelopathy or [...] deyvi occurred with: Not Discussed Care Teams Slag Expander Relationship Specialty Start Date End Date Mike Michel MD [address] [place] [address] PCP - General Internal Medicine 07/05/21 documented as of this encounter"
--- OUTSIDE RECORDS SUMMARY | 2023-11-07 18:32 | External Medical Summary | Summary of Care ---
Author Name Unknown Organization [facility] Address [address] [place] [address] Phone [phone] Care Team Providers Care Hose Wrapper Name Role Phone Mike Michel MD Primary Care Provider + Reason for Visit * Reason Comments Outpatient Testing Encounter Details Date Type Department Care Team Description 06/29/2023 Laboratory Laboratory [facility] [place] [address] [place] [address] [facility] Lab Scenery [address] [place] [id number] LLQ pain Allergies Active Allergy Reactions Severity Noted Date [...] Date Type Specialty Care Team Description 07/01/2023 [facility] Lopez Guzman [facility] [address] [place] [address] 07/13/2023 Hospital Encounter Surgery Benjie Tilley, DO [address] [place] [address] 07/13/2023 Surgery Surgery TrevaBenjie, DO [address] [place] [phone] L-/S-SPINE PARAVERTEBRAL FACET INJ, 1 LEVEL 07/14/2023 Imaging Radiology 10/09/2023 Office Visit Internal Medicine Mike Michel MD 200 [facility] [place] [address] 12/02/2023 Telemedicine Urology Tony Vale MD [address] [facility] [address] [place] [id number] 7, Telemed [facility] Urology Ex Rm [address] [place] [address] 12/08/2023 Office Visit Hematology Oncology Yesenia Phillips MD [address] [facility] [place] [address] 01/05/2024 Nurse Only Ancillary Im, Nurse Annual Wellness [facility] [address] [facility] [place] [address] Pending Results Name Type Priority Associated Diagnoses Date /Time CREATININE Lab Routine LLQ pain 06/29/2023 12:17 PM EDT BUN Lab Routine LLQ pain 06/29/2023 12:17 PM EDT Scheduled Procedures Name Priority Associated Diagnoses Date/Ti [...] or Tdap) 10/25/2022 10/25/2012, 09/14/2002 COVID-19 Vaccine (6 - 2022- season) 2023 06/11/2022, 12/24/2021, 07/09/2021, Additional history [...] this encounter Medical Devices Implanted Type Area Magazine Editor Device Identifier Shelf Expiration Date Model / Serial / Lot Cannulated Screw 5.0x44mm Implanted:Qty: 2 on 05/10/2018 by Tirso Fernandes MD [place] [facility] [facility] [place]: Foot EX[employer]ECH [id number] / / Description:no expiration gi aleyda, part of set Screw Canltd [id number] - [id number] Implanted:Qty: 1 on 09/26/2019 by Tirso Fernandes MD [place] [facility] [place] [place] Left: Ankle EXACTECH [id number] / / documented as of this encounter Visit Diagnoses Diagnosis LLQ pain Abdominal pain, left lower quadrant [...] deyvi occurred with: Not Discussed Care Teams Hose Wrapper Relationship Specialty Start Date End Date Mike Michel MD [address] [place] [address] PCP - General Internal Medicine 07/05/21 documented as of this encounter
--- OUTSIDE RECORDS SUMMARY | 2023-11-07 18:32 | External Medical Summary ---
Author Name Unknown Address Unknown Organization [id number][facility] [place] [address] Laboratory Report Ordering Provider Test Date Status BRI YOUSSEF 06/29/2023 12:17:55 Final Observation Date Value Abnormality Reference (Units ) Status BUN 06/29/2023 12:17:55 18 6-20 (mg/d L) Final Performing Location [facility] [place] [address]
--- OUTSIDE RECORDS SUMMARY | 2023-11-07 18:32 | External Medical Summary | Summary of Care ---
Author Name Unknown Organization [facility] Address [address] [facility] [address] Phone [phone] Care Team Providers Care Fishing Tool Supervisor Name Role Phone Mike Michel MD Primary Care Provider + Reason for Visit * Reason Comments Follow Up 6m Encounter Details Date Type Department Care Team Description 06/03/2023 Office Visit Hematology/Oncology [place] [place] [place] [address] [facility] [place] [address] Yesenia Phillips MD [address] [place] [address] Mesenteric vein thrombosis (HCC)* Allergies Active Allergy Reactions Severity Noted Date Comments Alexander Inhibitors Other (Please comment) Low 7 Cough documented as of this encounter (statuses as of 06/03/2023) Medications Medication Sig Dispensed Refills Start Date [...] as of this encounter (statuses as of 06/03/2023) Active Problems Problem Noted Date Right renal [...] as of this encounter (statuses as of 06/03/2023) Resolved Problems Problem Noted Date Resolved Date [...] as of this encounter (statuses as of 06/03/2023) Immunizations Name Administration Dates Next Due COVID-19 [...] Sign Reading Time Taken Comments Blood Pressure 150/85 06/03/2023 11:00 AM EDT Pulse 77 06/03/2023 11:00 AM EDT Temperature 36.7 C (98 F) 06/03/2023 11: 00 AM EDT Respiratory Rate 16 06/03/2023 11:0 0 AM EDT Oxygen Saturation 92% 06/03/2023 11: 00 AM EDT Inhaled Oxygen Concentration - - Weight 141.6 kg (312 lb 1.6 oz) 023 11:00 AM EDT Height - - Body Mass Index 42.33 03/27/2023 8:59 AM EDT documented in this encounter Functional [...] as of this encounter Progress Notes * Yesenia Phillips MD - 06/03/2023 10:57 AM EDT Outpatient Consult Note Data Source: Patient, Epic record. Data Source: Patient, Epic record. 06/03/2023 10:57 AM Chris Aguileraandrewdominga [id number] 73 year old Patient Encounter: HEMATOLOGY/ONCOLOGY [facility] Cancer Diagnosis: Mesenteric vein thrombosis Current Treatment: Warfarin Previous Treatment: Heparin and Eliquis Oncologic History : 73 year old male with past medical history of hypertension, hyperlipidemia, prediabetes who presented to the hospital with epigastric and periumbilical pain for last 2 to 3 weeks. Denies any fever, night sweats, headache, dizziness, chest pain, palpitation, nausea, vomiting, hematuria, hematochezia, bleeding, bruising, weight loss. CT scan of the abdomen pelvis was done which revealed nearly occlusive thrombus within the superiormesenteric vein and extends into more peripheral branches, there is significant inflammatory changearound the mesenteric vessels, the splenic vein is patent. CT scan also shows question 8 mm enhancing nodule arising from the posterior interpolar right kidney, renal cysts measure up to 2.5 cm. Additional subcentimeter cortical hypodensities also likely represent cysts but are too small for definitive characterization. Renal sinus cysts are seen on the left. There is a 5 mm nonobstructing left renal calculus CT angiogram of the chest revealed trace chronic thrombus within the right lower lobe pulmonary artery, there are no filling defects identified in main, lobar, or segmental pulmonary branches to suggest acute pulmonary embolus. Doppler ultrasound of the lower extremity was negative. Patient was started on heparin infusion and then discharged Eliquis. Since the start of anticoagulation clinically he is feeling better with significant improvement in abdominal pain. Blood test were done on 05/16/2022 which shows WBC count of 6.65, hemoglobin 14.4 and platelet count 162. Creatinine was 0.88 and the rest of the electrolytes and LFTs were in acceptable range. Thrombophilia workup was done and it was negative. F2MUT NEGATIVE F5 Leiden NEGATIVE AT3 Activity 116 Protein C Act 146 Protein S Func 79 Anti Cardio IgG <2 Anti Cardio IgM <2 GLYCOPROT IGG <2 GLYCOPROT IGM <2 LAC PTT Screen 38 He denies smoking or drinking. Family history is negative for any hematology, oncology problem. Family history is also negative for any pulmonary embolism or DVT. Interval History: He is doing well without any new symptoms of complain. He is issues with back pain and following pain clinic and had injection with some improvement. Patient denies any headache, dizziness, blurred vision, chest pain, shortness breath palpitation abdominal pain or distention, bleeding, bruising, nausea, vomiting, fever, night sweats, weight loss, hematuria, hematochezia. LABS/IMAGING: Results for orders placed or performed in visit on 05/27/23 INR FINGERSTICK, POINT OF CARE Result Value Ref Range Fingerstick INR 2.6 INR Last blood test were done on 03/27/2023 which shows WBC count of 6.16, hemoglobin 15.9 and plateletcount 201. Creatinine was 1 and the rest of the electrolytes and LFTs were within acceptable range. REVIEW OF SYSTEMS: General: No Fever, chills, night sweats, or weight loss. HEENT: No change in visual acuity, blurred or double vision. No epistaxis, facial pain, nasal discharge or change in hearing. Denies dysphagia, no muscosal ulceration, or sores noted. Cardiovascular: No chest pain, SIERRA, or palpitations Respiratory: No shortness of breath, cough, hemoptysis, or pleuritic chest pain Gastrointestinal: No abdominal pain, nausea, vomiting, diarrhea, rectal pain or bleeding Genitourinary: Denies Hematuria or dysuria Musculoskeletal: Stable back pain Skin: No skin rash or lesions noted Neurologic: No numbness, weakness, neuropathic pain or change in cognitive function Psychiatric: No vegetative signs of depression Endocrine: No symptoms of hypothyroidism or hyperglycemia Hematologic: No bleeding or lymph nodes noted As mentioned above, all of the systems were reviewed in full and are unremarkable. Past Medical History: Diagnosis Date Benign neoplasm of colon 01/27/08 hyperplastic polyp--repeat 3 years Bilateral foot pain 05/24/2015 acute Body mass index (BMI) 40.0-44.9, adult 04/29/2011 Dyslipidemia, goal LDL below 160 11/30/2007 Gouty arthropathy, chronic, 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 HTN, goal below 140/90 Obstructive sleep apnea of adult 07/31/2006 uses CPAP Right foot pain 05/18/2018 Current Outpatient Medications Medication Sig Dispense Refill [...] No current facility-administered medications for this visit. Social History Tobacco Use Smoking status: Never Smokeless tobacco: Never Vaping Use Vaping Use: Never used Substance Use Topics Alcohol use: No Drug use: No Review of patient's allergies indicates: Allergen Reactions Alexander Inhibitors Other (Please comment) Cough PHYSICAL EXAMINATION: General Appearance: Healthy appearing patient in no acute distress There were no vitals taken for this visit. Vitals reviewed. HEENT: No oral or pharyngeal masses, ulceration or thrush noted, no sinus tenderness. Neck is supple with no thyromegaly or JVD noted. Lymph Nodes: No lymphadenopathy noted in the occipital, pre and post auricular, cervical, supra andinfraclavicular, axillary, epitrochlear, inguinal, and popliteal region. Lungs/Thorax: Clear to auscultation, no accessory muscles of respiration being used. Heart: Regular rate and rhythm, normal S1, S2 Abdomen: Soft, nontender, bowel sounds present, no appreciable hepatosplenomegaly, no palpable masses Extremeties: Good pulses bilaterally, no peripheral edema. Skin: Normal skin tone with no rash, petechiae, ecchymosis noted. Musculoskeletal: No pain on palpation over bony prominence, no edema, no evidence of gout, no jointor bony deformity ASSESSMENT: 73 year old male with past medical history of hypertension, hyperlipidemia, prediabetes who presented to the hospital with epigastric and periumbilical pain. CT scan was done which revealed extensivenearly occlusive thrombus throughout the superior mesenteric vein with surrounding inflammation andthere was a 8 mm enhancing nodule in the right kidney. CT angiogram revealed trace chronic thrombuswithin the right lower lobe pulmonary artery and Doppler ultrasound of lower extremity was negative. Patient was treated with heparin infusion subsequently discharged on Eliquis with improvement in the symptoms. Eliquis was changed to Coumadin because of the financial problem and the cost of the drug. Clinically he is in excellent performance status without any new symptoms complain. Physical examination is unremarkable. Based on the extensive thrombosis of the superior mesenteric vein and there was a chronic thrombus seen in the right lower lobe pulmonary artery, he should continue anticoagulation indefinitely. Reviewed all the available blood test result with the patient. Discussed with him about the diagnosis. PLAN: Continue Coumadin and he will also continue follow anticoagulation clinic. He will return clinic for follow-up in 6 months with CBC and CMP. The patient voiced understanding of all of the above. All questions and concerns were addressed in an apparently satisfactory manner. Yesenia Phillips MD (This note was completed using the dictation program Fluency Direct. As such, there may be misspellings, word substitutions, or other variations that should not change the essence of the clinical content of this encounter note. If there is need for further clarification, please direct questions to me.) documented in this encounter Nursing Notes * Eryn Elliott, FARM OPERATIONS TECHNICAL DIRECTOR - 06/03/2023 11:01 AM EDT Patient identifed by name and birthdate Do you have any concerns about pain management for today's visit? No Living Will or Advance Directive for Health Care as noted on the problem list. [facility] is a way you can talk to your provider on line through e-mail. Would you like to sign up? I can activate it for you? ALREADY ACTIVE Filed Vitals: 06/03/23 1100 BP: 150/85 Pulse: 77 Resp: 16 Temp: 36.7 C (98 F) TempSrc: Tympanic SpO2: 92% Weight: (!) 141.6 kg (312 lb 1.6 oz) Patient was instructed to not get up on the exam table/exam chair until directed and assisted by their provider; patient is to remain seated in the chair/ wheelchair/ exam table/ exam chair for fall prevention and safety reasons. Patient is aware to have assistance to step down off exam table/exam chair with personnel. Patient voiced full comprehension of instructions. documented in this encounter Plan of Treatment Upcoming Encounters Date Type Specialty Care Team Description 07/01/2023 Anticoagulation Pharmacy [facility] [address] [place] [id number] 07/13/2023 Hospital Encounter Surgery Benjie Tilley, DO [address] [place] [phone] 07/13/2023 Surgery Surgery Benjie Tilley DO [address] [place] [phone] L-/S-SPINE PARAVERTEBRAL FACET INJ, 1 LEVEL 10/09/2023 Office Visit Internal Medicine Mike Michel MD [address] [facility] [address] 12/02/2023 Office Visit Urology Tony Vale MD [address] [facility] [address] [place] [address] 12/08/2023 Office Visit Hematology Oncology Yesenia Phillips MD [address] [place] [address] 01/05/2024 Nurse Only Ancillary Im, Nurse Annual Well[facility] [place] [address] [place], [place] [address] Scheduled Orders Name Type Priority Associated Diagnoses Orde r Schedule CBC WITH WBC DIFFERENTIAL Lab Routine Mesenteric vein thrombosis (HCC) Expected: 11/30/2023, Expires: 07/03/2024 COMPREHENSIVE METABOLIC PANEL Lab Routine Mesenteric vein thrombosis (HCC) Expected: 11/30/2023, Expires: 07/03/2024 Scheduled Procedures Name Priority Associated Diagnoses Date/Ti [...] 08/03/2017 Zoster Vaccines Completed 03/05/2020, 12/02/2019, 11/10/2012 COVID-19 Vaccine Completed 06/11/2022, 08/2022, 07/09/2021, Additional history exists Influenza Vaccine (FLU shot) Completed , 05/21/2022, 06/15/2021, Additional history exists GARDASIL-HPV IMMUNIZATION SERIES Aged Out No longer eligible based on patient's age to complete this topic MENINGOCOCCAL (MENACTRA/MENVEO) Aged Out No longer eligible based on patient's age to complete this topic documented as of this encounter Medical Devices Implanted Type Area Corrosion Engineer Device Identifier Shelf Expiration Date Model / Serial / Lot Cannulated Screw [id number] Implanted:Qty: 2 on 05/10/2018 by Tirso Fernandes MD at OR [facility] [place] Right: Foot [employer] [id number] / / Description:no expiration gi aleyda, part of set [employer]w [employer] [id number] - [id number] Implanted:Qty: 1 on 09/26/2019 by Tirso Fernandes MD at OR [facility] Left: Ankle [employer] [id number] / / documented as of this encounter Visit Diagnoses Diagnosis Mesenteric vein thrombosis (HCC)- Primary Acute vascular insufficiency of intestine Spondylosis of lumbar region without myelopathy or [...] deyvi occurred with: Not Discussed Care Teams Fishing Tool Supervisor Relationship Specialty Start Date End Date Mike Michel MD [address] [place] [address] PCP - General Internal Medicine 07/05/21 documented as of this encounter
--- OUTSIDE RECORDS SUMMARY | 2023-11-07 18:32 | External Medical Summary ---
Author Name Unknown Address Unknown Organization K09:[facility] [place] [address] Laboratory Report Ordering Provider Test Date Status BRI YOUSSEF 06/29/2023 12:17:55 Final Observation Date Value Abnormality Reference (Units ) Status Creatinine 06/29/2023 12:17:55 0.9 0.6-1.2 (mg/dL) Final Glomerular filtration rate/1.73 sq M.predicted [Volume Rate/Area] in Serum, Plasma or Blood by Creatinine-based formula (CKD-EPI) 06/29/2023 12:17:55 89 >=60 (mL/min) Final eGFR is calculated based on the CKD-EPI 2020 equation Performing Location [facility] [place] [address]
--- OUTSIDE RECORDS SUMMARY | 2023-11-07 18:32 | External Medical Summary ---
Author Name Unknown Address Unknown Organization K0G:[facility] [address] [place] [address] Laboratory Report Ordering Provider Test Date Status HOSSEIN PETERS 05/27/2023 09:23:53 Final Therapeutic ranges for non-o perative patients:
Prophylaxsis/treatment of DVT: (Range:2.0-3.0)
Treatment of pulmonary embolism:(Range:2.0-3.0)
Prevention of systemic embolism from:
-tissue heart valves
-acute myocardial infarction
-valvular heart disease
-atrial fibrillation
(Range: 2.0-3.0)
Mechanical prosthetic valves: (Range: 2.5-3.5) Observation Date Value Abnormality Reference (Units ) Status INR in Capillary blood by Coagulation assay 05/27/2023 09:23:53 2.6 (INR) Final Performing Location [facility] [address] [place] [address]
--- OUTSIDE RECORDS SUMMARY | 2023-11-07 18:32 | External Medical Summary | Summary of Care ---
Author Name Unknown Organization [facility] Address [address] [facility] [place] [address] Phone [phone] Care Team Providers Care Community Living Coach Name Role Phone Mike Michel MD Primary Care Provider + Reason for Visit * Reason Comments Dosage Adjustment In Person (Anticoag Cl inic) Encounter Details Date Type Department Care Team Description 05/27/2023 Anticoagulation Pharmacy, [facility] [address] [facility] [place] [address] [facility] [address] [facility] [place] [address] Mesenteric vein thrombosis (HCC)*; Anticoagulation management encounter; terminal make up operator current use of anticoagulant therapy Allergies Active Allergy Reactions Severity Noted Date Comments Alexander Inhibitors Other (Please comment) Low 07200 7 Cough documented as of this encounter (statuses as of 05/27/2023) Medications Medication Sig Dispensed Refills Start Date [...] as of this encounter (statuses as of 05/27/2023) Active Problems Problem Noted Date Right renal [...] as of this encounter (statuses as of 05/27/2023) Resolved Problems Problem Noted Date Resolved Date [...] as of this encounter (statuses as of 05/27/2023) Immunizations Name Administration Dates Next Due COVID-19 [...] this encounter Progress Notes * Praveena Butler, [facility] - 05/27/2023 9:21 AM EDT Medication Therapy Disease Management - Anticoagulation Patient: Chris Taylor | : 1950 Subjective Patient-Reported Symptoms: Objective Current Warfarin Dose As of 05/27/2023 Warfarin maintenance plan: 5 mg (5 mg x 1) every Tue, Sat; 10 mg (5 mg x 2) all other days INR Result As of 05/27/2023 INR goal: 2.0-3.0 INR used for dosin.6 (05/27/2023) Assessment & Plan Warfarin Plan As of 05/27/2023 Full warfarin instructions: 5 mg every Tue, Sat; 10 mg all other days No change documented: Praveena Butler RPh Next INR check: 07/01/2023 Repeat PT/INR in 6 week(s) Weekly dose: not changed Additional Dosing Information: Praveena Butler RPh Clinical Pharmacist 05/27/2023, 9:25 AM documented in this encounter Plan of Treatment Upcoming Encounters Date Type Specialty Care Team Description 06/03/2023 Office Visit Hematology Oncology Yesenia Phillips MD [address] [place] [address] 07/01/2023 Anticoagulation Pharmacy [facility] [address] [place] [address] 07/13/2023 Hospital Encounter Surgery Benjie Tilley DO [address] [place] [phone] 07/13/2023 Surgery Surgery Benjie Tilley DO [address] [place] [phone] L-/S-SPINE PARAVERTEBRAL FACET INJ, 1 LEVEL 10/09/2023 Office Visit Internal Medicine Mike Michel MD [address] [place] [place] [address] 12/02/2023 Office Visit Urology Tony Vale MD [address] [place] [address] [place] [id number] 01/05/2024 Nurse Only Ancillary Im, Nurse [facility] [place] [address] [facility] [address] Scheduled Procedures Name Priority Associated Diagnoses Date/Ti [...] Depression Screening 12/30/2023 12/29/2022 GFR 03/27/2024 03/27/2023, 0910/2021, 05/15/2022, Additional history exists HbA1c 03/27/2024 03/27/2023, [...] this encounter Medical Devices Implanted Type Area Sales Agent Food Vending Service Device Identifier Shelf Expiration Date Model / Serial / Lot Cannulated Screw [id number] Implanted:Qty: 2 on 05/10/2018 by [place]so [place] [facility] [place] Foot [employer] [id number] / / Description:no expiration gi aleyda, part of set Screw [employer] [id number] - [id number] Implanted:Qty: 1 on 09/26/2019 by Tirso [place] [facility] [place] Ankle [employer] [id number] / / documented as of this encounter Procedures Procedure Name Priority Date/Time Associated Diagnosis Comments INR FINGERSTICK, POINT OF CARE STAT 05/27/2023 9:23 AM EDT Mesenteric vein thrombosis (HCC) Anticoagulation management encounter terminal make up operator current use of anticoagulant therapy documented in this encounter Results * INR FINGERSTICK, POINT OF CARE (05/27/2023 9:23 AM EDT) Fingerstick INR 2.6 INR 9:25 AM EDT [facility] Blood 05/27/2023 9:2 3 AM EDT 05/27/2023 9:25 AM EDT Narrative [facility] - 05/27/2023 9:25 AM EDT Therapeutic ranges for non-operative patients: Prophylaxsis/treatment of DVT: (Range:2.0-3.0) Treatment of pulmonary embolism:(Range:2.0-3.0) Prevention of systemic embolism from: -tissue heart valves -acute myocardial infarction -valvular heart disease -atrial fibrillation (Range: 2.0-3.0) Mechanical prosthetic valves: (Range: 2.5-3.5) Praveena Butler [facility] POINT OF C ARE TEST DOCKED DEVICE UNSOLICITED RESULTS [facility] [address] [place] [address] documented in this encounter Visit Diagnoses Diagnosis Mesenteric vein thrombosis (HCC)- Primary Acute vascular insufficiency of intestine Anticoagulation management encounter Encounter for therapeutic drug monitoring halfway current use of anticoagulant therapy Spondylosis of [...] deyvi occurred with: Not Discussed Care Teams Community Living Coach Relationship Specialty Start Date End Date Mike Michel MD [address] [place] [address] PCP - General Internal Medicine 07/05/21 documented as of this encounter"
--- OUTSIDE RECORDS SUMMARY | 2023-11-07 18:32 | External Medical Summary ---
Author Name Unknown Address Unknown Organization K0G:[facility] [address] [place] [address] Laboratory Report Ordering Provider Test Date Status HOSSEIN PETERS 07/01/2023 09:24:15 Final Therapeutic ranges for non-o perative patients:
Prophylaxsis/treatment of DVT: (Range:2.0-3.0)
Treatment of pulmonary embolism:(Range:2.0-3.0)
Prevention of systemic embolism from:
-tissue heart valves
-acute myocardial infarction
-valvular heart disease
-atrial fibrillation
(Range: 2.0-3.0)
Mechanical prosthetic valves: (Range: 2.5-3.5) Observation Date Value Abnormality Reference (Units ) Status INR in Capillary blood by Coagulation assay 07/01/2023 09:24:15 2.9 (INR) Final Performing Location [facility] [address] [place] [address]
[2023-11-07] MEDS ORDERED: FUROSEMIDE 40 MG/4 ML VIAL IV ONE (19:00)
--- OUTSIDE RECORDS SUMMARY | 2023-11-07 19:23 | External Medical Summary | Summary of Care ---
Author Name Unknown Organization [facility] Address [address] [place] [address] Phone [phone] Care Team Providers Care Pump Erector Helper Name Role Phone Mike Michel MD Primary Care Provider + Reason for Visit * Reason Comments Short of Breath Encounter Details Date Type Department Care Team ([facility] st Contact Info) Description 11/07/2023 11:00 AM [facility] Convenient Care Visit [facility] [address] [place] [address] Gela Montemayor, GUY [address] [place] [address] [place] [address] Hypoxia*; Wheezing Allergies Active Allergy Reactions Criticality Noted Date Comments Alexander Inhibitors Other (Please comment) Low 07/200 7 Cough documented as of this encounter (statuses as of 11/07/2023) Medications Medication Sig Dispensed Refills Start Date [...] AT BEDTIME 90 Tablet 1 10/28/2023 Active Hospital, Clinic, or Other Facility Administered Medication Ordered Dose Route Frequency Start Date End Date Status albuterol-ipratropium (Duoneb) inhalation solution 3 mLIndications:Hypoxia 3 mL NEBULIZER ONCE 11/07/2023 11/07/2023 End ed documented as of this encounter (statuses as of 11/07/2023) Active Problems Problem Noted Date Diagnosed Date [...] as of this encounter (statuses as of 11/07/2023) Resolved Problems Problem Noted Date Diagnosed Date [...] as of this encounter (statuses as of 11/07/2023) Immunizations Name Administration Dates Next Due COVID-19 [...] Reading Time Taken Comments Blood Pressure 136/84 11/07/2023 10:39 AM EST Pulse 86 11/07/2023 10:39 AM EST Temperature 36.3 C (97.4 F) 11/07/2023 10:[address] Respiratory Rate 16 11/07/2023 10:39 AM EST Oxygen Saturation 91% 11/07/2023 10:39 AM EST Inhaled Oxygen Concentration - - Weight 145.6 kg (321 lb) 11/07/2023 10:39 AM EST Height - - Body Mass Index 43.54 10/09/2023 9:35 AM EST documented in this [...] as of this encounter Progress Notes * Gela Montemayor CRNP - 11/07/2023 10:45 AM EST [facility] Basic Exam Chris Taylor is a 73 year old year old male who presents for evaluation of: exertional sob that started this am, oxygen sats are 91%, he is "fine at rest" pt reports that he was helping remove sowmya yesterday in a railroad car and did not wear a mask, he also started on Colchicine for gout flare. 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 Patient denies addtional complaints. PAST MEDICAL HISTORY: Past Medical History: Diagnosis Date Benign neoplasm [...] performed by Betsey Mark MD at ENDOSCOPY [facility] DESTROY LUMBAR SACRAL NERVE IMAGING ADD'L 09/18/2023 DESTROY LUMBAR SACRAL NERVE IMAGING ADD'L performed by Benjie Tilley DO at OR [facility] DESTROY LUMBAR SACRAL NERVE IMAGING SINGLE 09/18/2023 DESTROY LUMBAR SACRAL NERVE IMAGING SINGLE performed by Benjie Tilley DO at OR [facility] FUSION OF FOOT BONES, TRIPLE Right 05/10/2018 TRIPLE ARTHRODESIS performed by Tirso Fernandes MD at OR [facility] FUSION OF FOOT BONES, TRIPLE Left 09/26/2019 TRIPLE ARTHRODESIS performed by Tirso Fernandes MD at OR [facility] INFORMATION 11/22/12 Laparoscopic ventral hernia repair with 10cm round surgimesh Dr Bowman [facility] 11/22/12 L-/S-SPINE PARAVERTEBRAL FACET INJ,1 LEVEL 05/07/2023 L-/S-SPINE PARAVERTEBRAL FACET INJ, 1 LEVEL performed by Benjie Tilley DO at OR [facility] L-/S-SPINE PARAVERTEBRAL FACET INJ,1 LEVEL 07/13/2023 L-/S-SPINE PARAVERTEBRAL FACET INJ, 1 LEVEL performed by Benjie Tilley DO at OR [facility] L-/S-SPINE PARAVERTEBRL FACET INJ,2 LEVELS 05/07/2023 L-/S-SPINE PARAVERTEBRAL FACET INJ, 2 LEVELS performed by Benjie Tilley DO at OR [facility] L-/S-SPINE PARAVERTEBRL FACET INJ,2 LEVELS 07/13/2023 L-/S-SPINE PARAVERTEBRAL FACET INJ, 2 LEVELS performed by Benjie Tilley DO at OR [facility] LENGTHEN/SHORTEN LOWER LEG TENDON Right 05/10/2018 LENGTHENING OR SHORTENING TENDON LEG OR ANKLE performed by Tirso Fernandes MD at OR [facility] MISCELLANEOUS ORDER ([facility] ONLY) Left forearm after fall REPAIR RUPTURED ROTATOR CUFF, CHRON Left 04/09/2017 Dr [facility] (Workmans comp) SACROILIAC JOINT INJECT W/GUIDANCE 03/05/2023 INJECTION SACROILIAC JOINT performed by Benjie Tilley DO at OR [facility] Social History Tobacco Use Smoking status: Never Smokeless tobacco: Never Substance Use Topics Alcohol use: No Vaping/E-Cigarette Use Vaping/E-Cigarette Use Never User Vaping/E-Cigarette Substances Vaping/E-Cigarette Devices Patient Active Problem List Diagnosis Code HTN, goal below 140/90 I10 Obstructive sleep apnea of adult G47.33 Gouty arthropathy, chronic, 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 M1A.00X0 Mixed hyperlipidemia E78.2 Morbid obesity with BMI of 40.0-44.9, adult ([facility]) E66.01, Z68.41 BPH with obstruction/lower urinary tract symptoms N40.1, N13.8 Primary osteoarthritis of both hands M19.041, M19.042 Primary osteoarthritis of both feet M19.071, M19.072 Prediabetes R73.03 Mesenteric vein thrombosis (HCC) K55.069 History of pulmonary embolism Z86.711 Medical home patient encounter Z00.8 Right renal mass N28.89 Review of patient's allergies indicates: Allergen Reactions Alexander Inhibitors Other (Please comment) Cough Current Outpatient Medications Medication Sig Dispense Refill [...] No current facility-administered medications for this visit. Nursing Notes and Vital Signs reviewed. PHYSICAL EXAM: VITALS: BP 136/84 | Pulse 86 | Temp 36.3 C (97.4 F) (Tympanic) | Resp 16 | Wt (!) 145.6 kg (321lb) | SpO2 91% | BMI 43.54 kg/m | BSA 2.72 m GENERAL: alert, healthy, well nourished, well developed, comfortable, and ill looking HEAD: Normocephalic, No masses, lesions, tenderness or abnormalities EARS: External ears normal, Canals clear, TM's Normal NOSE: no mucosal erythema, no mucosal edema, no purulent discharge OROPHARYNX: no exudate, no erythema, lips, buccal mucosa, and tongue normal, and mucous membranes are moist NECK: supple HEART: regular rate & rhythm, LUNGS: chest symmetric with normal AP diameter, initially lungs were tight, now upon and able to hear I and E wheezing, I did a 3 minute walk test, he dropped to 88% on room air and heart rate did goup to 116, back at rest he sates 91 % NEURO: alert & oriented x 3 with fluent speech, gait normal SKIN: skin color, texture, turgor are normal, no rashes or significant lesions Assessment: Walk test pt heart rate did go to 116, oxygen did decrease to 88% room air even after the duo neb, Pt reports he has a HX of BBB PT REFUSES TO GO BY AMBULANCE, I OFFERED MULTIPLE TIMES FOR HIM TO GO, HE CALLED HIS AND SHE WILL COME HERE AND TAKE HIM, HE IS WELL AWARE OF THE IMPLICATIONS Pt did go to the Ed via his vehicle, report was called to Jing at [facility] Hypoxia (Primary) - albuterol-ipratropium (Duoneb) inhalation solution 3 mL - XR CHEST 2 VIEWS - CBC WITH WBC DIFFERENTIAL; Future; Expected date: 11/07/2023 - BNP, NT-PRO; Future; Expected date: 11/07/2023 - BASIC METABOLIC PANEL; Future; Expected date: 11/07/2023 - TROPONIN T, HIGH SENSITIVITY; Future; Expected date: 11/07/2023 - D-DIMER; Future; Expected date: 11/07/2023 - EKG; Future; Expected date: 11/07/2023 - EKG Wheezing GUY Pop [facility] [address] [place] [address] documented in this encounter Nursing Notes * Cinthya Strange LPN - 11/07/2023 10:39 AM EST 73 yo male presents with SOB/wheezy/congestion since this am. Just started med for gout and has been restoring something with lots of dust without a mask. Negative home covid documented in this encounter Plan of Treatment Upcoming Encounters Date Type Department Care Team (Latest Contact Info) Description 11/11/2023 9:20 AM EST Anticoagulation Pharmacy, [address] [place] [address] [facility] [address] [place] [address] 11/17/2023 11:30 AM EST Imaging Radiology [facility] [address] [place] [address] 12/02/2023 11:30 AM EDT Telemedicine Urology Barron Segal [address] [place] [address] [place] [address] Tony Vale MD [address] [place] [address] [place] [address] 7, Telemed [facility] Urology Ex [address] [facility] [place] [address] 12/08/2023 11:00 AM EDT Office Visit Hematology/Oncolog y [facility] [place] [address] [facility] [place] [id number] Yesenia Phillips MD [address] [facility] [place] [address] 01/05/2024 9:00 AM EDT Nurse Only Ancillary [facility] [address] [facility] [place] [address] Im, Nurse Annual Wellness [facility] [address] [facility] [place] [address] 02/17/2024 1:00 PM EDT Hospital Encounter ENDO [facility], Endoscopy Room [facility] [address] [place] [phone] Jay De Souza MD [address] [place] [address] 02/17/2024 1:00 PM EDT - 02/17/2024 1:30 PM EDT Surgery ENDO [facility], Endoscopy Room [facility] [address] [place] [phone] Jay De Souza MD [address] [place] [address] COLONOSCOPY FLEXIBLE PROXIMAL DIAGNOSTIC 04/14/2024 9:40 AM EDT Office Visit General Internal Medicine [facility] [address] [facility] [place] [address] Mike Michel MD [address] [facility] [place] [address] Scheduled Orders Name Type Priority Associated Diagnoses Orde r Schedule XR CHEST 2 VIEWS Medical Imaging STAT Hypoxia Ordered: 11/07/2023 CBC WITH WBC DIFFERENTIAL Lab Routine Hypoxia Expected: 11/07/2023, Expires: 11/07/2024 BNP, NT-PRO Lab Routine Hypoxia Expected: 11/07/2023, Expires: 11/07/2024 BASIC METABOLIC PANEL Lab Routine Hypoxia Expected: 11/07/2023, Expires: 11/07/2024 TROPONIN T, HIGH SENSITIVITY Lab Routine Hypoxia Expected: 11/07/2023, Expires: 11/07/2024 D-DIMER Lab Routine Hypoxia Expected: 11/07/2023, Expires: 11/07/2024 EKG EKG Routine Hypoxia Expected: 11/07/2023, Expires: 12/06/2023 Scheduled Procedures Name Priority Associated Diagnoses Date/Ti [...] this encounter Medical Devices Implanted Type Area Financial Sales Manager Device Identifier Shelf Expiration Date Model / Serial / Lot Screw Canltd [id number] - [id number] Implanted:Qty: 1 on 05/10/2018 by Tirso Fernandes MD at OR [facility] Right: Foot EXACTECH [id number] / / Description:no expiration gi aleyda, part of set Screw [employer] [id number] - [id number] Implanted:Qty: 1 on 05/10/2018 by Tirso Fernandes MD at OR [facility] Right: Foot EX[employer]ECH [id number] / / Description:no expiration gi aleyda, part of set Screw [employer] [id number] - [id number] Implanted:Qty: 1 on 05/10/2018 by Tirso Fernandes MD at OR [facility] Right: Foot EXACTECH [id number] / / Description:no expiration gi aleyda, part of set Cannulated Screw 5.0x44mm Implanted:Qty: 2 on 05/10/2018 by Tirso Fernandes MD at OR [facility] Right: Foot EXACTECH [id number] / / Description:no expiration gi aleyda, part of set Graft Bn Stm Cell 3ml [facility] - [id number] - [id number] Implanted:Qty: 1 on 09/26/2019 by Tirso Fernandes MD at OR [facility] Left: Ankle MUSCULOSKELETAL TRANSPLANT FND 06/04/2021 [id number] / [id number] / [id number] Screw Canltd [id number] - [id number] Implanted:Qty: 1 on 09/26/2019 by Tirso Fernandes MD at OR [facility] Left: Ankle EXACTECH [id number] / / Screw Canltd [id number] - [id number] Implanted:Qty: 2 on 09/26/2019 by Tirso Fernandes MD at OR [facility] Left: Ankle EXACTECH [id number] / / Screw Cannulated 5x44mm - [id number] Implanted:Qty: 1 on 09/26/2019 by Tirso Fernandes MD at OR [facility] Left: Ankle EXACTECH 1312-5288 / / Screw Canltd [id number] - [id number] Implanted:Qty: 1 on 09/26/2019 by Tirso Fernandes MD at OR [facility] Left: Ankle EXACTECH [id number] / / documented as of this encounter Visit Diagnoses Diagnosis Hypoxia- Primary Hypoxemia Wheezing Screen for colon cancer Special screening for malignant neoplasms, colon documented in this encounter Administered Medications Inactive Administered Medications - up to 3 most recent administrations Medication Order MAR Action Action Date Dose Rate Site albuterol-ipratropium (Duoneb) inhalation solution 3 mL 3 mL, Nebulizer, ONCE, On 11/07/23 at 1130, For 1 dose, 3 mL = 0.5 mg ipratropium/ 2.5 mg albuterol Given 11/07/2023 10:56 AM EST 3 mL documented in this encounter Advance Directives Latest [...] deyvi occurred with: Not Discussed Care Teams Pump Erector Helper Relationship Specialty Start Date End Date Mike Michel MD [address] [place] [address] PCP - General Internal Medicine 07/05/21 documented as of this encounter
[2023-11-07] MEDS: METOPROLOL SUCC 25MG EXT REL TAB PO SCH (20:08)
[2023-11-07] MEDS: SIMVASTATIN 20 MG TAB PO SCH (20:08)
[2023-11-07] MEDS ORDERED: Nursing to Pharmacy Communication SCH (20:30)
[2023-11-07] MEDS: TAMSULOSIN HCL 0.4 MG CAP PO SCH ×2 (20:59→21:28)
[2023-11-08 05:42] LABS: Basophils # (auto) 0.02 K/uL (0.00-0.20); Basophils % (auto) 0.3 %; Hematocrit (blood only) 45.8 % (42.0-52.0); Hemoglobin 15.1 g/dl (14.0-18.0); Immature Granulocytes # (auto) 0.04 K/uL (0.01-0.20); Immature Granulocytes % (auto) 0.5 %; Lymphocytes # (auto) 1.09 K/uL (1.20-3.40); Lymphocytes % (auto) 14.6 %; Mean Corpuscular Hemoglobin 29.7 pg (25.0-34.0); Mean Platelet Volume 9.6 fL (9.4-12.4); Monocytes # (auto) 0.65 K/uL (0.11-0.59); Monocytes % (auto) 8.7 %; Neutrophils # (auto) 5.68 K/uL (1.40-6.50); Neutrophils % (auto) 75.9 %; Platelet Count 230 K/uL (130-400); RDW Coefficient of Variation 13.1 % (11.5-14.5); RDW Standard Deviation 42.8 fL (36.4-46.3); Red Blood Count 5.09 M/uL (4.70-6.10); White Blood Count 7.48 K/ul (4.8-10.8)
[2023-11-08 05:55] LABS: Albumin Globulin Ratio 1.2 (0.9-2); BUN Creatinine Ratio 23.8 (10-20); Bilirubin,Total 0.9 mg/dl (0.2-1.0); Calcium 9.5 mg/dl (8.6-10.3); Chol HDL Ratio 2.7 (0-5); Creatinine Clr Calc Pharmacy 96.2 ml/min; Est GFR (African American) 86.3 ml/min; Est GFR (Non-African American) 74.5 ml/min; Globulin 3.3 gm/dl (2.5-4.0); Magnesium 1.9 mg/dl (1.7-2.4); Potassium 4.1 mmol/L (3.5-5.1); Total Protein 7.3 gm/dl (6.0-8.3)
[2023-11-08 06:05] LABS: INR 2.3 (0.9-1.1); Prothrombin Time 23.5 Seconds (9.0-12.0)
[2023-11-08 07:23] LABS: Estimated Average Glucose 123 mg/dl; Hemoglobin A1C 5.9 % (4.5-5.6)
--- NOTE | 2023-11-08 08:03 | XRay Report ---
XR chest 1V portable HISTORY: Congestive heart failure. Shortness of breath. COMPARISON: Chest 11/07/2023. FINDINGS: No pneumothorax. There are low lung volumes. The pulmonary edema has improved/resolved in t he interval. The heart remains enlarged. Trace bilateral pleural effusions and bibasilar linear densi ties persist. This favors subsegmental atelectasis. IMPRESSION: 1. Interval improvement/resolution of the pulmonary edema. 2. Bibasilar linear densities and trace pleural effusions persist. ACT 112: Negative or not required by law. Electronically signed by: Miguelangel Ovalles M.D. 11/08/2023 8:01 AM
[2023-11-08] MEDS: LOSARTAN POTASSIUM 50 MG TAB PO SCH (08:09)
[2023-11-08] MEDS: amLODIPine BESYLATE 5 MG TAB PO SCH (08:10)
--- NOTE | 2023-11-08 12:52 | Cardiology Progress Note ---
Date of Service November 08, 2023 Assessment & Plan (1) Acute heart failure with reduced ejection fraction and diastolic dysfunction: (2) Non-ST elevation (NSTEMI) myocardial infarction: (3) LBBB (left bundle branch block): (4) HLD (hyperlipidemia): (5) HTN (hypertension): (6) Superior mesenteric vein thrombosis: (7) Frequent PVCs: Plan 73-year-old male admitted with new onset heart failure with mildly reduced left ventricular systolic function. Longstanding history of interventricular conduction block/left bundle branch block dating back to 2010. Serum/urine electrophoresis with immunofixation, and serum ferritin level pending. Frequent PVCs may be contributing to diminished LV function. Also, moderate trabeculations involving the left ventricular apex noted on which do not appear to meet criteria for noncompaction. Volume status improved with persistent edema. Discontinue amlodipine. Transition losartan to Entresto. Case management evaluation to assess outpatient cost. Add spironolactone 25 mg daily. Continue Lasix 40 mg IV twice daily. Continue Toprol-XL 25 mg daily. (Added on admission) Hold warfarin. Initiate IV heparin when INR falls below 2.0. Likely proceed with cardiac catheterization when INR below 1.5. Outpatient PYP scan and possible cardiac MRI will be scheduled at time of discharge. I spent a total of 40 minutes on the date of service in preparation, delivery, and documentation of the care provided to this patient, excluding any time spent in the performance of separately billed services. Admission and Anticipated Discharge Date Admission Date: November 07, 2023 Subjective Patient seen and examined at the bedside. Feeling much better with diuretic therapy. Fluid balance -5 L over the past 24 hours. Orthopnea improved. Edema unchanged. Denies chest pain or shortness of breath at rest. Telemetry reveals sinus rhythm in the 60s with frequent PVCs. Patient has questions regarding cost of Entresto. Review of Systems Review of Systems: All systems reviewed & are unremarkable except as noted in Subjective Physical Exam Constitutional: well nourished and + obese; no acute distress Respiratory: no respiratory distress, no labored breathing and no retractions Auscultation: + rales (Bilateral bases); no rhonchi and no wheezes Cardiovascular: Rate/Rhythm: regular rate and regular rhythm Heart Sounds: normal S1 and normal S2; no murmur Vessels: radial pulses present; no JVD and no carotid bruit Extremities: + edema (1+ bilateral pretibial edema) Gastrointestinal (Abdomen): Inspection/Auscultation: abdomen normal to inspection and normal bowel sounds; abdomen not distended Percussion/Palpation: abdomen soft; abdomen nontender, no guarding and abdomen not rigid Neurologic: CN's II-XI intact bilaterally and moves all extremities; no focal motor deficits Psychiatric: A+Ox3, euthymic affect Results & Data Vital Signs (Past 12 Hours) Vital Signs Temp Pulse Resp BP BP Pulse Ox O2 Del Method 11/08/23 11:31 36.8 C 61 18 106/66 95 Nasal Cannula 11/08/23 07:47 36.5 C 68 18 136/88 95 Nasal Cannula 11/08/23 03:35 36.7 C 66 18 133/86 94 Nasal CPAP O2 Flow Rate 11/08/23 11:31 2 11/08/23 07:47 2 11/08/23 03:35 Laboratory Results Cardiac Enzymes 11/07/23 11/07/23 11/07/23 Range/Units 12:49 15:06 20:24 AST 23 (13-39) U/L Troponin I High Sens 789.4 H* 772.1 H* 591.6 H* D (0-20) pg/ml B-Natriuretic Peptide 171 H (0-100) pg/ml 11/08/23 11/08/23 Range/Units 01:10 04:36 AST 15 (13-39) U/L Troponin I High Sens 548.3 H* (0-20) pg/ml B-Natriuretic Peptide (0-100) pg/ml Coagulation 11/07/23 11/08/23 Range/Units 12:49 04:36 PT 26.8 H 23.5 H (9.0-12.0) Seconds APTT 35 H (21-31) Seconds B-Natriuretic Peptide 171 H (0-100) pg/ml Lipids 11/08/23 Range/Units 04:36 Triglycerides 51 (0-150) mg/dl Cholesterol 139 (0-200) mg/dl HDL Cholesterol 52 mg/dl Cholesterol/HDL Ratio 2.7 (0-5) CBC 11/07/23 11/08/23 Range/Units 12:49 04:36 WBC 7.68 7.48 (4.8-10.8) K/ul RBC 5.06 5.09 (4.70-6.10) M/uL Hgb 15.1 15.1 (14.0-18.0) g/dl Hct 46.0 45.8 (42.0-52.0) % Plt Count 233 230 (130-400) K/uL Neut # (Auto) 4.50 5.68 (1.40-6.50) K/uL Lymph # (Auto) 2.16 1.09 L (1.20-3.40) K/uL Giles # (Auto) 0.77 H 0.65 H (0.11-0.59) K/uL Eos # (Auto) 0.15 0.00 (0.00-0.50) K/uL Baso # (Auto) 0.06 0.02 (0.00-0.20) K/uL Comprehensive Metabolic Panel 11/07/23 11/08/23 Range/Units 12:49 04:36 Sodium 142 139 (136-145) mmol/L Potassium 4.3 4.1 (3.5-5.1) mmol/L Chloride 108 H 104 (98-107) mmol/L Carbon Dioxide 27 26 (21-32) mmol/L BUN 20 24 H (6-23) mg/dl Creatinine 1.00 1.01 (0.6-1.4) mg/dl Glucose 108 H 137 H (70-99(Fasting)) mg/dl Calcium 9.5 9.5 (8.6-10.3) mg/dl AST 23 15 (13-39) U/L ALT 10 8 (7-52) U/L Alkaline Phosphatase 61 60 (34-104) U/L Total Protein 7.5 7.3 (6.0-8.3) gm/dl Albumin 4.1 4.0 (3.4-5.0) gm/dl Intake and Output 11/07/23 11/08/23 11/08/23 22:59 06:59 14:59 Intake Total 655 / 655 Output Total 4535 / 4910 375 / 4910 800 / 800 Balance -3880 / -4255 -375 / -4255 -800 / -800 Intake: Oral 655 / 655 Output: Urine 3075 / 3450 375 / 3450 800 / 800 Other 1460 / 1460 Other: # Unmeasured Voids 3 Weight 140.5 kg (4) HLD (hyperlipidemia) Hyperlipidemia type: mixed hyperlipidemia Qualified Code(s): E78.2 - Mixed hyperlipidemia (5) HTN (hypertension) Hypertension type: primary hypertension Qualified Code(s): I10 - Essential (primary) hypertension
[2023-11-08] MEDS: SPIRONOLACTONE 25 MG TAB PO SCH (13:21)
--- NOTE | 2023-11-08 13:30 | Electrocardiogram Report ---
Test Reason : Blood Pressure : / mmHG Vent. Rate : 092 BPM Atrial Rate : 092 BPM P-R Int : 170 ms QRS Dur : 144 ms QT Int : 410 ms P-R-T Axes : 045 055 093 degrees QTc Int : 507 ms Sinus rhythm with frequent Premature ventricular complexes Left bundle branch block Abnormal ECG When compared with ECG of 15-MAY-2022 13:44, No significant change was found Confirmed by Steven Bay ([id number]) on 11/08/2023 1:29:38 PM Referred By: REFERRED SELF Confirmed By:Steven Bay
--- NOTE | 2023-11-08 13:43 | Electrocardiogram Report ---
Test Reason : Blood Pressure : / mmHG Vent. Rate : 060 BPM Atrial Rate : 060 BPM P-R Int : 178 ms QRS Dur : 152 ms QT Int : 504 ms P-R-T Axes : 040 090 -20 degrees QTc Int : 504 ms Sinus rhythm with occasional Premature ventricular complexes Rightward axis Left bundle branch block Abnormal ECG When compared with ECG of 07-NOV-2023 12:42, (unconfirmed) Vent. rate has decreased BY 32 BPM Confirmed by Steven Bay ([id number]) on 11/08/2023 1:43:03 PM Referred By: REFERRED SELF Confirmed By:Steven Bay
--- NOTE | 2023-11-08 13:55 | Hospitalist Progress Note ---
Date of Service November 08, 2023 Assessment & Plan (1) Acute heart failure with reduced ejection fraction and diastolic dysfunction: (2) Non-ST elevation MO (NSTEMI): (3) Hypoxia: (4) LBBB (left bundle branch block): (5) HTN (hypertension): (6) HLD (hyperlipidemia): (7) Superior mesenteric vein thrombosis: (8) DENY (obstructive sleep apnea): (9) Morbid obesity with BMI of 40.0-44.9, adult: Plan 73-year-old male who has significant past medical history of HTN, HLD, pr ediabetes, chronic gout, DENY, 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 He is being managed for the following: Acute Congestive Heart Failure with reduced EF and diastolic dysfunction NSTEMI Acute Hypoxia LBBB Patient presenting with shortness of breath. Admitting CXR with evidence of congestive failure and pulmonary edema. Admitting BNP 171 Echo with EF of 45 to 50%, moderate concentric LVH, borderline diffuse left ventricular hypokinesis, left atrium is severely dilated. A1c 5.9, LDL 77. Cardiology on board, patient on IV diuresis, GDMT being optimized for heart failure. Amlod DC'd. Plan to Change losartan to entresto (CM working on cost assessment). Currently on iv lasix, aldactone, and toprol xl. Reached out to continuous pillowcase cutter for cost assessment for Entresto. Patient reports significant improvement in his shortness of breath and reports feeling better. Repeat CXR with improvement in pulmonary edema. Continue to monitor I's and O's, monitor replete electrolytes, continue telemetry. Wean down oxygen as tolerated. Warfarin on hold. INR 2.3, daily PT/INR, IV heparin once INR sub 2.0. Plan for cardiac cath when INR below 1.5. Will keep n.p.o. midnight until INR results in AM. Hx of mesenteric vein thrombosis hx of chronic R lower lobe PE dx in 2021, initially placed on eliquis but was transitioned to warfarin due to cost hypercoag work up negative, Followed with [facility] hematology INR therapeutic, warfarin on hold, plan to initiate heparin drip once warfarin is below 2.0, possible plan for cardiac cath once INR less than 1.5. HTN: Chronic, stable, cardiac medication being optimized. Follow. HLD: Chronic, stable, continue home simvastatin Prediabetes/morbid obesity: A1c of 5.9, lifestyle modification encouraged. A1c in 3 months with PCP office. Prolonged QTc: Avoid QTc prolonging meds, EKG as needed DENY: CPAP at bedtime DVT prophylaxis: Currently INR therapeutic range, plan to initiate heparin drip once INR below 2.0 Dispo: PCU FULL CODE PCP: Anand Admission and Anticipated Discharge Date Admission Date: November 07, 2023 Subjective Patient was seen and examined at bedside. Patient was sitting up in chair, on 2 L oxygen via nasal cannula, NAD, resting comfortably. Patient denies any chest discomfort, reports significant improvement in his shortness of breath. Patient denies any headache or sore throat or cough or febrile illness or other review of symptoms. He reports eating okay and moving bowels okay. Physical Exam Physical Exam: GENERAL: Alert and oriented x3. NAD, on 2L O2 via NC. obese class III. HEENT: No pallor, no icterus. Pupils equal, round and reactive to light. Oral mucosa moist. NECK: No JVD, no neck masses. HEART: S1 and S2 heard. Regular rate and rhythm. No murmur, no gallop. RESPIRATORY SYSTEM: Normal AP diameter. No accessory muscle use. No wheezing, no crackles. ABDOMEN: Soft, bowel sounds present, nontender, no distention. CENTRAL NERVOUS SYSTEM: No facial droop. Speech is clear. Obeys simple commands. Moves extremities. EXTREMITIES: 1+ ble edema, no erythema seen. Results & Data Results & Data Vital Signs (Past 12 Hours) Vital Signs Temp Pulse Resp BP BP Pulse Ox O2 Del Method 11/08/23 11:31 36.8 C 61 18 106/66 95 Nasal Cannula 11/08/23 07:47 36.5 C 68 18 136/88 95 Nasal Cannula 11/08/23 03:35 36.7 C 66 18 133/86 94 Nasal CPAP O2 Flow Rate 11/08/23 11:31 2 11/08/23 07:47 2 11/08/23 03:35 (5) HTN (hypertension) Hypertension type: primary hypertension Qualified Code(s): I10 - Essential (primary) hypertension (6) HLD (hyperlipidemia) Hyperlipidemia type: mixed hyperlipidemia Qualified Code(s): E78.2 - Mixed hyperlipidemia
[2023-11-09 06:25] LABS: BUN Creatinine Ratio 32.4 (10-20); Calcium 9.6 mg/dl (8.6-10.3); Creatinine Clr Calc Pharmacy 86.9 ml/min; Est GFR (Non-African American) 66.5 ml/min; Magnesium 2.2 mg/dl (1.7-2.4); Phosphorus 3.7 mg/dl (2.5-4.9)
[2023-11-09 06:42] LABS: INR 1.7 (0.9-1.1); Prothrombin Time 17.8 Seconds (9.0-12.0)
[2023-11-09] MEDS ORDERED: Heparin IV Adult Wt-Based Standard w/ INITIAL Bolus Protocol IV SCH (07:20)
[2023-11-09 08:19] LABS: Partial Thromboplastin Ratio 1.1; Partial Thromboplastin Time 30 Seconds (21-31)
[2023-11-09] MEDS: LOSARTAN POTASSIUM 50 MG TAB PO SCH (08:26)
[2023-11-09] MEDS: HEPARIN SODIUM/DEXTROSE 25,000 UNITS/500 ML BAG IV SCH (08:50)
[2023-11-09] MEDS: HEPARIN SOD (PORCINE) 1000 UNIT/ML IV ONE (08:50)
[2023-11-09 08:52] LABS: Basophils # (auto) 0.07 K/uL (0.00-0.20); Basophils % (auto) 0.9 %; Eosinophils # (auto) 0.09 K/uL (0.00-0.50); Eosinophils % (auto) 1.2 %; Hematocrit (blood only) 50.5 % (42.0-52.0); Hemoglobin 16.6 g/dl (14.0-18.0); Immature Granulocytes # (auto) 0.06 K/uL (0.01-0.20); Immature Granulocytes % (auto) 0.8 %; Lymphocytes # (auto) 2.15 K/uL (1.20-3.40); Mean Corpuscular Hemoglobin 29.9 pg (25.0-34.0); Mean Corpuscular Hgb Conc 32.9 g/dL (32.0-36.0); Mean Platelet Volume 9.4 fL (9.4-12.4); Monocytes # (auto) 0.83 K/uL (0.11-0.59); Monocytes % (auto) 11.2 %; Neutrophils # (auto) 4.21 K/uL (1.40-6.50); Neutrophils % (auto) 56.9 %; Platelet Count 233 K/uL (130-400); RDW Coefficient of Variation 13.2 % (11.5-14.5); RDW Standard Deviation 43.9 fL (36.4-46.3); Red Blood Count 5.55 M/uL (4.70-6.10); White Blood Count 7.41 K/ul (4.8-10.8)
--- NOTE | 2023-11-09 13:43 | Electrocardiogram Report ---
Test Reason : Blood Pressure : / mmHG Vent. Rate : 055 BPM Atrial Rate : 055 BPM P-R Int : 184 ms QRS Dur : 144 ms QT Int : 514 ms P-R-T Axes : 043 097 023 degrees QTc Int : 491 ms Sinus bradycardia Rightward axis Left bundle branch block Cannot rule out Anterior infarct , age undetermined Abnormal ECG When compared with ECG of 08-NOV-2023 05:47, Premature ventricular complexes are no longer Present Confirmed by Steven Bay ([id number]) on 11/09/2023 1:43:01 PM Referred By: REFERRED SELF Confirmed By:Steven Bay
--- NOTE | 2023-11-09 13:45 | Electrocardiogram Report ---
Test Reason : Blood Pressure : / mmHG Vent. Rate : 059 BPM Atrial Rate : 059 BPM P-R Int : 182 ms QRS Dur : 150 ms QT Int : 516 ms P-R-T Axes : 050 097 012 degrees QTc Int : 510 ms Sinus bradycardia Rightward axis Left bundle branch block Abnormal ECG When compared with ECG of 09-NOV-2023 05:44, (unconfirmed) No significant change was found Confirmed by Steven Bay ([id number]) on 11/09/2023 1:44:46 PM Referred By: REFERRED SELF Confirmed By:Steven Bay
--- NOTE | 2023-11-09 13:47 | Cardiology Progress Note ---
Date of Service November 09, 2023 Assessment & Plan (1) Acute heart failure with reduced ejection fraction and diastolic dysfunction: (2) Non-ST elevation (NSTEMI) myocardial infarction: (3) LBBB (left bundle branch block): (4) HLD (hyperlipidemia): (5) HTN (hypertension): (6) Superior mesenteric vein thrombosis: (7) Frequent PVCs: Plan 73-year-old male admitted with new onset heart failure with mildly reduced left ventricular systolic function. Longstanding history of interventricular conduction block/left bundle branch block dating back to 2010. Serum/urine electrophoresis with immunofixation pending. Serum ferritin within normal limits. Frequent PVCs may be contributing to diminished LV function. Also, moderate trabeculations involving the left ventricular apex noted on which do not appear to meet criteria for noncompaction. Hold IV Lasix. Amlodipine discontinued 11/08/2023. Patient agreeable to transition from losartan to Entresto. Cost reviewed. Continue spironolactone 25 mg daily. Continue Toprol-XL 25 mg daily. (Added on admission) INR 1.7 today. Continue to hold warfarin in anticipation of cardiac catheterization in a.m. 11/10/2023. Initiate IV heparin infusion. Repeat PT/INR in AM. Outpatient PYP scan and possible cardiac MRI will be scheduled at time of discharge. I spent a total of 40 minutes on the date of service in preparation, delivery, and documentation of the care provided to this patient, excluding any time spent in the performance of separately billed services. Admission and Anticipated Discharge Date Admission Date: November 07, 2023 Subjective Patient seen and examined at the bedside. Feeling better from a cardiovascular perspective. Fluid balance negative additional 1 L. Renal function remains stable, however, creatinine trending upward. No orthopnea or PND. Edema improved. Denies chest discomfort. INR 1.7 today. Review of Systems Review of Systems: All systems reviewed & are unremarkable except as noted in Subjective Physical Exam Constitutional: well nourished and + obese; no acute distress Respiratory: no respiratory distress, no labored breathing and no retractions Auscultation: + rales (Bilateral bases); no rhonchi and no wheezes Cardiovascular: Rate/Rhythm: regular rate and regular rhythm Heart Sounds: normal S1 and normal S2; no murmur Vessels: radial pulses present; no JVD and no carotid bruit Extremities: no edema Gastrointestinal (Abdomen): Inspection/Auscultation: abdomen normal to inspection and normal bowel sounds; abdomen not distended Percussion/Palpation: abdomen soft; abdomen nontender, no guarding and abdomen not rigid Neurologic: CN's II-XI intact bilaterally and moves all extremities; no focal motor deficits Psychiatric: A+Ox3, euthymic affect Results & Data Vital Signs (Past 12 Hours) Vital Signs Temp Pulse Pulse Resp BP BP Pulse Ox 11/09/23 11:01 36.2 C L 55 L 18 121/79 93 11/09/23 09:00 11/09/23 07:19 36.4 C L 60 18 123/82 97 11/09/23 07:00 51 L 11/09/23 02:57 36.3 C L 52 L 18 119/78 97 O2 Del Method O2 Flow Rate 11/09/23 11:01 Room Air 11/09/23 09:00 Nasal Cannula 11/09/23 07:19 Nasal Cannula 2 11/09/23 07:00 11/09/23 02:57 Nasal CPAP Laboratory Results Coagulation 11/09/23 Range/Units 05:34 PT 17.8 H (9.0-12.0) Seconds APTT 30 (21-31) Seconds CBC 11/09/23 Range/Units 08:35 WBC 7.41 (4.8-10.8) K/ul RBC 5.55 (4.70-6.10) M/uL Hgb 16.6 (14.0-18.0) g/dl Hct 50.5 (42.0-52.0) % Plt Count 233 (130-400) K/uL Neut # (Auto) 4.21 (1.40-6.50) K/uL Lymph # (Auto) 2.15 (1.20-3.40) K/uL [place] # (Auto) 0.83 H (0.11-0.59) K/uL Eos # (Auto) 0.09 (0.00-0.50) K/uL Baso # (Auto) 0.07 (0.00-0.20) K/uL Comprehensive Metabolic Panel 11/09/23 Range/Units 05:34 Sodium 139 (136-145) mmol/L Potassium 4.0 (3.5-5.1) mmol/L Chloride 102 (98-107) mmol/L Carbon Dioxide 29 (21-32) mmol/L BUN 36 H (6-23) mg/dl Creatinine 1.11 (0.6-1.4) mg/dl Glucose 103 H (70-99(Fasting)) mg/dl Calcium 9.6 (8.6-10.3) mg/dl Intake and Output 11/08/23 11/09/23 11/09/23 22:59 06:59 14:59 Intake Total 830 / 830 Output Total 950 / 2800 600 / 2800 800 / 800 Balance -950 / -2090 -600 / -2090 Intake: Oral 830 / 830 Output: Urine 950 / 2800 600 / 2800 800 / 800 Other: # Unmeasured Voids 1 Weight 138.8 kg Weight Measurement Method Standing Scale (4) HLD (hyperlipidemia) Hyperlipidemia type: mixed hyperlipidemia Qualified Code(s): E78.2 - Mixed hyperlipidemia (5) HTN (hypertension) Hypertension type: primary hypertension Qualified Code(s): I10 - Essential (primary) hypertension
--- NOTE | 2023-11-09 15:50 | Hospitalist Progress Note ---
Date of Service November 09, 2023 Assessment & Plan (1) Acute heart failure with reduced ejection fraction and diastolic dysfunction: Plan 73-year-old male who has significant past medical history of HTN, HLD, prediabetes, chronic gout, DENY, 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 He is being managed for the following: Acute Congestive Heart Failure with reduced EF and diastolic dysfunction NSTEMI Acute Hypoxia LBBB Patient presenting with shortness of breath. Admitting CXR with evidence of congestive failure and pulmonary edema. Admitting BNP 171 Echo with EF of 45 to 50%, moderate concentric LVH, borderline diffuse left ventricular hypokinesis, left atrium is severely dilated. A1c 5.9, LDL 77. Cardiology on board, patient on IV diuresis, GDMT being optimized for heart failure. Amlod DC'd. Losartan changed to entresto (280 dollars a month, pt aware). Currently on aldactone, and toprol xl. Patient reports significant improvement in his shortness of breath and reports feeling better. Repeat CXR with improvement in pulmonary edema. Continue to monitor I's and O's, monitor replete electrolytes, continue telemetry. Warfarin on hold. INR subtherapeutic today, patient started on heparin drip. Plan for cardiac cath likely tomorrow. Plan for cardiac cath when INR below 1.5. Will keep n.p.o. midnight until INR results in AM. Cardiology follow-up on discharge. Hx of mesenteric vein thrombosis hx of chronic R lower lobe PE dx in 2021, initially placed on eliquis but was transitioned to warfarin due to cost hypercoag work up negative, Followed with [facility] hematology INR sub-therapeutic, warfarin on hold, on heparin drip HTN: Chronic, stable, cardiac medication being optimized. Follow. HLD: Chronic, stable, continue home simvastatin Prediabetes/morbid obesity: A1c of 5.9, lifestyle modification encouraged. A1c in 3 months with PCP office. Prolonged QTc: Avoid QTc prolonging meds, EKG as needed DENY: CPAP at bedtime DVT prophylaxis: Currently INR therapeutic range, plan to initiate heparin drip once INR below 2.0 Dispo: PCU FULL CODE PCP: Anand Admission and Anticipated Discharge Date Admission Date: November 07, 2023 Subjective Patient was seen and examined at bedside. Patient was sitting up in chair, on RA, NAD, resting comfortably. Patient denies any chest discomfort, reports significant improvement in his shortness of breath. Patient denies any headache or sore throat or cough or febrile illness or other review of symptoms. He reports eating okay and moving bowels okay. Cost of entresto reviewed, costs him 279.93 dollars per month. Physical Exam Physical Exam: GENERAL: Alert and oriented x3. NAD, on RA. obese class III. HEENT: No pallor, no icterus. Pupils equal, round and reactive to light. Oral mucosa moist. NECK: No JVD, no neck masses. HEART: S1 and S2 heard. Regular rate and rhythm. No murmur, no gallop. RESPIRATORY SYSTEM: Normal AP diameter. No accessory muscle use. No wheezing, no crackles. ABDOMEN: Soft, bowel sounds present, nontender, no distention. CENTRAL NERVOUS SYSTEM: No facial droop. Speech is clear. Obeys simple commands. Moves extremities. EXTREMITIES: trace ble edema, no erythema seen. Results & Data Results & Data Vital Signs (Past 12 Hours) Vital Signs Temp Pulse Pulse Resp BP BP Pulse Ox 11/09/23 15:04 36.7 C 59 L 16 103/55 L 94 11/09/23 11:01 36.2 C L 55 L 18 121/79 93 11/09/23 09:00 11/09/23 07:19 36.4 C L 60 18 123/82 97 11/09/23 07:00 51 L O2 Del Method O2 Flow Rate 11/09/23 15:04 Room Air 11/09/23 11:01 Room Air 11/09/23 09:00 Nasal Cannula 11/09/23 07:19 Nasal Cannula 2 11/09/23 07:00
[2023-11-09 15:54] LABS: ANTI-Xa, UFH(UnfractionatedHep 0.62 IU/ml (0.3-0.7)
[2023-11-09] MEDS: VALSARTAN/SACUBITRIL 26/24MG TAB PO SCH (21:25)
[2023-11-10 04:38] LABS: BUN Creatinine Ratio 34.6 (10-20); Calcium 9.1 mg/dl (8.6-10.3); Creatinine Clr Calc Pharmacy 90.2 ml/min; Est GFR (African American) 80.5 ml/min; Est GFR (Non-African American) 69.5 ml/min; Potassium 3.6 mmol/L (3.5-5.1)
[2023-11-10 04:52] LABS: ANTI-Xa, UFH(UnfractionatedHep 0.64 IU/ml (0.3-0.7); INR 1.5 (0.9-1.1)
--- NOTE | 2023-11-10 14:36 | Pre Anesthesia Assessment ---
Date of Service November 10, 2023 Pre Sedation Assessment Vital Signs Temp Pulse Pulse Resp BP BP Pulse Ox 11/10/23 11:22 36.9 C 60 18 112/63 94 11/10/23 08:07 36.9 C 65 19 118/76 90 11/10/23 07:45 11/10/23 07:33 56 L 11/10/23 03:12 36.4 C L 56 L 18 113/72 93 11/09/23 22:25 36.4 C L 58 L 18 127/81 94 11/09/23 22:00 62 11/09/23 19:09 36.3 C L 53 L 18 111/71 91 11/09/23 15:04 36.7 C 59 L 16 103/55 L 94 O2 Del Method 11/10/23 11:22 Room Air 11/10/23 08:07 Room Air 11/10/23 07:45 Room Air 11/10/23 07:33 11/10/23 03:12 Nasal CPAP 11/09/23 22:25 Nasal CPAP 11/09/23 22:00 11/09/23 19:09 Room Air 11/09/23 15:04 Room Air Cardiovascular RRR, no murmur, no edema + S1 normal and + S2 normal; no murmur and no rub + femoral pulses present and + radial pulses present; no JVD and no carotid bruit Respiratory no respiratory distress, no labored breathing and no retractions no crackles, no rales, no rhonchi and no wheezes Pre-Sedation Airway Assessment Smoking Status: Never smoker Mallampati Class: III ASA: ASA3 NPO Status Date of Last Intake of Fluids: 11/09/23 Date of Last Intake of Solid Food: 11/09/23 Procedure Planning Contraindications for Sedation: none Current Medications Reviewed: Yes Notes The planned sedation has been discussed with the patient. Informed Consent was obtained. I have identified the patient, determined the appropriateness of sedation and have assessed the patient immediately prior to the procedure. All medicine(s) and interventions are by my order.
[2023-11-10] MEDS: MIDAZOLAM HCL 1 MG/ML 2ML VIAL ONE (15:07)
[2023-11-10] MEDS: fentaNYL citrate PF 100 MCG/2 ML VIAL ONE (15:07)
[2023-11-10] MEDS: HEPARIN (PORCINE) 1000 UNIT/ML 10 ML (CATH LAB USE ONLY) ONE (15:08)
[2023-11-10] MEDS: OPTIRAY 350 ONE (15:08)
--- NOTE | 2023-11-10 15:08 | Post Anesthesia Assessment ---
Date of Service November 10, 2023 Post Sedation Assessment Vital Signs Temp Pulse Pulse Resp BP BP Pulse Ox 11/10/23 14:00 75 11/10/23 11:22 36.9 C 60 18 112/63 94 11/10/23 08:07 36.9 C 65 19 118/76 90 11/10/23 07:45 11/10/23 07:33 56 L 11/10/23 03:12 36.4 C L 56 L 18 113/72 93 11/09/23 22:25 36.4 C L 58 L 18 127/81 94 11/09/23 22:00 62 11/09/23 19:09 36.3 C L 53 L 18 111/71 91 O2 Del Method 11/10/23 14:00 11/10/23 11:22 Room Air 11/10/23 08:07 Room Air 11/10/23 07:45 Room Air 11/10/23 07:33 11/10/23 03:12 Nasal CPAP 11/09/23 22:25 Nasal CPAP 11/09/23 22:00 11/09/23 19:09 Room Air Recovery Score Activity: Moves 4 extremities Respiration: Deep Breath/Cough Circulation: +/-20% PreAnes Value Consciousness: Fully Awake Oxygen Saturation: > 92% On Room Air Discharge Sedation Level of Care: Phase I Post Sedation Plan On clinical assessment, the patient appears to have tolerated the sedation without complications. Patient is recovering as anticipated. Patient will continue to be monitored by nursing and may be discharged when sedation discharge criteria are met per below protocol. Upon Completions of procedure up to 15 minutes continue every 5 minute vital signs and the P.A.R. score; then discharge to a Phase I or Fast Track to Phase II per the following guidelines: * Discharge Patient to appropriate Phase II area if PAR is 8 or greater or return to pre- procedure baseline. The post - procedure orders will be as directed. * If PAR score is less than 8 or not return to pre-procedure baseline then patient will follow Phase I monitoring till PAR is reached for Phase II. The Phase I may be done in procedure room or may call to secure a Phase I area. * If naloxone or flumazenil are used for reversal, hold in Phase I for continued monitoring from when last reversal dose was given for a minimum of 60 minutes or longer pending the nurse and/or physician discretion of patient condition before discharge to Phase II. Please call the Sedation Physician to re-evaluate and complete post-note for discharge to Phase II area. Do NOT discharge from procedure sedation or Phase 1 until post- sedation evaluation note is complete by procedure /sedation MD Sedation Discharge Instructions to be given to the patient at discharge to home.
[2023-11-10] MEDS: NITROGLYCERIN/D5W 100MCG/ML 20ML SYR ONE (15:09)
[2023-11-10] MEDS: niCARdipine HCL INJ 2.5 MG/ML 10 ML AMP ONE (15:09)
--- NOTE | 2023-11-10 15:15 | Cardiac Catheterization ---
Cardiac Cath Procedure Full Procedure Date November 10, 2023 Pre-Procedure Diagnosis Pre-Procedure Diagnosis: Non STEMI, CHF and Cardiomyopathy AUC Score AUC Score: 8 Post-Procedure Diagnosis Post-Procedure Diagnosis: Mild CAD and Normal Intracardiac Pressures Procedure(s) Performed Procedure(s) Performed: Coronary Angiography and Left Heart Cath Orthotist Or Prosthetist Pelon Pérez DO Supervisor Remelt(s) Waldemar RTR Estimated Blood Loss Estimated Blood Loss: 5cc Medication(s) Medication(s): Fentanyl, Heparin, Lidocaine 1%, Nicardipine, Nitroglycerin and Versed Summary of Findings Mild nonobstructive coronary artery disease. Nonischemic cardiomyopathy. Hemodynamics Rest Ao:: 96/65/75 Final Ao: 104/69/71 LV: 96//7 Recommendations Recommendations: Medical Therapy and/or Counseling Specimens Specimens: None Radiation Exposure (mGy) 1973 Contrast (mls) 75 Fluids (cc crystalloids) Fluids (cc crystalloids): 60 Nss Drains Drains: N/A Anesthesia Moderate sedation. Start 1443. End 1502. Sedation monitor: Soham SHAH Procedural Complication(s) None Disposition Instructional Leader Holding/Recovery I attest to the content of the Intraoperative Record and any orders documented therein. Any exceptions are noted below. ACC Data: Instructional Leader Cardiac Status Clinical evaluation leading to the procedure 73-year-old patient admitted with acute decompensated heart failure, NSTEMI, with mild left ventricular systolic dysfunction and left bundle branch block. CAD Presenation: Non STEMI Anginal Classification: CCS III Heart Failure: NYHA Class: CCS III Cardiogenic Shock within 24 Hours: No STEMI OR Non-STEMI Symptom Onset Date: 11/07/23 Symptom Onset Time: 08:00 Thrombolytics: No Coronary Anatomy Dominant: Right Left Main (% Stenosis): Normal LAD (% Stenosis): Proximal (Luminal irregularities, 10%) D1 (% Stenosis): Ostial (20%) D2 (% Stenosis): Normal Circumflex (% Stenosis): Normal OM1 (% Stenosis): Normal RCA (% Stenosis): Proximal (Luminal irregularities, 10%) and Mid (Luminal irregularities, 10%) R PDA (% Stenosis): Normal R PL1 (% Stenosis): Normal R PL2 (% Stenosis): Normal Ramus (% Stenosis): Normal Diagnostic Physicians Name: Pelon Pérez DO Closure Device Percutaneous Entry Location: Radial Closure Device: Radial Band Recommendations: Medical Therapy and/or Counseling Intraprocedure Events Significant Disection: No Perforation: No
--- NOTE | 2023-11-10 15:38 | Discharge Summary ---
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 His outpatient medical records were reviewed. He was seen in convenient care today secondary to shortness of breath that started this morning. He notes that he was helping remove sowmya yesterday and her hour car and did not wear a mask. He also recently started colchicine for a gout flare. His oxygen saturations were 91% at rest and a 3-minute walk test revealed hypoxia with an O2 saturation of 88%. He was also notably tachycardic. He received a DuoNeb without much relief. Because of this he was referred to ED. Patient states he was in his normal state of health until this morning when he woke up feeling acutely short of breath. He states at baseline he is very active and has been working with the [employer] and [employer]. 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 He denies experiencing any chest pain or shortness of breath while doing this. He denies any similar symptoms in the past. He states when he woke up this morning he felt like he was having difficulty breathing and taking a, "deep breath." He has been compliant with his medications. Symptoms were worse with exertion. He denies any lightheadedness, dizziness, diaphoresis, chest pain, palpitations or nausea with the shortness of breath. He denies any worsening lower extremity swelling or abdominal bloating. His appetite has been normal. He chronically does have some mild lower extremity swelling. He states he feels his weight has increased over the last year due to being less active secondary to dealing with chronic back and foot pain. He denies any prior history of CAD. He denies any family history of CAD. He states his brother required an ablation in the past but is unsure for what. He denies any tobacco, alcohol or illicit drug use. Admission Exam Per Admitting Provider Constitutional: WD/WN, morbidly obese, vitals as above, NAD, sitting up in bed, pleasant, conversing easily Head: Normocephalic, Atraumatic Eyes: PERRL, conjunctivae normal, anicteric sclerae ENMT: external ear and nose normal, oropharynx normal Neck: trachea midline, no thyromegaly normal visual inspection Respiratory: normal respiratory effort, on 3L of O2 via NC, lungs clear to auscultation, + bi basilar rhonchi noted no wheeze/rales. Normal insp/exp effort, no accessory muscle use Cardiovascular: RRR with occasional ectopy, no murmur, + L lower ext edema with venous stasis changes Vessels: no JVD or carotid bruit Chest: normal inspection of chest Abdomen: obese abd, normal bowel sounds, soft, nontender, no hepatosplenomegaly Musculoskeletal: no cyanosis or clubbing, extremities motor strength 5/5 Skin: no rashes, warm and dry normal turgor Neurologic: PERRL, EOMI, accommodation nl, no face palsy, no dysarthria CN's II-XI intact bilaterally and moves all extremities Psychiatric: A+Ox3, euthymic affect Lymphatic: no cervical or axillary lymphadenopathy : + 700ml UOP Principal Diagnosis Acute heart failure with reduced ejection fraction and diastolic dysfunction NSTEMI Acute hypoxia LBBB History of mesenteric vein thrombosis History of chronic R lower lobe PE Discharge Exam GENERAL: Alert and oriented x3. NAD, on RA. obese class III. HEENT: No pallor, no icterus. Pupils equal, round and reactive to light. Oral mucosa moist. NECK: No JVD, no neck masses. HEART: S1 and S2 heard. Regular rate and rhythm. No murmur, no gallop. RESPIRATORY SYSTEM: Normal AP diameter. No accessory muscle use. No wheezing, no crackles. ABDOMEN: Soft, bowel sounds present, nontender, no distention. CENTRAL NERVOUS SYSTEM: No facial droop. Speech is clear. Obeys simple commands. Moves extremities. EXTREMITIES: trace ble edema, no erythema seen. Discharge Data Allergies Allergy/AdvReac Type Severity Reaction Status Date / Time THUAN Inhibitors AdvReac Unknown cough Verified 03/25/23 09:28 Consultations 11/07/23 13:52 Consult Cardiology Stat 11/07/23 13:54 ED Decision to Admit Stat Procedures Performed Operation Date: 11/10/23 13:00 Actual Procedures s Cineradiography w/Routine Exam - Pelon Pérez DO p Cath, Left with Cors and Vent - Pelon Pérez DO Ordered Studies 11/10/23 06:48 CL Cath Imgs for PACS use only Routine Hospital Course (1) Acute heart failure with reduced ejection fraction and diastolic dysfunction: Plan 73-year-old male who has significant past medical history of HTN, HLD, p rediabetes, chronic gout, DENY, 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 He was managed for the following: Acute Congestive Heart Failure with reduced EF and diastolic dysfunction NSTEMI Acute Hypoxia LBBB Patient presenting with shortness of breath. Admitting CXR with evidence of congestive failure and pulmonary edema. Admitting BNP 171 Echo with EF of 45 to 50%, moderate concentric LVH, borderline diffuse left ventricular hypokinesis, left atrium is severely dilated. A1c 5.9, LDL 77. S/p Heart Cath 11/10/23 w/ mild nonobstructive CAD. Cardiology on board, d/w cardio GDMT optimized for heart failure. Currently on Aldactone, metoprolol, Entresto and Lasix. Patient to follow-up with cardiology in 1 to 2 weeks time upon discharge. Amlodipine and losartan has been discontinued this admission. Patient continues to feel better and is at his baseline. Patient is hemodynam ically stable and would like to go home today. Patient to continue his prior to arrival warfarin doses from today, patient to follow-up with Coumadin clinic in 2 to 3 days time upon discharge. Hx of mesenteric vein thrombosis hx of chronic R lower lobe PE dx in 2021, initially placed on eliquis but was transitioned to warfarin due to cost hypercoag work up negative, Followed with [facility] hematology Warfarin is started, getting additional dose of Coumadin on top of his daily dose today. Patient to follow-up with Coumadin clinic in 2 to 3 days time upon discharge. HTN: Chronic, stable, cardiac medication being optimized. Follow. HLD: Chronic, stable, continue home simvastatin Prediabetes/morbid obesity: A1c of 5.9, lifestyle modification encouraged. A1c in 3 months with PCP office. Prolonged QTc: Avoid QTc prolonging meds, EKG as needed DENY: CPAP at bedtime DVT prophylaxis: Coumadin. Dispo: PCU FULL CODE PCP: Anand Patient is being discharged to home with following instruction at the point of discharge: Follow-up with your primary care physician within a week time and likely you will need labs CBC/CMP/magnesium/phosphorus. You underwent heart cath which showed mild nonobstructive coronary artery disease. Cardiology evaluated you while in the hospital, your cardiac medications has been optimized. Follow-up with cardiology in 1 to 2 weeks time upon discharge. Follow-up with Coumadin clinic in 2 to 3 days time upon discharge and further recommendation regarding your Coumadin dosing from time. Started prior to arrival Coumadin doses from today evening. Take medications as prescribed. Please make sure that you are able to get your medications today by calling your pharmacy before you leave the hospital so that your treatment continuity is not broken. Home Health Attestation I certify that this patient is under my care and that I, or a physicians pharmaceutical assistant working with me, had a face to-face encounter that meets the home health [id number] encounter requirements with this patient. The encounter with the patient was in whole, or in part, for the following medical condition, which is the primary reason for home health care (list medical condition): I certify that, based on my findings, the following services are medically necessary home health services: My clinical findings support the need for the above services because: Further, I certify that my clinical findings support that this patient is homebound (i.e. absences from home require considerable and taxing effort and are for medical reasons or anabaptism services or infrequently or of short duration when for other reasons) because: Certification for Home Health Services: Based on the above findings, I certify that this patient is confined to the home and needs intermittent halfway care, physical therapy and/or speech therapy or continues to need occupational therapy. The patient is under my care, and I have initiated the establishment of the plan of care. This patient will be followed by a physician who will periodically review the plan of care. Total Time Total Time Spent Total Time Spent (In Minutes): 45 Discharge Plan Discharge Items Reason For Visit: NSTEMI, ACUTE CHF Discharge Diagnosis: Acute heart failure with reduced ejection fraction and diastolic dysfunction NSTEMI Acute hypoxia LBBB History of mesenteric vein thrombosis History of chronic R lower lobe PE Activity: Resume your previous activity Non-emergency contact: Primary Care Provider Call non-emergency contact if: you have any medication questions, your symptoms worsen and your temperature is above 101 Follow-up/Referrals: Mike Michel MD [Primary Care Provider] - Diet: Heart Healthy and Low Sodium (2gm) Addtl Attending Provider Instructions: Follow-up with your primary care physician within a week time and likely you will need labs CBC/CMP/magnesium/phosphorus. You underwent heart cath which showed mild nonobstructive coronary artery disease. Cardiology evaluated you while in the hospital, your cardiac medications has been optimized. Follow-up with cardiology in 1 to 2 weeks time upon discharge. Follow-up with Coumadin clinic in 2 to 3 days time upon discharge and further recommendation regarding your Coumadin dosing from time. Started prior to arrival Coumadin doses from today evening. Take medications as prescribed. Please make sure that you are able to get your medications today by calling your pharmacy before you leave the hospital so that your treatment continuity is not broken. 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 * Use the same scale. * Wear the same amount of clothing. * Write your weight down on your chart. * Call your doctor if you gain more than 2-3 pounds in 1-2 days. MEDICATIONS * Use this discharge instruction sheet for instructions. * Take your medications at the time your doctor ordered. * Do not skip a dose of your medicines. * If you miss a dose of medicine, take as soon as possible, but DO NOT DOUBLE A DOSE. * Read your medicine information when you get home. * Know all of the side effects of your medicine. * Call your doctor's office if you have any side effects. * Be sure all of your doctors know what medicine and herbs you take (including cold, flu, and herbal medicine). * Pain Medicine: If you do not get relief from your pain, please call your doctor for help. Take the following with you to your follow-up doctor appointments: * Weight Chart * Medication List * List of questions Do not drink excessive alcohol, beer or wine. Pending Studies at Discharge: No Stand-Alone Forms: My [facility], Smoking Cessation Medications and DC Order Prescriptions: New metoprolol succinate 25 mg Tablet Extended Release 24 Hr 25 mg PO BID Qty: 60 0RF Entresto 24-26 mg Tablet 1 tab PO BID Qty: 60 0RF spironolactone 25 mg Tablet 25 mg PO QAM Qty: 30 0RF furosemide 20 mg Tablet 20 mg PO QAM Qty: 30 0RF Continued tamsulosin 0.4 mg capsule 0.4 mg PO DAILY simvastatin 20 mg tablet 20 mg PO HS warfarin 5 mg tablet 5 mg PO TUSA@1600 warfarin 5 mg tablet 10 mg PO SUMOWETHFR@1600 Discontinued amlodipine 10 mg tablet 10 mg PO DAILY losartan 100 mg tablet 100 mg PO DAILY Discharge Orders: Discharge Order- CHF (Routine); Ordered 11/10/23 Ordered By: Eun Vanessa Admission Data Admit Date/Time: 11/07/23 13:56 Attending Provider: Eun Vanessa Admit Provider: Tanika Sims Primary Care Provider: Mike Michel Other Providers: Pelon Pérez; Tanika Sims
--- NOTE | 2023-11-10 16:19 | Cardiology Progress Note ---
Date of Service November 10, 2023 Assessment & Plan (1) Acute heart failure with reduced ejection fraction and diastolic dysfunction: (2) Non-ST elevation (NSTEMI) myocardial infarction: (3) LBBB (left bundle branch block): (4) HLD (hyperlipidemia): (5) HTN (hypertension): (6) Superior mesenteric vein thrombosis: (7) Frequent PVCs: Plan 73-year-old male admitted with new onset heart failure with mildly reduced left ventricular systolic function. Longstanding history of interventricular conduction block/left bundle branch block dating back to 2010. Serum/urine electrophoresis with immunofixation pending. Serum ferritin within normal limits. Frequent PVCs may be contributing to diminished LV function. Also, moderate trabeculations involving the left ventricular apex noted on which do not appear to meet criteria for noncompaction. Minimal, nonobstructive coronary disease per cardiac catheterization. LVEDP suggest adequate diuresis. Discontinue IV Lasix. Add Lasix 20 mg daily at discharge. Amlodipine discontinued 11/08/2023. Continue Entresto. Continue spironolactone 25 mg daily. Continue Toprol-XL 25 mg daily. (Added on admission) INR 1.5 today. Patient may resume warfarin today. He will require Lovenox bridging and outpatient coordination with [facility] anticoagulation clinic. Outpatient PYP scan and possible cardiac MRI will be scheduled at follow up visit. No further inpatient cardiac testing or intervention recommended at this time. Postcardiac catheterization activity restrictions listed below and reviewed with the patient and his . Close outpatient cardiology follow-up recommended in 1 week. I spent a total of 40 minutes on the date of service in preparation, delivery, and documentation of the care provided to this patient, excluding any time spent in the performance of separately billed services. ACTIVITY RECOMMENDATIONS: Excess manipulation of the wrist should be avoided for the next 24-48 hours. * No lifting over 2 pounds (approximately a 1/2 gallon of milk) with the utilized arm for 24 hours. * No strenuous activity such as bowling or tennis for 3 days. * Keep the site of the procedure covered with a bandage for 24 hours. *You may shower the day after the procedure. Do not take a tub bath or submerge the puncture site in water for the next 3 days. *Do not operate any motorized equipment for 3 days. SPECIAL CARE INSTRUCTIONS: The site may be slightly bruised and sore following your procedure. Should any of the following occur, contact the Dr. who performed your procedure. 1. Redness/inflammation, swelling, chills, or fever, or colored drainage at procedure site within 3-7 days after your procedure. 2. Coldness, discoloration, ongoing numbness, severe pain, or swelling. Expect mild tingling of hand and tenderness at the puncture site for up to three days. If this persists beyond three days, or other symptoms develop, notify the Dr. who performed your procedure. BLEEDING: If the procedure site on your wrist begins to bleed, do not panic 1. Place 1 or 2 fingers firmly just slightly above the insertion site to stop the bleeding. You may be able to feel your pulse as you hold pressure. 2. Lift your finger after 5 minutes to see if the bleeding has stopped. 3. Once the bleeding has stopped, gently wipe the wrist area clean with a bandage. * If the bleeding from your wrist does not stop after 10 minutes, or if there is a large amount of bleeding or spurting, call 911 (do not drive yourself to the hospital). SKIN IRRITATION: * You may experience some redness and/or swelling in the area where radiation was administered. If any skin irritation occurs, please contact your family physician. Admission and Anticipated Discharge Date Admission Date: November 07, 2023 Subjective Patient seen and examined postcardiac catheterization. No evidence of obstructive coronary disease with LVEDP 6 mmHg (normal filling pressure) suggestive of adequate diuresis. Patient anxious for discharge. present at bedside. Both have questions regarding patient's cardiac condition. Telemetry reveals sinus rhythm with occasional to frequent PVCs. Review of Systems Review of Systems: All systems reviewed & are unremarkable except as noted in Subjective Physical Exam Constitutional: well nourished and + obese; no acute distress ENMT: Mallampati Class: III Respiratory: no respiratory distress, no labored breathing and no retractions Auscultation: no crackles, no rales, no rhonchi and no wheezes Cardiovascular: RRR, no murmur, no edema Rate/Rhythm: regular rate and regular rhythm Heart Sounds: normal S1 and normal S2; no murmur and no cardiac rub Vessels: femoral pulses present and radial pulses present; no JVD and no carotid bruit Extremities: no edema Gastrointestinal (Abdomen): Inspection/Auscultation: abdomen normal to inspection and normal bowel sounds; abdomen not distended Percussion/Palpation: abdomen soft; abdomen nontender, no guarding and abdomen not rigid Neurologic: CN's II-XI intact bilaterally and moves all extremities; no focal motor deficits Psychiatric: A+Ox3, euthymic affect Results & Data Vital Signs (Past 12 Hours) Vital Signs Temp Pulse Pulse Resp BP BP Pulse Ox 11/10/23 16:08 36.4 C L 69 18 121/82 93 11/10/23 15:10 71 16 141/100 H 91 11/10/23 14:00 75 11/10/23 11:22 36.9 C 60 18 112/63 94 11/10/23 08:07 36.9 C 65 19 118/76 90 11/10/23 07:45 11/10/23 07:33 56 L O2 Del Method 11/10/23 16:08 Room Air 11/10/23 15:10 Room Air 11/10/23 14:00 11/10/23 11:22 Room Air 11/10/23 08:07 Room Air 11/10/23 07:45 Room Air 11/10/23 07:33 Laboratory Results Coagulation 11/10/23 Range/Units 04:03 PT 16.0 H (9.0-12.0) Seconds Comprehensive Metabolic Panel 11/10/23 Range/Units 04:03 Sodium 136 (136-145) mmol/L Potassium 3.6 (3.5-5.1) mmol/L Chloride 101 (98-107) mmol/L Carbon Dioxide 27 (21-32) mmol/L BUN 37 H (6-23) mg/dl Creatinine 1.07 (0.6-1.4) mg/dl Glucose 120 H (70-99(Fasting)) mg/dl Calcium 9.1 (8.6-10.3) mg/dl Intake and Output 11/10/23 11/10/23 11/10/23 06:59 14:59 22:59 Intake Total 433.2 / 433.2 Output Total 1974 Balance -275 / -2.0 433.2 / 433.2 Intake: IV 433.2 / 433.2 Heparin Sodium/Dextrose 25,000 433.2 / 433.2 units In 500 ml @ 1,800 UNITS/ HR 36 mls/hr IV .[id number] [facility] Rx #:[id number] Output: Urine 275 / 1975 Other: Weight 139 kg Weight Measurement Method Standing Scale (4) HLD (hyperlipidemia) Hyperlipidemia type: mixed hyperlipidemia Qualified Code(s): E78.2 - Mixed hyperlipidemia (5) HTN (hypertension) Hypertension type: primary hypertension Qualified Code(s): I10 - Essential (primary) hypertension
[2023-11-10] MEDS: WARFARIN SOD 5 MG TAB PO ONE (16:43)
[2023-11-10] MEDS: WARFARIN SOD 5 MG TAB PO SCH (16:44)
[2023-11-10] MEDS: ENOXAPARIN 150 MG/ML SYR SQ ONE (18:11)
[2023-11-11 06:58] LABS: Creatinine Ur 14 mg/dL (20-320); Protein, Urine Random <4 mg/dL (5-25); Ur Protein/Creat Ratio mg/g NOTE mg/g creat (25-148); Urine Abnormal Protein Band 1 DNR mg/dL (NONE DETECTED); Urine Abnormal Protein Band 2 DNR mg/dL (NONE DETECTED); Urine Abnormal Protein Band 3 DNR mg/dL (NONE DETECTED); Urine Protein/Creatinine Ratio NOTE (0.025-0.148)
[2023-11-11] MEDS ORDERED: FUROSEMIDE 20 MG TAB PO SCH (09:00)
[2023-11-11] MEDS ORDERED: ENOXAPARIN 150 MG/ML SYR SQ SCH ×2 (09:00)
[2023-11-11] MEDS ORDERED: WARFARIN SOD 10 MG TAB PO SCH (16:00)
[2023-11-12 07:02] LABS: Alpha 1 Globulin 0.4 g/dL (0.2-0.3); Alpha 2 Globulin 0.9 g/dL (0.5-0.9); Beta-1-Globulin 0.4 g/dL (0.4-0.6); Beta-2-Globulin 0.5 g/dL (0.2-0.5); Gamma Globulin 1.1 g/dL (0.8-1.7); Monoclonal Protein Band 1 0.3 g/dL (NONE DETECTED); Monoclonal Protein Band 2 DNR g/dL (NONE DETECTED); Monoclonal Protein Band 3 DNR g/dL (NONE DETECTED); Total Protein 7.3 g/dL (6.1-8.1)
== END 2023-11-10 19:00 | disposition home or self-care (01) | DRG 280 ==
LOC: ED 12:19 → 4W 13:56 → SUATTDRO 13:56 → 4W 16:06